=== PATIENT | female | born 1940 | race Caucasian/White ===

== ENCOUNTER 2017-03-06 14:51 | Inpatient (IN) | payer OTHER ==
[~2017-03-06] VITALS: Ht 149.9 cm; Wt 59.0 kg
[~2017-03-06 14:51] MED LIST: ALLOPURINOL100 M1 PO; BUFFERIN LOW DO81 MG PO; CATAPRES0.2 MG PO; CILOSTAZOL50 M1 PO; DOXYCYCLINE HY100 M4 PO; FISH OIL 1,0001 EAC1 PO; FISH OIL 1,0001 EACH PO; FISH OIL500 MG PO; FUROSEMIDE20 M1 PO; HYDRALAZINE HCL50 M1 PO; ISOSORBIDE MONO60 M1 PO; LIPITOR20 M2 PO; LOPERAMIDE2 M2 PO; LOSARTAN POTAS100 M1 PO; METOPROLOL SUCC25 M1 PO; METOPROLOL SUCC50 M2 PO; NORVASC 5MG TAB5 MG PO; OMEPRAZOLE40 M1 PO; ONDANSETRON ODT8 M1 PO; TRAMADOL HCL50 M1 PO; TYLENOL WITH C1 EACH PO; VITAMIN D32000 UNIT PO; VITAMIN D3400 UNI1 PO; ZOFRAN4 M2 PO
--- NOTE | 2017-03-06 14:57 | ED NECK/BACK PAIN COMPLAINT ---
History of Present Illness General Chief Complaint: Low Back Pain/Injury Stated Complaint: BIBA BACK PAIN Source: patient, old records, EMS Exam Limitations: no limitations Vital Signs & Intake/Output Vital Signs & Intake/Output Vital Signs Date Time Temp Pulse Resp B/P B/P Pulse O2 O2 Flow FiO2 Mean Ox Delivery Rate 03/07 1417 98.8 80 20 120/77 94 03/07 1147 97.9 62 20 170/58 97 Room Air Room Air 03/07 0918 97.7 61 18 138/68 03/07 0918 97.7 61 18 138/68 03/07 0918 97.7 61 18 138/68 03/07 0918 97.7 61 18 138/68 03/07 0918 97.7 61 18 138/68 03/07 0707 97.7 61 18 138/68 96 Room Air 03/06 2250 70 170/70 03/06 2249 80 170/70 03/06 2239 98.2 70 18 150/60 97 Room Air 03/06 2024 98.7 69 20 170/60 97 Room Air 03/06 1917 98.4 68 20 186/84 95 Room Air 03/06 1717 98.1 71 18 191/84 96 Room Air 03/06 1716 Room Air ED Intake and Output 03/07 0000 03/06 1200 Intake Total 420 Output Total Balance 420 Intake, IV 10 Intake, Oral 410 Number 1 Bowel Movements Patient 130 lb Weight Weight Reported by Patient Measurement Method Allergies Coded Allergies: Sulfa (Sulfonamide Antibiotics) (Severe, HIVES 12/27/15) Reconcile Medications Amlodipine Besylate (Norvasc) 10 MG TABLET 1 TAB PO DAILY htn (Reported) Aspirin (Children's Aspirin) 81 MG TAB.CHEW 1 TAB PO DAILY HEART (Reported) Atorvastatin Calcium (Lipitor) 20 MG TABLET 1 TAB PO AT BEDTIME HIGH CHOLESTROL (Reported) Cholecalciferol (Vitamin D3) (Vitamin D3) 2,000 UNIT CAPSULE 1 CAP PO BID SUPPLEMENT (Reported) Cilostazol 50 MG TAB 1 TAB PO BID CLOTTING (Reported) Clonidine (Catapres) 0.2 MG TABLET 1 TAB PO BID HEART (Reported) Hydralazine HCl 50 MG TABLET 1 TAB PO BID htn (Reported) Isosorbide Mononitrate (Imdur) [address] 1 TAB PO DAILY HEART (Reported) Metoprolol Succinate 50 MG TAB.ER.24H 1 TAB PO DAILY htn (Reported) Almond-3 Fatty Acids/Fish Oil (Fish Oil 1,000 MG Capsule) 340 MG-1,000 MG CAPSULE 2 CAP PO DAILY SUPPLEMENT (Reported) Omeprazole 40 MG CAPSULE. 1 CAP PO DAILY gerd Triage Note: PT MARIAM FROM HOME WITH CHRONIC BACK PAIN. STATES WHEN SHE IS NOT MOVING OR WALKING SHE HAS NO PAIN, BUT WHEN SHE IS MOVING IT IS 10/10 PAIN. DENIES ANY CP/SOB. STATES SHE HAS BEEN HAVING DIARRHEA RECENTLY AND RETAINING WATER WELL. Triage Nurses Notes Reviewed? yes Onset: Gradual Duration: week(s):, intermittent, waxing and waning Timing: recent history Quality/Severity: moderate Location: lumbar spine, paraspinous muscles Radiation: buttocks Method of Injury: unknown Loss of Consciousness: no loss of consciousness Modifying Factors: movement, rest Associated Symptoms: abdominal bloating HPI: 76 year old female with past medical history significant for CAD status post CABG (1999), PVD (status post angioplasty with stent placement), HTN,stage IV chronic kidney disease secondary to hypertensive nephrosclerosis HLD, lumbar disc surgery, uterine cancer, colon cancer, ? cva presents to the emergency room complaining of exacerbation of her chronic left lower back pain has been going on intermittently for the past few weeks however is now brought her to the point where she is unable to ambulate at home secondary to her back pain which intermittently radiates into her left thigh. She denies any recent trauma or fall. Patient is been taking tramadol without improvement. She is also complaining of a several year history of abdominal bloating and diarrhea for which she said her primary care physician wants to get a CAT scan however she is unable to [facility] to get there. She denies any nausea vomiting walk or bloody stools. No urinary urgency frequency dysuria. she denies any pain at this time (Jen JORDAN,Marcelo) Past History Travel History Traveled to [place] past 21 day No Medical History Any Pertinent Medical History? see below for history Neurological: CVA (? L CVA w/o residual) EENT: NONE Cardiovascular: CAD, hypertension, hyperlipidemia, PVD, CABG 1999/PAD with LE stent Respiratory: NONE Gastrointestinal: n & v x 1 month [employer] BR[employer] 11/27/1989: remote sigmoid resection for Lange B2 colon Ca, w/o adjuvant tx Hepatic: NONE Renal: chronic kidney disease (stage IV) Musculoskeletal: chronic back pain, degen joint disease, falls, gout Psychiatric: NONE Endocrine: thyroid disease Blood Disorders: anemia Cancer(s): basal cell carcinoma, colon/rectal cancer, endometrial cancer MILITARY PAY CLERK/Reproductive: NONE History of MRSA: No History of VRE: No History of CDIFF: No Surgical History Surgical History: hysterectomy (TAHBSO for uterine Ca, f/b RT ), PARTIAL COLECTOMY (SIGMOID) 11/1989 DUE TO CANCER OF COLON Psychosocial History Who do you live with Patient/Self Services at Home None What is your primary language Faroese Tobacco Use: Never used Family History Family History, If Any: MOTHER (Unknown - pt adolted). FATHER (unknown - pt adopted). Hx Contributory? No (Marcelo Mcmahon) Review of Systems Review of Systems Constitutional: Reports: see HPI. Comments Review of systems: See HPI, All other systems negative. Constitutional, no chills no fever, no malaise HEENT: no sore throat no congestion Cardiovascular: No chest pain Skin: no rashes, no change in skin Respiratory: No dyspnea no cough no sputum GI: No nausea no vomiting, CHRONIC diarrhea : No dysuria No hematuria, no frequency Muscle skeletal: back pain, no neck pain, Neurologic: , no headache Psych: No stress Heme/endocrine: No bruising Immunology: No lymphadenopathy (Marcelo Mcmahon) Physical Exam Physical Exam General Appearance: well developed/nourished, alert, awake Neck: supple Comments: Well-developed well-nourished person in no acute distress HEENT: Normal EENT exam; PERRL, EOMI, no nystagmus. HEAD is atraumatic. moist mucous membranes. Neck: Supple, normal range of motion without pain or tenderness Back: Nontender, midline well healed incision without overlying erythema induration or tenderness, no CVA tenderness. Full range of motion Cardiovascular: Regular rate and rhythms no murmurs rubs Respiratory: No respiratory distress. Patient speaking in full complete sentences. Breath sounds clear to auscultation bilaterally: NO W/R/R Abdomen: Soft, nontender distended, no appreciable organomegaly. Normal bowel sounds. No rebound/guarding, (+) ascites. Extremity: No edema, neg slr b/l, full range of motion of extremities, normal and equal pulses bilaterally, 5 out of 5 strength noted to bilateral upper and lower extremities Neuro: Alert oriented x3, motor sensory normal, There were no obvious focal neurologic abnormalities. Skin: No appreciable rash on exposed skin, skin is warm and dry. no jaundice Psych: Mood and affect is normal, memory and judgment is normal. Core Measures CVA/TIA Diagnosis: No (Jen JORDAN,Marcelo) Progress Differential Diagnosis: cauda equina syn, herniated disc, myofascial strain, pyelo/UTI, sciatica, spinal cord inj, T/L spine injury, ureterolithiasis, malignancy, ascites, sbp Plan of Care: Orders Procedure Date/time Status Heart Healthy Diet 03/07 B Active Change service to 03/07 1455 Active CULTURE,BODY FLUID 03/07 1000 Active CYTOLOGY SPECIMEN 03/07 1000 Active BODY FLUID TOTAL PROTEIN 03/07 1000 Complete BODY FLUID LDH 03/07 1000 Complete BODY FLUID CELL COUNT 03/07 1000 Complete BODY FLUID GLUCOSE 03/07 1000 Complete BODY FLUID AMYLASE 03/07 1000 Complete BODY FLUID ALBUMIN 03/07 1000 Complete TOTAL PROTEIN 03/07 0815 Complete LDH (LACT ACID DEHYDROGENASE) 03/07 0815 Complete ALBUMIN 03/07 0815 Complete CBC WITHOUT DIFFERENTIAL 03/07 0600 Complete BASIC ELECTROLYTES PLUS BUN&CR 03/07 0600 Complete PT EVAL LOW COMPLEX 20 MIN 03/07 UNK Complete Gait Training 03/07 UNK Complete Lab Add-on Test 03/07 UNK Active Vital Signs 03/06 2020 Active Teach/Educate 03/06 2019 Active Pain Treatment and Response 03/06 2019 Active Nutritional Intake, Monitor 03/06 2019 Active Isolation 03/06 2020 Active Intake & Output 03/06 2019 Active Patient Care Conference 03/06 2020 Active Activity/Ambulation 03/06 2020 Active PT Evaluate & Treat 03/06 180 Active Saline Lock 03/06 180 Active Pathway - chart 03/06 1807 Active House Staff 03/06 1807 Active Lab Add-on Test 03/06 1807 Active Code Status 03/06 1807 Active Patient Data 03/06 1728 Active Add-on Test (ER Only) 03/06 1708 Active ED Holding Orders 03/06 1706 Active Admit to inpatient 03/06 1706 Active Vital Signs 03/06 1706 Active Code Status 03/06 1706 Complete TROPONIN LEVEL 03/06 1540 Complete PARTIAL THROMBOPLASTIN TIME 03/06 1540 Complete PROTHROMBIN TIME 03/06 1540 Complete PHOSPHORUS 03/06 1540 Complete MAGNESIUM 03/06 1540 Complete GAMMA GLUTAMYL TRANSFERASE 03/06 1540 Complete Lab Add-on Test 03/06 UNK Active VTE Mechanical Prophylaxis 03/06 UNK Active Vital Signs 03/06 UNK Complete Precautions 03/06 UNK Active Nursing Misc 03/06 UNK Active Intake & Output 03/06 UNK Active MISSING MEDICATION FORM 03/06 UNK Active Current Medications Sig/Jose Start time Last Medication Dose Stop Time Status Admin Prednisone 10 MG DAILY 03/07 1523 AC Amlodipine Besylate 10 MG DAILY 03/07 1000 AC 03/07 (Norvasc) 0918 Isosorbide 60 MG DAILY 03/07 1000 AC 03/07 Mononitrate 0918 (Imdur) Metoprolol Succinate 50 MG DAILY 03/07 1000 AC 03/07 (Toprol Xl) 0918 Atorvastatin Calcium 20 MG AT BEDTIME 03/06 2200 AC 03/06 (Lipitor) 2250 Cilostazol 50 MG BID 03/06 2200 AC 03/07 (Pletal) 0300 Clonidine 0.2 MG BID 03/06 2200 AC 03/07 (Catapres) 0918 Hydralazine HCl 50 MG BID 03/06 2200 AC 03/07 (Apresoline) 0918 Melatonin 5 MG ONCE ONE 03/06 2045 CAN (Melatonin) 03/06 204 Acetaminophen 500 MG Q6P PRN 03/06 1815 AC (Tylenol) Lidocaine 1 PAT DAILY 03/06 1815 AC (Lidoderm) Hydrocodone Bitart/ 1 TAB Q8P PRN 03/06 1800 AC Acetaminophen (Vicodin) Oxycodone/ 1 TAB Q8P PRN 03/06 1800 AC Acetaminophen (Percocet) Laboratory Tests 03/07/17 1000: Fluid WBC 72 H, Fld Mesothelial Cells 63, Fld Total RBCs Counted 128 H 03/07/17 1000: Lymphocytes 14, % Normal PMNs 23, Fluid Glucose 102, Fluid Total Protein < 2.0, Fluid Albumin < 1.0, Fluid LDH 173, Fluid Amylase < 30 03/07/17 0815: Anion Gap 9, Estimated GFR 44 L, BUN/Creatinine Ratio 30.8 H, Lactate Dehydrogenase 509, Total Protein 4.5 L, Albumin 2.4 L, CBC w Diff NO MAN DIFF REQ, RBC 2.66 L, MCV 91.0, MCH 30.8, MCHC 33.8, RDW 14.9 H, MPV 7.8, Gran % 87.2 H, Lymphocytes % 7.4 L, Monocytes % 5.3, Eosinophils % 0.1, Basophils % 0 , Absolute Granulocytes 9.5 H, Absolute Lymphocytes 0.8 L, Absolute Monocytes 0.6, Absolute Eosinophils 0, Absolute Basophils 0 Microbiology 03/07 UNK BODY FLUID: Body Fluid Culture - RES 03/07 UNK BODY FLUID: Gram Stain - RES labs ordered, ct ordered-PT IS DECLINING ANYTHING FOR pain, case d/w dr mejía agrees with plan i d/w the pt all of her labs, pt is aware of her elevated kidney function,.l id/ w however her ct findings and need for workup. pt denies abd pain, fever, chills. case d/wdr bullock will admit Diagnostic Imaging: Viewed by Me: CT Scan. Discussed w/RAD: CT Scan. Radiology Impression: PATIENT: SWAPNIL LARIOS PRESENT AGE: 76 PATIENT ACCOUNT NO: [id number] : 40 LOCATION: [facility] ORDERING PHYSICIAN: Marcelo JORDAN SERVICE DATE: 03/06/17 EXAM TYPE: CAT - CT ABD & PELVIS W/O IV CONTRAS EXAMINATION: CT ABDOMEN AND PELVIS WITHOUT CONTRAST CLINICAL INFORMATION: Ascites. Lower back pain. Swelling. COMPARISON: Ultrasound abdomen 02/23/2017. CT abdomen and pelvis 11/04/2015. TECHNIQUE: Multidetector volumetric imaging was performed from the superior aspect of the liver through the pubic symphysis. Sagittal and coronal reformatted images were obtained on the technologist's workstation. DLP: 386.18 mGy-cm FINDINGS: LUNG BASES: Small volume left pleural effusion. Linear atelectasis at the left lung base. Status post median sternotomy. Vascular calcification of the coronary arteries and thoracic aorta. LIVER, GALLBLADDER, AND BILIARY TREE: Large area of low attenuation consistent with a hepatic mass involving much of the midline right liver. Mass extends from the javon hepatis to the dome measuring about 8.2 x 7.6 x 8 cm. This causes lobular bulging of the margin of the liver. On the CT scan of 11/04/2015, there was a hypodense lesion at the dome of the liver measuring 2.2 cm. There is no intrahepatic bile duct dilatation. The gallbladder is unremarkable with no evidence of radiopaque gallstones, gallbladder wall thickening, or obvious pericholecystic inflammatory changes. PANCREAS: Pancreas is atrophic. No pancreatic duct dilatation or mass. SPLEEN: Unremarkable. ADRENAL GLANDS: Unremarkable. KIDNEYS AND URETERS: Bilateral renal cysts. There is a hyperdense cyst in the cortex of the upper pole right kidney measuring 1.8 cm. Hyperdense cyst in the mid pole of the left kidney measuring 3.8 cm. BLADDER : Small collection of air in the bladder. No Lopez catheter seen. Correlate with history of bladder instrumentation. No bladder wall thickening. GASTROINTESTINAL TRACT: Surgical line of sutures at the proximal sigmoid colon from prior partial colectomy. No acute change of the bowel. No bowel obstruction. No bowel wall dilatation. There is a large collection of stool throughout the colon from cecum through pelvis. The appendix is not seen. MESENTERY: There is a large volume of abdominal ascites. Surgical clips in the mesentery adjacent to the descending colon left side of abdomen. ABDOMINAL WALL: There is a midline ventral hernia at the upper abdomen just below the diaphragm at the midline. The defect in the anterior abdominal wall measures 4.7 x 5.7 cm. There is a large pocket of abdominal ascites at this hernia site extending into the subcutaneous tissue. The herniated pocket measures 7.9 x 3.0 x 9.4 cm and bulges the anterior skin line at the upper anterior abdomen. There is generalized anasarca. LYMPH NODES: Normal. VASCULAR: Extensive atherosclerotic vascular wall calcifications throughout the abdomen and pelvis. No aneurysm of the aorta. PELVIC VISCERA: Uterus is absent. No adnexal abnormality. OSSEOUS STRUCTURES: Degenerative spondylosis of the spine with multilevel endplate spurring of the thoracic vertebrae. Degenerative spondylosis of the facet joints at the lower lumbar spine. Status post left-sided laminectomy L4 vertebra. Status post median sternotomy. No acute osseous abnormality. No focal bone lesion. IMPRESSION: 1. Large volume of abdominal ascites. Generalized anasarca. Small left pleural effusion. 2. Suspicious large lesion in the liver. This can be further characterized with dynamic MRI. 3. Degenerative changes of the spine. Status post left-sided laminectomy L4 vertebra. DICTATED BY: Stoney Valerio MD DATE/TIME DICTATED:03/06/171530 BEEF SPLITTER:EDILBERTO DATE/TIME TRANSCRIBED:1530 CONFIDENTIAL, DO NOT COPY WITHOUT APPROPRIATE AUTHORIZATION. < Electronically signed in Other Vendor System> SIGNED BY: Stoney Valerio MD [id number] Initial ED EKG: nsr at 70, nonspecific st seg changes, normal axis Prior EKG: unchanged (12/2015) (Marcelo Mcmahon) Departure Departure Time of Disposition: 1740 Disposition: STILL A PATIENT Condition: Stable Clinical Impression Primary Impression: Ascites Secondary Impressions: Gait instability, Intractable back pain, Liver lesion Referrals: Darvin NAGEL,Charly Thomson (PCP/Family) Departure Forms: Customer Survey General Discharge Information Admission Note Spoke With: Mack Bullock MD Documentation of Exam: Documentation of any treatments & extenuating circumstances including Concerns Regarding Discharge (functional status, medication knowledge or non-compliance, living conditions, etc.) that warrant an admission rather than observation: [ gi and oncology consult, iv pain control, trend labs, swapnil will require paracentesis, pt consult, case management consult as she is unable to care for self currently at home alone (Marcelo Mcmahon) PA/CLERK OF WORKS Co-Sign Statement Statement: ED Attending supervision documentation- [x] I saw and evaluated the patient. I have also reviewed all the pertinent lab results and diagnostic results. I agree with the findings and the plan of care as documented in the PA's/CLERK OF WORKS's documentation. [] I have reviewed the ED Record and agree with the PA's/CLERK OF WORKS's documentation. [] Additions or exceptions (if any) to the PAs/CLERK OF WORKS's note and plan are summarized below: [] (Larry Mejía DO
[2017-03-06 15:52] LABS: ABSOLUTE BASOPHIL COUNT 0 /CUMM (0.0-0.2); ABSOLUTE EOSINOPHIL COUNT 0 /CUMM (0.0-0.7); ABSOLUTE GRANULOCYTE CT 11.6 /CUMM (1.4-6.5); ABSOLUTE LYMPH COUNT 0.3 /CUMM (1.2-3.4); ABSOLUTE MONOCYTE COUNT 0.1 /CUMM (0.10-0.60); BASOPHIL % 0 % (0.0-2.0); EOSINOPHIL % 0.1 % (0-5); HEMATOCRIT 32.2 % (37-47); MEAN CORPUSCULAR HGB CONC 33.6 G/DL (33.0-37.0); MEAN CORPUSCULAR VOLUME 92.2 FL (81.0-99.0); MEAN PLATELET VOLUME 7.2 FL (7.4-10.4); PLATELET COUNT 309 /CUMM (130-400); RBC DISTRIBUTION WIDTH 14.9 % (11.5-14.5)
[2017-03-06 15:53] LABS: GRANULOCYTE % 96.7 % (42.2-75.2)
--- NOTE | 2017-03-06 16:14 | CT SCAN REPORT ---
EXAMINATION: CT ABDOMEN AND PELVIS WITHOUT CONTRAST CLINICAL INFORMATION: Ascites. Lower back pain. Swelling. COMPARISON: Ultrasound abdomen 02/23/2017. CT abdomen and pelvis 11/04/2015. TECHNIQUE: Multidetector volumetric imaging was performed from the superior aspect of the liver through the pubic symphysis. Sagittal and coronal reformatted images were obtained on the technologist's workstation. DLP: 386.18 mGy-cm FINDINGS: LUNG BASES: Small volume left pleural effusion. Linear atelectasis at the left lung base. Status post median sternotomy. Vascular calcification of the coronary arteries and thoracic aorta. LIVER, GALLBLADDER, AND BILIARY TREE: Large area of low attenuation consistent with a hepatic mass involving much of the midline right liver. Mass extends from the javon hepatis to the dome measuring about 8.2 x 7.6 x 8 cm. This causes lobular bulging of the margin of the liver. On the CT scan of 11/04/2015, there was a hypodense lesion at the dome of the liver measuring 2.2 cm. There is no intrahepatic bile duct dilatation. The gallbladder is unremarkable with no evidence of radiopaque gallstones, gallbladder wall thickening, or obvious pericholecystic inflammatory changes. PANCREAS: Pancreas is atrophic. No pancreatic duct dilatation or mass. SPLEEN: Unremarkable. ADRENAL GLANDS: Unremarkable. KIDNEYS AND URETERS: Bilateral renal cysts. There is a hyperdense cyst in the cortex of the upper pole right kidney measuring 1.8 cm. Hyperdense cyst in the mid pole of the left kidney measuring 3.8 cm. BLADDER: Small collection of air in the bladder. No Lopez catheter seen. Correlate with history of bladder instrumentation. No bladder wall thickening. GASTROINTESTINAL TRACT: Surgical line of sutures at the proximal sigmoid colon from prior partial colectomy. No acute change of the bowel. No bowel obstruction. No bowel wall dilatation. There is a large collection of stool throughout the colon from cecum through pelvis. The appendix is not seen. MESENTERY: There is a large volume of abdominal ascites. Surgical clips in the mesentery adjacent to the descending colon left side of abdomen. ABDOMINAL WALL: There is a midline ventral hernia at the upper abdomen just below the diaphragm at the midline. The defect in the anterior abdominal wall measures 4.7 x 5.7 cm. There is a large pocket of abdominal ascites at this hernia site extending into the subcutaneous tissue. The herniated pocket measures 7.9 x 3.0 x 9.4 cm and bulges the anterior skin line at the upper anterior abdomen. There is generalized anasarca. LYMPH NODES: Normal. VASCULAR: Extensive atherosclerotic vascular wall calcifications throughout the abdomen and pelvis. No aneurysm of the aorta. PELVIC VISCERA: Uterus is absent. No adnexal abnormality. OSSEOUS STRUCTURES: Degenerative spondylosis of the spine with multilevel endplate spurring of the thoracic vertebrae. Degenerative spondylosis of the facet joints at the lower lumbar spine. Status post left-sided laminectomy L4 vertebra. Status post median sternotomy. No acute osseous abnormality. No focal bone lesion. IMPRESSION: 1. Large volume of abdominal ascites. Generalized anasarca. Small left pleural effusion. 2. Suspicious large lesion in the liver. This can be further characterized with dynamic MRI. 3. Degenerative changes of the spine. Status post left-sided laminectomy L4 vertebra.
[2017-03-06 18:51] LABS: PT 10.1 SEC (9.4-12.5); PTT 29 SEC (25-37)
[2017-03-06] MEDS ORDERED: NORVASC10 M1 PO (19:19)
[2017-03-06] MEDS ORDERED: METOPROLOL SUCC50 M2 PO (19:20)
--- NOTE | 2017-03-06 19:20 | History & Physical ---
Edilma NAGEL,Lakisha 03/06/171918: General Information and HPI MD Statement: I have seen and personally examined SWAPNIL LARIOS and documented this H&P. The patient is a 76 year old F who presented with a patient stated chief complaint of [back pain, lower extremity weakness]. Source of Information: patient, old records History of Present Illness: 76-year-old female with past medical history of CAD status post CABG (1999), PVD (status post angioplasty with stent placement), HTN,stage IV chronic kidney disease secondary to hypertensive nephrosclerosis HLD, lumbar disc surgery, uterine cancer, colon cancer, ? cva admitted with chief complaint of back pain for 2 weeks which is associated with lower extremity weakness and frequent falls. She describes the pain as dull aching and radiating down her lower extremities especially on the left side. Of note the patient has history of back injury in due to falling down and she has history of lumbar laminectomy. She also reports history of diarrhea for 2 months of associated with fecal incontinence. Patient reports walking independently before the beginning of the pain, and she lives home alone and was able to perform HER activities of daily living on her own. Patient denies any back injury, numbness, tingling, fever, chills Nonsmoker, she quit smoking 40 years ago, denies alcohol or recreational drug use Allergies/Medications Allergies: Coded Allergies: Sulfa (Sulfonamide Antibiotics) (Severe, HIVES 12/27/15) Past History Travel History Traveled to [place] past 21 day No Medical History Neurological: CVA (? L CVA w/o residual) EENT: NONE Cardiovascular: CAD, hypertension, hyperlipidemia, PVD, CABG 1999/PAD with LE stent Respiratory: NONE Gastrointestinal: n & v x 1 month GAMING HOST 11/27/1989: remote sigmoid resection for Lange B2 colon Ca, w/o adjuvant tx Hepatic: NONE Renal: chronic kidney disease (stage IV) Musculoskeletal: chronic back pain, degen joint disease, falls, gout Psychiatric: NONE Endocrine: thyroid disease Blood Disorders: anemia Cancer(s): basal cell carcinoma, colon/rectal cancer, endometrial cancer BUSINESS INTELLIGENCE DIRECTOR/Reproductive: NONE History of MRSA: No History of VRE: No History of CDIFF: No Surgical History Surgical History: hysterectomy (TAHBSO for uterine Ca, f/b RT ), PARTIAL COLECTOMY (SIGMOID) 11/1989 DUE TO CANCER OF COLON Past Family/Social History Family History Relations & Conditions if any MOTHER (Unknown - pt adolted). FATHER (unknown - pt adopted). Psychosocial History Who Do You Live With? self Services at Home: None Primary Language: Uzbek Living Will? yes Power of Driver Helper/HCP? yes Name of POA/HCP: Nancie Luong- friend/POA Functional Ability ADLs Independent: dressing, eating, toileting, bathing. Ambulation: cane IADLs Independent: shopping, housework, finances, food prep, telephone, transportation , medication admin. Review of Systems Review of Systems Constitutional: Reports: malaise, weakness. Denies: chills, diaphoresis. Cardiovascular: Denies: no symptoms. Respiratory: Denies: no symptoms. GI: Reports: bloating, diarrhea. Genitourinary: Denies: no symptoms. Musculoskeletal: Reports: back pain, muscle pain. Skin: Denies: no symptoms. Neurological/Psychological: Denies: no symptoms. Hematologic/Endocrine: Denies: no symptoms. Exam & Diagnostic Data Last 24 Hrs of Vital Signs/I&O Vital Signs Date Time Temp Pulse Resp B/P B/P Pulse O2 O2 Flow FiO2 Mean Ox Delivery Rate 03/06 2023 98.7 69 20 170/60 97 Room Air 03/06 1916 98.4 68 20 186/84 95 Room Air 03/06 171 98.1 71 18 191/84 96 Room Air 03/06 1716 Room Air 03/06 1455 98.1 80 18 190/86 98 Room Air Physical Exam General Appearance Alert, Oriented X3, Cooperative, No Acute Distress HEENT Atraumatic, PERRLA, EOMI, Mucous Membr. moist/pink Neck Supple, No JVD Cardiovascular Normal S1, Normal S2, ejection systolic murmur on aortic area Lungs Clear to Auscultation Abdomen Normal Bowel Sounds, Soft, distended, nontender, liver is palpable, irregular and firm Neurological Normal Speech, strenghth is 3/5 in the LLE Extremities RLE 2 + pitting edema Vascular Normal Pulses Assessment/Plan Assessment: 76-year-old female with past medical history of CAD status post CABG (1999), PVD (status post angioplasty with stent placement), HTN,stage IV chronic kidney disease secondary to hypertensive nephrosclerosis HLD, lumbar disc surgery, uterine cancer, colon cancer, ? cva admitted with chief complaint of back pain for 2 weeks which is associated with lower extremity weakness and frequent falls. Vital signs on admission were insignificant except for blood pressure 190/86 Labs on admission: Significant for WBC 12, hemoglobin 10, creatinine 1.3, glucose 132, CT abdomen: Small left pleural effusion, large lesion in the liver, degeneration of the spine especially left-sided laminectomy L4 vertebra #Back pain: Most likely is due to degenerative joint disease versus metastasis, senses the patient has history of fecal incontinence and she has a history of colon cancer and uterine cancer however CT didn't show any signs of bone metastasis Pain management with when necessary Vicodin, Percocet, Tylenol PT evaluation Obtain neurosurgical evaluation #? RLE DVT: Right lower extremity is more swollen than the left, Follow up on Doppler ultrasound to rule out DVT #Ascitis/liver mass Most likely malignant ascites, liver mass was visualized in the previous CT, need to contact radiology for comparison of the size Ultrasound-guided paracentesis Follow-up on ascitic fluid tap pathology, glucose, LDH, pH Follow up on culture and sensitivity, Patient is likely will require MRI to identify the liver mass #Chronic medical conditions including hypertension,, CAD, hyperlipidemia Continue home meds Patient is full code DVT prophylaxis with subcutaneous heparin Heart healthy diet As Ranked By This Provider Problem List: 1. Intractable back pain 2. Liver lesion 3. Ascites Core Measures/Misc (10/23) Acute Coronary Syndrome ACS Diagnosis: No Congestive Heart Failure Congestive Heart Failure Diagnosis No Cerebrovascular Accident CVA/TIA Diagnosis: No VTE (View Protocol) VTE Risk Factors Age>40 No Mechanical VTE Prophylaxis d/t N/A MechProphylax Ordered No VTE Pharm Prophylaxis d/t NA PharmProphylax ordered Sepsis (View protocol) Sepsis Present: No ColtonSaJacoby 03/06/171946: General Information and HPI Allergies/Medications Home Med list Amlodipine Besylate (Norvasc) 10 MG TABLET 1 TAB PO DAILY htn (Reported) Aspirin (Children's Aspirin) 81 MG TAB.CHEW 1 TAB PO DAILY HEART (Reported) Atorvastatin Calcium (Lipitor) 20 MG TABLET 1 TAB PO AT BEDTIME HIGH CHOLESTROL (Reported) Cholecalciferol (Vitamin D3) (Vitamin D3) 2,000 UNIT CAPSULE 1 CAP PO BID SUPPLEMENT (Reported) Cilostazol 50 MG TAB 1 TAB PO BID CLOTTING (Reported) Clonidine (Catapres) 0.2 MG TABLET 1 TAB PO BID HEART (Reported) Hydralazine HCl 50 MG TABLET 1 TAB PO BID htn (Reported) Isosorbide Mononitrate (Imdur) [address] 1 TAB PO DAILY HEART (Reported) Metoprolol Succinate 50 MG TAB.ER.24H 1 TAB PO DAILY htn (Reported) Lisman-3 Fatty Acids/Fish Oil (Fish Oil 1,000 MG Capsule) 340 MG-1,000 MG CAPSULE 2 CAP PO DAILY SUPPLEMENT (Reported) Omeprazole 40 MG CAPSULE.DR 1 CAP PO DAILY gerd Resident Review Statement Resident Statement: examined this patient, discussed with dental internship, agreed with dental internship, discussed with family, reviewed EMR data (avail), discussed with nursing , discussed with case mgmt, reviewed images, amended to note Other Findings: This is 76-year-old female with medical history of CAD status post CABG (1999), PVD (status post angioplasty with stent placement), HTN, stage IV chronic kidney disease secondary to hypertensive nephrosclerosis, HLD, lumbar disc surgery, uterine cancer, colon cancer, CVA. Presented to the emergency department with a chief complain off back pain. She stated that the back pain started 2 weeks ago and it is associated with lower extremity weakness and frequent falls. She describes the pain as dull aching and radiating down her lower extremities especially on the left side. patient has history of back injury in due to falling down and she has history of lumbar laminectomy. the P.t stated that since last summer she started to noted her ABD size increased and that she wanted abdomen change. Also she report history of diarrhea for 2 months of associated with fecal incontinence before this back pain started. In the ED patient did not receive any medication. CT scan abdomen and pelvis without IV contrast reporting large. Abdominal situs with generalized anasarca and small left pleural effusion. Large lesion in the liver noted for. There is no signs of acute vertebral fracture. Problem list: -Lower back pain -Generalized weakness -Multiple fall no head injury -Large abdominal ascites/anasarca -Ventral hernia -Chronic kidney disease stage IV -Chronic anemia Plan: -Admit patient to general medicine floor -Vitals every shift, Fall precaution -Ultrasound-guided paracentesis in a.m. -Patient will need outpatient further assessment for possibility of underlying malignancy -General surgery consultation for further assessment of the large abdominal wall pocket of fluid and hernia. -If patient spike a fever we'll start the patient IV ceftriaxone as prophylaxis we'll hold off antibiotic for now. -Neurosurgery consultation and for further assessment -Pain medication -Physical therapy consultation in a.m. -Obtain right lower extremity ultrasound to rule out DVT -Check GGT to assess for elevated alkaline phosphatase -Heart healthy diet -DVT prophylaxis -Full code Mack Bullock MD 03/06/17 2242: Attending MD Review Statement Attending Statement Attending MD Statement: examined this patient, discuss w/resident/PA/DISH CARRIER, agreed w/resident/PA/DISH CARRIER, reviewed EMR data (avail), reviewed images, amended to note Attending Assessment/Plan: The patient is a 76 yo female with h/o CAD (S/P CABG), PVD (S/P Stent), HTN, CKD (IV) secondary to nephrosclerosis, HL, Uterine ca (treated with surgery 1979) and colon ca (also treated with surgical resection), chronic back pain (s/p laminectomy L4-5 in past) who presented in the ED with progressively increasing back pain (worse on left side) for 2 weeks. She has also noted increased abdominal girth since last summer and had seen her PCP (Dr. Boston). An US did show ascites and he had ordered a CT of the Abd/Pel, however the patient was unable to have it done due to back pain and difficultly ambulating. She was taking Tramadol at home w/o relief of pain. Denied any fevers, abdominal pain, cough, dyspnea, or other symptoms. Has had some LE weakness. She has had some falls in the past, however no specific injury triggering increased back pain. She had distant L4-5 lami (Dr. Mahan) in past and had done well with PT after her surgery. She describes several months of loose bowel movements/ diarrhea w/o blood or pain. Physical Exam: VS: T 98.1, P 80, R 18, BP 190/86, PO 98% RA HEENT: eyes- PERRLA, EOMI nayeli- moist mucosa w/o lesions Neck: supple, no adenopathy, thyromegaly, or bruits/JVD Chest: clear except sl decreased breath sounds at bases Cor: RRR nl S1, S2 w/+ 2/6 sys murm Abd: BS+, soft, distended with ascites/shifting fluid wave, non-tender, + irreg liver/enlarged Ext: RLE 2+ edema, non-tender/no cords, pulses 1+ Neuro: alert & oriented x 3, + diminished strength 3/5 LLE Labs/Tests- as above Impression/Plan: #Intractable Back Pain- patient with h/o some degree of chronic back pain and did have prior disk surgery in distant past (Dr. Mahan) with success after PT. Now with increased symptoms. CT showing neuroforaminal narrowing (no metastases or fractures) with spinal stenosis. Concern regarding some LLE weakness. Plan: Admit to medical floor. Analgesia with Dilaudid/oxycodone/Tylenol. PT consult. Neurosurgical consult. May need STR. #Abdominal Ascites/Liver Mass- prior CT of liver did show a small mass (?not worked up in past), now CT reports large mass. Radiology suggested dynamic contrast MRI, however patient is claustrophobic and the MRI scanner is down. Potential malignant ascites is of concern due to h/o ca in past (colon 1989). Does not appear to be SBP. The fact that dynamic MRI suggested may suggest radiology was considering hemangioma (?would not typically cause ascites). Plan: Diagnostic and therapeutic paracentesis tomorrow. Sent ascitic fluid for studies, including cytology. Patient would prefer open MRI as OP. Check albumin, etc. #RLE Swelling/Edema- ? Has been ongoing. Plan: Agree with Doppler evaluation for DVT. #HTN/CAD- normally on Amlodipine/Clonidine/Metoprolol/Isosorbide/Hydralazine. Plan: Continue usual meds and monitor BP. #HL- on Atorvastatin. Plan: Hold Atorvastatin at present with abnormal liver. #GERD- on Omeprazole. Plan: Continue Omeprazole. #CKD4- has been stable. Plan: Will follow. Avoid nephrotoxins.
--- NOTE | 2017-03-06 19:30 | Admission Certification ---
Admission Certification Certification Statement - As attending physician, I certify that at the time of - admission, based on clinical presentation, severity of - symptoms, need for further diagnostic testing and - therapeutic interventions, and risk of adverse outcomes - without in-hospital treatment, in my clinical assessment, - this patient requires an acute hospital stay for a minimum - of two nights or longer. I have also considered psychsocial - factors such as support system, advanced age, financial - issues, cognitive issues, and failed out-patient treatments, - past re-admission history, safety of patient, and lack of - compliance as applicable. Specific rationale supporting this admission is: Patient presents with severe back pain requiring IV meds, unable to ambulate, ascites ? malignancy. Needs diagnostic and therapeutic paracentesis, neurosurgical and PT consults.
--- NOTE | 2017-03-06 20:22 | ULTRASOUND REPORT ---
EXAMINATION: US TRIPLEX LOWER EXTREMITY, RIGHT CLINICAL INFORMATION: Right leg swelling and pain. COMPARISON: Prior bilateral venous examination November 2016 TECHNIQUE: Color-flow triplex imaging with spectral analysis and compression Doppler were performed on the lower extremity. FINDINGS: Respiratory variation, normal compression and augmented flow are noted throughout the lower extremity. The visualized common femoral vein, superficial femoral vein, profunda femoral vein, popliteal vein and midcalf peroneal and posterior tibial venous segments show no evidence of deep venous thrombosis. There is no Jenkins's cyst. IMPRESSION: Normal triplex scan without evidence of deep venous thrombosis involving the lower extremity.
[2017-03-06 20:24] VITALS: BP 170/60
[2017-03-06 22:39] VITALS: BP 150/60
[2017-03-07 07:07] VITALS: BP 138/68
[2017-03-07 10:23] LABS: ABSOLUTE BASOPHIL COUNT 0 /CUMM (0.0-0.2); ABSOLUTE EOSINOPHIL COUNT 0 /CUMM (0.0-0.7); ABSOLUTE GRANULOCYTE CT 9.5 /CUMM (1.4-6.5); ABSOLUTE LYMPH COUNT 0.8 /CUMM (1.2-3.4); ABSOLUTE MONOCYTE COUNT 0.6 /CUMM (0.10-0.60); BASOPHIL % 0 % (0.0-2.0); EOSINOPHIL % 0.1 % (0-5); MEAN CORPUSCULAR HGB 30.8 PG (27.0-31.0); MEAN CORPUSCULAR HGB CONC 33.8 G/DL (33.0-37.0); MEAN PLATELET VOLUME 7.8 FL (7.4-10.4); PLATELET COUNT 233 /CUMM (130-400); RBC DISTRIBUTION WIDTH 14.9 % (11.5-14.5); RED BLOOD CELL CT 2.66 /CUMM (4.20-5.40); WHITE BLOOD CELL COUNT 10.9 /CUMM (4.8-10.8)
--- NOTE | 2017-03-07 11:11 | PN- Housestaff ---
See Addendum Subjective Follow-up For: weakness back pain liver mass Subjective: nonradicular back pain 5/10 no abdominal pain, diarrhea, incontinence, dysuria, nausea or vomiting Review of Systems Constitutional: Reports: see HPI. Objective Last 24 Hrs of Vital Signs/I&O Vital Signs Date Time Temp Pulse Resp B/P B/P Pulse O2 O2 Flow FiO2 Mean Ox Delivery Rate 03/07 1417 98.8 80 20 120/77 94 03/07 1147 97.9 62 20 170/58 97 Room Air Room Air 03/07 0918 97.7 61 18 138/68 03/07 0918 97.7 61 18 138/68 03/07 0918 97.7 61 18 138/68 03/07 0918 97.7 61 18 138/68 03/07 0918 97.7 61 18 138/68 03/07 0707 97.7 61 18 138/68 96 Room Air 03/06 2250 70 170/70 03/06 2249 80 170/70 03/06 2239 98.2 70 18 150/60 97 Room Air 03/06 2024 98.7 69 20 170/60 97 Room Air 03/06 1917 98.4 68 20 186/84 95 Room Air 03/06 1717 98.1 71 18 191/84 96 Room Air 03/06 1716 Room Air Intake & Output 03/07 1600 03/07 0800 03/07 0000 Intake Total 680 110 420 Output Total 150 Balance 530 110 420 Intake, Blood 200 Product Intake, IV 10 10 Intake, Oral 480 100 410 Number 0 1 Bowel Movements Output, Urine 150 Patient 58.967 kg Weight Weight Reported by Patient Measurement Method Physical Exam General Appearance: Alert, Oriented X3, Cooperative, No Acute Distress Cardiovascular: Regular Rate, Normal S1, Normal S2, No Murmurs Lungs: Clear to Auscultation, Normal Air Movement Abdomen: Normal Bowel Sounds, Soft, firm hepatomegaly nontender with ascites Neurological: Strength at 5/5 X4 Ext (4/5 LLE), Cranial Nerves 3-12 NL Extremities: No Clubbing, No Cyanosis, 1+ RLE edema Current Medications: Current Medications Sig/Jose Start time Last Medication Dose Route Stop Time Status Admin Acetaminophen 500 MG Q6P PRN 03/06 1815 AC PO Albumin Human 50 GM ONCE ONE 03/07 1245 DC 03/07 IV 03/07 1246 1419 Amlodipine Besylate 10 MG DAILY 03/07 1000 AC 03/07 PO 0918 Atorvastatin Calcium 20 MG AT BEDTIME 03/06 2200 AC 03/06 PO 2250 Cilostazol 50 MG BID 03/06 2200 AC 03/07 PO 0300 Clonidine 0.2 MG BID 03/06 2200 AC 03/07 PO 0918 Heparin Sodium 5,000 UNIT Q8 03/06 2200 DC (Porcine) SC 03/07 0800 Hydralazine HCl 50 MG BID 03/06 220 AC 03/07 PO 0918 Hydrocodone Bitart/ 1 TAB Q8P PRN 03/06 1800 AC Acetaminophen PO Isosorbide 60 MG DAILY 03/07 1000 AC 03/07 Mononitrate PO 0918 Lidocaine 1 ML .STK-MED ONE 03/07 1138 DC ID 03/07 1139 Lidocaine 1 PAT DAILY 03/06 1815 AC EXT Melatonin 5 MG ONCE ONE 03/06 2045 CAN PO 03/06 2046 Metoprolol Succinate 50 MG DAILY 03/07 1000 AC 03/07 PO 0918 Oxycodone/ 1 TAB Q8P PRN 03/06 1800 AC Acetaminophen PO Prednisone 10 MG DAILY 03/07 1523 AC PO Tramadol HCl 50 MG ONCE ONE 03/06 2230 DC 03/06 PO 03/06 2231 2255 Last 24 Hrs of Lab/Jere Results Last 24 Hrs of Labs/Mics: Laboratory Tests 03/07/17 1000: Fluid WBC 72 H, Fld Mesothelial Cells 63, Fld Total RBCs Counted 128 H 03/07/17 1000: Lymphocytes 14, % Normal PMNs 23, Fluid Glucose 102, Fluid Total Protein < 2.0, Fluid Albumin < 1.0, Fluid LDH 173, Fluid Amylase < 30 03/07/17 0815: Anion Gap 9, Estimated GFR 44 L, BUN/Creatinine Ratio 30.8 H, Lactate Dehydrogenase 509, Total Protein 4.5 L, Albumin 2.4 L, CBC w Diff NO MAN DIFF REQ, RBC 2.66 L, MCV 91.0, MCH 30.8, MCHC 33.8, RDW 14.9 H, MPV 7.8, Gran % 87.2 H, Lymphocytes % 7.4 L, Monocytes % 5.3, Eosinophils % 0.1, Basophils % 0 , Absolute Granulocytes 9.5 H, Absolute Lymphocytes 0.8 L, Absolute Monocytes 0.6, Absolute Eosinophils 0, Absolute Basophils 0 Microbiology 03/07 UNK BODY FLUID: Body Fluid Culture - RES 03/07 UNK BODY FLUID: Gram Stain - RES Assessment/Plan Assessment: 76-year-old female with past medical history of CAD status post CABG (1999), PVD (status post angioplasty with stent placement), HTN,stage IV chronic kidney disease secondary to hypertensive nephrosclerosis HLD, lumbar disc surgery, uterine cancer, colon cancer, ? cva admitted with chief complaint of back pain for 2 weeks which is associated with lower extremity weakness and frequent falls. Chronic back pain: nonradicular, with new onset weakness, difficulty ambulating and falls Patient reports diarrhea with fecal incontinence but normal bladder control L4 laminectomy in past (Dr. Mahan) and PT. CT showing neuroforaminal narrowing (no metastases or fractures) with spinal stenosis. Continue analgesia with Dilaudid/oxycodone/Tylenol. Physical therapy consulted Neurosurgical consult for possible cord compression Patient refusing MRI evaluation STR. Ascites with liver mass: CT reports large mass. Patient refusing MRI at this time Potential malignant ascites is of concern History of colon cancer in past (resected 1989). Paracentesis today, check SAAG, SBP, culture, and cytology GI consultation RLE edema: Ultrasound Doppler negative for DVT. CAD/HTN: Continue betablocker,nitrates and antihypertensives HLD: Statin on hold Trend LFTs GERD: Continue omeprazole CKD stage IIIA: stable Avoid nephrotoxins Heart healthy diet DVT ppx-heparin 5000 units subcutaneous Q8H Full code Problem List: 1. Peripheral vascular occlusive disease 2. CAD (coronary artery disease) 3. Hypertension 4. Abdominal pain 5. History of colon cancer 6. History of uterine cancer 7. Falls frequently 8. Ascites 9. Liver lesion Pain Ratin Pain Location: lower back Pain Goal: Pain 4 or less Pain Plan: prn Tomorrow's Labs & Rationales: cbc, bep, lfts
[2017-03-07 11:20] LABS: HEMATOCRIT 24.2 % (37-47)
[2017-03-07 11:21] LABS: GRANULOCYTE % 87.2 % (42.2-75.2)
[2017-03-07 11:47] VITALS: BP 170/58
[2017-03-07 14:17] VITALS: BP 120/77
--- NOTE | 2017-03-07 15:44 | Cons- Gastroenterology ---
General Information and HPI Consulting Request Date of Consult: 03/07/17 Requested By: Mack Bullock MD Reason for Consult: 1. Ascites Source of Information: patient History of Present Illness: Patient is a 76 year old female with a PMH colon cancer s/p resectin in 1989 who presents with new onset ascites and an enlarging mass in the dome of the liver. She has a past medical history of CAD status post CABG (1999), PVD (status post angioplasty with stent placement), HTN,stage IV chronic kidney disease secondary to hypertensive nephrosclerosis HLD, lumbar disc surgery, and uterine cancer, ? cva admitted with chief complaint of back pain for 2 weeks which is associated with lower extremity weakness and frequent falls. She describes the pain as dull aching and radiating down her lower extremities especially on the left side. Of note the patient has history of back injury in due to falling down and she has history of lumbar laminectomy. nicholas Adorno also reports diarrhea for 2 months of associated with fecal incontinence. She has had no melena nor bright red blood per rectum. She denies nausea, vomiting or abdominal pain. She has had no fever or shaking chills. On admission she had a CT Scan the results of which are as follows: FINDINGS: LUNG BASES: Small volume left pleural effusion. Linear atelectasis at the left lung base. Status post median sternotomy. Vascular calcification of the coronary arteries and thoracic aorta. LIVER, GALLBLADDER, AND BILIARY TREE: Large area of low attenuation consistent with a hepatic mass involving much of the midline right liver. Mass extends from the javon hepatis to the dome measuring about 8.2 x 7.6 x 8 cm. This causes lobular bulging of the margin of the liver. On the CT scan of 11/04/2015, there was a hypodense lesion at the dome of the liver measuring 2.2 cm. There is no intrahepatic bile duct dilatation. The gallbladder is unremarkable with no evidence of radiopaque gallstones, gallbladder wall thickening, or obvious pericholecystic inflammatory changes. PANCREAS: Pancreas is atrophic. No pancreatic duct dilatation or mass. SPLEEN: Unremarkable. ADRENAL GLANDS: Unremarkable. KIDNEYS AND URETERS: Bilateral renal cysts. There is a hyperdense cyst in the cortex of the upper pole right kidney measuring 1.8 cm. Hyperdense cyst in the mid pole of the left kidney measuring 3.8 cm. BLADDER: Small collection of air in the bladder. No Lopez catheter seen. Correlate with history of bladder instrumentation. No bladder wall thickening. GASTROINTESTINAL TRACT: Surgical line of sutures at the proximal sigmoid colon from prior partial colectomy. No acute change of the bowel. No bowel obstruction. No bowel wall dilatation. There is a large collection of stool throughout the colon from cecum through pelvis. The appendix is not seen. MESENTERY: There is a large volume of abdominal ascites. Surgical clips in the mesentery adjacent to the descending colon left side of abdomen. ABDOMINAL WALL: There is a midline ventral hernia at the upper abdomen just below the diaphragm at the midline. The defect in the anterior abdominal wall measures 4.7 x 5.7 cm. There is a large pocket of abdominal ascites at this hernia site extending into the subcutaneous tissue. The herniated pocket measures 7.9 x 3.0 x 9.4 cm and bulges the anterior skin line at the upper anterior abdomen. There is generalized anasarca. LYMPH NODES: Normal. VASCULAR: Extensive atherosclerotic vascular wall calcifications throughout the abdomen and pelvis. No aneurysm of the aorta. PELVIC VISCERA: Uterus is absent. No adnexal abnormality. OSSEOUS STRUCTURES: Degenerative spondylosis of the spine with multilevel endplate spurring of the thoracic vertebrae. Degenerative spondylosis of the facet joints at the lower lumbar spine. Status post left-sided laminectomy L4 vertebra. Status post median sternotomy. No acute osseous abnormality. No focal bone lesion. IMPRESSION: 1. Large volume of abdominal ascites. Generalized anasarca. Small left pleural effusion. 2. Suspicious large lesion in the liver. This can be further characterized with dynamic MRI. 3. Degenerative changes of the spine. Status post left-sided laminectomy L4 vertebra. She underwent paracentesis and had a SAAG of 1.3 which is suggestive of portal hypertension. She had WBC of 72 which argues against SBP. Cytology is still pending. Ascitic protein was <2 and LDH was 173 both of which argue again malignancy and cardiac ascites. She also has chronic anemia which has been present for several years as well as chronic hypoalbuminemia with albumins in the 3.0 range. However, both her platelets and coags (PT/INR) have been normal. Allergies/Medications Allergies: Coded Allergies: Sulfa (Sulfonamide Antibiotics) (Severe, HIVES 12/27/15) Home Med List: Amlodipine Besylate (Norvasc) 10 MG TABLET 1 TAB PO DAILY htn (Reported) Aspirin (Children's Aspirin) 81 MG TAB.CHEW 1 TAB PO DAILY HEART (Reported) Atorvastatin Calcium (Lipitor) 20 MG TABLET 1 TAB PO AT BEDTIME HIGH CHOLESTROL (Reported) Cholecalciferol (Vitamin D3) (Vitamin D3) 2,000 UNIT CAPSULE 1 CAP PO BID SUPPLEMENT (Reported) Cilostazol 50 MG TAB 1 TAB PO BID CLOTTING (Reported) Clonidine (Catapres) 0.2 MG TABLET 1 TAB PO BID HEART (Reported) Hydralazine HCl 50 MG TABLET 1 TAB PO BID htn (Reported) Isosorbide Mononitrate (Imdur) [address] 1 TAB PO DAILY HEART (Reported) Metoprolol Succinate 50 MG TAB.ER.24H 1 TAB PO DAILY htn (Reported) Jenks-3 Fatty Acids/Fish Oil (Fish Oil 1,000 MG Capsule) 340 MG-1,000 MG CAPSULE 2 CAP PO DAILY SUPPLEMENT (Reported) Omeprazole 40 MG CAPSULE. 1 CAP PO DAILY gerd Current Medications: Current Medications Sig/Jose Start time Last Medication Dose Route Stop Time Status Admin Acetaminophen 500 MG Q6P PRN 03/06 1815 AC PO Albumin Human 50 GM ONCE ONE 03/07 1245 DC 03/07 IV 03/07 1246 1419 Amlodipine Besylate 10 MG DAILY 03/07 1000 AC 03/07 PO 0918 Atorvastatin Calcium 20 MG AT BEDTIME 03/06 2200 AC 03/06 PO 2250 Cilostazol 50 MG BID 03/06 2200 AC 03/07 PO 0300 Clonidine 0.2 MG BID 03/06 2200 AC 03/07 PO 0918 Heparin Sodium 5,000 UNIT Q8 03/06 2200 DC (Porcine) SC 03/07 0800 Hydralazine HCl 50 MG BID 03/06 2200 AC 03/07 PO 0918 Hydrocodone Bitart/ 1 TAB Q8P PRN 03/06 1800 AC Acetaminophen PO Isosorbide 60 MG DAILY 03/07 1000 AC 03/07 Mononitrate PO 0918 Lidocaine 1 ML .STK-MED ONE 03/07 1138 DC ID 03/07 1139 Lidocaine 1 PAT DAILY 03/06 1815 AC EXT Melatonin 5 MG ONCE ONE 03/06 2045 CAN PO 03/06 2046 Metoprolol Succinate 50 MG DAILY 03/07 1000 AC 03/07 PO 0918 Oxycodone/ 1 TAB Q8P PRN 03/06 1800 AC Acetaminophen PO Prednisone 10 MG DAILY 03/07 1523 UNVr PO Tramadol HCl 50 MG ONCE ONE 03/06 2230 DC 03/06 PO 03/06 2230 2255 Past History Travel History Traveled to [place] past 21 day No Medical History Blood Transfusion Hx: Yes Neurological: CVA (? 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 FATHER (unknown - pt adopted). Psychosocial History Who Do You Live With? self Services at Home: None Primary Language: Czech Smoking Status: Former Smoker Living Will? yes Power of Accordion Repairer/HCP? yes Name of POA/HCP: Nancie Luong- friend/POA Functional Ability ADLs Independent: dressing, eating, toileting, bathing. Ambulation: cane IADLs Independent: shopping, housework, finances, food prep, telephone, transportation , medication admin. Review of Systems Review of Systems Constitutional: Reports: malaise, weakness. EENTM: Denies: no symptoms. Cardiovascular: Denies: no symptoms. Respiratory: Denies: no symptoms. GI: Reports: see HPI, distention. Genitourinary: Denies: no symptoms. Musculoskeletal: Reports: see HPI, back pain. Skin: Denies: no symptoms. Neurological/Psychological: Denies: no symptoms. Hematologic/Endocrine: Denies: no symptoms. Immunologic/Allergic: Denies: no symptoms. Exam & Diagnostic Data Vital Signs and I&O Vital Signs Date Time Temp Pulse Resp B/P B/P Pulse O2 O2 Flow FiO2 Mean Ox Delivery Rate 03/07 1417 98.8 80 20 120/77 94 03/07 1147 97.9 62 20 170/58 97 Room Air Room Air 03/07 0918 97.7 61 18 138/68 03/07 0918 97.7 61 18 138/68 03/07 0918 97.7 61 18 138/68 03/07 0918 97.7 61 18 138/68 03/07 0918 97.7 61 18 138/68 03/07 0707 97.7 61 18 138/68 96 Room Air 03/06 2250 70 170/70 03/06 2249 80 170/70 03/06 2239 98.2 70 18 150/60 97 Room Air 03/06 2024 98.7 69 20 170/60 97 Room Air 03/06 1917 98.4 68 20 186/84 95 Room Air 03/06 1717 98.1 71 18 191/84 96 Room Air 03/06 1716 Room Air Intake & Output 03/07 1600 03/07 0400 03/06 1600 03/06 0400 03/05 1600 03/05 0400 Intake Total 790 420 Output Total 150 Balance 640 420 Intake, Blood 200 Product Intake, IV 10 10 Intake, Oral 580 410 Number 0 1 Bowel Movements Output, Urine 150 Patient 130 lb Weight Weight Reported by Patient Measurement Method Physical Exam General Appearance: alert, awake, mild distress Head: atraumatic, normal appearance Neck: supple, full range of motion Respiratory: normal breath sounds, lungs clear Cardiovascular: regular rate/rhythm, Normal S1 and S2 without rub, murmur or gallop Gastrointestinal: normal bowel sounds, soft, non-tender, no organomegaly Extremities: edema, 2+, RLE Neurologic/Psych: awake, alert, oriented x 3 Cranial Nerves: grossly intact Results Pertinent Lab Results: Laboratory Tests 03/07 03/07 03/07 UNK UNK 0815 Chemistry Sodium (137 - 145 mmol/L) 138 Potassium (3.5 - 5.1 mmol/L) 4.4 Chloride (98 - 107 mmol/L) 106 Carbon Dioxide (22 - 30 mmol/L) 23 Anion Gap (5 - 16) 9 BUN (7 - 17 mg/dL) 37 H Creatinine (0.5 - 1.0 mg/dL) 1.2 H Estimated GFR (>60 ml/min) 44 L BUN/Creatinine Ratio (7 - 25 %) 30.8 H Lactate Dehydrogenase (313 - 618 U/L) 509 Total Protein (6.3 - 8.2 g/dL) 4.5 L Albumin (3.5 - 5.0 g/dL) 2.4 L Hematology CBC w Diff NO MAN DIFF REQ WBC (4.8 - 10.8 /CUMM) 10.9 H RBC (4.20 - 5.40 /CUMM) 2.66 L Hgb (12.0 - 16.0 G/DL) 8.2 L Hct (37 - 47 %) 24.2 L MCV (81.0 - 99.0 FL) 91.0 MCH (27.0 - 31.0 PG) 30.8 MCHC (33.0 - 37.0 G/DL) 33.8 RDW (11.5 - 14.5 %) 14.9 H Plt Count (130 - 400 /CUMM) 233 MPV (7.4 - 10.4 FL) 7.8 Gran % (42.2 - 75.2 %) 87.2 H Lymphocytes % (20.5 - 51.1 %) 7.4 L Monocytes % (1.7 - 9.3 %) 5.3 Eosinophils % (0 - 5 %) 0.1 Basophils % (0.0 - 2.0 %) 0 Absolute Granulocytes (1.4 - 6.5 /CUMM) 9.5 H Absolute Lymphocytes (1.2 - 3.4 /CUMM) 0.8 L Lymphocytes (%) 14 Absolute Monocytes (0.10 - 0.60 /CUMM) 0.6 Absolute Eosinophils (0.0 - 0.7 /CUMM) 0 Absolute Basophils (0.0 - 0.2 /CUMM) 0 % Normal PMNs (%) 23 Other Body Source Fluid WBC (0 - 5 /CUMM) 72 H Fld Mesothelial Cells (%) 63 Fld Total RBCs Counted (0 /CUMM) 128 H Fluid Glucose (mg/dL) 102 Fluid Total Protein (g/dL) < 2.0 Fluid Albumin (g/dL) < 1.0 Fluid LDH (U/L) 173 Fluid Amylase (U/L) < 30 03/06 1540 Chemistry Sodium (137 - 145 mmol/L) 141 Potassium (3.5 - 5.1 mmol/L) 4.9 Chloride (98 - 107 mmol/L) 105 Carbon Dioxide (22 - 30 mmol/L) 23 Anion Gap (5 - 16) 13 BUN (7 - 17 mg/dL) 37 H Creatinine (0.5 - 1.0 mg/dL) 1.3 H Estimated GFR (>60 ml/min) 40 L BUN/Creatinine Ratio (7 - 25 %) 28.5 H Glucose (65 - 99 mg/dL) 132 H Calcium (8.4 - 10.2 mg/dL) 10.0 Phosphorus (2.5 - 4.5 mg/dL) 3.0 Magnesium (1.6 - 2.3 mg/dL) 1.9 Total Bilirubin (0.2 - 1.3 mg/dL) 0.6 GGT (12 - 43 U/L) 159 H AST (14 - 36 U/L) 25 ALT (9 - 52 U/L) 35 Alkaline Phosphatase (<127 U/L) 214 H Troponin I (< 0.11 ng/ml) 0.02 Total Protein (6.3 - 8.2 g/dL) 5.8 L Albumin (3.5 - 5.0 g/dL) 3.3 L Globulin (1.9 - 4.2 gm/dL) 2.5 Albumin/Globulin Ratio (1.1 - 2.2 %) 1.3 Coagulation PT (9.4 - 12.5 SEC) 10.1 INR (0.90 - 1.19) 0.96 APTT (25 - 37 SEC) 29 Hematology CBC w Diff NO MAN DIFF REQ WBC (4.8 - 10.8 /CUMM) 12.0 H RBC (4.20 - 5.40 /CUMM) 3.50 L Hgb (12.0 - 16.0 G/DL) 10.8 L Hct (37 - 47 %) 32.2 L MCV (81.0 - 99.0 FL) 92.2 MCH (27.0 - 31.0 PG) 31.0 MCHC (33.0 - 37.0 G/DL) 33.6 RDW (11.5 - 14.5 %) 14.9 H Plt Count (130 - 400 /CUMM) 309 MPV (7.4 - 10.4 FL) 7.2 L Gran % (42.2 - 75.2 %) 96.7 H Lymphocytes % (20.5 - 51.1 %) 2.3 L Monocytes % (1.7 - 9.3 %) 0.9 L Eosinophils % (0 - 5 %) 0.1 Basophils % (0.0 - 2.0 %) 0 Absolute Granulocytes (1.4 - 6.5 /CUMM) 11.6 H Absolute Lymphocytes (1.2 - 3.4 /CUMM) 0.3 L Absolute Monocytes (0.10 - 0.60 /CUMM) 0.1 Absolute Eosinophils (0.0 - 0.7 /CUMM) 0 Absolute Basophils (0.0 - 0.2 /CUMM) 0 Assessment/Plan Assessment/Recommendations: ASSESSMENT: 1. New onset ascites. Question etiology. SAG suggests portal hypertension. Given patient's history of coronary artery disease as well as peripheral vascular disease may have underlying metabolic syndrome and steatohepatitis/ cirrhosis related to NAFLD. Cannot rule out malignant ascites but this appears less likely given low protein and LDH will need to await cytology. 2. Lesion in right lobe of the liver question primary hepatocellular carcinoma versus metastatic disease given history of endometrial cancer as well as colon cancer. 3. Back pain 4. Chronic anemia of long duration 5. Chronic constipation. CT scan of the abdomen and pelvis shows large stool burden RECOMMENDATIONS: 1. Would check alpha-fetoprotein as well as CEA 2. Await cytology from ascites 3. Improve bowel habit would give MiraLAX on a twice a day basis 4. Would check iron studies, B12 and folate given anemia 6. Would obtain triple phase MRI as hepatocellular carcinoma has a particular bright appearance which washes out and which can be elicited with a with and without contrast study. 7. Would check AMA and ASMA as patient may have burned out autoimmune hepatitis Consult Acknowledgment - Thank you for your consult request.
--- NOTE | 2017-03-07 15:55 | ULTRASOUND REPORT ---
EXAMINATION: PARACENTESIS CLINICAL INFORMATION: Ascites COMPARISON: CT abdomen pelvis 03/06/2017 TECHNIQUE: Indirect ultrasound guidance using a 6 Liberian [id number] closed needle/catheter system FINDINGS: Informed consent was obtained from the patient prior to the procedure. During this process, the procedure alternatives were explained, along with the intended outcome and benefits. The risks of the procedure, as well as the risk of not doing the procedure, was discussed. The patient was given the opportunity to ask questions regarding the procedure and appeared competent to make medical decisions. A signed consent form which documents this discussion was placed in the medical record. Ultrasound evaluation of the abdomen for ascites was performed. Moderate amount of ascites is noted in the left lower quadrant. The site was marked. A timeout procedure was performed. The area was prepped and draped in usual sterile fashion. Using standard interventional and sterile techniques, lidocaine was used to anesthetize the region. A 6 Liberian Fkia-I-Whyqltgc closed needle/catheter system was introduced into the left lower quadrant using standard safety needle technique. Approximately 6.4 L of yellow fluid was removed into the Vacutainer bottles. The catheter was then removed. Good hemostasis was achieved. The patient demonstrated immediate symptomatic relief. The patient tolerated the procedure well. A sterile dressing was placed. The patient was discharged from the department in stable condition. COMPLICATIONS: None. IMPRESSION: Successful ultrasound-guided paracentesis yielding 6.4 L of fluid.
[2017-03-07 22:28] VITALS: BP 170/60
[2017-03-08 06:15] VITALS: BP 180/60
--- NOTE | 2017-03-08 07:10 | PN- Housestaff ---
Susie NAGEL,Manish 03/08/17 0710: Subjective Follow-up For: Weakness and chronic back pain with difficulty ambulating liver mass and ascites Subjective: patient had no complaints today no complaints of abdominal pain Review of Systems Constitutional: Reports: see HPI. Objective Last 24 Hrs of Vital Signs/I&O Vital Signs Date Time Temp Pulse Resp B/P B/P Pulse O2 O2 Flow FiO2 Mean Ox Delivery Rate 03/08 1422 97.2 90 19 140/68 94 03/08 1224 76 168/70 03/08 1128 Room Air Room Air 03/08 0858 68 180/60 03/08 0615 98.0 58 18 180/60 97 Room Air 03/08 0607 20 180/64 03/07 2228 99.1 74 20 170/60 95 03/07 2125 170/86 03/07 2125 170/86 Intake & Output 03/08 1600 03/08 0800 03/08 0000 Intake Total 560 360 Output Total 250 Balance 310 360 Intake, Oral 560 360 Output, Urine 250 Physical Exam General Appearance: Alert, Oriented X3, Cooperative, No Acute Distress Cardiovascular: Regular Rate, Normal S1, Normal S2, No Murmurs Lungs: Clear to Auscultation, Normal Air Movement Abdomen: Normal Bowel Sounds, Soft, No Tenderness, No Masses, +hepatomegaly Extremities: No Clubbing, No Cyanosis, Normal Pulses, trace RLE edema Current Medications: Current Medications Sig/Jose Start time Last Medication Dose Route Stop Time Status Admin Acetaminophen 650 MG .STK-MED ONE 03/07 2128 DC PO 03/07 213 Acetaminophen 500 MG Q6P PRN 03/06 1815 AC 03/07 PO 2129 Amlodipine Besylate 10 MG DAILY 03/07 1000 AC 03/08 PO 0607 Atorvastatin Calcium 20 MG AT BEDTIME 03/06 220 AC 03/07 PO 2126 Cilostazol 50 MG BID 03/06 2200 AC 03/08 PO 0859 Clonidine 0.2 MG BID 03/06 220 AC 03/08 PO 0858 Hydralazine HCl 50 MG TID 03/08 1000 AC 03/08 PO 0858 Hydralazine HCl 50 MG BID 03/06 220 DC 03/07 PO 2126 Hydrocodone Bitart/ 1 TAB Q8P PRN 03/06 1800 AC Acetaminophen PO Isosorbide 60 MG DAILY 03/07 1000 AC 03/08 Mononitrate PO 0858 Lidocaine 1 PAT DAILY 03/06 1815 AC EXT Metoprolol Succinate 50 MG DAILY 03/07 1000 AC 03/08 PO 0858 Oxycodone/ 1 TAB Q8P PRN 03/06 1800 AC Acetaminophen PO Polyethylene Glycol 17 GM BID 03/08 1000 AC 03/08 PO 0859 Prednisone 10 MG DAILY 03/07 1523 AC 03/08 PO 0859 Last 24 Hrs of Lab/Jere Results Last 24 Hrs of Labs/Mics: Laboratory Tests 03/08/17 0748: Anion Gap 9, Estimated GFR 40 L, BUN/Creatinine Ratio 27.7 H, Iron 26 L, TIBC 153 L, Ferritin 151.0, Total Bilirubin 0.7, Direct Bilirubin 0.3, AST 32, ALT 35, Alkaline Phosphatase 212 H, Total Protein 4.5 L, Albumin 2.6 L, Vitamin B12 796, Folate 4.2, CBC w Diff NO MAN DIFF REQ, RBC 2.86 L, MCV 92.0, MCH 30.6 , MCHC 33.3, RDW 15.0 H, MPV 8.1, Gran % 94.0 H, Lymphocytes % 4.4 L, Monocytes % 1.5 L, Eosinophils % 0, Basophils % 0.1, Absolute Granulocytes 11.5 H, Absolute Lymphocytes 0.5 L, Absolute Monocytes 0.2, Absolute Eosinophils 0, Absolute Basophils 0 Assessment/Plan Assessment: 76-year-old female with past medical history of CAD status post CABG (1999), PVD (status post angioplasty with stent placement), HTN,stage IV chronic kidney disease secondary to hypertensive nephrosclerosis HLD, lumbar disc surgery, uterine cancer, colon cancer was admitted acute on chronic back pain, associated with lower extremity weakness, gait instability, and frequent falls. The patient was found to have hepatomegaly and ascites on admission and underwent diagnostic and therapeutic paracentesis on this hospitalization. Acute on chronic back pain: nonradicular, with new weakness, difficulty ambulating and falls History of L4 laminectomy in past (Dr. Mahan) and PT. History of neuroforaminal narrowing with possible spinal stenosis. Continue analgesia with Dilaudid/oxycodone/Tylenol. Physical therapy consulted, patient will likely need STR placement. Patient refusing MRI evaluation Ascites with liver mass: CT reports large mass Patient refusing MRI at this time Potential malignant ascites is of concern History of colon cancer in past (resected 1989). Paracentesis today, high SAAG suggests portal hypertension, can not rule out malignant ascites GI consulted, appreciate recommendations Deferring work up to outpatient because patient refusing MRI because of claustrophobia and risk of gadolinium administration with renal insufficiency for recommended triple phase MRI RLE edema: Ultrasound Doppler negative for DVT. CAD/HTN: Continue betablocker, nitrates and antihypertensives Patient was hypertensive today, hydralazine frequency increased to TID HLD: Statin on hold Trend LFTs GERD: Continue omeprazole CKD stage IIIA: stable Avoid nephrotoxins Heart healthy diet DVT ppx-heparin 5000 units subcutaneous Q8H Full code Problem List: 1. Peripheral vascular occlusive disease 2. CAD (coronary artery disease) 3. Hypertension 4. History of uterine cancer 5. Unsteady gait 6. Ascites 7. Liver lesion 8. Intractable back pain Pain Ratin Pain Location: lumbar Pain Goal: Pain 4 or less Pain Plan: prn Tomorrow's Labs & Rationales: none Josephine Allen MD 03/08/17 1220: Attending MD Review Statement Attending Statement Attending MD Statement: examined this patient, discuss w/resident/PA/DULSER, agreed w/resident/PA/DULSER, reviewed EMR data (avail) Attending Assessment/Plan: Doing well today. Back pain is improved, no neurological deficit, still weak and unsteady. Paracentesis shows no signs of SBP, consistent with acute liver injury or cirrhosis. Cytology sent. Patient requires an MRI for workup of liver mass (cannot obtain triple-phase CT due to CKD), and this can be done as an outpatient. Can be discharged to [facility] if bed is available, with outpatient liver MRI and GI follow up.
[2017-03-08 09:05] LABS: ABSOLUTE BASOPHIL COUNT 0 /CUMM (0.0-0.2); ABSOLUTE EOSINOPHIL COUNT 0 /CUMM (0.0-0.7); ABSOLUTE GRANULOCYTE CT 11.5 /CUMM (1.4-6.5); ABSOLUTE LYMPH COUNT 0.5 /CUMM (1.2-3.4); ABSOLUTE MONOCYTE COUNT 0.2 /CUMM (0.10-0.60); BASOPHIL % 0.1 % (0.0-2.0); EOSINOPHIL % 0 % (0-5); HEMATOCRIT 26.3 % (37-47); MEAN CORPUSCULAR HGB 30.6 PG (27.0-31.0); MEAN CORPUSCULAR HGB CONC 33.3 G/DL (33.0-37.0); MEAN PLATELET VOLUME 8.1 FL (7.4-10.4); RED BLOOD CELL CT 2.86 /CUMM (4.20-5.40); WHITE BLOOD CELL COUNT 12.2 /CUMM (4.8-10.8)
--- NOTE | 2017-03-08 09:49 | PN- Gastroenterology ---
Assessment/Plan Assessment/Recommendations: ASSESSMENT: 1. New onset ascites. Await cytology. 2. Lesion in right lobe of the liver question primary hepatocellular carcinoma versus metastatic disease given history of endometrial cancer as well as colon cancer. 3. Back pain 4. Chronic anemia of long duration 5. Chronic constipation. CT scan of the abdomen and pelvis shows large stool burden RECOMMENDATIONS: 1. Would check alpha-fetoprotein as well as CEA 2. Await cytology from ascites 3. Improve bowel habit would give MiraLAX on a twice a day basis as CT abdomen showed increased stool burden 4. Would check iron studies, B12 and folate given anemia 6. Would obtain triple phase MRI as hepatocellular carcinoma has a particular bright appearance (i.e. hypervascular on the arterial phase of imaging) and display portal vein/delayed phase wash-out (or pseudocapsule enhancement). These findings can only be elicited with a with and without contrast study. Patient unable to tolerate closed MRI and awaiting study at open MRI. 7. Would check AMA and ASMA as patient may have burned out autoimmune hepatitis to account for portal hypertension. 8. GI will see again on Monday. Awaiting results of above studies. Subjective Subjective: Patient somewhat fatigued. No nausea, vomiting or abdominal pain. Unable to tolerate close MRI due to claustrophobia. No shortness of breath. Objective Vital Signs and I&Os Vital Signs Date Time Temp Pulse Resp B/P B/P Pulse O2 O2 Flow FiO2 Mean Ox Delivery Rate 03/08 0858 68 180/60 03/08 0615 98.0 58 18 180/60 97 Room Air 03/08 0607 20 180/64 03/07 2228 99.1 74 20 170/60 95 03/07 2126 170/86 03/07 2125 170/86 03/07 1417 98.8 80 20 120/77 94 03/07 1147 97.9 62 20 170/58 97 Room Air Room Air Intake & Output 03/08 1600 03/08 0400 03/07 1600 03/07 0400 03/06 1600 03/06 0400 Intake Total 360 790 420 Output Total 150 Balance 360 640 420 Intake, Blood 200 Product Intake, IV 10 10 Intake, Oral 360 580 410 Number 0 1 Bowel Movements Output, Urine 150 Patient 130 lb Weight Weight Reported by Patient Measurement Method Physical Exam General Appearance: alert, awake, comfortable Respiratory: lungs clear Cardiovascular: regular rate/rhythm, Normal S1 and S2, without rub, murmur or gallop Abdomen: soft, non-tender, no organomegaly Neurologic/Psychiatric: alert, oriented x 3, normal mood/affect Current Medications: Current Medications Sig/Jose Start time Last Medication Dose Route Stop Time Status Admin Acetaminophen 650 MG .STK-MED ONE 03/07 2128 DC PO 03/07 2130 Acetaminophen 500 MG Q6P PRN 03/06 1815 AC 03/07 PO 2129 Albumin Human 50 GM ONCE ONE 03/07 1245 DC 03/07 IV 03/07 1246 1419 Amlodipine Besylate 10 MG DAILY 03/07 1000 AC 03/08 PO 0607 Atorvastatin Calcium 20 MG AT BEDTIME 03/06 2200 AC 03/07 PO 2126 Cilostazol 50 MG BID 03/06 2200 AC 03/08 PO 0859 Clonidine 0.2 MG BID 03/06 2200 AC 03/08 PO 0858 Hydralazine HCl 50 MG TID 03/08 1000 AC 03/08 PO 0858 Hydralazine HCl 50 MG BID 03/06 2200 DC 03/07 PO 2126 Hydrocodone Bitart/ 1 TAB Q8P PRN 03/06 1800 AC Acetaminophen PO Isosorbide 60 MG DAILY 03/07 1000 AC 03/08 Mononitrate PO 0858 Lidocaine 1 ML .STK-MED ONE 03/07 1138 DC ID 03/07 1139 Lidocaine 1 PAT DAILY 03/06 1815 AC EXT Metoprolol Succinate 50 MG DAILY 03/07 1000 AC 03/08 PO 0858 Oxycodone/ 1 TAB Q8P PRN 03/06 1800 AC Acetaminophen PO Polyethylene Glycol 17 GM BID 03/08 1000 AC 03/08 PO 0859 Prednisone 10 MG DAILY 03/07 1523 AC 03/08 PO 0859 Results Pertinent Lab Results: Laboratory Tests 03/08 03/07 03/07 03/07 0748 UNK UNK 0815 Chemistry Sodium (137 - 145 mmol/L) 138 138 Potassium (3.5 - 5.1 mmol/L) 4.5 4.4 Chloride (98 - 107 mmol/L) 104 106 Carbon Dioxide (22 - 30 mmol/L) 25 23 Anion Gap (5 - 16) 9 9 BUN (7 - 17 mg/dL) 36 H 37 H Creatinine (0.5 - 1.0 mg/dL) 1.3 H 1.2 H Estimated GFR (>60 ml/min) 40 L 44 L BUN/Creatinine Ratio (7 - 25 %) 27.7 H 30.8 H Iron (37 - 170 ug/dL) 26 L TIBC (265 - 497 ug/dL) 153 L Ferritin (11.1 - 264 ng/mL) Pending Total Bilirubin (0.2 - 1.3 mg/dL) 0.7 Direct Bilirubin (< 0.4 mg/dL) 0.3 AST (14 - 36 U/L) 32 ALT (9 - 52 U/L) 35 Alkaline Phosphatase (<127 U/L) 212 H Lactate Dehydrogenase (313 - 618 U/L) 509 Total Protein (6.3 - 8.2 g/dL) 4.5 L 4.5 L Albumin (3.5 - 5.0 g/dL) 2.6 L 2.4 L Vitamin B12 (239 - 931 pg/mL) Pending Folate (2.76 - 20.0 ng/mL) Pending Hematology CBC w Diff Pending NO MAN DIFF REQ WBC (4.8 - 10.8 /CUMM) Pending 10.9 H RBC (4.20 - 5.40 /CUMM) Pending 2.66 L Hgb (12.0 - 16.0 G/DL) Pending 8.2 L Hct (37 - 47 %) Pending 24.2 L MCV (81.0 - 99.0 FL) Pending 91.0 MCH (27.0 - 31.0 PG) Pending 30.8 MCHC (33.0 - 37.0 G/DL) Pending 33.8 RDW (11.5 - 14.5 %) Pending 14.9 H Plt Count (130 - 400 /CUMM) Pending 233 MPV (7.4 - 10.4 FL) Pending 7.8 Gran % (42.2 - 75.2 %) Pending 87.2 H Lymphocytes % (20.5 - 51.1 %) Pending 7.4 L Monocytes % (1.7 - 9.3 %) Pending 5.3 Eosinophils % (0 - 5 %) Pending 0.1 Basophils % (0.0 - 2.0 %) Pending 0 Absolute Granulocytes (1.4 - 6.5 /CUMM) Pending 9.5 H Absolute Lymphocytes (1.2 - 3.4 /CUMM) Pending 0.8 L Lymphocytes (%) 14 Absolute Monocytes (0.10 - 0.60 /CUMM) Pending 0.6 Absolute Eosinophils (0.0 - 0.7 /CUMM) Pending 0 Absolute Basophils (0.0 - 0.2 /CUMM) Pending 0 % Normal PMNs (%) 23 Other Body Source Fluid WBC (0 - 5 /CUMM) 72 H Fld Mesothelial Cells (%) 63 Fld Total RBCs Counted (0 /CUMM) 128 H Fluid Glucose (mg/dL) 102 Fluid Total Protein (g/dL) < 2.0 Fluid Albumin (g/dL) < 1.0 Fluid LDH (U/L) 173 Fluid Amylase (U/L) < 30 03/06 03/06 1540 1506 Chemistry Sodium (137 - 145 mmol/L) 141 Potassium (3.5 - 5.1 mmol/L) 4.9 Chloride (98 - 107 mmol/L) 105 Carbon Dioxide (22 - 30 mmol/L) 23 Anion Gap (5 - 16) 13 BUN (7 - 17 mg/dL) 37 H Creatinine (0.5 - 1.0 mg/dL) 1.3 H Estimated GFR (>60 ml/min) 40 L BUN/Creatinine Ratio (7 - 25 %) 28.5 H Glucose (65 - 99 mg/dL) 132 H Calcium (8.4 - 10.2 mg/dL) 10.0 Phosphorus (2.5 - 4.5 mg/dL) 3.0 Magnesium (1.6 - 2.3 mg/dL) 1.9 Total Bilirubin (0.2 - 1.3 mg/dL) 0.6 GGT (12 - 43 U/L) 159 H AST (14 - 36 U/L) 25 ALT (9 - 52 U/L) 35 Alkaline Phosphatase (<127 U/L) 214 H Troponin I (< 0.11 ng/ml) 0.02 Total Protein (6.3 - 8.2 g/dL) 5.8 L Albumin (3.5 - 5.0 g/dL) 3.3 L Globulin (1.9 - 4.2 gm/dL) 2.5 Albumin/Globulin Ratio (1.1 - 2.2 %) 1.3 Coagulation PT (9.4 - 12.5 SEC) 10.1 INR (0.90 - 1.19) 0.96 APTT (25 - 37 SEC) 29 Hematology CBC w Diff NO MAN DIFF REQ WBC (4.8 - 10.8 /CUMM) 12.0 H RBC (4.20 - 5.40 /CUMM) 3.50 L Hgb (12.0 - 16.0 G/DL) 10.8 L Hct (37 - 47 %) 32.2 L MCV (81.0 - 99.0 FL) 92.2 MCH (27.0 - 31.0 PG) 31.0 MCHC (33.0 - 37.0 G/DL) 33.6 RDW (11.5 - 14.5 %) 14.9 H Plt Count (130 - 400 /CUMM) 309 MPV (7.4 - 10.4 FL) 7.2 L Gran % (42.2 - 75.2 %) 96.7 H Lymphocytes % (20.5 - 51.1 %) 2.3 L Monocytes % (1.7 - 9.3 %) 0.9 L Eosinophils % (0 - 5 %) 0.1 Basophils % (0.0 - 2.0 %) 0 Absolute Granulocytes (1.4 - 6.5 /CUMM) 11.6 H Absolute Lymphocytes (1.2 - 3.4 /CUMM) 0.3 L Absolute Monocytes (0.10 - 0.60 /CUMM) 0.1 Absolute Eosinophils (0.0 - 0.7 /CUMM) 0 Absolute Basophils (0.0 - 0.2 /CUMM) 0 Urines Urine Color Cancelled Urine Clarity Cancelled Urine pH Cancelled Ur Specific [place] Cancelled Urine Protein Cancelled Urine Ketones Cancelled Urine Nitrite Cancelled Urine Bilirubin Cancelled Urine Urobilinogen Cancelled Ur Leukocyte Esterase Cancelled Ur Microscopic Cancelled Urine Hemoglobin Cancelled Urine Glucose Cancelled
[2017-03-08 10:05] LABS: PLATELET COUNT 213 /CUMM (130-400)
[2017-03-08 12:24] VITALS: BP 168/70
[2017-03-08 14:22] VITALS: BP 140/68
[2017-03-08 23:30] VITALS: BP 130/60
[2017-03-09 06:48] VITALS: BP 170/64
--- NOTE | 2017-03-09 07:02 | PN- Housestaff ---
Susie NAGEL,Manish 03/09/17 0702: Subjective Follow-up For: Back pain and lower extremity weakness hepatomegaly and ascites Subjective: no complaints this morning back pain improved, ambulating with PT no abdominal pain, nausea, or vomiting Review of Systems Constitutional: Reports: see HPI. Objective Last 24 Hrs of Vital Signs/I&O Vital Signs Date Time Temp Pulse Resp B/P B/P Pulse O2 O2 Flow FiO2 Mean Ox Delivery Rate 03/09 0857 64 182/70 03/09 0800 Room Air 03/09 0648 98.7 66 18 170/64 97 Room Air 03/08 2330 98.3 80 18 130/60 97 Room Air 03/08 2045 70 140/70 03/08 2045 70 140/70 03/08 1639 70 132/80 Intake & Output 03/09 1600 03/09 0800 03/09 0000 Intake Total 480 210 350 Output Total 300 Balance 180 210 350 Intake, IV 10 Intake, Oral 480 200 350 Output, Urine 300 Physical Exam General Appearance: Alert, Oriented X3, Cooperative, No Acute Distress Cardiovascular: Regular Rate, Normal S1, Normal S2, No Murmurs Lungs: Clear to Auscultation, Normal Air Movement Abdomen: Normal Bowel Sounds, Soft, No Tenderness, distended +hepatomegaly, no tenderness on palpation Extremities: No Clubbing, No Cyanosis, No Edema, Normal Pulses Current Medications: Current Medications Sig/Jose Start time Last Medication Dose Route Stop Time Status Admin Acetaminophen 500 MG Q6P PRN 03/06 1815 AC 03/07 PO 2129 Amlodipine Besylate 10 MG DAILY 03/07 1000 AC 03/09 PO 0858 Atorvastatin Calcium 20 MG AT BEDTIME 03/06 2200 AC 03/08 PO 2045 Cilostazol 50 MG BID 03/06 2200 AC 03/09 PO 0858 Clonidine 0.2 MG BID 03/06 2200 AC 03/09 PO 0858 Hydralazine HCl 75 MG TID 03/09 1600 AC PO Hydralazine HCl 50 MG TID 03/08 1000 DC 03/09 PO 0857 Hydrocodone Bitart/ 1 TAB Q8P PRN 03/06 1800 AC Acetaminophen PO Isosorbide 60 MG DAILY 03/07 1000 AC 03/09 Mononitrate PO 0858 Lidocaine 1 PAT DAILY 03/06 1815 AC EXT Metoprolol Succinate 50 MG DAILY 03/07 1000 AC 03/09 PO 0858 Oxycodone/ 1 TAB Q8P PRN 03/06 1800 AC 03/09 Acetaminophen PO 0621 Polyethylene Glycol 17 GM BID 03/08 1000 AC 03/09 PO 0859 Prednisone 10 MG DAILY 03/07 1523 AC 03/09 PO 0858 Tramadol HCl 50 MG ONCE ONE 03/08 2300 DC 03/08 PO 03/08 2301 2258 Last 24 Hrs of Lab/Jere Results Last 24 Hrs of Labs/Mics: Laboratory Tests 03/09/17 0920: CBC w Diff NO MAN DIFF REQ, RBC 2.72 L, MCV 91.6, MCH 30.8, MCHC 33.7, RDW 14.6 H, MPV 8.1, Gran % 89.0 H, Lymphocytes % 6.0 L, Monocytes % 4.7, Eosinophils % 0.2, Basophils % 0.1, Absolute Granulocytes 12.1 H, Absolute Lymphocytes 0.8 L, Absolute Monocytes 0.6, Absolute Eosinophils 0, Absolute Basophils 0 03/09/17 0817: Anion Gap 11, Estimated GFR 40 L, BUN/Creatinine Ratio 37.7 H Assessment/Plan Assessment: 76-year-old female with past medical history of CAD status post CABG (1999), PVD (status post angioplasty with stent placement), HTN,stage IV chronic kidney disease secondary to hypertensive nephrosclerosis, HLD, lumbar disc surgery, uterine cancer, colon cancer was admitted acute on chronic back pain, associated with lower extremity weakness, gait instability, and frequent falls. The patient was found to have hepatomegaly and ascites on admission and underwent diagnostic and therapeutic paracentesis on this hospitalization. Acute on chronic back pain: nonradicular, with new weakness, difficulty ambulating and falls History of L4 laminectomy in past (Dr. Mahan) History of neuroforaminal narrowing with possible spinal stenosis. Continue analgesia with Dilaudid/oxycodone/Tylenol. Physical therapy consulted, patient will likely need STR placement. Ascites with liver mass: CT reports enlarging liver mass 8cm x 8cm x 8cm compared to 2.2cm in 2016 MRI abdomen to further evaluate liver mass tomorrow Potential malignant ascites is of concern History of colon cancer in past (resected 1989). Paracentesis today, high SAAG suggests portal hypertension, can not rule out malignant ascites GI consulted, appreciate recommendations Outpatient GI follow up for further testing RLE edema: Ultrasound Doppler negative for DVT. CAD/HTN: Continue betablocker, nitrates and antihypertensives Patient was hypertensive today, hydralazine dose and frequency increased Patient is not currently on an ACEi? HLD: Statin on hold Trend LFTs GERD: Continue omeprazole CKD stage IIIA: stable Avoid nephrotoxins Heart healthy diet DVT ppx-heparin 5000 units subcutaneous Q8H Full code Problem List: 1. Peripheral vascular occlusive disease 2. CAD (coronary artery disease) 3. Hypertension 4. Liver lesion 5. Ascites 6. Chronic renal insufficiency 7. Unsteady gait 8. Falls frequently 9. History of colon cancer 10. History of uterine cancer Pain Ratin Pain Location: n/a Pain Goal: Pain 4 or less Pain Plan: prn Tomorrow's Labs & Rationales: Josephine Hardwick MD 03/09/17 1333: Attending MD Review Statement Attending Statement Attending MD Statement: examined this patient, discuss w/resident/PA/POULTRY TRIMMER, agreed w/resident/PA/POULTRY TRIMMER, reviewed EMR data (avail) Attending Assessment/Plan: Doing well today. Back pain is improved, no neurological deficit, still weak and unsteady. Paracentesis shows no signs of SBP, consistent with acute liver injury or cirrhosis. Cytology sent. Patient requires an MRI for workup of liver mass (cannot obtain triple-phase CT due to CKD), and this can be done as an outpatient. [facility] be [facility] if bed [facility] available, with outpatient liver MRI and GI follow up.
[2017-03-09 10:55] LABS: ABSOLUTE BASOPHIL COUNT 0 /CUMM (0.0-0.2); ABSOLUTE EOSINOPHIL COUNT 0 /CUMM (0.0-0.7); ABSOLUTE GRANULOCYTE CT 12.1 /CUMM (1.4-6.5); ABSOLUTE LYMPH COUNT 0.8 /CUMM (1.2-3.4); ABSOLUTE MONOCYTE COUNT 0.6 /CUMM (0.10-0.60); BASOPHIL % 0.1 % (0.0-2.0); EOSINOPHIL % 0.2 % (0-5); HEMATOCRIT 24.9 % (37-47); MEAN CORPUSCULAR HGB 30.8 PG (27.0-31.0); MEAN CORPUSCULAR HGB CONC 33.7 G/DL (33.0-37.0); MEAN CORPUSCULAR VOLUME 91.6 FL (81.0-99.0); MEAN PLATELET VOLUME 8.1 FL (7.4-10.4); PLATELET COUNT 218 /CUMM (130-400); RBC DISTRIBUTION WIDTH 14.6 % (11.5-14.5); RED BLOOD CELL CT 2.72 /CUMM (4.20-5.40); WHITE BLOOD CELL COUNT 13.6 /CUMM (4.8-10.8)
[2017-03-09 15:18] VITALS: BP 110/65
[2017-03-09 23:00] VITALS: BP 186/68
[2017-03-10 06:00] VITALS: BP 120/68
--- NOTE | 2017-03-10 07:18 | PN- Housestaff ---
Susie NAGEL,Manish 03/10/1717: Subjective Follow-up For: back pain/lower extremity weakness liver mass/hepatomegaly/ascites Subjective: ambulated with PT yesterday, pending STR can't do stairs at home no abdominal pain, refused MRI for evaluation of liver mass this morning back pain is controlled, had one dose of tramadol overnight Review of Systems Constitutional: Reports: see HPI. Objective Last 24 Hrs of Vital Signs/I&O Vital Signs Date Time Temp Pulse Resp B/P B/P Pulse O2 O2 Flow FiO2 Mean Ox Delivery Rate 03/10 1333 170/67 03/10 1128 98.6 61 16 120/68 03/10 1127 98.6 61 16 120/68 03/10 0600 98.6 61 16 120/68 97 Room Air 03/09 2300 98.0 64 18 186/68 98 Room Air 03/09 2207 65 114/60 03/09 2202 64 186/68 03/09 2201 64 186/68 03/09 1518 97.6 60 18 110/65 98 Intake & Output 03/10 1600 03/10 0800 03/10 0000 Intake Total 400 500 Output Total 250 Balance 400 250 Intake, Oral 400 500 Output, Urine 250 Physical Exam General Appearance: Alert, Oriented X3, Cooperative, No Acute Distress Cardiovascular: Regular Rate, Normal S1, Normal S2, No Murmurs Lungs: bibasilar crackles Abdomen: Normal Bowel Sounds, Soft, distended but soft, nontender, hepatomegaly Neurological: Strength at 5/5 X4 Ext Extremities: No Clubbing, No Cyanosis, Normal Pulses, RLE 1+ edema, -dvt Current Medications: Current Medications Sig/Jose Start time Last Medication Dose Route Stop Time Status Admin Acetaminophen 500 MG Q6P PRN 03/06 1815 AC 03/07 PO 9 Amlodipine Besylate 10 MG DAILY 03/07 1000 AC 03/10 PO 1128 Atorvastatin Calcium 20 MG AT BEDTIME 03/06 2199 AC 03/09 PO 2202 Cilostazol 50 MG BID 03/06 2199 AC 03/10 PO 1133 Clonidine 0.2 MG BID 03/06 2199 AC 03/10 PO 1127 Hydralazine HCl 75 MG TID 03/09 1600 AC 03/10 PO 1333 Hydrocodone Bitart/ 1 TAB Q8P PRN 03/06 1800 AC Acetaminophen PO Isosorbide 60 MG DAILY 03/07 1000 AC 03/10 Mononitrate PO 1127 Lidocaine 1 PAT DAILY 03/06 1815 AC 03/10 EXT 1126 Lorazepam 2 MG ONE PRN 03/10 0730 DC IV 03/10 1200 Metoprolol Succinate 50 MG DAILY 03/07 1000 AC 03/10 PO 1127 Oxycodone/ 1 TAB Q8P PRN 03/06 1800 AC 03/09 Acetaminophen PO 0621 Polyethylene Glycol 17 GM BID 03/08 1000 AC 03/10 PO 1126 Prednisone 10 MG DAILY 03/07 1523 AC 03/10 PO 1127 Tramadol HCl 50 MG ONCE ONE 03/09 2199 DC 03/09 PO 03/09 Assessment/Plan Assessment: 76-year-old female with past medical history of CAD status post CABG (1999), PVD (status post angioplasty with stent placement), HTN,stage IV chronic kidney disease secondary to hypertensive nephrosclerosis, HLD, lumbar disc surgery, uterine cancer, colon cancer was admitted acute on chronic back pain, associated with lower extremity weakness, gait instability, and frequent falls. The patient was found to have hepatomegaly and ascites on admission and underwent diagnostic and therapeutic paracentesis on this hospitalization. Acute on chronic back pain: nonradicular, with new weakness, difficulty ambulating and falls History of L4 laminectomy in past (Dr. Mahan) History of neuroforaminal narrowing with possible spinal stenosis. Continue analgesia with Dilaudid/oxycodone/Tylenol. Physical therapy consulted, patient will likely need STR placement. Ascites with liver mass: CT reports enlarging liver mass 8cm x 8cm x 8cm compared to 2.2cm in 2016 MRI abdomen to further evaluate liver mass tomorrow Likely malignancy, patient refused MRI today History of colon cancer in past (resected 1989). High SAAG suggests portal hypertension, can not rule out malignant ascites Follow up cytology and alpha fetoprotein GI consulted, appreciate recommendations Outpatient GI follow up for further testing CAD/HTN: Continue betablocker, nitrates and antihypertensives Patient was hypertensive today, hydralazine dose and frequency increased Patient is not currently on an ACEi? HLD: Statin on hold Trend LFTs GERD: Continue omeprazole CKD stage IIIA: stable Avoid nephrotoxins Heart healthy diet DVT ppx-heparin 5000 units subcutaneous Q8H Full code Problem List: 1. CAD (coronary artery disease) 2. Peripheral vascular occlusive disease 3. Ascites 4. Liver lesion 5. Unsteady gait Pain Ratin Pain Location: lumbar Pain Goal: Pain 4 or less Pain Plan: prn Tomorrow's Labs & Rationales: afp Alejandro NAGELJosephine 03/10/17 1242: Attending MD Review Statement Attending Statement Attending MD Statement: examined this patient, discuss w/resident/PA/CHEMICAL WEIGHER, agreed w/resident/PA/CHEMICAL WEIGHER, reviewed EMR data (avail) Attending Assessment/Plan: 76F PMH CAD status post CABG (1999), PVD (status post angioplasty with stent placement), HTN,stage IV chronic kidney disease secondary to hypertensive nephrosclerosis, HLD, lumbar disc surgery, uterine cancer, colon cancer admitted with acute onset of lower back pain with lower extremity weakness, as her legs just gave out. Happens to patient about once a year, improved during admission with physical therapy and pain control. Was found incidentally to have ascites now s/p paracentesis removing 6L, with ascitic fluid showing no evidence of SBP and consistent with cirrhosis/hepatitis. CT of the abdomen shows large mass and requires MRI, but patient is claustrophobic and will have outpatient open MRI. Doing well today. Awaiting insurance authorization for STR placement. BP improved after increasing Hydralazine dose yesterday. 1. Ascites, very likely to be malignant given hepatic mass and history of multiple malignancies 2. Acute on chronic lower back pain 3. Bilateral lower extremity weakness Plan - Stable for discharge to STR - Continue home medications - Increase Hydralazine to 75mg TID on discharge - Continue home Prednisone - Outpatient GI follow up and open MRI liver
--- NOTE | 2017-03-10 07:38 | Discharge Summary ---
Visit Information Visit Dates Admission Date: 03/06/17 Discharge Date: 03/10/16 Hospital Course Course Attending Physician: Josephine Allen MD Primary Care Physician: Charly Boston MD Hospital Course: 76-year-old female who presented to the ED with a chief complaint of 2 weeks of progressive back pain associated with lower extremity weakness, gait instability and frequent falls. She also reported increased abdominal girth. PMH: of CAD s/p CABG (1999), PVD s/p angioplasty with stent placement, HTN, stage IV CKD secondary to hypertensive nephrosclerosis, HLD, lumbar disc surgery , uterine cancer, colon cancer. Issues that was addressed during this admission: #Acute on chronic back pain: The patient has history of L4 laminectomy in past (Dr. Mahan), History of neuroforaminal narrowing with possible spinal stenosis, and she reported recent fall. CT showed: Degenerative spondylosis of the facet joints at the lower lumbar spine, without acute osseous abnormality. No focal bone lesion. She was treated with pain medication as needed. Physical therapy recommended STR placement. #Ascites with liver mass(high suspicious of liver cancer) CT reports enlarging liver mass 8cm x 8cm x 8cm compared to 2.2cm in 2016. Ascites is SAAG was >1.1 and suggestive of portal hypertension however malignancy cannot be ruled out. GI consult recommended triphasic MRI to further address the liver mass. The patient refused MRI because she is claustrophobic. Given that the patient has a history of cancer in the past we will instruct her to do the MRI as an outpatient (open MRI) and follow the GI and primary care doctor as soon as possible postdischarge. The patient alpha-fetoprotein was found to be negative. CEA, antimitochondrial antibody, and anti-smooth muscle antibody are all pending #Chronic stable conditions includes CAD/HTN/HLD/GERD/CKD For this we continued her home dose of beta shaka, nitrates, antihypertensives and omeprazole. #For DVT prophylaxis we give heparin 5000 units subcutaneous was given at all time Allergies: Coded Allergies: Sulfa (Sulfonamide Antibiotics) (Severe, HIVES 12/27/15) Pertinent Lab Results: SERVICE DATE: 03/06/[id number]-ROQM TYPE: CAT - CT ABD & PELVIS W/O IV CONTRAS EXAMINATION: CT ABDOMEN AND PELVIS WITHOUT CONTRAST CLINICAL INFORMATION: Ascites. Lower back pain. Swelling. COMPARISON: Ultrasound abdomen 02/23/2017. CT abdomen and pelvis 11/04/2015. TECHNIQUE: Multidetector volumetric imaging was performed from the superior aspect of the liver through the pubic symphysis. Sagittal and coronal reformatted images were obtained on the technologist's workstation. DLP: 386.18 mGy-cm FINDINGS: LUNG BASES: Small volume left pleural effusion. Linear atelectasis at the left lung base. Status post median sternotomy. Vascular calcification of the coronary arteries and thoracic aorta. LIVER, GALLBLADDER, AND BILIARY TREE: Large area of low attenuation consistent with a hepatic mass involving much of the midline right liver. Mass extends from the javon hepatis to the dome measuring about 8.2 x 7.6 x 8 cm. This causes lobular bulging of the margin of the liver. On the CT scan of 11/04/2015, there was a hypodense lesion at the dome of the liver measuring 2.2 cm. There is no intrahepatic bile duct dilatation. The gallbladder is unremarkable with no evidence of radiopaque gallstones, gallbladder wall thickening, or obvious pericholecystic inflammatory changes. PANCREAS: Pancreas is atrophic. No pancreatic duct dilatation or mass. SPLEEN: Unremarkable. ADRENAL GLANDS: Unremarkable. KIDNEYS AND URETERS: Bilateral renal cysts. There is a hyperdense cyst in the cortex of the upper pole right kidney measuring 1.8 cm. Hyperdense cyst in the mid pole of the left kidney measuring 3.8 cm. BLADDER: Small collection of air in the bladder. No Lopez catheter seen. Correlate with history of bladder instrumentation. No bladder wall thickening. GASTROINTESTINAL TRACT: Surgical line of sutures at the proximal sigmoid colon from prior partial colectomy. No acute change of the bowel. No bowel obstruction. No bowel wall dilatation. There is a large collection of stool throughout the colon from cecum through pelvis. The appendix is not seen. MESENTERY: There is a large volume of abdominal ascites. Surgical clips in the mesentery adjacent to the descending colon left side of abdomen. ABDOMINAL WALL: There is a midline ventral hernia at the upper abdomen just below the diaphragm at the midline. The defect in the anterior abdominal wall measures 4.7 x 5.7 cm. There is a large pocket of abdominal ascites at this hernia site extending into the subcutaneous tissue. The herniated pocket measures 7.9 x 3.0 x 9.4 cm and bulges the anterior skin line at the upper anterior abdomen. There is generalized anasarca. LYMPH NODES: Normal. VASCULAR: Extensive atherosclerotic vascular wall calcifications throughout the abdomen and pelvis. No aneurysm of the aorta. PELVIC VISCERA: Uterus is absent. No adnexal abnormality. OSSEOUS STRUCTURES: Degenerative spondylosis of the spine with multilevel endplate spurring of the thoracic vertebrae. Degenerative spondylosis of the facet joints at the lower lumbar spine. Status post left-sided laminectomy L4 vertebra. Status post median sternotomy. No acute osseous abnormality. No focal bone lesion. IMPRESSION: 1. Large volume of abdominal ascites. Generalized anasarca. Small left pleural effusion. 2. Suspicious large lesion in the liver. This can be further characterized with dynamic MRI. 3. Degenerative changes of the spine. Status post left-sided laminectomy L4 vertebra. Disposition Summary Disposition Principal Diagnosis: Abdominal Ascites with liver mass thats highly suspicious for malignancy. Additional Diagnosis: Spinal stenosis Discharge Disposition: SNF Discharge Instructions General Discharge Information Code Status: Full Code Patient's Diet: Heart healthy diet Patient's Activity: As tolerated Follow-Up Instructions/Appts: -The patient will need to follow with her primary care doctor within 1 week. -The patient has a mass in the liver that is suspicious for cancer, she will be instructed to remove and follow with GI as stated in the discharge instructions. This will need to be done as soon as possible postdischarge. Medications at Discharge Discharge Medications: Continue taking these medications: Cilostazol (Cilostazol) 50 MG TAB 1 Tablet ORAL TWICE DAILY Qty = 60 Comments: TAKE 1 TABLET BY MOUTH TWICE A DAY START TONIGHT 08/20/13 Clonidine (Catapres) 0.2 MG TABLET 1 Tablet ORAL TWICE DAILY Atorvastatin Calcium (Lipitor) 20 MG TABLET 1 Tablet ORAL AT BEDTIME Comments: LAST GIVEN 08/19/13 START TOMORROW 08/20/13 Isosorbide Mononitrate (Imdur) [address] Tablet ORAL DAILY Comments: LAST GIVEN 08/20/13 START TOMORROW 08/21/13 Aspirin (Children's Aspirin) 81 MG TAB.CHEW 1 Tablet ORAL DAILY Comments: START TOMORROW 08/21/13 Cholecalciferol (Vitamin D3) (Vitamin D3) 2,000 UNIT CAPSULE 1 Capsule ORAL TWICE DAILY Comments: PER PT Omeprazole (Omeprazole) 40 MG CAPSULE.DR 1 Capsule ORAL DAILY Qty = 30 Carrier-3 Fatty Acids/Fish Oil (Fish Oil 1,000 MG Capsule) 340 MG-1,000 MG CAPSULE 2 Capsule ORAL DAILY Amlodipine Besylate (Norvasc) 10 MG TABLET 1 Tablet ORAL DAILY Days = 30 Metoprolol Succinate (Metoprolol Succinate) 50 MG TAB.ER.24H 1 Tablet ORAL DAILY Days = 30 Prednisone (Prednisone) 5 MG TABLET 1.5 Tablet ORAL DAILY Qty = 45 Start taking the following new medications: Polyethylene Glycol 3350 (Miralax) 17 GRAM/DOSE POWDER 17 Gram ORAL TWICE DAILY Qty = 30 No Refills The following medications have been changed: Old: Hydralazine HCl (Hydralazine HCl) 50 MG TABLET 1 Tablet ORAL TWICE DAILY Days = 30 New: Hydralazine HCl (Hydralazine HCl) 50 MG TABLET 1.5 Tablet ORAL THREE TIMES DAILY Qty = 90 Copies To: Helene NAGEL,Juanito Mcwilliams; Darvin NAGEL,Charly Thomson
--- NOTE | 2017-03-10 08:20 | Patient Discharge Instructions ---
Discharge Instructions General Discharge Information You were seen/treated for: hepatomegaly/ascites/liver mass back pain Special Instructions: Please follow up with GI, Dr. Coleman to evaluate your liver. Please follow-up with your PCP within one week of discharge to check creatinine and potassium numbers Acute Coronary Syndrome Inclusion Criteria At DC or during hospital stay patient has or had the following: ACS DIAGNOSIS No Discharge Core Measures Meds if any: Prescribed or Continued at Discharge Meds if any: NOT Prescribed or Continued at Discharge Congestive Heart Failure Inclusion Criteria At DC or during hospital stay patient has or had the following: CHF DIAGNOSIS No Discharge Core Measures Meds if any: Prescribed or Continued at Discharge Meds if any: NOT Prescribed or Continued at Discharge Cerebrovascular accident Inclusion Criteria At DC or during hospital stay patient has or had the following: CVA/TIA Diagnosis No Discharge Core Measures Meds if any: Prescribed or Continued at Discharge Meds if any: NOT Prescribed or Continued at Discharge Venous thromboembolism Inclusion Criteria VTE Diagnosis No VTE Type NONE VTE Confirmed by (Test) NONE Discharge Core Measures - Per Current guidelines, there needs to be overlap - treatment for the first 5 days of Warfarin therapy. - If discharged on Warfarin prior to 5 days of - overlap therapy, the patient will need to be - assessed for post discharge needs including - *Post discharge parental anticoagulation - *Warfarin and/or parental anticoagulation education - *Follow up date to check INR post discharge At least 5 days overlap therapy as Inpatient No Meds if any: Prescribed or Continued at Discharge Note: Overlap Therapy is Warfarin and Anticoagulant Meds if any: NOT Prescribed or Continued at Discharge
[2017-03-10] MEDS ORDERED: HYDRALAZINE HCL50 M1 PO (10:11)
[2017-03-10] MEDS ORDERED: MIRALAX119 GM PO (10:11)
[2017-03-10] MEDS ORDERED: PREDNISONE5 M1 PO (10:13)
[2017-03-10 15:00] VITALS: BP 110/62
--- NOTE | 2017-03-10 15:27 | PN- Gastroenterology ---
Assessment/Plan Assessment/Recommendations: ASSESSMENT: 1. New onset ascites. Await cytology. 2. Lesion in right lobe of the liver question primary hepatocellular carcinoma versus metastatic disease given history of endometrial cancer as well as colon cancer. 3. Back pain 4. Chronic anemia of long duration 5. Chronic constipation. CT scan of the abdomen and pelvis shows large stool burden RECOMMENDATIONS: 1. Would check alpha-fetoprotein as well as CEA 2. Would obtain triple phase MRI as hepatocellular carcinoma has a particular bright appearance (i.e. hypervascular on the arterial phase of imaging) and display portal vein/delayed phase wash-out (or pseudocapsule enhancement). These findings can only be elicited with a with and without contrast study. Patient unable to tolerate closed MRI and awaiting study at open MRI. 3. Would check AMA and ASMA as patient may have burned out autoimmune hepatitis to account for portal hypertension. 4. Patient to be discharge. Make sure that patient has follow up appointment with me in the office. 5. GI will sign off for now. Please do not hesitate to contact us as needed. Subjective Subjective: Patient comfortable. No GI complaints. Unable to get open MRI as in-patient. AFP added to labs today. Objective Vital Signs and I&Os Vital Signs Date Time Temp Pulse Resp B/P B/P Pulse O2 O2 Flow FiO2 Mean Ox Delivery Rate 03/10 1500 98.2 55 20 110/62 96 03/10 1333 170/67 03/10 1128 98.6 61 16 120/68 / 1127 98.6 61 16 120/68 03/10 0600 98.6 61 16 120/68 97 Room Air 03/09 2300 98.0 64 18 186/68 98 Room Air 03/09 2207 65 114/60 03/09 2202 64 186/68 03/09 2201 64 186/68 Intake & Output 03/10 1600 03/10 0400 03/09 1600 03/09 0400 03/08 1600 03/08 0400 Intake Total 640 500 690 350 560 360 Output Total 250 300 250 Balance 640 250 390 350 310 360 Intake, IV 10 Intake, Oral 640 500 680 350 560 360 Output, Urine 250 300 250 Physical Exam General Appearance: alert, awake Respiratory: no respiratory distress, lungs clear Cardiovascular: regular rate/rhythm, Normal S1 and S2 without Rub, Murmur or Gallop Abdomen: normal bowel sounds, soft, non-tender Neurologic/Psychiatric: awake, alert, oriented x 3 Skin: normal color, warm/dry Current Medications: Current Medications Sig/Jose Start time Last Medication Dose Route Stop Time Status Admin Acetaminophen 500 MG Q6P PRN 03/06 1815 AC 03/07 PO 2129 Amlodipine Besylate 10 MG DAILY 03/07 1000 AC 03/10 PO 1128 Atorvastatin Calcium 20 MG AT BEDTIME 03/06 2200 AC 03/09 PO 2202 Cilostazol 50 MG BID 03/06 2200 AC 03/10 PO 1133 Clonidine 0.2 MG BID 03/06 2200 AC 03/10 PO 1127 Hydralazine HCl 75 MG TID 03/09 1600 AC 03/10 PO 1333 Hydrocodone Bitart/ 1 TAB Q8P PRN 03/06 1800 AC Acetaminophen PO Isosorbide 60 MG DAILY 03/07 1000 AC 03/10 Mononitrate PO 1127 Lidocaine 1 PAT DAILY 03/06 1815 AC 03/10 EXT 1126 Lorazepam 2 MG ONE PRN 03/10 0730 DC IV 03/10 1200 Metoprolol Succinate 50 MG DAILY 03/07 1000 AC 03/10 PO 1127 Oxycodone/ 1 TAB Q8P PRN 03/06 1800 AC 03/09 Acetaminophen PO 0621 Polyethylene Glycol 17 GM BID 03/08 1000 AC 03/10 PO 1126 Prednisone 10 MG DAILY 03/07 1523 AC 03/10 PO 1127 Tramadol HCl 50 MG ONCE ONE 03/09 2199 DC 03/09 PO 03/09 Results Pertinent Lab Results: Laboratory Tests 03/09 03/09 03/09 0920 0817 0600 Chemistry Sodium (137 - 145 mmol/L) 137 Potassium (3.5 - 5.1 mmol/L) 4.4 Chloride (98 - 107 mmol/L) 104 Carbon Dioxide (22 - 30 mmol/L) 22 Anion Gap (5 - 16) 11 BUN (7 - 17 mg/dL) 49 H Creatinine (0.5 - 1.0 mg/dL) 1.3 H Estimated GFR (>60 ml/min) 40 L BUN/Creatinine Ratio (7 - 25 %) 37.7 H Alpha Fetoprotein Cancelled Hematology CBC w Diff NO MAN DIFF REQ WBC (4.8 - 10.8 /CUMM) 13.6 H RBC (4.20 - 5.40 /CUMM) 2.72 L Hgb (12.0 - 16.0 G/DL) 8.4 L Hct (37 - 47 %) 24.9 L MCV (81.0 - 99.0 FL) 91.6 MCH (27.0 - 31.0 PG) 30.8 MCHC (33.0 - 37.0 G/DL) 33.7 RDW (11.5 - 14.5 %) 14.6 H Plt Count (130 - 400 /CUMM) 218 MPV (7.4 - 10.4 FL) 8.1 Gran % (42.2 - 75.2 %) 89.0 H Lymphocytes % (20.5 - 51.1 %) 6.0 L Monocytes % (1.7 - 9.3 %) 4.7 Eosinophils % (0 - 5 %) 0.2 Basophils % (0.0 - 2.0 %) 0.1 Absolute Granulocytes (1.4 - 6.5 /CUMM) 12.1 H Absolute Lymphocytes (1.2 - 3.4 /CUMM) 0.8 L Absolute Monocytes (0.10 - 0.60 /CUMM) 0.6 Absolute Eosinophils (0.0 - 0.7 /CUMM) 0 Absolute Basophils (0.0 - 0.2 /CUMM) 0 03/08 03/08 0748 0600 Chemistry Sodium (137 - 145 mmol/L) 138 Potassium (3.5 - 5.1 mmol/L) 4.5 Chloride (98 - 107 mmol/L) 104 Carbon Dioxide (22 - 30 mmol/L) 25 Anion Gap (5 - 16) 9 BUN (7 - 17 mg/dL) 36 H Creatinine (0.5 - 1.0 mg/dL) 1.3 H Estimated GFR (>60 ml/min) 40 L BUN/Creatinine Ratio (7 - 25 %) 27.7 H Iron (37 - 170 ug/dL) 26 L TIBC (265 - 497 ug/dL) 153 L Ferritin (11.1 - 264 ng/mL) 151.0 Total Bilirubin (0.2 - 1.3 mg/dL) 0.7 Direct Bilirubin (< 0.4 mg/dL) 0.3 AST (14 - 36 U/L) 32 ALT (9 - 52 U/L) 35 Alkaline Phosphatase (<127 U/L) 212 H Total Protein (6.3 - 8.2 g/dL) 4.5 L Albumin (3.5 - 5.0 g/dL) 2.6 L Alpha Fetoprotein Pending Vitamin B12 (239 - 931 pg/mL) 796 Folate (2.76 - 20.0 ng/mL) 4.2 Hematology CBC w Diff NO MAN DIFF REQ WBC (4.8 - 10.8 /CUMM) 12.2 H RBC (4.20 - 5.40 /CUMM) 2.86 L Hgb (12.0 - 16.0 G/DL) 8.8 L Hct (37 - 47 %) 26.3 L MCV (81.0 - 99.0 FL) 92.0 MCH (27.0 - 31.0 PG) 30.6 MCHC (33.0 - 37.0 G/DL) 33.3 RDW (11.5 - 14.5 %) 15.0 H Plt Count (130 - 400 /CUMM) 213 MPV (7.4 - 10.4 FL) 8.1 Gran % (42.2 - 75.2 %) 94.0 H Lymphocytes % (20.5 - 51.1 %) 4.4 L Monocytes % (1.7 - 9.3 %) 1.5 L Eosinophils % (0 - 5 %) 0 Basophils % (0.0 - 2.0 %) 0.1 Absolute Granulocytes (1.4 - 6.5 /CUMM) 11.5 H Absolute Lymphocytes (1.2 - 3.4 /CUMM) 0.5 L Absolute Monocytes (0.10 - 0.60 /CUMM) 0.2 Absolute Eosinophils (0.0 - 0.7 /CUMM) 0 Absolute Basophils (0.0 - 0.2 /CUMM) 0
[2017-03-10 21:57] VITALS: BP 180/60
[2017-03-11 07:42] VITALS: BP 160/60
--- NOTE | 2017-03-11 08:59 | PN- Housestaff ---
Susie NAGEL,Manish 03/11/17 0859: Subjective Follow-up For: back pain/weakness hepatomegaly, liver mass, ascites Subjective: no complaints this morning, no abdominal pain, patient wants to go to [facility], refused MRI as an inpatient Review of Systems Constitutional: Reports: see HPI. Objective Last 24 Hrs of Vital Signs/I&O Vital Signs Date Time Temp Pulse Resp B/P B/P Pulse O2 O2 Flow FiO2 Mean Ox Delivery Rate 03/11 0742 98.2 63 20 160/60 96 Room Air 03/11 0000 97 Room Air 03/10 2157 98.3 72 20 180/60 97 03/10 2117 64 175/68 03/10 211 64 175/68 03/10 1500 98.2 55 20 110/62 96 03/10 1333 170/67 03/10 1128 98.6 61 16 120/68 03/10 1127 98.6 61 16 120/68 Intake & Output 03/11 1600 03/11 0800 03/11 0000 Intake Total 0 500 Output Total Balance 0 500 Intake, IV 0 Intake, Oral 0 500 Number 0 Bowel Movements Patient 58.967 kg Weight Physical Exam General Appearance: Alert, Oriented X3, Cooperative, No Acute Distress Cardiovascular: Regular Rate, Normal S1, Normal S2, No Murmurs Lungs: Clear to Auscultation, Normal Air Movement Abdomen: Normal Bowel Sounds, Soft, distended but soft, firm hepatomegaly, no tenderness on palpation Extremities: No Clubbing, No Cyanosis, minimal RLE edema Current Medications: Current Medications Sig/Jose Start time Last Medication Dose Route Stop Time Status Admin Acetaminophen 500 MG Q6P PRN 03/06 1814 AC 03/07 PO 2128 Amlodipine Besylate 10 MG DAILY 03/07 1000 AC 03/10 PO 112 Atorvastatin Calcium 20 MG AT BEDTIME 03/06 2199 AC 03/10 PO 2116 Cilostazol 50 MG BID 03/06 2199 AC 03/10 PO 2117 Clonidine 0.2 MG BID 03/06 2199 AC 03/10 PO 2116 Hydralazine HCl 75 MG TID 03/09 1600 AC 03/10 PO 211 Hydrocodone Bitart/ 1 TAB Q8P PRN 03/06 1800 AC Acetaminophen PO Isosorbide 60 MG DAILY 03/07 1000 AC 03/10 Mononitrate PO 112 Lidocaine 1 PAT DAILY 03/06 1814 AC 03/10 EXT 1126 Metoprolol Succinate 50 MG DAILY 03/07 1000 AC 03/10 PO 1127 Oxycodone/ 1 TAB Q8P PRN 03/06 1800 AC 03/09 Acetaminophen PO 0621 Polyethylene Glycol 17 GM BID 03/08 1000 AC 03/10 PO 2117 Prednisone 10 MG DAILY 03/07 1523 AC 03/10 PO 1127 Tramadol HCl 50 MG ONE TIME ONE 03/10 2114 DC 03/10 PO 03/103 Assessment/Plan Assessment: 76-year-old female with past medical history of CAD status post CABG (1999), PVD (status post angioplasty with stent placement), HTN,stage IV chronic kidney disease secondary to hypertensive nephrosclerosis, HLD, lumbar disc surgery, uterine cancer, colon cancer was admitted acute on chronic back pain, associated with lower extremity weakness, gait instability, and frequent falls. The patient was found to have hepatomegaly and ascites on admission and underwent diagnostic and therapeutic paracentesis on this hospitalization. Acute on chronic back pain: nonradicular, with new weakness, difficulty ambulating and falls History of L4 laminectomy in past (Dr. Mahan) History of neuroforaminal narrowing with possible spinal stenosis. Continue analgesia with Dilaudid/oxycodone/Tylenol. Physical therapy consulted, patient will likely need STR placement. Has stairs at home that she doesn't have the strength to climb Ascites with liver mass: CT reports enlarging liver mass 8cm x 8cm x 8cm compared to 2.2cm in 2016 MRI abdomen to further evaluate liver mass tomorrow Likely malignancy, patient refused MRI today History of colon cancer in past (resected 1989). High SAAG suggests portal hypertension, can not rule out malignant ascites Follow up cytology and alpha fetoprotein GI consulted, appreciate recommendations Outpatient GI follow up for further testing CAD/HTN: Continue betablocker, nitrates, hydralazine, and clonidine HLD: Statin on hold Trend LFTs GERD: Continue omeprazole CKD stage IIIA: stable Avoid nephrotoxins Heart healthy diet DVT ppx-heparin 5000 units subcutaneous Q8H Full code Problem List: 1. CAD (coronary artery disease) 2. Hypertension 3. History of colon cancer 4. History of uterine cancer 5. Chronic anemia 6. Chronic renal insufficiency 7. Unsteady gait 8. Liver lesion 9. Ascites Pain Ratin Pain Location: n/a Pain Goal: Pain 4 or less Pain Plan: prn Tomorrow's Labs & Rationales: cbc Stephanie NAGEL,B 03/11/17 1156: Objective Last 24 Hrs of Vital Signs/I&O Vital Signs Date Time Temp Pulse Resp B/P B/P Pulse O2 O2 Flow FiO2 Mean Ox Delivery Rate 03/11 1038 98.2 63 20 160/60 03/11 1038 98.2 63 20 160/60 03/11 1038 98.2 63 20 160/60 03/11 1038 63 20 160/60 / 0742 98.2 63 20 160/60 96 Room Air 03/11 0000 97 Room Air 03/10 2157 98.3 72 20 180/60 97 03/10 211 64 175/68 03/10 211 64 175/68 03/10 1500 98.2 55 20 110/62 96 03/10 1333 170/67 Intake & Output 03/11 1600 03/11 0800 03/11 0000 Intake Total 0 500 Output Total Balance 0 500 Intake, IV 0 Intake, Oral 0 500 Number 0 Bowel Movements Patient 130 lb Weight Attending MD Review Statement Attending Statement Attending MD Statement: examined this patient, discuss w/resident/PA/[employer]OR, agreed w/resident/PA/[employer]ENCE E[employer]OR, discussed with nursing, discussed with case mgmt Attending Assessment/Plan: 76 y/o F presented with acute back pain and was found to have ascites s/p para, neg for SBP. Ct scan was s/f for large hepatic mass. Hepatic mass with the concern of malignancy, pt refusing MRI in house as she is claustrophobic- plan is for MRI and GI follow up as outpt for further management generalized weakness: Insurance refused STR. pt is very weak and at risk of fall at home. Discussed with CM and as per CM [facility] services mentioned that they are familiar with pt and are not comfortable providing services given her risk of falls. Will follow PT and CM in regards to dispo planning. Mild leukocytosis: unclear etiology at this point. will rpt CBC. no signs of acute infection. Hypertension: overnight BP was not very well controlled. will monitor today and persistently elevated will adjust her BP meds. w/resident/PA/SNOW FENCE E[employer]OR, discussed with nursing, discussed with case mgmt Attending Assessment/Plan: 76 y/o F presented with acute back pain and was found to have ascites s/p para, neg for SBP. Ct scan was s/f for large hepatic mass. Hepatic mass - plan is for MRI and GI follow up as outpt for further management generalized weakness: Insurance refused STR. pt is very weak and at risk of fall at home. Discussed with CM and as per CM [facility] services mentioned that they are familiar with pt and are not comfortable providing services given her risk of falls. Will follow PT and CM in regards to dispo planning. Mild leukocytosis: unclear etiology at this point. will rpt CBC. no signs of acute infection. Hypertension: overnight BP was not very well controlled. will monitor today and persistently elevated will adjust her BP meds.
[2017-03-11 10:53] LABS: ABSOLUTE BASOPHIL COUNT 0 /CUMM (0.0-0.2); ABSOLUTE EOSINOPHIL COUNT 0 /CUMM (0.0-0.7); ABSOLUTE GRANULOCYTE CT 9.9 /CUMM (1.4-6.5); ABSOLUTE LYMPH COUNT 0.6 /CUMM (1.2-3.4); ABSOLUTE MONOCYTE COUNT 0.6 /CUMM (0.10-0.60); EOSINOPHIL % 0.2 % (0-5); GRANULOCYTE % 88.6 % (42.2-75.2); MEAN CORPUSCULAR HGB CONC 33.5 G/DL (33.0-37.0); MEAN PLATELET VOLUME 7.7 FL (7.4-10.4); PLATELET COUNT 229 /CUMM (130-400); RBC DISTRIBUTION WIDTH 14.9 % (11.5-14.5); WHITE BLOOD CELL COUNT 11.2 /CUMM (4.8-10.8)
[2017-03-11 11:39] LABS: BASOPHIL % 0 % (0.0-2.0); HEMATOCRIT 24.7 % (37-47); MEAN CORPUSCULAR HGB 30.6 PG (27.0-31.0); MEAN CORPUSCULAR VOLUME 91.3 FL (81.0-99.0)
[2017-03-11 14:24] VITALS: BP 115/60
[2017-03-11 22:45] VITALS: BP 148/60
[2017-03-12 07:06] VITALS: BP 138/64
[2017-03-12 09:54] LABS: ABSOLUTE BASOPHIL COUNT 0 /CUMM (0.0-0.2); ABSOLUTE EOSINOPHIL COUNT 0 /CUMM (0.0-0.7); ABSOLUTE GRANULOCYTE CT 9.3 /CUMM (1.4-6.5); ABSOLUTE LYMPH COUNT 0.7 /CUMM (1.2-3.4); ABSOLUTE MONOCYTE COUNT 0.7 /CUMM (0.10-0.60); BASOPHIL % 0 % (0.0-2.0); EOSINOPHIL % 0.3 % (0-5); GRANULOCYTE % 87.3 % (42.2-75.2); HEMATOCRIT 21.2 % (37-47); MEAN CORPUSCULAR HGB 30.9 PG (27.0-31.0); MEAN CORPUSCULAR HGB CONC 33.5 G/DL (33.0-37.0); MEAN CORPUSCULAR VOLUME 92.3 FL (81.0-99.0); MEAN PLATELET VOLUME 7.7 FL (7.4-10.4); PLATELET COUNT 209 /CUMM (130-400); RBC DISTRIBUTION WIDTH 15.2 % (11.5-14.5); WHITE BLOOD CELL COUNT 10.6 /CUMM (4.8-10.8)
--- NOTE | 2017-03-12 10:53 | PN- Housestaff ---
Christofer Kirby 03/12/17 1052: Subjective Follow-up For: back pain/weakness hepatomegaly, liver mass, ascites Subjective: no complaints this morning, no abdominal pain, patient wants to go to [facility], refused MRI as an inpatient Review of Systems Constitutional: Reports: no symptoms. Objective Last 24 Hrs of Vital Signs/I&O Vital Signs Date Time Temp Pulse Resp B/P B/P Pulse O2 O2 Flow FiO2 Mean Ox Delivery Rate 03/12 0830 98.7 60 18 180/63 03/12 0829 98.7 60 18 138/64 03/12 0825 98.7 60 18 138/64 03/12 0706 98.7 60 18 138/64 97 Room Air 03/12 0000 97 Room Air 03/11 2245 98.1 65 18 148/60 97 Room Air 03/11 205 65 148/60 03/11 2054 65 148/60 03/11 1638 62 115/60 03/11 1600 Room Air 03/11 1424 98.6 62 18 115/60 96 Room Air Intake & Output 03/12 1600 03/12 0800 03/12 0000 Intake Total 0 150 Output Total Balance 0 150 Intake, IV 0 10 Intake, Oral 0 140 Number 1 Bowel Movements Physical Exam General Appearance: Alert, Oriented X3, Cooperative, No Acute Distress Cardiovascular: Regular Rate, Normal S1, Normal S2, No Murmurs Lungs: Clear to Auscultation, Normal Air Movement Abdomen: Normal Bowel Sounds, Soft, distended but soft, firm hepatomegaly, no tenderness on palpation Extremities: No Clubbing, No Cyanosis, minimal RLE edema Physical Exam General Appearance: Alert Assessment/Plan Assessment: 76-year-old female with past medical history of CAD status post CABG (1999), PVD (status post angioplasty with stent placement), HTN,stage IV chronic kidney disease secondary to hypertensive nephrosclerosis, HLD, lumbar disc surgery, uterine cancer, colon cancer was admitted acute on chronic back pain, associated with lower extremity weakness, gait instability, and frequent falls. The patient was found to have hepatomegaly and ascites on admission and underwent diagnostic and therapeutic paracentesis on this hospitalization. Acute on chronic back pain: nonradicular, with new weakness, difficulty ambulating and falls History of L4 laminectomy in past (Dr. Mahan) History of neuroforaminal narrowing with possible spinal stenosis. Continue analgesia with Dilaudid/oxycodone/Tylenol. Discussed with CM and as per CM [facility] services mentioned that they are familiar with pt and are not comfortable providing services given her risk of falls. Will follow PT and CM in regards to dispo planning. Ascites with liver mass: CT reports enlarging liver mass 8cm x 8cm x 8cm compared to 2.2cm in 2016 MRI abdomen to further evaluate liver mass tomorrow Likely malignancy, patient refused MRI today History of colon cancer in past (resected 1989). High SAAG suggests portal hypertension, can not rule out malignant ascites Follow up cytology and alpha fetoprotein GI consulted, appreciate recommendations Outpatient GI follow up for further testing CAD/HTN: Continue betablocker, nitrates, hydralazine, and clonidine HLD: Statin on hold Trend LFTs GERD: Continue omeprazole CKD stage IIIA: stable Avoid nephrotoxins Heart healthy diet DVT ppx-heparin 5000 units subcutaneous Q8H Full code Problem List: 1. Liver lesion 2. Ascites 3. Intractable back pain Pain Ratin Pain Location: low back Pain Goal: Pain 4 or less Pain Plan: as per paion plan Tomorrow's Labs & Rationales: none Stephanie NAGEL,B 03/12/17 1219: Attending MD Review Statement Attending Statement Attending MD Statement: examined this patient, discuss w/resident/PA/TREE KILLER, agreed w/resident/PA/TREE KILLER, discussed with nursing, discussed with case mgmt Attending Assessment/Plan: 76 y/o F presented with acute back pain and was found to have ascites s/p para, neg for SBP. Ct scan was s/f for large hepatic mass. Hepatic mass with the concern of malignancy, pt refusing MRI in house as she is claustrophobic- plan is for MRI and GI follow up as outpt for further management Drop in H.H: no active source of bleeding. check FOBT. rpt H.h, type and screen. Consult GI if positive H.H. generalized weakness: Insurance refused STR. pt is very weak and at risk of fall at home. Discussed with CM and as per CM [facility] services mentioned that they are familiar with pt and are not comfortable providing services given her risk of falls. Will follow PT and CM in regards to dispo planning.
[2017-03-12 14:30] VITALS: BP 118/68
[2017-03-12 15:00] VITALS: BP 180/60
[2017-03-12 22:32] VITALS: BP 150/68
[2017-03-12 23:03] LABS: ABSOLUTE BASOPHIL COUNT 0 /CUMM (0.0-0.2); ABSOLUTE EOSINOPHIL COUNT 0 /CUMM (0.0-0.7); ABSOLUTE GRANULOCYTE CT 10.5 /CUMM (1.4-6.5); ABSOLUTE LYMPH COUNT 0.6 /CUMM (1.2-3.4); ABSOLUTE MONOCYTE COUNT 0.4 /CUMM (0.10-0.60); BASOPHIL % 0 % (0.0-2.0); EOSINOPHIL % 0 % (0-5); HEMATOCRIT 21.9 % (37-47); MEAN CORPUSCULAR HGB 30.7 PG (27.0-31.0); MEAN CORPUSCULAR HGB CONC 33.7 G/DL (33.0-37.0); MEAN PLATELET VOLUME 7.5 FL (7.4-10.4); PLATELET COUNT 216 /CUMM (130-400); RBC DISTRIBUTION WIDTH 15.1 % (11.5-14.5); RED BLOOD CELL CT 2.41 /CUMM (4.20-5.40); WHITE BLOOD CELL COUNT 11.4 /CUMM (4.8-10.8)
[2017-03-12 23:06] LABS: GRANULOCYTE % 91.6 % (42.2-75.2)
[2017-03-13 07:11] VITALS: BP 154/74
--- NOTE | 2017-03-13 07:58 | PN- Housestaff ---
Abdifatah James 03/13/17 0758: Subjective Follow-up For: back pain/weakness hepatomegaly, liver mass, ascites Subjective: Patient reports her R breast looks and feels different than her L breast. No acute events overnight Review of Systems Constitutional: Reports: see HPI. Objective Last 24 Hrs of Vital Signs/I&O Vital Signs Date Time Temp Pulse Resp B/P B/P Pulse O2 O2 Flow FiO2 Mean Ox Delivery Rate 03/13 0711 98.5 55 20 154/74 96 Room Air 03/12 2232 98.8 66 20 150/68 95 Room Air / 1613 97.7 52 20 180/60 03/12 1500 180/60 03/12 1430 97.7 52 20 118/68 96 Intake & Output 03/13 1600 03/13 0800 03/13 0000 Intake Total 250 260 Output Total Balance 250 260 Intake, IV 10 20 Intake, Oral 240 240 Number 1 Bowel Movements Physical Exam General Appearance: Alert, Oriented X3, Cooperative Skin: Multiple surgical scars Cardiovascular: Regular Rate, Normal S1, Normal S2 Lungs: Clear to Auscultation, Normal Air Movement Abdomen: Anterior thoracic wall hernia, Positive fluid wave Extremities: No Edema, thin Breasts: Fluid filled L breast Other Physical Findings: L side back appear to be 3rd spacing with fluid subcutaneously Current Medications: Current Medications Sig/Jose Start time Last Medication Dose Route Stop Time Status Admin Acetaminophen 500 MG Q6P PRN 03/06 1815 AC 03/07 PO 2129 Amlodipine Besylate 10 MG DAILY 03/07 1000 AC 03/12 PO 0829 Atorvastatin Calcium 20 MG AT BEDTIME 03/060 AC 03/12 PO 214 Bisacodyl 5 MG ONE ONE 03/12 1815 DC PO 03/12 1816 Cilostazol 50 MG BID 03/06 2200 AC 03/12 PO 2143 Clonidine 0.2 MG BID 03/06 2200 AC 03/12 PO 2142 Hydralazine HCl 75 MG TID 03/09 1600 AC 03/12 PO 2142 Hydrocodone Bitart/ 1 TAB Q8P PRN 03/06 1800 AC Acetaminophen PO Isosorbide 60 MG DAILY 03/07 1000 AC 03/12 Mononitrate PO 0829 Lidocaine 1 PAT DAILY 03/06 1815 AC 03/12 EXT 0824 Metoprolol Succinate 50 MG DAILY 03/07 1000 AC 03/12 PO 0825 Oxycodone/ 1 TAB Q8P PRN 03/06 1800 AC 03/09 Acetaminophen PO 0621 Polyethylene Glycol 17 GM BID 03/08 1000 AC 03/12 PO 0831 Prednisone 10 MG DAILY 03/07 1523 AC 03/12 PO 0825 Tramadol HCl 50 MG ONE TIME ONE 03/12 2199 DC 03/12 PO 03/12 2200 2216 Last 24 Hrs of Lab/Jere Results Last 24 Hrs of Labs/Mics: Laboratory Tests 03/12/172249: CBC w Diff NO MAN DIFF REQ, RBC 2.41 L, MCV 91.0, MCH 30.7, MCHC 33.7, RDW 15.1 H, MPV 7.5, Gran % 91.6 H, Lymphocytes % 4.8 L, Monocytes % 3.6, Eosinophils % 0, Basophils % 0, Absolute Granulocytes 10.5 H, Absolute Lymphocytes 0.6 L, Absolute Monocytes 0.4, Absolute Eosinophils 0, Absolute Basophils 0 03/12/17 09: Anion Gap 11, Estimated GFR 31 L, BUN/Creatinine Ratio 38.8 H, CBC w Diff NO MAN DIFF REQ, RBC 2.30 L, MCV 92.3, MCH 30.9, MCHC 33.5, RDW 15.2 H, MPV 7.7, Gran % 87.3 H, Lymphocytes % 6.2 L, Monocytes % 6.2, Eosinophils % 0.3, Basophils % 0, Absolute Granulocytes 9.3 H, Absolute Lymphocytes 0.7 L, Absolute Monocytes 0.7 H, Absolute Eosinophils 0, Absolute Basophils 0 Assessment/Plan Assessment: 76-year-old female with past medical history of CAD status post CABG (1999), PVD (status post angioplasty with stent placement), HTN,stage IV chronic kidney disease secondary to hypertensive nephrosclerosis, HLD, lumbar disc surgery, uterine cancer, colon cancer was admitted acute on chronic back pain, associated with lower extremity weakness, gait instability, and frequent falls. The patient was found to have hepatomegaly and ascites on admission and underwent diagnostic and therapeutic paracentesis on this hospitalization. Acute on chronic back pain: nonradicular, with new weakness, difficulty ambulating and falls History of L4 laminectomy in past (Dr. Mahan) History of neuroforaminal narrowing with possible spinal stenosis. Continue analgesia with Dilaudid/oxycodone/Tylenol. Discussed with CM and as per CM [facility] services mentioned that they are familiar with pt and are not comfortable providing services given her risk of falls. Will follow PT and CM in regards to dispo planning. Ascites with liver mass: CT reports enlarging liver mass 8cm x 8cm x 8cm compared to 2.2cm in 2016 Likely malignancy, patient refused MRI History of colon cancer in past (resected 1989). High SAAG suggests portal hypertension, can not rule out malignant ascites Follow up cytology and alpha fetoprotein GI consulted, appreciate recommendations Outpatient GI follow up for further testing CAD/HTN: Continue betablocker, nitrates, hydralazine, and clonidine HLD: Statin on hold Trend LFTs GERD: Continue omeprazole CKD stage IIIA: stable Avoid nephrotoxins Heart healthy diet DVT ppx-heparin 5000 units subcutaneous Q8H Full code Problem List: 1. Intractable back pain Pain Ratin Pain Location: Back Pain Goal: Remain pain free Pain Plan: Hyrdocodone, Oxycodone Tomorrow's Labs & Rationales: CBC for hgb Josephine Allen MD 03/13/17 1323: Attending MD Review Statement Attending Statement Attending MD Statement: examined this patient, discuss w/resident/PA/HUNTER, agreed w/resident/PA/HUNTER, reviewed EMR data (avail) Attending Assessment/Plan: 76F PMH CAD status post CABG (1999), PVD (status post angioplasty with stent placement), HTN,stage IV chronic kidney disease secondary to hypertensive nephrosclerosis, HLD, lumbar disc surgery, uterine cancer, colon cancer admitted with acute onset of lower back pain with lower extremity weakness, as her legs just gave out. Happens to patient about once a year, improved during admission with physical therapy and pain control. Was found incidentally to have ascites now s/p paracentesis removing 6L, with ascitic fluid showing no evidence of SBP and consistent with cirrhosis/hepatitis. CT of the abdomen shows large mass and requires MRI, but patient is claustrophobic and will have outpatient open MRI. Doing well today. Reports worsening swelling of her left side and left breast without pain or erythema, non-tender on exam, consistent with dependent edema as she lays and sleeps on that side. Unable to transfer or climb stairs in her current condition. 1. Ascites, very likely to be malignant given hepatic mass and history of multiple malignancies 2. Acute on chronic lower back pain 3. Bilateral lower extremity weakness Plan - Continue on general mediicne - Continue home medications - Follow GI recommendations - Continue home Prednisone - Monitor edema - Continue to work with PT as patient is deteriorating - Would benefit from short term rehab
[2017-03-13 15:09] VITALS: BP 140/60
[2017-03-13 17:17] LABS: ABSOLUTE BASOPHIL COUNT 0 /CUMM (0.0-0.2); ABSOLUTE EOSINOPHIL COUNT 0 /CUMM (0.0-0.7); ABSOLUTE GRANULOCYTE CT 12.2 /CUMM (1.4-6.5); ABSOLUTE LYMPH COUNT 0.3 /CUMM (1.2-3.4); ABSOLUTE MONOCYTE COUNT 0.3 /CUMM (0.10-0.60); BASOPHIL % 0.1 % (0.0-2.0); EOSINOPHIL % 0.1 % (0-5); HEMATOCRIT 23.9 % (37-47); MEAN CORPUSCULAR HGB 30.9 PG (27.0-31.0); MEAN CORPUSCULAR HGB CONC 33.7 G/DL (33.0-37.0); MEAN CORPUSCULAR VOLUME 91.7 FL (81.0-99.0); MEAN PLATELET VOLUME 7.7 FL (7.4-10.4); PLATELET COUNT 252 /CUMM (130-400); RBC DISTRIBUTION WIDTH 15.2 % (11.5-14.5); RED BLOOD CELL CT 2.61 /CUMM (4.20-5.40); WHITE BLOOD CELL COUNT 12.9 /CUMM (4.8-10.8)
[2017-03-13 17:18] LABS: GRANULOCYTE % 94.7 % (42.2-75.2)
[2017-03-13 22:29] VITALS: BP 178/60
[2017-03-14 06:09] VITALS: BP 160/60
--- NOTE | 2017-03-14 08:26 | PN- Housestaff ---
See Addendum Subjective Follow-up For: Chronic back pain Subjective: Pt seen and examined, currently resting comfortably, offers no complains. states ioana back pain is better than baseline. Review of Systems Constitutional: Reports: see HPI. Objective Last 24 Hrs of Vital Signs/I&O Vital Signs Date Time Temp Pulse Resp B/P B/P Pulse O2 O2 Flow FiO2 Mean Ox Delivery Rate 03/14 0745 98.2 62 20 160/60 03/14 0844 98.2 62 20 160/60 / 0609 98.2 62 20 160/60 96 Room Air 03/14 0000 97 Room Air 03/13 2229 98.1 80 20 178/60 97 Room Air 03/13 2050 80 178/60 03/13 2049 80 178/60 03/13 1550 66 150/58 03/13 1509 98.1 62 16 140/60 98 Intake & Output 03/14 1600 03/14 0800 03/14 0000 Intake Total 0 800 Output Total Balance 0 800 Intake, IV 0 Intake, Oral 0 800 Number 0 Bowel Movements Physical Exam General Appearance: Alert, Oriented X3, Cooperative, No Acute Distress Cardiovascular: Normal S1, Normal S2 Lungs: Clear to Auscultation Abdomen: Normal Bowel Sounds, distended Neurological: Normal Speech Current Medications: Current Medications Sig/Jose Start time Last Medication Dose Route Stop Time Status Admin Acetaminophen 500 MG Q6P PRN 03/06 1815 AC 03/07 PO 2129 Amlodipine Besylate 10 MG DAILY 03/07 1000 AC 03/14 PO 0845 Atorvastatin Calcium 20 MG AT BEDTIME 03/06 2199 AC 03/13 PO 2049 Bisacodyl 10 MG ONCE ONE 03/13 1200 DC MN 03/13 1201 Cilostazol 50 MG BID 03/06 2200 AC 03/14 PO 0847 Clonidine 0.2 MG BID 03/06 220 AC 03/14 PO 0846 Hydralazine HCl 75 MG TID 03/09 1600 AC 03/14 PO 0846 Hydrocodone Bitart/ 1 TAB Q8P PRN 03/06 1800 DC Acetaminophen PO Isosorbide 60 MG DAILY 03/07 1000 AC 03/14 Mononitrate PO 0846 Lidocaine 1 PAT DAILY 03/06 1815 AC 03/14 EXT 0847 Metoprolol Succinate 50 MG DAILY 03/07 1000 AC 03/14 PO 0844 Oxycodone/ 1 TAB Q8P PRN 03/06 1800 DC 03/09 Acetaminophen PO 0621 Polyethylene Glycol 17 GM BID 03/08 1000 AC 03/14 PO 0846 Prednisone 10 MG DAILY 03/07 1523 AC 03/14 PO 0844 Tramadol HCl 50 MG ONE TIME ONE 03/13 2100 DC 03/13 PO 03/13 2101 2154 Last 24 Hrs of Lab/Jere Results Last 24 Hrs of Labs/Mics: Laboratory Tests 03/13/17 1457: Anion Gap 12, Estimated GFR 29 L, BUN/Creatinine Ratio 38.8 H, CBC w Diff NO MAN DIFF REQ, RBC 2.61 L, MCV 91.7, MCH 30.9, MCHC 33.7, RDW 15.2 H, MPV 7.7, Gran % 94.7 H, Lymphocytes % 2.5 L, Monocytes % 2.6, Eosinophils % 0.1, Basophils % 0.1, Absolute Granulocytes 12.2 H, Absolute Lymphocytes 0.3 L, Absolute Monocytes 0.3, Absolute Eosinophils 0, Absolute Basophils 0 Assessment/Plan Assessment: 76-year-old female with past medical history of CAD status post CABG (1999), PVD (status post angioplasty with stent placement), HTN,stage IV chronic kidney disease secondary to hypertensive nephrosclerosis, HLD, lumbar disc surgery, uterine cancer, colon cancer was admitted acute on chronic back pain, associated with lower extremity weakness, gait instability, and frequent falls. The patient was found to have hepatomegaly and ascites on admission and underwent diagnostic and therapeutic paracentesis on this hospitalization. #Acute on chronic back pain: nonradicular, with new weakness, difficulty ambulating and falls History of L4 laminectomy in past (Dr. Mahan) History of neuroforaminal narrowing with possible spinal stenosis. Continue analgesia with Dilaudid/oxycodone/Tylenol. Awaiting STR, CM on case #Ascites with liver mass: CT reports enlarging liver mass 8cm x 8cm x 8cm compared to 2.2cm in 2016 Patient refusing MRI History of colon cancer in past (resected 1989). High SAAG suggests portal hypertension, can not rule out malignant ascites Cytology showed rare atypical cells of undetermined significance, mesothelial cells histocytes, lymphocytes, neutrophils and RBCs. features of malignancy not identified Alpha fetoprotein,CEA, AMA, ASMA pending GI consulted, appreciate recommendations Outpatient GI follow up #Stage 4 CKD secondary to hypertensive nephrosclerosis Creatinine 1.7 potassium 5.4 Continue to monitor BEP Avoid nephrotoxins Outpatient follow-up with PCP for BEP monitoring CAD/HTN: Continue betablocker, nitrates, hydralazine, and clonidine HLD:Statin on hold,Trend LFTs GERD: Continue omeprazole CKD stage IIIA: stable Heart healthy diet DVT ppx-heparin 5000 units subcutaneous Q8H Full code Problem List: 1. Liver lesion 2. Ascites Pain Ratin Pain Location: BACK Pain Goal: Pain 4 or less Pain Plan: PRN Tomorrow's Labs & Rationales: ORDERED
[2017-03-14 13:57] VITALS: BP 100/60
[2017-03-14 22:08] VITALS: BP 148/62
[2017-03-15 07:46] VITALS: BP 154/68
--- NOTE | 2017-03-15 09:14 | PN- Housestaff ---
Susie NAGEL,Manish 03/15/17 0914: Subjective Follow-up For: liver mass/cirrhosis Subjective: no new complaints Review of Systems Constitutional: Reports: see HPI. Objective Last 24 Hrs of Vital Signs/I&O Vital Signs Date Time Temp Pulse Resp B/P B/P Pulse O2 O2 Flow FiO2 Mean Ox Delivery Rate 03/15 1600 72 140/70 03/15 1445 170/70 03/15 1438 98.7 98 20 96 03/15 1023 60 190/70 03/15 0926 Room Air Room Air 03/15 0746 98.1 74 20 154/68 96 Room Air 03/14 2208 98.8 63 20 148/62 97 03/14 2148 98.5 63 100/60 Intake & Output 03/15 1600 03/15 0800 03/15 0000 Intake Total 480 200 200 Output Total Balance 480 200 200 Intake, Oral 480 200 200 Physical Exam General Appearance: Alert, Oriented X3, Cooperative, No Acute Distress Cardiovascular: Regular Rate, Normal S1, Normal S2, No Murmurs Lungs: diminished bibasilar Abdomen: Normal Bowel Sounds, Soft, No Tenderness, hepatomegaly Extremities: No Clubbing, No Edema, Normal Pulses Current Medications: Current Medications Sig/Jose Start time Last Medication Dose Route Stop Time Status Admin Acetaminophen 500 MG Q6P PRN 03/06 181 AC 03/07 PO 2129 Amlodipine Besylate 10 MG DAILY 03/07 1000 AC 03/15 PO 1024 Atorvastatin Calcium 20 MG AT BEDTIME 03/06 2199 AC 03/14 PO 2147 Cilostazol 50 MG BID 03/06 220 AC 03/15 PO 1024 Clonidine 0.2 MG BID 03/06 220 AC 03/15 PO 1024 Hydralazine HCl 75 MG TID 03/09 1600 AC 03/15 PO 1600 Isosorbide 60 MG DAILY 03/07 1000 AC 03/15 Mononitrate PO 1023 Lidocaine 1 PAT DAILY 03/06 181 AC 03/14 EXT 0847 Metoprolol Succinate 50 MG DAILY 03/07 1000 AC 03/15 PO 1024 Polyethylene Glycol 17 GM BID 03/08 1000 AC 03/15 PO 1024 Prednisone 10 MG DAILY 03/07 1523 AC 03/15 PO 1024 Tramadol HCl 50 MG AT BEDTIME 03/15 2199 AC 03/15 PO 2015 Tramadol HCl 50 MG ONE TIME ONE 03/14 2330 DC 03/14 PO 03/14 2331 2337 Last 24 Hrs of Lab/Jere Results Last 24 Hrs of Labs/Mics: Laboratory Tests 03/15/17 1545: Anion Gap 6, Estimated GFR 29 L, BUN/Creatinine Ratio 41.2 H, CBC w Diff NO MAN DIFF REQ, RBC 2.45 L, MCV 91.9, MCH 30.6, MCHC 33.3, RDW 15.5 H, MPV 7.8, Gran % 93.5 H, Lymphocytes % 3.2 L, Monocytes % 3.1, Eosinophils % 0.2, Basophils % 0, Absolute Granulocytes 11.1 H, Absolute Lymphocytes 0.4 L, Absolute Monocytes 0.4, Absolute Eosinophils 0, Absolute Basophils 0 Assessment/Plan Assessment: 76-year-old female with past medical history of CAD status post CABG (1999), PVD (status post angioplasty with stent placement), HTN,stage IV chronic kidney disease secondary to hypertensive nephrosclerosis, HLD, lumbar disc surgery, uterine cancer, colon cancer was admitted acute on chronic back pain, associated with lower extremity weakness, gait instability, and frequent falls. The patient was found to have hepatomegaly and ascites on admission and underwent diagnostic and therapeutic paracentesis on this hospitalization. #Acute on chronic back pain: nonradicular, with new weakness, difficulty ambulating and falls History of L4 laminectomy in past (Dr. Mahan) History of neuroforaminal narrowing with possible spinal stenosis. Continue analgesia with Dilaudid/oxycodone/Tylenol. Awaiting STR, CM on case #Ascites with liver mass: CT reports enlarging liver mass 8cm x 8cm x 8cm compared to 2.2cm in 2016 Patient refusing MRI History of colon cancer in past (resected 1989). High SAAG suggests portal hypertension, can not rule out malignant ascites Cytology showed rare atypical cells of undetermined significance, mesothelial cells histocytes, lymphocytes, neutrophils and RBCs. features of malignancy not identified Alpha fetoprotein,CEA, AMA, ASMA pending GI consulted, appreciate recommendations Outpatient GI follow up #Stage 4 CKD secondary to hypertensive nephrosclerosis Creatinine 1.7 potassium 5.4 Continue to monitor BEP Avoid nephrotoxins Outpatient follow-up with PCP for BEP monitoring CAD/HTN: Continue betablocker, nitrates, hydralazine, and clonidine HLD:Statin on hold,Trend LFTs GERD: Continue omeprazole CKD stage IIIA: stable Heart healthy diet DVT ppx-heparin 5000 units subcutaneous Q8H Full code Problem List: 1. History of colon cancer 2. Anemia 3. Acute on chronic renal failure 4. Unsteady gait 5. Ascites 6. Liver lesion Pain Ratin Pain Location: back Pain Goal: Pain 4 or less Pain Plan: prn Tomorrow's Labs & Rationales: cbc, bep Josephine Allen MD 03/15/17 1343: Attending MD Review Statement Attending Statement Attending MD Statement: examined this patient, discuss w/resident/PA/SUPERVIS[employer] COVERING [employer] LINING, agreed w/resident/PA/SUPERVIS[employer] COVERING [employer] LINING, reviewed EMR data (avail) Attending Assessment/Plan: 76F PMH CAD status post CABG (1999), PVD (status post angioplasty with stent placement), HTN,stage IV chronic kidney disease secondary to hypertensive nephrosclerosis, HLD, lumbar disc surgery, uterine cancer, colon cancer admitted with acute onset of lower back pain with lower extremity weakness, as her legs just gave out. Happens to patient about once a year, improved during admission with physical therapy and pain control. Was found incidentally to have ascites now s/p paracentesis removing 6L, with ascitic fluid showing no evidence of SBP and consistent with cirrhosis/hepatitis. CT of the abdomen shows large mass and requires MRI, but patient is claustrophobic and will have outpatient open MRI. Doing well today. Reports worsening swelling of her left side and left breast without pain or erythema, non-tender on exam, consistent with dependent edema as she lays and sleeps on that side. Unable to transfer or climb stairs in her current condition. 1. Ascites, very likely to be malignant given hepatic mass and history of multiple malignancies 2. Acute on chronic lower back pain 3. Bilateral lower extremity weakness Plan - Continue on general mediicne - Continue home medications - Follow GI recommendations - Continue home Prednisone - Monitor edema - Continue to work with PT as patient is deteriorating - Would benefit from short term rehab
--- NOTE | 2017-03-15 11:14 | PN- Gastroenterology ---
Assessment/Plan Assessment/Recommendations: ASSESSMENT: 1. New onset ascites. Await cytology. 2. Lesion in right lobe of the liver unlikely primary hepatocellular carcinoma given AFP of 1. Must consider metastatic disease given history of endometrial cancer as well as colon cancer. Patient not interested in repeat colonoscopy. Can be done as outpatient. 3. Back pain 4. Chronic anemia of long duration 5. Chronic constipation. CT scan of the abdomen and pelvis shows large stool burden, now on BID Miralax. RECOMMENDATIONS: 1. Await results CEA 2. Patient unable to tolerate closed MRI and awaiting study at open MRI. 3. Would check AMA and ASMA as patient may have burned out autoimmune hepatitis to account for portal hypertension. 4. Patient to be discharged to rehab facility and will have open MRI as an outpatient from rehab. Make sure that patient has follow up appointment with me in the office. Patient has voiced understanding that she will follow up with me. 5. GI will sign off for now. Please do not hesitate to contact us as needed. Subjective Subjective: Patient OOB to chair. Concerned about the fact that she is unable to get OOB on her own. Reports she has not had a colonoscopy for many years. Is unclear about the facts of her prior colon cancer. No nausea, vomiting or abdominal pain. Objective Vital Signs and I&Os Vital Signs Date Time Temp Pulse Resp B/P B/P Pulse O2 O2 Flow FiO2 Mean Ox Delivery Rate 03/15 1023 60 190/70 03/15 0926 Room Air Room Air 03/15 0746 98.1 74 20 154/68 96 Room Air 03/14 2208 98.8 63 20 148/62 97 / 2148 98.5 63 100/60 03/14 1357 98.5 63 20 100/60 96 Intake & Output 03/15 1600 03/15 0400 03/14 1600 03/14 0400 03/13 1600 03/13 0400 Intake Total 200 200 340 800 490 260 Output Total 1 Balance 200 200 340 800 489 260 Intake, IV 0 10 20 Intake, Oral 200 200 340 800 480 240 Number 0 2 1 Bowel Movements Output, Stool 1 Physical Exam General Appearance: alert, awake, comfortable Respiratory: normal breath sounds, lungs clear Cardiovascular: regular rate/rhythm Abdomen: normal bowel sounds, non-tender, no organomegaly Neurologic/Psychiatric: oriented x 3, normal mood/affect Skin: normal color, warm/dry Current Medications: Current Medications Sig/Jose Start time Last Medication Dose Route Stop Time Status Admin Acetaminophen 500 MG Q6P PRN 03/06 1815 AC 03/07 PO 2129 Amlodipine Besylate 10 MG DAILY 03/07 1000 AC 03/15 PO 1024 Atorvastatin Calcium 20 MG AT BEDTIME 03/06 2199 AC 03/14 PO 2147 Cilostazol 50 MG BID 03/06 220 AC 03/15 PO 1024 Clonidine 0.2 MG BID 03/06 220 AC 03/15 PO 1024 Hydralazine HCl 75 MG TID 03/09 1600 AC 03/15 PO 1023 Isosorbide 60 MG DAILY 03/07 1000 AC 03/15 Mononitrate PO 1023 Lidocaine 1 PAT DAILY 03/06 181 AC 03/14 EXT 0847 Metoprolol Succinate 50 MG DAILY 03/07 1000 AC 03/15 PO 1024 Patient Medication 1 ED ONE ONE 03/14 1245 DC 03/15 Teaching ED 03/14 1246 0702 Polyethylene Glycol 17 GM BID 03/08 1000 AC 03/15 PO 1024 Prednisone 10 MG DAILY 03/07 1523 AC 03/15 PO 1024 Tramadol HCl 50 MG ONE TIME ONE 03/14 2330 DC 03/14 PO 03/14 2331 2337 Results Pertinent Lab Results: Laboratory Tests 03/13 03/13 1457 0600 Chemistry Sodium (137 - 145 mmol/L) 135 L Potassium (3.5 - 5.1 mmol/L) 5.4 H Chloride (98 - 107 mmol/L) 100 Carbon Dioxide (22 - 30 mmol/L) 23 Anion Gap (5 - 16) 12 BUN (7 - 17 mg/dL) 66 H Creatinine (0.5 - 1.0 mg/dL) 1.7 H Estimated GFR (>60 ml/min) 29 L BUN/Creatinine Ratio (7 - 25 %) 38.8 H Carcinoembryonic Ag Pending Hematology CBC w Diff NO MAN DIFF REQ WBC (4.8 - 10.8 /CUMM) 12.9 H RBC (4.20 - 5.40 /CUMM) 2.61 L Hgb (12.0 - 16.0 G/DL) 8.1 L Hct (37 - 47 %) 23.9 L MCV (81.0 - 99.0 FL) 91.7 MCH (27.0 - 31.0 PG) 30.9 MCHC (33.0 - 37.0 G/DL) 33.7 RDW (11.5 - 14.5 %) 15.2 H Plt Count (130 - 400 /CUMM) 252 MPV (7.4 - 10.4 FL) 7.7 Gran % (42.2 - 75.2 %) 94.7 H Lymphocytes % (20.5 - 51.1 %) 2.5 L Monocytes % (1.7 - 9.3 %) 2.6 Eosinophils % (0 - 5 %) 0.1 Basophils % (0.0 - 2.0 %) 0.1 Absolute Granulocytes (1.4 - 6.5 /CUMM) 12.2 H Absolute Lymphocytes (1.2 - 3.4 /CUMM) 0.3 L Absolute Monocytes (0.10 - 0.60 /CUMM) 0.3 Absolute Eosinophils (0.0 - 0.7 /CUMM) 0 Absolute Basophils (0.0 - 0.2 /CUMM) 0 Immunology Anti-Mitochondrial Ab Pending Anti-Smooth Muscle Ab Pending 03/12 2249 Hematology CBC w Diff NO MAN DIFF REQ WBC (4.8 - 10.8 /CUMM) 11.4 H RBC (4.20 - 5.40 /CUMM) 2.41 L Hgb (12.0 - 16.0 G/DL) 7.4 *L Hct (37 - 47 %) 21.9 L MCV (81.0 - 99.0 FL) 91.0 MCH (27.0 - 31.0 PG) 30.7 MCHC (33.0 - 37.0 G/DL) 33.7 RDW (11.5 - 14.5 %) 15.1 H Plt Count (130 - 400 /CUMM) 216 MPV (7.4 - 10.4 FL) 7.5 Gran % (42.2 - 75.2 %) 91.6 H Lymphocytes % (20.5 - 51.1 %) 4.8 L Monocytes % (1.7 - 9.3 %) 3.6 Eosinophils % (0 - 5 %) 0 Basophils % (0.0 - 2.0 %) 0 Absolute Granulocytes (1.4 - 6.5 /CUMM) 10.5 H Absolute Lymphocytes (1.2 - 3.4 /CUMM) 0.6 L Absolute Monocytes (0.10 - 0.60 /CUMM) 0.4 Absolute Eosinophils (0.0 - 0.7 /CUMM) 0 Absolute Basophils (0.0 - 0.2 /CUMM) 0
[2017-03-15 14:45] VITALS: BP 170/70
[2017-03-15 16:48] LABS: ABSOLUTE BASOPHIL COUNT 0 /CUMM (0.0-0.2); ABSOLUTE EOSINOPHIL COUNT 0 /CUMM (0.0-0.7); ABSOLUTE GRANULOCYTE CT 11.1 /CUMM (1.4-6.5); ABSOLUTE LYMPH COUNT 0.4 /CUMM (1.2-3.4); ABSOLUTE MONOCYTE COUNT 0.4 /CUMM (0.10-0.60); BASOPHIL % 0 % (0.0-2.0); EOSINOPHIL % 0.2 % (0-5); HEMATOCRIT 22.5 % (37-47); MEAN CORPUSCULAR HGB 30.6 PG (27.0-31.0); MEAN CORPUSCULAR HGB CONC 33.3 G/DL (33.0-37.0); MEAN CORPUSCULAR VOLUME 91.9 FL (81.0-99.0); MEAN PLATELET VOLUME 7.8 FL (7.4-10.4); PLATELET COUNT 245 /CUMM (130-400); RBC DISTRIBUTION WIDTH 15.5 % (11.5-14.5); RED BLOOD CELL CT 2.45 /CUMM (4.20-5.40); WHITE BLOOD CELL COUNT 11.8 /CUMM (4.8-10.8)
[2017-03-15 16:51] LABS: GRANULOCYTE % 93.5 % (42.2-75.2)
[2017-03-15 20:33] VITALS: BP 128/60
[2017-03-15 22:32] VITALS: BP 128/60
--- NOTE | 2017-03-16 06:49 | PN- Housestaff ---
Susie NAGEL,Manish 03/16/17 0648: Subjective Follow-up For: liver mass/ascites lower extremity weakness and back pain Subjective: no new complaints Review of Systems Constitutional: Reports: see HPI. Objective Last 24 Hrs of Vital Signs/I&O Vital Signs Date Time Temp Pulse Resp B/P B/P Pulse O2 O2 Flow FiO2 Mean Ox Delivery Rate 03/16 1339 97.9 94 20 140/90 93 Room Air / 0955 98.5 67 20 160/72 /08 0955 98.5 67 20 160/72 /08 0955 98.5 67 20 160/72 /08 0955 98.5 67 20 160/72 02/08 0955 98.5 67 20 160/72 /08 0734 98.5 67 20 160/72 97 Room Air 03/15 2232 98.2 66 18 128/60 95 Room Air /07 2122 66 128/60 07 2033 98.2 66 18 128/60 95 Room Air 07 1600 Room Air 03/15 1600 72 140/70 Intake & Output 03/16 1600 03/16 0800 03/16 0000 Intake Total 130 250 Output Total Balance 130 250 Intake, IV 10 10 Intake, Oral 120 240 Physical Exam General Appearance: Alert, Oriented X3, Cooperative, No Acute Distress Cardiovascular: Regular Rate, Normal S1, Normal S2, No Murmurs, sternotomy scar Lungs: Clear to Auscultation, Normal Air Movement Abdomen: Normal Bowel Sounds, Soft, distended, nontender, hepatomegaly, epigastric hernia Extremities: No Clubbing, No Cyanosis, No Edema, Normal Pulses Current Medications: Current Medications Sig/Jose Start time Last Medication Dose Route Stop Time Status Admin Acetaminophen 500 MG Q6P PRN 03/06 1814 AC 03/07 PO 2128 Amlodipine Besylate 10 MG DAILY 03/07 1000 AC 03/16 PO 0955 Atorvastatin Calcium 20 MG AT BEDTIME 03/06 2199 AC 03/15 PO 212 Calcium Gluconate 1 GM ONCE ONE 03/16 914 CAN Sodium Chloride 100 ML IV 03/16 1014 Cilostazol 50 MG BID 03/06 2199 AC 03/16 PO 0956 Clonidine 0.2 MG BID 03/06 2199 AC 03/16 PO 0955 Hydralazine HCl 75 MG TID 03/09 1600 AC 03/16 PO 0955 Isosorbide 60 MG DAILY 03/07 1000 AC 03/16 Mononitrate PO 0955 Lidocaine 1 PAT DAILY 03/06 1815 AC 03/14 EXT 0847 Metoprolol Succinate 50 MG DAILY 03/07 1000 AC 03/16 PO 0955 Oxycodone HCl 5 MG ONE ONE 03/16 1115 DC 03/16 PO 03/16 1116 1125 Polyethylene Glycol 17 GM BID 03/08 1000 AC 03/16 PO 0956 Prednisone 10 MG DAILY 03/07 1523 AC 03/16 PO 1008 Sodium Polystyrene 60 ML ONCE ONE 03/16 914 DC 03/16 Sulfonate PO 03/16 915 0954 Tramadol HCl 50 MG AT BEDTIME 03/15 2199 AC 03/15 PO 2014 Last 24 Hrs of Lab/Jere Results Last 24 Hrs of Labs/Mics: Laboratory Tests 03/16/17 1341: Anion Gap 10, Estimated GFR 34 L, BUN/Creatinine Ratio 49.3 H, CBC w Diff NO MAN DIFF REQ, RBC 2.96 L, MCV 93.8, MCH 30.6, MCHC 32.6 L, RDW 15.9 H, MPV 7.9, Gran % 92.3 H, Lymphocytes % 2.9 L, Monocytes % 4.6, Eosinophils % 0.2, Basophils % 0, Absolute Granulocytes 12.0 H, Absolute Lymphocytes 0.4 L, Absolute Monocytes 0.6, Absolute Eosinophils 0, Absolute Basophils 0 03/15/17 1545: Anion Gap 6, Estimated GFR 29 L, BUN/Creatinine Ratio 41.2 H, CBC w Diff NO MAN DIFF REQ, RBC 2.45 L, MCV 91.9, MCH 30.6, MCHC 33.3, RDW 15.5 H, MPV 7.8, Gran % 93.5 H, Lymphocytes % 3.2 L, Monocytes % 3.1, Eosinophils % 0.2, Basophils % 0, Absolute Granulocytes 11.1 H, Absolute Lymphocytes 0.4 L, Absolute Monocytes 0.4, Absolute Eosinophils 0, Absolute Basophils 0 Assessment/Plan Assessment: 76-year-old female with past medical history of CAD status post CABG (1999), PVD (status post angioplasty with stent placement), HTN,stage IV chronic kidney disease secondary to hypertensive nephrosclerosis, HLD, lumbar disc surgery, uterine cancer, colon cancer was admitted acute on chronic back pain, associated with lower extremity weakness, gait instability, and frequent falls. The patient was found to have hepatomegaly and ascites on admission and underwent diagnostic and therapeutic paracentesis on this hospitalization. #Acute on chronic back pain: nonradicular, with new weakness, difficulty ambulating and falls History of L4 laminectomy in past (Dr. Mahan) History of neuroforaminal narrowing with possible spinal stenosis. Continue analgesia with Dilaudid/oxycodone/Tylenol. Awaiting STR, CM on case #Ascites with liver mass: CT reports enlarging liver mass 8cm x 8cm x 8cm compared to 2.2cm in 2016 Patient refusing MRI History of colon cancer in past (resected 1989). High SAAG suggests portal hypertension, can not rule out malignant ascites Cytology showed rare atypical cells of undetermined significance, mesothelial cells histocytes, lymphocytes, neutrophils and RBCs. features of malignancy not identified Alpha fetoprotein,CEA, AMA, ASMA pending GI consulted, appreciate recommendations Outpatient GI follow up #Stage 4 CKD secondary to hypertensive nephrosclerosis Creatinine 1.7 potassium 5.8 this morning Lactulose admininstered Avoid nephrotoxins CAD/HTN: Continue betablocker, nitrates, hydralazine, and clonidine HLD: Statin on hold,Trend LFTs GERD: Continue omeprazole CKD stage IIIA: stable Heart healthy diet DVT ppx-heparin 5000 units subcutaneous Q8H Full code Problem List: 1. CAD (coronary artery disease) 2. History of colon cancer 3. History of uterine cancer 4. Chronic renal insufficiency 5. Ascites 6. Liver lesion 7. Intractable back pain Pain Ratin Pain Location: lumbar back Pain Goal: Pain 4 or less Pain Plan: prn Tomorrow's Labs & Rationales: Josephine Hardwick MD 03/16/17 1326: Attending MD Review Statement Attending Statement Attending MD Statement: examined this patient, discuss w/resident/PA/PHOTOENGRAVER, agreed w/resident/PA/PHOTOENGRAVER, reviewed EMR data (avail) Attending Assessment/Plan: 76F PMH CAD status post CABG (1999), PVD (status post angioplasty with stent placement), HTN,stage IV chronic kidney disease secondary to hypertensive nephrosclerosis, HLD, lumbar disc surgery, uterine cancer, colon cancer admitted with acute onset of lower back pain with lower extremity weakness, as her legs just gave out. Happens to patient about once a year, improved during admission with physical therapy and pain control. Was found incidentally to have ascites now s/p paracentesis removing 6L, with ascitic fluid showing no evidence of SBP and consistent with cirrhosis/hepatitis. CT of the abdomen shows large mass and requires MRI, but patient is claustrophobic and will have outpatient open MRI. Doing well today. Left side and breast swelling is unchanged, no pain or discomfort. Unable to transfer or climb stairs in her current condition. 1. Ascites, very likely to be malignant given hepatic mass and history of multiple malignancies 2. Acute on chronic lower back pain 3. Bilateral lower extremity weakness Plan - Continue on general mediicne - Continue home medications - Follow GI recommendations - Continue home Prednisone - Monitor edema - Continue to work with PT as patient is deteriorating - Would benefit from short term rehab
[2017-03-16 07:34] VITALS: BP 160/72
[2017-03-16 13:39] VITALS: BP 140/90
[2017-03-16 14:34] LABS: ABSOLUTE BASOPHIL COUNT 0 /CUMM (0.0-0.2); ABSOLUTE EOSINOPHIL COUNT 0 /CUMM (0.0-0.7); ABSOLUTE LYMPH COUNT 0.4 /CUMM (1.2-3.4); ABSOLUTE MONOCYTE COUNT 0.6 /CUMM (0.10-0.60); BASOPHIL % 0 % (0.0-2.0); EOSINOPHIL % 0.2 % (0-5); GRANULOCYTE % 92.3 % (42.2-75.2); MEAN CORPUSCULAR HGB 30.6 PG (27.0-31.0); MEAN CORPUSCULAR HGB CONC 32.6 G/DL (33.0-37.0); MEAN CORPUSCULAR VOLUME 93.8 FL (81.0-99.0); MEAN PLATELET VOLUME 7.9 FL (7.4-10.4); PLATELET COUNT 297 /CUMM (130-400); RBC DISTRIBUTION WIDTH 15.9 % (11.5-14.5); RED BLOOD CELL CT 2.96 /CUMM (4.20-5.40)
[2017-03-16 14:47] LABS: HEMATOCRIT 27.7 % (37-47)
[2017-03-16 22:30] VITALS: BP 156/88
[2017-03-17 06:51] VITALS: BP 142/80
--- NOTE | 2017-03-17 06:51 | PN- Housestaff ---
Subjective Follow-up For: liver mass, ascites chronic back pain, lower extremity weakness Subjective: patient has had frequent loose BMs overnight from being administered kayexalate for hyperkalemia didnt sleep well overnight and reports not being in a good mood, tired and just wants to sleep back pain is well controlled today Review of Systems Constitutional: Reports: see HPI. Objective Last 24 Hrs of Vital Signs/I&O Vital Signs Date Time Temp Pulse Resp B/P B/P Pulse O2 O2 Flow FiO2 Mean Ox Delivery Rate 03/17 1102 Room Air Room Air 03/17 0849 98.6 70 16 21080 03/17 0847 98.6 70 16 21003/1743 98.6 70 16 21003/1742 98.6 70 16 21003/1740 98.6 70 16 21003/17 0651 98.2 68 20 142/80 96 Room Air 03/16 2230 98.6 67 20 156/88 97 Room Air 03/16 2125 88 160/90 03/16 2124 88 160/90 03/16 1658 80 134/80 Intake & Output 03/17 1600 03/17 0800 03/17 0000 Intake Total 130 400 Output Total Balance 130 400 Intake, IV 10 Intake, Oral 120 400 Number 2 1 Bowel Movements Physical Exam General Appearance: Alert, Oriented X3, Cooperative, No Acute Distress Cardiovascular: Regular Rate, Normal S1, Normal S2, No Murmurs, thoracotomy scar Lungs: diminished bibasilar Abdomen: Normal Bowel Sounds, Soft, distended, hepatomegaly, non tender Extremities: No Clubbing, No Cyanosis, R>L le edema Current Medications: Current Medications Sig/Jose Start time Last Medication Dose Route Stop Time Status Admin Acetaminophen 500 MG Q6P PRN 03/06 181 AC 03/07 PO 2128 Amlodipine Besylate 10 MG DAILY 03/07 1000 AC 03/17 PO 0947 Atorvastatin Calcium 20 MG AT BEDTIME 03/06 2199 AC 03/16 PO 2124 Cilostazol 50 MG BID 03/06 2199 AC 03/17 PO 0948 Clonidine 0.2 MG BID 03/06 2199 AC 03/17 PO 0943 Hydralazine HCl 75 MG TID 03/09 1600 AC 03/17 PO 0940 Isosorbide 60 MG DAILY 03/07 1000 AC 03/17 Mononitrate PO 0942 Lidocaine 1 PAT DAILY 03/06 1815 AC 03/14 EXT 0847 Metoprolol Succinate 50 MG DAILY 03/07 1000 AC 03/17 PO 0949 Polyethylene Glycol 17 GM BID 03/08 1000 AC 03/17 PO 0946 Prednisone 10 MG DAILY 03/07 1523 AC 03/17 PO 0949 Tramadol HCl 50 MG AT BEDTIME 03/15 2200 AC 03/16 PO 2227 Assessment/Plan Assessment: 76-year-old female with past medical history of CAD status post CABG (1999), PVD (status post angioplasty with stent placement), HTN,stage IV chronic kidney disease secondary to hypertensive nephrosclerosis, HLD, lumbar disc surgery, uterine cancer, colon cancer was admitted acute on chronic back pain, associated with lower extremity weakness, gait instability, and frequent falls. The patient was found to have hepatomegaly and ascites on admission and underwent diagnostic and therapeutic paracentesis on this hospitalization. Acute on chronic back pain: nonradicular, with new weakness, difficulty ambulating and falls History of L4 laminectomy in past (Dr. Mahan) History of neuroforaminal narrowing with possible spinal stenosis. Continue analgesia with Dilaudid/oxycodone/Tylenol. Awaiting STR, denied by insurance, peer to peer Ascites with liver mass: CT reports enlarging liver mass 8cm x 8cm x 8cm compared to 2.2cm in 2016 Patient refusing MRI History of colon cancer in past (resected 1989). High SAAG suggests portal hypertension, can not rule out malignant ascites Cytology showed rare atypical cells of undetermined significance, mesothelial cells histocytes, lymphocytes, neutrophils and RBCs. features of malignancy not identified Alpha fetoprotein negative, CEA, AMA, ASMA pending GI consulted, appreciate recommendations Outpatient GI follow up Stage 4 CKD secondary to hypertensive nephrosclerosis Creatinine improve, hyperkalemia improved with kayexalate Lactulose admininstered Avoid nephrotoxins CAD/HTN: Continue betablocker, nitrates, hydralazine, and clonidine HLD: Statin on hold,Trend LFTs GERD: Continue omeprazole CKD stage IIIA: stable Heart healthy diet DVT ppx-heparin 5000 units subcutaneous Q8H Full code Problem List: 1. CAD (coronary artery disease) 2. Liver lesion 3. Ascites 4. Chronic renal insufficiency 5. History of colon cancer 6. History of uterine cancer 7. Anemia 8. Hypertension 9. Unsteady gait Pain Ratin Pain Location: lumbar back Pain Goal: Pain 4 or less Pain Plan: prn Tomorrow's Labs & Rationales: bep
--- NOTE | 2017-03-17 14:15 | PN- Att Addend ---
Attending Addendum Attending Brief Note 76F H CAD status post CABG (1999), PVD (status post angioplasty with stent placement), HTN,stage IV chronic kidney disease secondary to hypertensive nephrosclerosis, HLD, lumbar disc surgery, uterine cancer, colon cancer admitted with acute onset of lower back pain with lower extremity weakness, as her legs just gave out. Happens to patient about once a year, improved during admission with physical therapy and pain control. Was found incidentally to have ascites now s/p paracentesis removing 6L, with ascitic fluid showing no evidence of SBP and consistent with cirrhosis/hepatitis. CT of the abdomen shows large mass and requires MRI, but patient is claustrophobic and will have outpatient open MRI. Doing well today. Left side and breast swelling is unchanged, no pain or discomfort. Unable to transfer or climb stairs in her current condition. 1. Ascites, very likely to be malignant given hepatic mass and history of multiple malignancies 2. Acute on chronic lower back pain 3. Bilateral lower extremity weakness Plan - Continue on general mediicne - Continue home medications - Follow GI recommendations - Continue home Prednisone - Monitor edema - Continue to work with PT as patient is deteriorating - Would benefit from short term rehab
[2017-03-17 14:33] VITALS: BP 130/80
[2017-03-17] MEDS ORDERED: OXYCODONE HCL5 M1 PO (16:17)
[2017-03-17] MEDS ORDERED: TRAMADOL HCL50 M1 PO (16:17)
[2017-03-17 16:58] VITALS: BP 130/80
== END 2017-03-17 17:43 | DRG 436 ==
LOC: ERH 14:51 → 2NA 17:06 → ERHI 17:06 → ENRESERV 17:57 → 2NA 19:32
PROVIDERS: Internal Medicine; Internal Medicine Hematology & Oncology; Physician Assistant Medical; Student in an Organized Health Care Education/Training Program
PROC: 0W9G3ZZ Drainage of Peritoneal Cavity, Percutaneous Approach (ICD-10-PCS; principal; 2017-03-07)
DX: C78.7 Secondary malignant neoplasm of liver and intrahepatic bile duct (principal); R18.0 Malignant ascites; N18.4 Chronic kidney disease, stage 4 (severe); K76.6 Portal hypertension; E78.5 Hyperlipidemia, unspecified; G89.29 Other chronic pain; K21.9 Gastro-esophageal reflux disease without esophagitis; I25.10 Atherosclerotic heart disease of native coronary artery without angina pectoris; Z85.038 Personal history of other malignant neoplasm of large intestine; Z85.42 Personal history of malignant neoplasm of other parts of uterus; I73.9 Peripheral vascular disease, unspecified; K43.9 Ventral hernia without obstruction or gangrene; I12.9 Hypertensive chronic kidney disease with stage 1 through stage 4 chronic kidney disease, or unspecified chronic kidney disease; K59.09 Other constipation; M47.896 Other spondylosis, lumbar region; M48.061 Spinal stenosis, lumbar region without neurogenic claudication; R26.89 Other abnormalities of gait and mobility; Z95.1 Presence of aortocoronary bypass graft; Z87.891 Personal history of nicotine dependence
CPT/HCPCS: 04007; 2NASP; 83516; 83520; 87075; 36415; 74176; 82436; 88305; 93005; 93010; 97110-GO; 97116-GO; 97161-GP; 97530-GO; J1644; J3490; J7512; P9047

== ENCOUNTER 2017-04-11 18:26 | Inpatient (IN) | payer OTHER ==
[~2017-04-11] VITALS: Ht 149.9 cm; Wt 48.1 kg
[~2017-04-11 18:26] MED LIST changes: +MIRALAX119 GM PO; +NORVASC10 M1 PO; +OXYCODONE HCL5 M1 PO; +PREDNISONE5 M1 PO
--- NOTE | 2017-04-11 18:55 | ED GI/GU/ABDOMINAL COMPLAINT ---
History of Present Illness General Chief Complaint: General Adult Stated Complaint: INCREASED ASCITES Source: patient, old records Exam Limitations: no limitations Vital Signs & Intake/Output Vital Signs & Intake/Output Vital Signs Date Time Temp Pulse Resp B/P B/P Pulse O2 O2 Flow FiO2 Mean Ox Delivery Rate 04/12 1435 97.9 65 18 127/68 97 Room Air / 0745 98.1 65 20 126/60 96 Room Air / 0222 98.1 64 20 121/63 96 Room Air / 0137 97.4 66 18 142/68 95 Room Air 03/ 2342 97.6 67 18 146/67 95 Room Air / 2129 97.9 62 18 132/63 96 Room Air 04/11 1851 Room Air / 1829 97.1 64 18 142/64 95 Room Air Allergies Coded Allergies: Sulfa (Sulfonamide Antibiotics) (Severe, HIVES 12/27/15) Reconcile Medications Albuterol Sulfate 0.63 MG/3 ML VIAL.NEB 1 Vial INH/SHEILA 4 TIMES/DAY PRN COPD ( Reported) Amlodipine Besylate 10 MG TABLET 1 TAB PO DAILY HTN (Reported) Aspirin (Aspirin*) 81 MG TAB.CHEW 1 TAB PO DAILY HEART HEALTH (Reported) Cholecalciferol (Vitamin D3) (Vitamin D3) 2,000 UNIT CAPSULE 1 CAP PO BID SUPPLEMENT (Reported) Clonidine HCl 0.3 MG TABLET 1 TAB PO Q12 HTN (Reported) Guaifenesin/Dextromethorphan (Robitussin Cough-Chest Dm Liq) 100 MG-5 MG/5 ML LIQUID 10 ML PO Q4 PRN COUGH (Reported) Hydralazine HCl 25 MG TABLET 3 TAB PO TID HTN (Reported) Isosorbide Mononitrate (Isosorbide Mononitrate ER) 60 MG TAB.ER.24H 1 TAB PO DAILY HTN (Reported) HOLD FOR SBP<100MMGH Metoprolol Tartrate (Lopressor) 50 MG TABLET 1 TAB PO DAILY HTN (Reported) [place]-3 Fatty Acids/Fish Oil (Fish Oil 1,000 MG Capsule) 340 MG-1,000 MG CAPSULE 2 CAP PO DAILY SUPPLEMENT (Reported) Omeprazole 40 MG CAPSULE.DR 1 CAP PO DAILY ACID REFLUX (Reported) Ondansetron HCl (Zofran) 4 MG TABLET 1 TAB PO TID NAUSEA (Reported) Oxycodone HCl 5 MG TABLET 1 TAB PO Q8P PAIN MODERATE (Reported) Oxycodone HCl 5 MG TABLET 1 TAB PO TIDPRN PRN BACK PAIN Polyethylene Glycol 3350 (Miralax) 17 GRAM/DOSE POWDER 17 GM PO BID GI Prednisone 5 MG TABLET 1.5 TAB PO DAILY ARTHRITIS (Reported) Tramadol HCl 50 MG TABLET 1 TAB PO DAILY PAIN (Reported) Tramadol HCl 50 MG TABLET 1 TAB PO DAILY PRN BACK PAIN Triage Note: [facility] BIBA FROM [facility] WITH C/O POOR PO INTAKE, GENERAL MALAISE AND INCREASED ASCITES 2/2 LIVER FAILURE. PT ARRIVES A&O, VSS. DOES C/O SOME NAUSEA Triage Nurses Notes Reviewed? yes ? n Is pt currently ? No Onset: Gradual Duration: day(s): Timing: recent history Quality/Severity: moderate Location: generalized abdomen HPI: 76yo female with hx of HTN, CKD stage 4, CAD s/p CABG, colon CA sent in from [facility] for worsening ascites, decreased oral intake, and possible hepatic malignancy. For the past 3 days patient has had decreased oral intake. Patient had an MRI performed last week which showed signs of large volume ascites and possible hepatic carcinoma. Patient is currently under GI workup. Patient had paracentesis performed 03/07/17 with IR and 6.4L were drained from her abdomen. Patient states that shortly after this drainage the fluid returned. Patient reports chronic loose stools. Patient currently denies abdominal pain, chest pain, dyspnea, cough, urinary symptoms, constipation, fevers, chills. (Shirlene JORDAN,Blessing Arias) Past History Medical History Any Pertinent Medical History? see below for history Neurological: CVA (? 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 FATHER (unknown - pt adopted). Hx Contributory? No (Blessing Elizalde) Review of Systems Review of Systems Constitutional: Reports: no symptoms. EENTM: Reports: no symptoms. Respiratory: Reports: no symptoms. Cardiovascular: Reports: no symptoms. GI: Reports: see HPI. Genitourinary: Reports: no symptoms. Musculoskeletal: Reports: no symptoms. Skin: Reports: no symptoms. Neurological/Psychological: Reports: no symptoms. Hematologic/Endocrine: Reports: no symptoms. Immunologic/Allergic: Reports: no symptoms. All Other Systems: Reviewed and Negative (Blessing Elizalde) Physical Exam Physical Exam General Appearance: well developed/nourished, no apparent distress, alert, awake Head: atraumatic, normal appearance Eyes: Bilateral: normal appearance. Ears, Nose, Throat, Mouth: hearing grossly normal Neck: normal inspection, supple, full range of motion Respiratory: no respiratory distress, diminished breath sounds right posterior lung [place] Cardiovascular: regular rate/rhythm Peripheral Pulses: 2+ radial (R), 2+ radial (L) Gastrointestinal: normal bowel sounds, moderate ascites Back: normal inspection, normal range of motion Extremities: normal range of motion Neurologic/Psych: awake, alert, oriented x 3 Skin: intact, jaundice Core Measures ACS in differential dx? No Sepsis Present: No Sepsis Focused Exam Completed? No (Blessing Elizalde) Progress Differential Diagnosis: bowel obstruction, hepatitis, acute on chronic kidney disease, ascites, pleural effusion, PNA Plan of Care: Orders Procedure Date/time Status Heart Healthy Diet 04/12 B Active CULTURE,URINE 04/12 1625 Active CULTURE,BODY FLUID 04/12 1158 Active CYTOLOGY SPECIMEN 04/12 1158 Active BODY FLUID TOTAL PROTEIN 04/12 1158 Complete BODY FLUID LDH 04/12 1158 Complete BODY FLUID CELL COUNT 04/12 1158 Complete BODY FLUID GLUCOSE 04/12 1158 Complete BODY FLUID AMYLASE 04/12 1158 Complete BODY FLUID ALBUMIN 04/12 1158 Complete PROTHROMBIN TIME 04/12 0832 Active Change service to 04/12 0807 Active TROPONIN LEVEL 04/12 0745 Complete URINALYSIS 04/12 0721 Complete HEPATIC FUNCTION PANEL 04/12 06 Complete CBC WITHOUT DIFFERENTIAL 04/12 06 Complete BASIC ELECTROLYTES PLUS BUN&CR 04/12 06 Complete Turn and Reposition 04/12 0244 Active Skin Integrity Protocol 04/12 0244 Active Skin/Pressure Ulcer Assess (Sk 04/12 0244 Active URINE LYTES, SPOT 04/12 0214 Complete Weight 04/12 0145 Active Vital Signs 04/12 0145 Active Teach/Educate 04/12 0145 Active Pain Treatment and Response 04/12 0145 Active Nutritional Intake, Monitor 04/12 0145 Active Isolation 04/12 0145 Active Intake & Output 04/12 0145 Active Patient Care Conference 04/12 0145 Active Activity/Ambulation 04/12 0145 Active Intake & Output 04/12 0134 Active Nursing Misc 04/12 UNK Active EKG 04/12 UNK Active PHYSICIAN CONSULT 04/12 UNK Active NUTRITIONAL CONSULT 04/12 UNK Active Pathway - chart 04/11 2357 Active Saline Lock 04/11 2356 Active Pathway - chart 04/11 2356 Active House Staff 04/11 2356 Active Patient Data 04/11 2342 Active ED Holding Orders 04/11 2317 Active Admit to inpatient 04/11 2317 Active Vital Signs 04/11 2317 Active Code Status 04/11 2317 Active TROPONIN LEVEL 04/11 2229 Complete EKG 04/11 2229 Active TROPONIN LEVEL 04/11 1855 Complete COMPREHENSIVE METABOLIC PANEL 04/11 1855 Complete CBC WITHOUT DIFFERENTIAL 04/11 1855 Complete EKG 04/11 1855 Active VTE Mechanical Prophylaxis 04/11 UNK Active Hemoccult 04/11 UNK Active Current Medications Sig/Jose Start time Last Medication Dose Stop Time Status Admin Potassium Chloride 20 MEQ 04/12 1345 CAN (KCl 20MEQ in D5W 1/ 2NS 1000ML) Albumin Human 12.5 GM TID 04/12 1000 AC 04/12 (Plasbumin) 1539 Amlodipine Besylate 10 MG DAILY 04/12 1000 AC 04/12 (Norvasc) 1535 Cholecalciferol 1,000 IU BID 04/12 1000 AC (Vitamin D) Clonidine 0.3 MG Q12 04/12 1000 AC (Catapres) Hydralazine HCl 75 MG TID 04/12 1000 AC (Apresoline) Isosorbide 60 MG DAILY 04/12 1000 AC 04/12 Mononitrate 1532 (Imdur) Metoprolol Tartrate 50 MG DAILY 04/12 1000 AC 04/12 (Lopressor) 1532 Polyethylene Glycol 17 GM BID 04/12 1000 AC (Miralax) Tramadol HCl 50 MG DAILY 04/12 1000 AC (Ultram) Omeprazole 40 MG DAILY AC 04/12 0700 AC 04/12 (Prilosec) 0502 Albuterol Sulfate 3 ML Q4H PRN 04/12 020 AC (Proventil) Guaifenesin 10 ML Q6P PRN 04/12 0200 AC (Robitussin) Ondansetron HCl 4 MG TID PRN 04/12 0200 AC 04/12 (Zofran) 0249 Oxycodone HCl 5 MG Q8P PRN 04/12 020 AC 04/12 (Roxicodone) 0238 Cyclosporine 125 MG BID 04/11 2330 CAN (Neoral 100MG Cap) 04/11 2359 Laboratory Tests 04/12/17 1312: Fluid WBC 67 H, Fld Mesothelial Cells 57, Fld Total RBCs Counted 100 H 04/12/17 1312: Lymphocytes 12, % Normal PMNs 31, Fluid Glucose 68, Fluid Total Protein < 2.0, Fluid Albumin < 1.0, Fluid LDH 211, Fluid Amylase < 30 04/12/17 1100: Urine Color DELMY, Urine Clarity HAZY H, Urine pH 6.0, Ur Specific [place] 1.015, Urine Protein 30 H, Urine Ketones NEG, Urine Nitrite POS H, Urine Bilirubin NEG, Urine Urobilinogen 0.2, Ur Leukocyte Esterase MOD H, Ur Microscopic SEDIMENT EXAMINED, Urine WBC 25-50 H, Ur Epithelial Cells FEW, Urine Bacteria MANY H, Urine Hemoglobin NEG, Urine Glucose NEG 04/12/17 1100: Ur Random Creatinine 75.3, Ur Random Sodium 25 L, Ur Random Potassium 19.0, Fraction Sodium Excret 0.6 04/12/17 0745: Anion Gap 12, Estimated GFR 21 L, BUN/Creatinine Ratio 27.8 H, Total Bilirubin 0.4, Direct Bilirubin 0.4, AST 19, ALT 17, Alkaline Phosphatase 192 H, Troponin I < 0.01, Total Protein 4.4 L, Albumin 2.2 L, CBC w Diff NO MAN DIFF REQ, RBC 2.72 L, MCV 89.3, MCH 30.1, MCHC 33.7, RDW 14.6 H, MPV 7.0 L, Gran % 85.7 H, Lymphocytes % 6.8 L, Monocytes % 7.3, Eosinophils % 0.1, Basophils % 0.1, Absolute Granulocytes 7.6 H, Absolute Lymphocytes 0.6 L, Absolute Monocytes 0.6, Absolute Eosinophils 0, Absolute Basophils 0 04/12/17 0709: Troponin I Cancelled 04/12/17 0215: Troponin I Cancelled 04/11/17 2240: Troponin I 0.01 04/11/17 1915: Anion Gap 11, Estimated GFR 22 L, BUN/Creatinine Ratio 30.0 H, Glucose 76, Calcium 9.3, Total Bilirubin 0.6, AST 24, ALT 27, Alkaline Phosphatase 230 H, Troponin I 0.02, Total Protein 5.0 L, Albumin 2.4 L, Globulin 2.6, Albumin/ Globulin Ratio 0.9 L, CBC w Diff NO MAN DIFF REQ, RBC 3.40 L, MCV 90.4, MCH 30.1, MCHC 33.3, RDW 14.7 H, MPV 6.9 L, Gran % 88.6 H, Lymphocytes % 6.7 L, Monocytes % 4.7, Eosinophils % 0, Basophils % 0, Absolute Granulocytes 7.7 H, Absolute Lymphocytes 0.6 L, Absolute Monocytes 0.4, Absolute Eosinophils 0, Absolute Basophils 0 Microbiology 04/12 1625 URINE ROUT: Urine Culture - ORD 04/12 1312 BODY FLUID: Body Fluid Culture - RECD 04/12 1312 BODY FLUID: Gram Stain - RECD Previous MRI and old records reviewed. Creatinin increasing from 1.5 to 2.[address] Spoke with [address] Thompson regarding this patient - decreasing renal function in cirrhotic patient, failure to thrive with decrease PO intake. Will likely require multiple nights stay given hepatorenal failure. Donna reports large paracentesis is contraindicated, Diagnostic tap only, if necessary. Patient requires further cancer evaluation given MRI findings, CEA elevated. Dr. Mejía present to see and evaluate patient. Discussed this patient with hospitalist, Dr. Hernandez, regarding her general medicine admission. Diagnostic Imaging: Viewed by Me: Radiology Read. Discussed w/RAD: Radiology Read. CXR Impression: PATIENT: SWAPNIL LARIOS PRESENT AGE: 76 PATIENT ACCOUNT NO: [id number] : 40 LOCATION: [facility] ORDERING PHYSICIAN: Blessing JORDAN SERVICE DATE: 04/11/17 EXAM TYPE: RAD - XRY- PORTABLE CHEST XRAY EXAMINATION: XR PORTABLE CHEST CLINICAL INFORMATION: Diminished breath sounds COMPARISON: 12/23/2015 TECHNIQUE: Portable frontal view of the chest was obtained. FINDINGS: Slight apical lordotic positioning of the patient. Lungs are well expanded and without interstitial edema, focal consolidation or pleural effusion. Cardiac silhouette is normal in size. Surgical changes from remote coronary artery bypass grafting with intact sternotomy wires in place. No acute osseous findings. Chronic osteoarthritis of glenohumeral joints. IMPRESSION: Surgical changes from prior CABG. No acute cardiopulmonary findings compared 12/23/2015. DICTATED BY: Luis Miguel Smith MD DATE/TIME DICTATED:04/11/172037 POCKET STITCHER:EDILBERTO DATE/TIME TRANSCRIBED:04/11/172037 CONFIDENTIAL, DO NOT COPY WITHOUT APPROPRIATE AUTHORIZATION. <Electronically signed in Other Vendor System> SIGNED BY: Luis Miguel Smith MD 04/11/172046 Initial ED EKG: sinus rhythm @64bpm, nonspecific T wave changes through out Prior EKG: changed (03/16/17) (Shirlene JORDAN,Blessing Arias) Departure Departure Disposition: STILL A PATIENT Condition: Stable Clinical Impression Primary Impression: Hepatorenal failure Secondary Impressions: Acute on chronic kidney failure, Ascites, Decreased appetite Referrals: Charly Boston MD (PCP/Family) Departure Forms: Customer Survey General Discharge Information Admission Note Spoke With: Ayanna Carroll MD Documentation of Exam: Documentation of any treatments & extenuating circumstances including Concerns Regarding Discharge (functional status, medication knowledge or non-compliance, living conditions, etc.) that warrant an admission rather than observation: [ hepatorenal failure with acute on chronic kidney failure in setting of cirrhosis , likely liver malignancy, requiring possible diagnostic paracentesis, possible IR consult, GI consult, Nephrology consult, repeat labs, premature discharge would be medically unsafe.] (Shirlene JORDAN,Blessing Arias) Departure Comments 04/11/17 10:47 PM 76-year-old female with a history of end-stage liver disease. Presents with increasing site ascites and decreased appetite. On physical exam she does have ascites but no distention. No difficulty breathing, chest x-ray is unremarkable. Will repeat second set of enzymes for EKG changes and obtain ultrasound to assess degree of ascites she has no abdominal tenderness. PA/COMBINATION BUILDING INSPECTOR Co-Sign Statement Statement: ED Attending supervision documentation- [X] I saw and evaluated the patient. I have also reviewed all the pertinent lab results and diagnostic results. I agree with the findings and the plan of care as documented in the PA's/COMBINATION BUILDING INSPECTOR's documentation. Patient with no fever, and abdominal pain, no respirtatory distress on my exam. [] I have reviewed the ED Record and agree with the PA's/COMBINATION BUILDING INSPECTOR's documentation. [] Additions or exceptions (if any) to the PAs/COMBINATION BUILDING INSPECTOR's note and plan are summarized below: [] (Larry Mejía DO
[2017-04-11 19:27] LABS: ABSOLUTE BASOPHIL COUNT 0 /CUMM (0.0-0.2); ABSOLUTE EOSINOPHIL COUNT 0 /CUMM (0.0-0.7); ABSOLUTE GRANULOCYTE CT 7.7 /CUMM (1.4-6.5); ABSOLUTE LYMPH COUNT 0.6 /CUMM (1.2-3.4); ABSOLUTE MONOCYTE COUNT 0.4 /CUMM (0.10-0.60); BASOPHIL % 0 % (0.0-2.0); EOSINOPHIL % 0 % (0-5); HEMATOCRIT 30.7 % (37-47); MEAN CORPUSCULAR HGB 30.1 PG (27.0-31.0); MEAN CORPUSCULAR HGB CONC 33.3 G/DL (33.0-37.0); MEAN CORPUSCULAR VOLUME 90.4 FL (81.0-99.0); MEAN PLATELET VOLUME 6.9 FL (7.4-10.4); PLATELET COUNT 312 /CUMM (130-400); RBC DISTRIBUTION WIDTH 14.7 % (11.5-14.5); WHITE BLOOD CELL COUNT 8.7 /CUMM (4.8-10.8)
[2017-04-11 19:52] LABS: GRANULOCYTE % 88.6 % (42.2-75.2)
--- NOTE | 2017-04-11 20:47 | RADIOLOGY REPORT ---
EXAMINATION: XR PORTABLE CHEST CLINICAL INFORMATION: Diminished breath sounds COMPARISON: 12/23/2015 TECHNIQUE: Portable frontal view of the chest was obtained. FINDINGS: Slight apical lordotic positioning of the patient. Lungs are well expanded and without interstitial edema, focal consolidation or pleural effusion. Cardiac silhouette is normal in size. Surgical changes from remote coronary artery bypass grafting with intact sternotomy wires in place. No acute osseous findings. Chronic osteoarthritis of glenohumeral joints. IMPRESSION: Surgical changes from prior CABG. No acute cardiopulmonary findings compared 12/23/2015.
--- NOTE | 2017-04-11 23:47 | History & Physical ---
Janell Teixeira MD 04/11/17 5116: General Information and HPI MD Statement: I have seen and personally examined SWAPNIL LARIOS and documented this H&P. The patient is a 76 year old F who presented with a patient stated chief complaint of increased ascites and decreased oral intake in the setting of recently found hepatic masses suspicious of hepatocellular carcinoma. Source of Information: patient, old records, W10 Exam Limitations: no limitations History of Present Illness: Patient is a 76 her old female with a past medical history significant for hypertension, hyperlipidemia, chronic kidney disease stage IV, CAD status post triple vessel CABG over 10 years ago, previous sigmoid colon cancer resected, PVD with carotid endarterectomy over 10 years ago and most recent angiography done in 2013, chronic back pain, that is brought in by ambulance from her F [facility] for concerns of increased ascites, decreased renal function, and decreased appetite in the setting of recent liver masses found on MRI. Patient was recently admitted to [facility] at the beginning of March for back pain, lower extremity weakness, gait instability, and increased abdominal girth. CT scan showed enlarging liver mass compared to CT from 2016. Alpha-fetoprotein was found to be negative. Antimitochondrial and anti-smooth muscle antibodies were also found to be negative. However, CEA was found to be positive. As patient is claustrophobic MRI was deferred until she could do open MRI outpatient. Results from open MRI showed multiple hepatic lesions which demonstrated heterogeneous enhancement, increased in number since CT from 2016, multiple renal cysts. The patient apparently saw Dr. Johnson recently who told her of the results but offered no plan. However the nurse from [facility] stated that it was Dr. Johnson who wanted the patient sent here today for management of her suspected hepatocellular carcinoma, growing ascites, and failure to thrive. The patient also admits to recent malaise, and states that was nauseous and did vomit on the way to the hospital today but attributes it to carsickness. She also endorses decreased appetite but states that it is because she does not like the food at [facility]. The patient has had recent diarrhea but knows nothing of the color/if blood is present etc. The patient admits to recent weight loss of about 15 pounds. The patient denies any nausea, vomiting now, recent abdominal pain, diaphoresis, night sweats, chest pain, headaches, shortness of breath, dizziness, recent loss of consciousness, swelling of the feet. The patient states that before her hospitalization here a month ago, she was walking unassisted. Now she barely ever gets out of bed. She has been [facility] since her discharge. The patient denies ever having an issue with alcohol. She denies any drug use. She states that she has never had a blood transfusion before 2014, no hepatitis, no extensive use of Tylenol. The patient has chronic back pain and a history of laminectomy in the past. She notes chronic discomfort and as per her nurse at [facility] does receive oxycodone 5 mg about 3 times a week for pain. The patient's PCP is Dr. Boston Allergies/Medications Allergies: Coded Allergies: Sulfa (Sulfonamide Antibiotics) (Severe, HIVES 12/27/15) Compliance With Home Meds: GOOD Past History Travel History Traveled to [facility] past 21 day No Medical History Neurological: CVA (? 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, w/o adjuvant tx Hepatic: NONE Renal: chronic kidney disease (stage IV) Musculoskeletal: chronic back pain, degen joint disease, falls, gout Psychiatric: NONE Endocrine: thyroid disease Blood Disorders: anemia Cancer(s): basal cell carcinoma, colon/rectal cancer, endometrial cancer MATLAB DEVELOPER/Reproductive: NONE History of MRSA: No History of VRE: No History of CDIFF: No Surgical History Surgical History: hysterectomy (TAHBSO for uterine Ca, f/b RT ), PARTIAL COLECTOMY (SIGMOID) 11/1989 DUE TO CANCER OF COLON Past Family/Social History Family History Relations & Conditions if any MOTHER (Unknown - pt adolted). FATHER (unknown - pt adopted). Psychosocial History Who Do You Live With? self Services at Home: None Primary Language: Bengali ETOH Use: denies use Living Will? yes Power of [employer] [employer] [place] Specials/HCP? yes Name of POA/HCP: Nancie Luong- friend/POA Functional Ability ADLs Independent: dressing, eating, toileting, bathing. Ambulation: cane IADLs Independent: shopping, housework, finances, food prep, telephone, transportation , medication admin. Review of Systems Review of Systems Constitutional: Reports: see HPI, malaise, weakness, unexplained weight loss. EENTM: Reports: no symptoms. Cardiovascular: Reports: no symptoms. Respiratory: Reports: no symptoms. GI: Reports: diarrhea, distention, vomiting. Genitourinary: Reports: no symptoms. Musculoskeletal: Reports: back pain. Skin: Reports: no symptoms. Neurological/Psychological: Reports: no symptoms. Hematologic/Endocrine: Reports: no symptoms. Immunologic/Allergic: Reports: no symptoms, see HPI, splenectomy, HIV/AIDS, lymphadenopathy, other. All Other Systems: Reviewed and Negative Exam & Diagnostic Data Last 24 Hrs of Vital Signs/I&O Vital Signs Date Time Temp Pulse Resp B/P B/P Pulse O2 O2 Flow FiO2 Mean Ox Delivery Rate 04/12 0222 98.1 64 20 121/63 96 Room Air 04/12 0137 97.4 66 18 142/68 95 Room Air 04/11 2342 97.6 67 18 146/67 95 Room Air 04/11 2129 97.9 62 18 132/63 96 Room Air 04/11 1851 Room Air 04/11 1829 97.1 64 18 142/64 95 Room Air Intake & Output 04/12 0800 / 0000 04/11 1600 Intake Total 50 Output Total Balance 50 Intake, Oral 50 Patient 118 lb Weight Weight Bed scale Measurement Method Physical Exam General Appearance Alert, Oriented X3, Cooperative, No Acute Distress Skin No Rashes, No Significant Lesion, stage I buttock ulcers, bandaged, bilateral Skin Temp/Moisture Exam: Warm/Dry Sepsis Skin Exam (color): Normal for Ethnicity HEENT Atraumatic, EOMI, Mucous Membr. moist/pink, pinpoint pupils mildly reactive Neck Supple, No JVD Cardiovascular Regular Rate, Normal S1, Normal S2, systolic murmur at LLSB 3/6 Lungs Clear to Auscultation, Normal Air Movement Abdomen Normal Bowel Sounds, Soft, No Tenderness, distended with fluid shift Neurological Normal Speech Extremities No Clubbing, No Cyanosis, Normal Pulses, No Tenderness/Swelling (2+ nonpitting edema bilaterall) Vascular Normal Pulses, Pulses Symmetrical Sepsis Peripheral Pulse Location: Radial Sepsis Peripheral Pulse Exam: Normal Sepsis Cap Refill Exam: <2 Sec Last 24 Hrs of Labs/Jere: Laboratory Tests 04/11/17 2240: Troponin I 0.01 04/11/17 1915: Anion Gap 11, Estimated GFR 22 L, BUN/Creatinine Ratio 30.0 H, Glucose 76, Calcium 9.3, Total Bilirubin 0.6, AST 24, ALT 27, Alkaline Phosphatase 230 H, Troponin I 0.02, Total Protein 5.0 L, Albumin 2.4 L, Globulin 2.6, Albumin/ Globulin Ratio 0.9 L, CBC w Diff NO MAN DIFF REQ, RBC 3.40 L, MCV 90.4, MCH 30.1, MCHC 33.3, RDW 14.7 H, MPV 6.9 L, Gran % 88.6 H, Lymphocytes % 6.7 L, Monocytes % 4.7, Eosinophils % 0, Basophils % 0, Absolute Granulocytes 7.7 H, Absolute Lymphocytes 0.6 L, Absolute Monocytes 0.4, Absolute Eosinophils 0, Absolute Basophils 0 Assessment/Plan Assessment: Patient is a 76 her old female with a past medical history significant for hypertension, hyperlipidemia, chronic kidney disease stage IV, CAD status post triple vessel CABG over 10 years ago, previous sigmoid colon cancer resected, PVD with carotid endarterectomy over 10 years ago and most recent angiography done in 2013, chronic back pain, that is brought in by ambulance from her ECF [facility] for concerns of increased ascites, decreased renal function, and decreased appetite in the setting of recent liver masses found on MRI with a positive CEA. The patient follows with Dr. Johnson who, as per call placed to [facility], is the one who sent her in for management of her increased ascites, decreased renal function, and recent MRI findings. Patient was last seen here in early March when suspicion for malignancy began and had diagnostic and therapeutic tap done with no infection seen on ascites fluid culture. In the ED, patient was found to have stable vitals. EKG showed a rate of 64 with inferolateral T-wave changes compared to her EKG from last time. WBC count was found to be 8.7, hemoglobin 10.2, sodium 132, BUN 66, creatinine 2.2 up from her baseline of about 1.3, alkaline phosphatase 230, normal liver function test, negative troponins, albumin 2.4, protein 5. Chest x-ray showed no acute cardiopulmonary findings. As patient's with chronic kidney disease and SBP have increased risk of hepatorenal syndrome, our most important step is to rule out infection of her ascitic fluid and if it is there, treat her. We discussed doing diagnostic tap tonight but patient stated she wanted to defer till tomorrow when "hopefully Dr. Cameron can do it". ER staff have spoken with Dr. Johnson who is aware. Patient is most likely experiencing type II hepatorenal syndrome which is slower in onset and progression and with a lower rise in creatinine (less than 2.5). Urine sodium is usually less than 10 in this type of hepatorenal syndrome. In any case, patient's prognosis is gram with survival less than 6 months unless patient did receive a liver transplant. Plan Ascites in the setting of HCC suspicion and CKD, most likely hepatorenal syndrome. -INR (needed to determine Maddrey's/MELD score) -Formal consult with Dr. Johnson for tomorrow -Plan for diagnostic paracentesis with IR tomorrow as patient stated she wanted Dr. Cameron to perform the tap. -Albumin 12.5 g 3 times a day IV -Zofran for nausea 4 mg 3 times a day -Follow up hepatic function panel and albumin and morning labs -Nephrology consult -Follow up urine random creatinine, sodium, potassium and FeNa EKG changes: No symptoms suggestive of ACS. Vitals stable. Troponin negative. -Repeat troponin and EKG in the morning Bedsores -Consider wound care consultation. Sores are NOT open and stage I. Chronic medical problems -Tramadol 50 mg and oxycodone 5 mg 3 times a day when necessary daily for back pain -Lopressor 50 mg, clonidine 0.3 mg twice a day, Norvasc 10 mg daily, and hydralazine 75 mg 3 times a day for hypertension -PPI for gastritis Heart healthy diet DVT prophylaxis with Alps and subcutaneous heparin AFTER paracentesis Full code As Ranked By This Provider Problem List: 1. Decreased appetite 2. Acute on chronic kidney failure 3. Hepatorenal failure 4. Intractable back pain 5. Liver lesion 6. Ascites Core Measures/Misc (10/23) Acute Coronary Syndrome ACS Diagnosis: No Congestive Heart Failure Congestive Heart Failure Diagnosis No Cerebrovascular Accident CVA/TIA Diagnosis: No VTE (View Protocol) VTE Risk Factors Acute Medical Illness No Mechanical VTE Prophylaxis d/t N/A MechProphylax Ordered No VTE Pharm Prophylaxis d/t Surgical Contraindication Sepsis (View protocol) Sepsis Present: No Albalwai,Afaf 04/11/17 9216: General Information and HPI Allergies/Medications Home Med list Albuterol Sulfate 0.63 MG/3 ML VIAL.NEB 1 Vial INH/SHEILA 4 TIMES/DAY PRN COPD ( Reported) Amlodipine Besylate 10 MG TABLET 1 TAB PO DAILY HTN (Reported) Aspirin (Aspirin*) 81 MG TAB.CHEW 1 TAB PO DAILY HEART HEALTH (Reported) Cholecalciferol (Vitamin D3) (Vitamin D3) 2,000 UNIT CAPSULE 1 CAP PO BID SUPPLEMENT (Reported) Clonidine HCl 0.3 MG TABLET 1 TAB PO Q12 HTN (Reported) Guaifenesin/Dextromethorphan (Robitussin Cough-Chest Dm Liq) 100 MG-5 MG/5 ML LIQUID 10 ML PO Q4 PRN COUGH (Reported) Hydralazine HCl 25 MG TABLET 3 TAB PO TID HTN (Reported) Isosorbide Mononitrate (Isosorbide Mononitrate ER) 60 MG TAB.ER.24H 1 TAB PO DAILY HTN (Reported) HOLD FOR SBP<100MMGH Metoprolol Tartrate (Lopressor) 50 MG TABLET 1 TAB PO DAILY HTN (Reported) Floweree-3 Fatty Acids/Fish Oil (Fish Oil 1,000 MG Capsule) 340 MG-1,000 MG CAPSULE 2 CAP PO DAILY SUPPLEMENT (Reported) Omeprazole 40 MG CAPSULE.DR 1 CAP PO DAILY ACID REFLUX (Reported) Ondansetron HCl (Zofran) 4 MG TABLET 1 TAB PO TID NAUSEA (Reported) Oxycodone HCl 5 MG TABLET 1 TAB PO Q8P PAIN MODERATE (Reported) Oxycodone HCl 5 MG TABLET 1 TAB PO TIDPRN PRN BACK PAIN Polyethylene Glycol 3350 (Miralax) 17 GRAM/DOSE POWDER 17 GM PO BID GI Prednisone 5 MG TABLET 1.5 TAB PO DAILY ARTHRITIS (Reported) Tramadol HCl 50 MG TABLET 1 TAB PO DAILY PAIN (Reported) Tramadol HCl 50 MG TABLET 1 TAB PO DAILY PRN BACK PAIN Resident Review Statement Resident Statement: examined this patient, discussed with operations intern, agreed with operations intern, discussed with family, discussed with nursing, reviewed images Other Findings: Mrs. Coleman is a 76 yo lady with PMHx. of of CAD s/p CABG (1999), PVD s/p angioplasty with stent placement, HTN, stage IV CKD secondary to hypertensive nephrosclerosis, HLD, lumbar disc surgery, uterine cancer, colon cancer s/p resection back in 90"s. Presented to ED from [facility] with a concern of increased ascites, decrease oral intake and a suspicion of hepatocellular carcinoma on a recent MRI. She was recently dc [facility] after been treated for generalized weakness and ALVIN and found to have a liver mass with a large ascites , she was dc with a recommendation to f/u with anopen MRI given that she is clustrophobic and refused closed MRI. MRI was done which showed multiple heterogenous opacity highly suggestive for HHC, and increase ascites, she was seen at her GI physician office who discussed the result of MRI with the patient. Now she came back for a concern of decreased oral intake, increased abdominal distention, and MRI finding. Patient denies any abdominal pain when we asked her, no shortness of breath. Her lab is pertinent for BUN of 66, creatinine 2.2, alk phosphatase 230. Will admit the patient to general medicine floor, we discussed with her the need for diagnostic paracentesis but patient refused to do it overnight she wanted to be done in the morning. We'll start albumin 25% 12.5 mg 3 times a day. Will send urine lites, will repeat EKG and troponin as her hCG at the emergency department shows T-wave inversion in the inferior leads and flattening on the lateral lead. GI consult with Dr. Johnson., nephrology consult with will start DVT prophylaxis with after paracentesis: SC heparin at a.m. she is a full code Glen NAGEL, [facility] 04/12/17 0449: Attending MD Review Statement Attending Statement Attending MD Statement: examined this patient, discuss w/resident/PA/HEAD CHOPPER, agreed w/resident/PA/HEAD CHOPPER, reviewed images, amended to note Attending Assessment/Plan: 76 yo F with h/o PVD s/p angioplasty with stent, HTN, CAD s/p CABG, CKD stage 4, uterine and colon cancer, was recently admitted to [facility] (Feb 2017) for evaluation of new onset ascites ?malignant with new hepatic masses concerning for primary HCC vs metastases. She was discharged to [facility] (mar 17) with eventual plan for outpatient MRI and GI follow up. MRI (Apr 05) shows multiple hepatic lesions concerning for HCC, large volume ascites, multiple renal cysts and small lobulated cystic lesion in mid pancreatic body. Patient states she followed up with Dr. Coleman and was told that the cancer is fatal. She does not recollect being told of any management options. Patient comes in today for poor PO intake and an episode of nausea/ vomiting. Patient states that she does not like the food that is provided at the facility, and hence she does not eat. She thinks she has lost weight, reports current weight at 113 pounds. She also reports intermittent diarrhea though not on a daily basis. She has noticed her abdomen to be more distended but denies abdominal pain or fever/ chills. She also does not work with PT due to her lower extremity weakness, mostly bedbound. Vitals stable. Cachectic lady in no distress, Abdomen distended with fluid thrill, nontender, LE 1+ edema. Back: chronic buttock wounds. Labs: no leukocytosis, Na 132, bicarb 19, BUN 66, creat 2.2 (baseline 1.2 1.5) , trop neg. CXR: no acute findings. EKG: SR with T-wave inversions in inferior leads that resolved on repeat EKG. Echo (2016): EF 60-65%, stage 1 diastolic dysfunction. Assessment and plan: 1. Poor PO intake, failure to thrive 2. ALVIN on CKD stage 4 ?dehydration, poor PO intake 3. Ascites, hepatic mass concerning for HCC vs metastases (previous uterine and colon cancer), CEA elevated, AFP 1 may not be HCC. 4. Rule out hepatorenal syndrome 5. Assess for SBP, no large volume paracentesis at this point 6. History of CAD and PVD 7. Chronic low back pain - Admit to general medicine - Nutritional consult, encourage PO intake - Check urine lytes to assess sodium excretion and urinalysis to asses proteinuria - IV albumin now and then TID, would avoid isotonic fluids - ?addition of Terlipressin if this is truly HRS - Trend renal functions - GI consult and nephro consult in AM - Diagnostic paracentesis to rule out SBP as it can trigger HRS - Patient refused paracentesis overnight, please consult IR in AM - Repeat EKG and troponin in AM - Goals of care discussion - Wound care decubitus ulcers - Resume home meds avoid NSAIDs or nephrotoxic meds. DVT ppx Hep SC. Full code.
[2017-04-12] MEDS ORDERED: ZOFRAN4 M2 PO (01:38)
[2017-04-12] MEDS ORDERED: ALBUTEROL0.63 MG/1 INH/SOL (01:40)
[2017-04-12] MEDS ORDERED: ROBITUSSIN COU237 M1 PO (01:40)
[2017-04-12] MEDS ORDERED: AMLODIPINE BESY10 M1 PO (01:41)
[2017-04-12] MEDS ORDERED: CLONIDINE HCL0.3 M1 PO (01:41)
[2017-04-12] MEDS ORDERED: ISOSORBIDE MONO60 M1 PO (01:43)
[2017-04-12] MEDS ORDERED: VITAMIN D-32000 UNI1 PO (01:44)
[2017-04-12] MEDS ORDERED: LOPRESSOR50 M1 PO (01:45)
[2017-04-12] MEDS ORDERED: OMEPRAZOLE40 M1 PO (01:45)
[2017-04-12] MEDS ORDERED: HYDRALAZINE HCL25 M1 PO (01:46)
[2017-04-12] MEDS ORDERED: ASPIRIN81 M4 PO (01:46)
[2017-04-12] MEDS ORDERED: OXYCODONE HCL5 M1 PO (01:47)
[2017-04-12] MEDS ORDERED: TRAMADOL HCL50 M1 PO (01:47)
[2017-04-12 02:22] VITALS: BP 121/63
--- NOTE | 2017-04-12 04:33 | Admission Certification ---
Admission Certification Certification Statement - As attending physician, I certify that at the time of - admission, based on clinical presentation, severity of - symptoms, need for further diagnostic testing and - therapeutic interventions, and risk of adverse outcomes - without in-hospital treatment, in my clinical assessment, - this patient requires an acute hospital stay for a minimum - of two nights or longer. I have also considered psychsocial - factors such as support system, advanced age, financial - issues, cognitive issues, and failed out-patient treatments, - past re-admission history, safety of patient, and lack of - compliance as applicable. Specific rationale supporting this admission is: ALVIN on CKD, liver mass concerning for HCC, ascites, needs admission for GI and nephro consult, rule out hepatorenal syndrome.
--- NOTE | 2017-04-12 06:55 | PN- Housestaff ---
Ruben NAGEL,Ramon 04/12/17 0654: Subjective Follow-up For: ALVIN on stage IV CKD Worsening Ascites in the setting of suspected HCC Protein calorie malnutrition chronic sacral pressure ulcers Subjective: Patient was seen and examined at bedside. She had no acute events overnight. She currently is complaining of nausea but has not had any episodes of vomiting since being brought up to the floor. She is alos complaining of bilateral hip pain. She has no other complaints and denies any abdominal pain, shortness of breath, chest pain, fever, chills. Review of Systems Constitutional: Denies: chills, fever. Cardiovascular: Denies: chest pain, palpitations, syncope. Respiratory: Denies: cough, short of breath. Gastrointestinal: Reports: bloating, nausea. Denies: abdominal pain, bloody stool, vomiting. Genitourinary: Reports: no symptoms. Musculoskeletal: Reports: no symptoms. Objective Last 24 Hrs of Vital Signs/I&O Vital Signs Date Time Temp Pulse Resp B/P B/P Pulse O2 O2 Flow FiO2 Mean Ox Delivery Rate 04/12 0222 98.1 64 20 121/63 96 Room Air 04/12 0137 97.4 66 18 142/68 95 Room Air 03/ 2342 97.6 67 18 146/67 95 Room Air / 2129 97.9 62 18 132/63 96 Room Air / 1851 Room Air / 1829 97.1 64 18 142/64 95 Room Air Intake & Output 04/12 0800 04/12 0000 04/11 1600 Intake Total 530 Output Total Balance 530 Intake, IV 120 Intake, Oral 410 Patient 118 lb Weight Weight Bed scale Measurement Method Physical Exam General Appearance: Alert, Oriented X3, Cooperative, Mild Distress (secondary to nausea), chachectic Skin: sacral pressure ulcer Skin Temp/Moisture Exam: Warm/Dry Cardiovascular: Regular Rate, Normal S1, Normal S2, systolic murmur Lungs: Clear to Auscultation, Normal Air Movement Abdomen: No Tenderness, distended, + fluid thrill Neurological: Normal Speech, Normal Tone, Sensation Intact Extremities: 1 + pitting edema of distal BLE Current Medications: Current Medications Sig/Jose Start time Last Medication Dose Route Stop Time Status Admin Albumin Human 12.5 GM TID 04/12 1000 AC IV Albumin Human 12.5 GM ONCE ONE 04/12 0445 DC 04/12 IV 04/12 0446 0502 Albuterol Sulfate 3 ML Q4H PRN 04/12 0200 AC INH Amlodipine Besylate 10 MG DAILY 04/12 1000 AC PO Cholecalciferol 1,000 IU BID 04/12 1000 AC PO Clonidine 0.3 MG Q12 04/12 1000 AC PO Cyclosporine 125 MG BID 04/11 2330 CAN PO 04/11 2359 Guaifenesin 10 ML Q6P PRN 04/12 0200 AC PO Hydralazine HCl 75 MG TID 04/12 1000 AC PO Isosorbide 60 MG DAILY 04/12 1000 AC Mononitrate PO Metoprolol Tartrate 50 MG DAILY 04/12 1000 AC PO Omeprazole 40 MG DAILY AC 04/12 0700 AC 04/12 PO 0502 Ondansetron HCl 4 MG TID PRN 04/12 0200 AC 04/12 PO 0249 Oxycodone HCl 5 MG Q8P PRN 04/12 0200 AC 04/12 PO 0238 Polyethylene Glycol 17 GM BID 04/12 1000 AC PO Tramadol HCl 50 MG DAILY 04/12 1000 AC PO Last 24 Hrs of Lab/Jere Results Last 24 Hrs of Labs/Mics: Laboratory Tests 04/12/17 0215: Troponin I Cancelled 04/11/17 2240: Troponin I 0.01 04/11/17 1915: Anion Gap 11, Estimated GFR 22 L, BUN/Creatinine Ratio 30.0 H, Glucose 76, Calcium 9.3, Total Bilirubin 0.6, AST 24, ALT 27, Alkaline Phosphatase 230 H, Troponin I 0.02, Total Protein 5.0 L, Albumin 2.4 L, Globulin 2.6, Albumin/ Globulin Ratio 0.9 L, CBC w Diff NO MAN DIFF REQ, RBC 3.40 L, MCV 90.4, MCH 30.1, MCHC 33.3, RDW 14.7 H, MPV 6.9 L, Gran % 88.6 H, Lymphocytes % 6.7 L, Monocytes % 4.7, Eosinophils % 0, Basophils % 0, Absolute Granulocytes 7.7 H, Absolute Lymphocytes 0.6 L, Absolute Monocytes 0.4, Absolute Eosinophils 0, Absolute Basophils 0 Assessment/Plan Assessment: Patient is a 76-year-old female with a PMH significant for CKD stage IV, CAD status post CABG, PVD status post angioplasty with stent, HTN, uterine and colon cancer, liver lesions either primary or metastatic cancer, who presented to [facility] from rehabilitation due to worsening poor by mouth intake, nausea and vomiting, worsening ascites and worsening renal function. #ALVIN on CKD Substantially red represent prerenal azotemia or possibly hepatorenal syndrome. -Continue IV albumin infusions, will consider switching to lactated Ringer's tomorrow -Continue to monitor BEP -Urine culture sent given UA indicative of UTI, however patient is asymptomatic and afebrile without a white count -Follow-up postvoid bladder scan #Worsening ascites Patient has been following with Dr. Coleman for hepatic masses, metastatic or primary lesions. She has elevated CEA but no definitive diagnosis has been made. She is currently asymptomatic with no abdominal pain, no shortness of breath. Patient went for diagnostic paracentesis to rule out SBP. Therapeutic paracentesis was not pursued due to risk of worsening renal dysfunction and because the patient is currently asymptomatic. -Acetic fluid consistent with exudate -Follow-up ascitic fluid cultures -Continue albumin infusions -We'll follow up with IR in AM about possible liver nodule biopsy #chronic pressure ulcer Wound care consult was placed. Recommendations appreciated -Treat with DuoDERM and offloading #Protein calorie malnutrition Additional consult was placed. -Will follow up recommendations, for now patient is on sodium restricted diet Diet: Heart healthy DVT prophylaxis:SC heparin, ALPS Code status: full code Problem List: 1. Acute on chronic kidney failure 2. Liver lesion 3. Ascites Pain Ratin Pain Location: none Pain Goal: Remain pain free Pain Plan: pain pathway Tomorrow's Labs & Rationales: cbc, bep Mack Bullock MD 04/12/17 1716: Attending MD Review Statement Attending Statement Attending MD Statement: examined this patient, discuss w/resident/PA/COMMUNITY SERVICE MANAGER, agreed w/resident/PA/COMMUNITY SERVICE MANAGER, reviewed EMR data (avail), discussed with case mgmt, amended to note Attending Assessment/Plan: The patient was seen and discussed with house staff. GI suggested diagnostic paracentesis done under US. Await results. The patient appeared comfortable at the time of my exam and denied abdominal pain. Nephrology input appreciated- IV Albumin being given.
--- NOTE | 2017-04-12 07:17 | Cons- Gastroenterology ---
General Information and HPI Consulting Request Date of Consult: 04/12/17 Requested By: Glen NAGEL,Ayanna Reason for Consult: Ascites, liver masses on MRI. Source of Information: patient, old records Exam Limitations: poor historian History of Present Illness: Ms. Adorno is a 76 year old female with multiple medical problems including uterine and colon ca s/p resection, CKD, chronic back pain, PVD, HTN and hyperlipidemia who was recently discharged from to rehab for back pain, lower extremity weakness, gait instability, and increased abdominal girth who was sent back in to last night for worsening ascites, renal failure, nausea and vomiting. On her last admission she had a ct scan which showed a liver mass and this was followed with an MRI as an outpatient which confirmed the findings. She has continued to have increased abdominal girth and she is fatigued, but she is without any abdominal pain and the increasing ascites is not leading to any significant respiratory distress. She has had a poor appetite and some nausea and she had one episode of bilious vomiting on the ambulance ride over here that hasn't persisted. Last night in the ER she was hemodynamically stable and afebrile. She had ascites on PE and she was noted to have some renal insufficiency from when she was last here. She was admittted and started on IV albumin and a diagnostic tap was deferred as she requested it be done by IR. There were no actue events overnight. Allergies/Medications Allergies: Coded Allergies: Sulfa (Sulfonamide Antibiotics) (Severe, HIVES 12/27/15) Home Med List: Albuterol Sulfate 0.63 MG/3 ML VIAL.NEB 1 Vial INH/SHEILA 4 TIMES/DAY PRN COPD ( Reported) Amlodipine Besylate 10 MG TABLET 1 TAB PO DAILY HTN (Reported) Aspirin (Aspirin*) 81 MG TAB.CHEW 1 TAB PO DAILY HEART HEALTH (Reported) Cholecalciferol (Vitamin D3) (Vitamin D3) 2,000 UNIT CAPSULE 1 CAP PO BID SUPPLEMENT (Reported) Clonidine HCl 0.3 MG TABLET 1 TAB PO Q12 HTN (Reported) Guaifenesin/Dextromethorphan (Robitussin Cough-Chest Dm Liq) 100 MG-5 MG/5 ML LIQUID 10 ML PO Q4 PRN COUGH (Reported) Hydralazine HCl 25 MG TABLET 3 TAB PO TID HTN (Reported) Isosorbide Mononitrate (Isosorbide Mononitrate ER) 60 MG TAB.ER.24H 1 TAB PO DAILY HTN (Reported) HOLD FOR SBP<100MMGH Metoprolol Tartrate (Lopressor) 50 MG TABLET 1 TAB PO DAILY HTN (Reported) [place]-3 Fatty Acids/Fish Oil (Fish Oil 1,000 MG Capsule) 340 MG-1,000 MG CAPSULE 2 CAP PO DAILY SUPPLEMENT (Reported) Omeprazole 40 MG CAPSULE.DR 1 CAP PO DAILY ACID REFLUX (Reported) Ondansetron HCl (Zofran) 4 MG TABLET 1 TAB PO TID NAUSEA (Reported) Oxycodone HCl 5 MG TABLET 1 TAB PO Q8P PAIN MODERATE (Reported) Polyethylene Glycol 3350 (Miralax) 17 GRAM/DOSE POWDER 17 GM PO BID GI Tramadol HCl 50 MG TABLET 1 TAB PO DAILY PAIN (Reported) Current Medications: Current Medications Sig/Jose Start time Last Medication Dose Route Stop Time Status Admin Albumin Human 12.5 GM TID 04/12 1000 AC IV Albumin Human 12.5 GM ONCE ONE 04/12 0445 DC 04/12 IV 04/12 0446 0502 Albuterol Sulfate 3 ML Q4H PRN 04/12 0200 AC INH Amlodipine Besylate 10 MG DAILY 04/12 1000 AC PO Cholecalciferol 1,000 IU BID 04/12 1000 AC PO Clonidine 0.3 MG Q12 04/12 1000 AC PO Cyclosporine 125 MG BID 04/11 2330 CAN PO 04/11 2359 Guaifenesin 10 ML Q6P PRN 04/12 0200 AC PO Hydralazine HCl 75 MG TID 04/12 1000 AC PO Isosorbide 60 MG DAILY 04/12 1000 AC Mononitrate PO Metoprolol Tartrate 50 MG DAILY 04/12 1000 AC PO Omeprazole 40 MG DAILY AC 04/12 0700 AC 04/12 PO 0502 Ondansetron HCl 4 MG TID PRN 04/12 0200 AC 04/12 PO 0249 Oxycodone HCl 5 MG Q8P PRN 04/12 0200 AC 04/12 PO 0238 Polyethylene Glycol 17 GM BID 04/12 1000 AC PO Tramadol HCl 50 MG DAILY 04/12 1000 AC PO Past History Travel History Traveled to [place] past 21 day No Medical History Blood Transfusion Hx: Yes Neurological: CVA (? 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 FATHER (unknown - pt adopted). Psychosocial History Where Do You Live? Extended Care Facility Who Do You Live With? self Services at Home: None Primary Language: Pakistani Smoking Status: Former Smoker ETOH Use: denies use Living Will? yes Power of [place] Miner/HCP? yes Name of POA/HCP: Nancie Luong- friend/POA Functional Ability ADLs Independent: dressing, eating, toileting, bathing. Ambulation: cane IADLs Independent: shopping, housework, finances, food prep, telephone, transportation , medication admin. Exam & Diagnostic Data Vital Signs and I&O Vital Signs Date Time Temp Pulse Resp B/P B/P Pulse O2 O2 Flow FiO2 Mean Ox Delivery Rate 04/12 0222 98.1 64 20 121/63 96 Room Air / 0137 97.4 66 18 142/68 95 Room Air / 2342 97.6 67 18 146/67 95 Room Air / 2129 97.9 62 18 132/63 96 Room Air / 1851 Room Air / 1829 97.1 64 18 142/64 95 Room Air Intake & Output 04/12 1600 04/12 0400 04/11 1600 04/11 0400 / 1600 / 0400 Intake Total 480 50 Output Total Balance 480 50 Intake, IV 120 Intake, Oral 360 50 Patient 118 lb 118 lb Weight Weight Bed scale Bed scale Measurement Method Physical Exam General Appearance: no apparent distress, comfortable, cachetic Head: atraumatic, normal appearance Eyes: Bilateral: normal appearance. Ears, Nose, Throat: normal pharynx, normal ENT inspection Neck: normal inspection, supple Respiratory: quiet respiration, decreased breath sounds Cardiovascular: regular rate/rhythm Gastrointestinal: normal bowel sounds, soft, non-tender, distention Rectal: deferred Back: normal inspection Extremities: pedal edema Neurologic/Psych: no motor/sensory deficits, awake, alert, oriented x 3 Skin: intact, normal color, warm/dry Results Pertinent Lab Results: Laboratory Tests 04/12 04/11 04/11 0215 2240 1915 Chemistry Sodium (137 - 145 mmol/L) 132 L Potassium (3.5 - 5.1 mmol/L) 4.4 Chloride (98 - 107 mmol/L) 101 Carbon Dioxide (22 - 30 mmol/L) 19 L Anion Gap (5 - 16) 11 BUN (7 - 17 mg/dL) 66 H Creatinine (0.5 - 1.0 mg/dL) 2.2 H Estimated GFR (>60 ml/min) 22 L BUN/Creatinine Ratio (7 - 25 %) 30.0 H Glucose (65 - 99 mg/dL) 76 Calcium (8.4 - 10.2 mg/dL) 9.3 Total Bilirubin (0.2 - 1.3 mg/dL) 0.6 AST (14 - 36 U/L) 24 ALT (9 - 52 U/L) 27 Alkaline Phosphatase (<127 U/L) 230 H Troponin I (< 0.11 ng/ml) Cancelled 0.01 0.02 Total Protein (6.3 - 8.2 g/dL) 5.0 L Albumin (3.5 - 5.0 g/dL) 2.4 L Globulin (1.9 - 4.2 gm/dL) 2.6 Albumin/Globulin Ratio (1.1 - 2.2 %) 0.9 L Hematology CBC w Diff NO MAN DIFF REQ WBC (4.8 - 10.8 /CUMM) 8.7 RBC (4.20 - 5.40 /CUMM) 3.40 L Hgb (12.0 - 16.0 G/DL) 10.2 L Hct (37 - 47 %) 30.7 L MCV (81.0 - 99.0 FL) 90.4 MCH (27.0 - 31.0 PG) 30.1 MCHC (33.0 - 37.0 G/DL) 33.3 RDW (11.5 - 14.5 %) 14.7 H Plt Count (130 - 400 /CUMM) 312 MPV (7.4 - 10.4 FL) 6.9 L Gran % (42.2 - 75.2 %) 88.6 H Lymphocytes % (20.5 - 51.1 %) 6.7 L Monocytes % (1.7 - 9.3 %) 4.7 Eosinophils % (0 - 5 %) 0 Basophils % (0.0 - 2.0 %) 0 Absolute Granulocytes (1.4 - 6.5 /CUMM) 7.7 H Absolute Lymphocytes (1.2 - 3.4 /CUMM) 0.6 L Absolute Monocytes (0.10 - 0.60 /CUMM) 0.4 Absolute Eosinophils (0.0 - 0.7 /CUMM) 0 Absolute Basophils (0.0 - 0.2 /CUMM) 0 03/13/17 CEA-11.7 Imaging/Other Studies: SERVICE DATE: 04/04/173812 EXAM TYPE: MRI - MRI-ABD W/O-W DANIELA EXAMINATION: MR ABDOMEN WITHOUT AND WITH CONTRAST CLINICAL INFORMATION: Liver mass COMPARISON: CT abdomen and pelvis dated 03/06/2017 and 11/04/2015, and CT chest dated 12/23/2015 TECHNIQUE: MRI of the abdomen before and after the IV administration of 5 mL of Gadavist was obtained using routine sequences. FINDINGS: VISUALIZED CHEST: Trace bilateral pleural effusions. LIVER, GALLBLADDER, AND BILIARY TREE: There are multiple lesions demonstrated within the liver, predominantly in the anterior aspect of the right hepatic lobe. The dominant mass measures 7.2 x 6.3 x 6.6 cm (AP by TRV by CC). Additional separate small lesions are present. These lesions demonstrate mild T2 signal hyperintensity, arterial phase peripheral enhancement and become ill-defined and heterogeneous on delayed sequences. There is layering T1 hyperintense signal in the gallbladder which may represent sludge. Gallbladder wall is not significantly thickened. There is no biliary ductal dilation. PANCREAS: There is some parenchymal atrophy. Small lobulated cystic lesion noted at the inferior aspect of the mid pancreatic body. This is otherwise not well visualized. SPLEEN: Normal size. No focal lesion. ADRENAL GLANDS: Normal; no mass. KIDNEYS AND URETERS: Both kidneys are mildly lobulated with suggestion of cortical thinning. Multiple bilateral renal cysts are noted. Additional T1 hyperintense, T2 hypointense cyst in the upper pole of the right kidney likely represents a hemorrhagic cyst. There is no hydronephrosis. GASTROINTESTINAL TRACT: Unremarkable as visualized. ABDOMINAL WALL: There is a subxiphoid ventral hernia which contains a moderate amount of ascitic fluid. LYMPHOVASCULAR STRUCTURES: No abdominal aortic aneurysm. Severe aortic atherosclerosis better seen on recent CT. The IVC is patent. FREE FLUID: A large volume of ascites is present. OSSEOUS STRUCTURES: No acute or suspicious osseous abnormality is seen. IMPRESSION: Multiple hepatic lesions are seen which demonstrate heterogeneous enhancement. Given interval enlargement and increased number of lesions since CT dating back to 11/04/2015, findings are most concerning for hepatocellular carcinoma. Metastatic disease is in the differential. Large volume ascites. Fluid extends into a subxiphoid ventral hernia. Multiple renal cysts. Possible hemorrhagic cyst in the upper pole of the right kidney. Small lobulated cystic lesion noted at the inferior aspect of the mid pancreatic body. Please note that the current study is not optimized for characterization of pancreatic lesions. Possible gallbladder sludge. Assessment/Plan Assessment/Recommendations: Assessment: Ms. Adorno is a 76 year old female with multiple medical problems who is currently in rehab who was sent back into for worsening ascites and renal insufficiency. She is currently comfortable and the ascites is not leading to any respiratory distress so while she may benefit from a large volume paracentesis would recommend holding off on that for now until SBP has been ruled out. Her renal insufficiency is likely secondary to prerenal azotemia, but it is still possible she could be developing hepatorenal syndrome. Her recent MRI is concerning for an underlying malignancy which would most likely be metastatic rather than a primary liver tumor, but that is still possible. Her CEA is elevated and she does have a history of colon cancer which may now be metastatic. At some point it may be reasonable to repeat her colonoscopy to make a diagnosis, however considering the liver lesions on MRI would recommend biopsying one of those lesions first as this would be less invasive and I'm not certain she will tolerate a bowel prep too well. Recommendations: 1. Perform a diagnostic paracentesis to rule out SBP. 2. Continue IV albumin 25 g every 8 hours for the next 24-48 hours. 3. Maintain her on a low-sodium diet. 4. Check spot urine lites. 5. Follow renal function and electrolytes. 6. Contact IR for potentially biopsying one of her liver lesions. I will continue to follow this patient and make further condition clinical course and results of repeat blood work. Consult Acknowledgment - Thank you for your consult request.
[2017-04-12 07:45] VITALS: BP 126/60
[2017-04-12 08:40] LABS: ABSOLUTE BASOPHIL COUNT 0 /CUMM (0.0-0.2); ABSOLUTE EOSINOPHIL COUNT 0 /CUMM (0.0-0.7); ABSOLUTE GRANULOCYTE CT 7.6 /CUMM (1.4-6.5); ABSOLUTE LYMPH COUNT 0.6 /CUMM (1.2-3.4); ABSOLUTE MONOCYTE COUNT 0.6 /CUMM (0.10-0.60); BASOPHIL % 0.1 % (0.0-2.0); EOSINOPHIL % 0.1 % (0-5); MEAN CORPUSCULAR HGB 30.1 PG (27.0-31.0); MEAN CORPUSCULAR HGB CONC 33.7 G/DL (33.0-37.0); MEAN CORPUSCULAR VOLUME 89.3 FL (81.0-99.0); RBC DISTRIBUTION WIDTH 14.6 % (11.5-14.5); WHITE BLOOD CELL COUNT 8.9 /CUMM (4.8-10.8)
[2017-04-12 10:10] LABS: GRANULOCYTE % 85.7 % (42.2-75.2); HEMATOCRIT 24.3 % (37-47); PLATELET COUNT 259 /CUMM (130-400); RED BLOOD CELL CT 2.72 /CUMM (4.20-5.40)
--- NOTE | 2017-04-12 14:11 | Cons- Wound Care ---
General Information and HPI Consulting Request Date of Consult: 04/12/17 Requested By: Josephine Allen MD Reason for Consult: Sacral ulcer present on admission History of Present Illness: Patient is a 76-year-old with history of colon cancer cervical cancer enlarging liver mass admitted with acute kidney injury and concern for hepatorenal syndrome. She is found to have a small sacral decubitus ulcer present on admission. Allergies/Medications Allergies: Coded Allergies: Sulfa (Sulfonamide Antibiotics) (Severe, HIVES 12/27/15) Home Med List: Albuterol Sulfate 0.63 MG/3 ML VIAL.NEB 1 Vial INH/SHEILA 4 TIMES/DAY PRN COPD ( Reported) Amlodipine Besylate 10 MG TABLET 1 TAB PO DAILY HTN (Reported) Aspirin (Aspirin*) 81 MG TAB.CHEW 1 TAB PO DAILY HEART HEALTH (Reported) Cholecalciferol (Vitamin D3) (Vitamin D3) 2,000 UNIT CAPSULE 1 CAP PO BID SUPPLEMENT (Reported) Clonidine HCl 0.3 MG TABLET 1 TAB PO Q12 HTN (Reported) Guaifenesin/Dextromethorphan (Robitussin Cough-Chest Dm Liq) 100 MG-5 MG/5 ML LIQUID 10 ML PO Q4 PRN COUGH (Reported) Hydralazine HCl 25 MG TABLET 3 TAB PO TID HTN (Reported) Isosorbide Mononitrate (Isosorbide Mononitrate ER) 60 MG TAB.ER.24H 1 TAB PO DAILY HTN (Reported) HOLD FOR SBP<100MMGH Metoprolol Tartrate (Lopressor) 50 MG TABLET 1 TAB PO DAILY HTN (Reported) [place]-3 Fatty Acids/Fish Oil (Fish Oil 1,000 MG Capsule) 340 MG-1,000 MG CAPSULE 2 CAP PO DAILY SUPPLEMENT (Reported) Omeprazole 40 MG CAPSULE.DR 1 CAP PO DAILY ACID REFLUX (Reported) Ondansetron HCl (Zofran) 4 MG TABLET 1 TAB PO TID NAUSEA (Reported) Oxycodone HCl 5 MG TABLET 1 TAB PO Q8P PAIN MODERATE (Reported) Oxycodone HCl 5 MG TABLET 1 TAB PO TIDPRN PRN BACK PAIN Polyethylene Glycol 3350 (Miralax) 17 GRAM/DOSE POWDER 17 GM PO BID GI Prednisone 5 MG TABLET 1.5 TAB PO DAILY ARTHRITIS (Reported) Tramadol HCl 50 MG TABLET 1 TAB PO DAILY PAIN (Reported) Tramadol HCl 50 MG TABLET 1 TAB PO DAILY PRN BACK PAIN Review of Systems Review of Systems: Noncontributory Past History Travel History Traveled to [place] past 21 day No Medical History Blood Transfusion Hx: Yes Neurological: CVA (? 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 FATHER (unknown - pt adopted). Psychosocial History Where Do You Live? Extended Care Facility Who Do You Live With? self Services at Home: None Primary Language: Sami Smoking Status: Former Smoker ETOH Use: denies use Living Will? yes Power of Dynamite Shooter/HCP? yes Name of POA/HCP: Nancie Luong- friend/POA Functional Ability ADLs Independent: dressing, eating, toileting, bathing. Ambulation: cane IADLs Independent: shopping, housework, finances, food prep, telephone, transportation , medication admin. Exam & Diagnostic Data Vital Signs and I&O Vital Signs Result Date Time Pulse Ox 96 04/12 0645 B/P 126/60 04/12 0645 O2 Delivery Room Air 04/12 744 Temp 98.1 04/12 744 Pulse 65 04/12 0645 Resp 20 04/12 0645 Exam of her coccyx shows there to be a 0.5 x 0.5 cm unstageable pressure ulcer with 100% yellow fill there is no undermining sinus tracking or exposed bone. There is no periwound erythema Assessment/Plan Impression/Plan: 76-year-old with acute kidney injury in the setting of probable metastatic colon cancer versus primary hepatocellular carcinoma was found to have a small unstageable pressure ulcer of her sacrum present on admission. She complained of bilateral hip pain but there are no open ulcers present over her greater trochanters. Recommend offloading and a DuoDERM can be placed over the sacral ulcer. Patient should be frequently repositioned to avoid ulceration of her greater trochanters given her marked muscle wasting Consult Acknowledgment - Thank you for your consult request.
[2017-04-12 14:35] VITALS: BP 127/68
--- NOTE | 2017-04-12 15:58 | Cons- Nephrology ---
General Information and HPI Consulting Request Date of Consult: 04/12/17 Requested By: Josephine Allen MD Reason for Consult: ALVIN Source of Information: patient, old records Exam Limitations: no limitations History of Present Illness: The patient is a 76-year-old woman with a past medical history most significant for stage III chronic kidney disease with baseline creatinine approximately 1.3- 1.5, recently diagnosed liver mass and elevated CEA level and history of colon cancer status post resection as well as a history of endometrial cancer, hypertension, peripheral vascular disease who presents with her significant appetite and labs. The patient was admitted to [facility] back in March when she was found to have an enlarging liver mass for which the workup is still ongoing. She was ultimately discharged to an extended care facility. She tells me that the food is terrible and she has been unable to really eat anything. She has also had some nausea, vomiting, and diarrhea. She has been trying to drink fluid. No fevers or chills or abdominal pain. Overall she feels swollen. Should note that the patient says she had a recent LVP where she had 6.5L of ascitic fluid removed but cannot recall where/when. On Presentation, blood pressure 142/64afebrile. Labs notable for serum creatinine 2.2, sodium 132, bicarbonate 19, T bili 0.4, normal AST/ALT, negative troponin, albumin 2.2, UA with 30md/dl protein/positive nitrite with 25-50 WBC's - no UCx. FENa 0.6%. She has been started on IV albumin. She just underwent an LVP (not sure how much fluid removed). SCr on repeat 2.3. Still feels dry. Should note no NSAID's. No urinary difficulties. Allergies/Medications Allergies: Coded Allergies: Sulfa (Sulfonamide Antibiotics) (Severe, HIVES 12/27/15) Home Med List: Albuterol Sulfate 0.63 MG/3 ML VIAL.NEB 1 Vial INH/SHEILA 4 TIMES/DAY PRN COPD ( Reported) Amlodipine Besylate 10 MG TABLET 1 TAB PO DAILY HTN (Reported) Aspirin (Aspirin*) 81 MG TAB.CHEW 1 TAB PO DAILY HEART HEALTH (Reported) Cholecalciferol (Vitamin D3) (Vitamin D3) 2,000 UNIT CAPSULE 1 CAP PO BID SUPPLEMENT (Reported) Clonidine HCl 0.3 MG TABLET 1 TAB PO Q12 HTN (Reported) Guaifenesin/Dextromethorphan (Robitussin Cough-Chest Dm Liq) 100 MG-5 MG/5 ML LIQUID 10 ML PO Q4 PRN COUGH (Reported) Hydralazine HCl 25 MG TABLET 3 TAB PO TID HTN (Reported) Isosorbide Mononitrate (Isosorbide Mononitrate ER) 60 MG TAB.ER.24H 1 TAB PO DAILY HTN (Reported) HOLD FOR SBP<100MMGH Metoprolol Tartrate (Lopressor) 50 MG TABLET 1 TAB PO DAILY HTN (Reported) Forest-3 Fatty Acids/Fish Oil (Fish Oil 1,000 MG Capsule) 340 MG-1,000 MG CAPSULE 2 CAP PO DAILY SUPPLEMENT (Reported) Omeprazole 40 MG CAPSULE.DR 1 CAP PO DAILY ACID REFLUX (Reported) Ondansetron HCl (Zofran) 4 MG TABLET 1 TAB PO TID NAUSEA (Reported) Oxycodone HCl 5 MG TABLET 1 TAB PO Q8P PAIN MODERATE (Reported) Oxycodone HCl 5 MG TABLET 1 TAB PO TIDPRN PRN BACK PAIN Polyethylene Glycol 3350 (Miralax) 17 GRAM/DOSE POWDER 17 GM PO BID GI Prednisone 5 MG TABLET 1.5 TAB PO DAILY ARTHRITIS (Reported) Tramadol HCl 50 MG TABLET 1 TAB PO DAILY PAIN (Reported) Tramadol HCl 50 MG TABLET 1 TAB PO DAILY PRN BACK PAIN Current Medications: Current Medications Sig/Jose Start time Last Medication Dose Route Stop Time Status Admin Albumin Human 12.5 GM TID 04/12 1000 AC 04/12 IV 1539 Albumin Human 12.5 GM ONCE ONE 04/12 0445 DC 04/12 IV 04/12 0446 0502 Albuterol Sulfate 3 ML Q4H PRN 04/12 0200 AC INH Amlodipine Besylate 10 MG DAILY 04/12 1000 AC 04/12 PO 1535 Cholecalciferol 1,000 IU BID 04/12 1000 AC PO Clonidine 0.3 MG Q12 04/12 1000 AC PO Cyclosporine 125 MG BID 04/11 2330 CAN PO 04/11 2359 Guaifenesin 10 ML Q6P PRN 04/12 0200 AC PO Hydralazine HCl 75 MG TID 04/12 1000 AC PO Isosorbide 60 MG DAILY 04/12 1000 AC 04/12 Mononitrate PO 1532 Lidocaine 1 ML .STK-MED ONE 04/12 1300 DC ID 04/12 1301 Metoprolol Tartrate 50 MG DAILY 04/12 1000 AC 04/12 PO 1532 Omeprazole 40 MG DAILY AC 04/12 0700 AC 04/12 PO 0502 Ondansetron HCl 0 .STK-MED ONE 04/12 1257 DC .ROUTE Ondansetron HCl 4 MG TID PRN 04/12 0200 AC 04/12 PO 0249 Oxycodone HCl 5 MG Q8P PRN 04/12 0200 AC 04/12 PO 0238 Polyethylene Glycol 17 GM BID 04/12 1000 AC PO Potassium Chloride 20 MEQ 04/12 1345 CAN IV Tramadol HCl 50 MG DAILY 04/12 1000 AC PO Review of Systems Review of Systems: Complete 14 point ROS neg except as per HPI Past History Travel History Traveled to [place] past 21 day No Medical History Blood Transfusion Hx: Yes Neurological: CVA (? 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 FATHER (unknown - pt adopted). Psychosocial History Where Do You Live? Extended Care Facility Who Do You Live With? self Services at Home: None Primary Language: [place] Smoking Status: Former Smoker ETOH Use: denies use Living Will? yes Power of Supply Chain Project Manager/HCP? yes Name of POA/HCP: Nancie Luong- friend/POA Functional Ability ADLs Independent: dressing, eating, toileting, bathing. Ambulation: cane IADLs Independent: shopping, housework, finances, food prep, telephone, transportation , medication admin. Exam & Diagnostic Data Vital Signs and I&O Vital Signs Date Time Temp Pulse Resp B/P B/P Pulse O2 O2 Flow FiO2 Mean Ox Delivery Rate 04/12 1435 97.9 65 18 127/68 97 Room Air 04/12 0745 98.1 65 20 126/60 96 Room Air 04/12 0222 98.1 64 20 121/63 96 Room Air 04/12 0137 97.4 66 18 142/68 95 Room Air 04/11 2342 97.6 67 18 146/67 95 Room Air 04/11 2129 97.9 62 18 132/63 96 Room Air 04/11 1851 Room Air 04/11 1829 97.1 64 18 142/64 95 Room Air Intake & Output 04/12 1600 04/12 0400 04/11 1600 04/11 0400 04/10 1600 04/10 0400 Intake Total 720 50 Output Total 100 Balance 620 50 Intake, IV 120 Intake, Oral 600 50 Output, Urine 100 Patient 119 lb 118 lb Weight Weight Bed scale Bed scale Measurement Method Physical Exam: Gen - OK appearing Head - NCAT Eyes - anicteric sclera, EOMI Neck - supple, no LAD CV - RRR, no m/r/g Chest - clear anteriorly, no w/r/r Abd - soft, NTND Upper ext - warm, no edema Lower ext - warm, trace edema Skin - no rash or jaundice Neuro - AOX3, grossly nonfocal Results Pertinent Lab Results: Laboratory Tests 04/12 04/12 04/12 04/12 1312 1312 1100 1100 Other Body Source Fluid WBC Pending Fld Total RBCs Counted Pending Fluid Glucose (mg/dL) 68 Fluid Total Protein (g/dL) < 2.0 Fluid Albumin (g/dL) < 1.0 Fluid LDH (U/L) 211 Fluid Amylase (U/L) < 30 Urines Urine Color (YEL,AMB,STR) DELMY Urine Clarity (CLEAR) HAZY H Urine pH (5.0 - 8.0) 6.0 Ur Specific [place] (1.001 - 1.035) 1.015 Urine Protein (NEG,<30 MG/DL) 30 H Urine Ketones (NEG) NEG Urine Nitrite (NEG) POS H Urine Bilirubin (NEG) NEG Urine Urobilinogen (0.1 - 1.0 EU/dl) 0.2 Ur Leukocyte Esterase (NEG) MOD H Ur Microscopic SEDIMENT EXAMINED Urine WBC (0 - 2 /HPF) 25-50 H Ur Epithelial Cells (NONE,FEW) FEW Urine Bacteria (NEG/NONE) MANY H Urine Hemoglobin (NEG) NEG Ur Random Creatinine (mg/dL) 75.3 Ur Random Sodium (30 - 90 mmol/L) 25 L Ur Random Potassium (mmol/L) 19.0 Fraction Sodium Excret (<1% %) 0.6 Urine Glucose (N MG/DL) NEG 04/12 04/12 04/12 0745 0707 0215 Chemistry Sodium (137 - 145 mmol/L) 133 L Potassium (3.5 - 5.1 mmol/L) 3.9 Chloride (98 - 107 mmol/L) 104 Carbon Dioxide (22 - 30 mmol/L) 17 L Anion Gap (5 - 16) 12 BUN (7 - 17 mg/dL) 64 H Creatinine (0.5 - 1.0 mg/dL) 2.3 H Estimated GFR (>60 ml/min) 21 L BUN/Creatinine Ratio (7 - 25 %) 27.8 H Total Bilirubin (0.2 - 1.3 mg/dL) 0.4 Direct Bilirubin (< 0.4 mg/dL) 0.4 AST (14 - 36 U/L) 19 ALT (9 - 52 U/L) 17 Alkaline Phosphatase (<127 U/L) 192 H Troponin I (< 0.11 ng/ml) < 0.01 Cancelled Cancelled Total Protein (6.3 - 8.2 g/dL) 4.4 L Albumin (3.5 - 5.0 g/dL) 2.2 L Hematology CBC w Diff NO MAN DIFF REQ WBC (4.8 - 10.8 /CUMM) 8.9 RBC (4.20 - 5.40 /CUMM) 2.72 L Hgb (12.0 - 16.0 G/DL) 8.2 L Hct (37 - 47 %) 24.3 L MCV (81.0 - 99.0 FL) 89.3 MCH (27.0 - 31.0 PG) 30.1 MCHC (33.0 - 37.0 G/DL) 33.7 RDW (11.5 - 14.5 %) 14.6 H Plt Count (130 - 400 /CUMM) 259 MPV (7.4 - 10.4 FL) 7.0 L Gran % (42.2 - 75.2 %) 85.7 H Lymphocytes % (20.5 - 51.1 %) 6.8 L Monocytes % (1.7 - 9.3 %) 7.3 Eosinophils % (0 - 5 %) 0.1 Basophils % (0.0 - 2.0 %) 0.1 Absolute Granulocytes (1.4 - 6.5 /CUMM) 7.6 H Absolute Lymphocytes (1.2 - 3.4 /CUMM) 0.6 L Absolute Monocytes (0.10 - 0.60 /CUMM) 0.6 Absolute Eosinophils (0.0 - 0.7 /CUMM) 0 Absolute Basophils (0.0 - 0.2 /CUMM) 0 04/11 04/11 2240 1915 Chemistry Sodium (137 - 145 mmol/L) 132 L Potassium (3.5 - 5.1 mmol/L) 4.4 Chloride (98 - 107 mmol/L) 101 Carbon Dioxide (22 - 30 mmol/L) 19 L Anion Gap (5 - 16) 11 BUN (7 - 17 mg/dL) 66 H Creatinine (0.5 - 1.0 mg/dL) 2.2 H Estimated GFR (>60 ml/min) 22 L BUN/Creatinine Ratio (7 - 25 %) 30.0 H Glucose (65 - 99 mg/dL) 76 Calcium (8.4 - 10.2 mg/dL) 9.3 Total Bilirubin (0.2 - 1.3 mg/dL) 0.6 AST (14 - 36 U/L) 24 ALT (9 - 52 U/L) 27 Alkaline Phosphatase (<127 U/L) 230 H Troponin I (< 0.11 ng/ml) 0.01 0.02 Total Protein (6.3 - 8.2 g/dL) 5.0 L Albumin (3.5 - 5.0 g/dL) 2.4 L Globulin (1.9 - 4.2 gm/dL) 2.6 Albumin/Globulin Ratio (1.1 - 2.2 %) 0.9 L Hematology CBC w Diff NO MAN DIFF REQ WBC (4.8 - 10.8 /CUMM) 8.7 RBC (4.20 - 5.40 /CUMM) 3.40 L Hgb (12.0 - 16.0 G/DL) 10.2 L Hct (37 - 47 %) 30.7 L MCV (81.0 - 99.0 FL) 90.4 MCH (27.0 - 31.0 PG) 30.1 MCHC (33.0 - 37.0 G/DL) 33.3 RDW (11.5 - 14.5 %) 14.7 H Plt Count (130 - 400 /CUMM) 312 MPV (7.4 - 10.4 FL) 6.9 L Gran % (42.2 - 75.2 %) 88.6 H Lymphocytes % (20.5 - 51.1 %) 6.7 L Monocytes % (1.7 - 9.3 %) 4.7 Eosinophils % (0 - 5 %) 0 Basophils % (0.0 - 2.0 %) 0 Absolute Granulocytes (1.4 - 6.5 /CUMM) 7.7 H Absolute Lymphocytes (1.2 - 3.4 /CUMM) 0.6 L Absolute Monocytes (0.10 - 0.60 /CUMM) 0.4 Absolute Eosinophils (0.0 - 0.7 /CUMM) 0 Absolute Basophils (0.0 - 0.2 /CUMM) 0 Imaging/Other Studies: EXAM TYPE: RAD - XRY-PORTABLE CHEST XRAY EXAMINATION: XR PORTABLE CHEST CLINICAL INFORMATION: Diminished breath sounds COMPARISON: 12/23/2015 TECHNIQUE: Portable frontal view of the chest was obtained. FINDINGS: Slight apical lordotic positioning of the patient. Lungs are well expanded and without interstitial edema, focal consolidation or pleural effusion. Cardiac silhouette is normal in size. Surgical changes from remote coronary artery bypass grafting with intact sternotomy wires in place. No acute osseous findings. Chronic osteoarthritis of glenohumeral joints. IMPRESSION: Surgical changes from prior CABG. No acute cardiopulmonary findings compared 12/23/2015. EXAM TYPE: MRI - MRI-ABD W/O-W DANIELA EXAMINATION: MR ABDOMEN WITHOUT AND WITH CONTRAST CLINICAL INFORMATION: Liver mass COMPARISON: CT abdomen and pelvis dated 03/06/2017 and 11/04/2015, and CT chest dated 12/23/2015 TECHNIQUE: MRI of the abdomen before and after the IV administration of 5 mL of Gadavist was obtained using routine sequences. FINDINGS: VISUALIZED CHEST: Trace bilateral pleural effusions. LIVER, GALLBLADDER, AND BILIARY TREE: There are multiple lesions demonstrated within the liver, predominantly in the anterior aspect of the right hepatic lobe. The dominant mass measures 7.2 x 6.3 x 6.6 cm (AP by TRV by CC). Additional separate small lesions are present. These lesions demonstrate mild T2 signal hyperintensity, arterial phase peripheral enhancement and become ill-defined and heterogeneous on delayed sequences. There is layering T1 hyperintense signal in the gallbladder which may represent sludge. Gallbladder wall is not significantly thickened. There is no biliary ductal dilation. PANCREAS: There is some parenchymal atrophy. Small lobulated cystic lesion noted at the inferior aspect of the mid pancreatic body. This is otherwise not well visualized. SPLEEN: Normal size. No focal lesion. ADRENAL GLANDS: Normal; no mass. KIDNEYS AND URETERS: Both kidneys are mildly lobulated with suggestion of cortical thinning. Multiple bilateral renal cysts are noted. Additional T1 hyperintense, T2 hypointense cyst in the upper pole of the right kidney likely represents a hemorrhagic cyst. There is no hydronephrosis. GASTROINTESTINAL TRACT: Unremarkable as visualized. ABDOMINAL WALL: There is a subxiphoid ventral hernia which contains a moderate amount of ascitic fluid. LYMPHOVASCULAR STRUCTURES: No abdominal aortic aneurysm. Severe aortic atherosclerosis better seen on recent CT. The IVC is patent. FREE FLUID: A large volume of ascites is present. OSSEOUS STRUCTURES: No acute or suspicious osseous abnormality is seen. IMPRESSION: Multiple hepatic lesions are seen which demonstrate heterogeneous enhancement. Given interval enlargement and increased number of lesions since CT dating back to 11/04/2015, findings are most concerning for hepatocellular carcinoma. Metastatic disease is in the differential. Large volume ascites. Fluid extends into a subxiphoid ventral hernia. Multiple renal cysts. Possible hemorrhagic cyst in the upper pole of the right kidney. Small lobulated cystic lesion noted at the inferior aspect of the mid pancreatic body. Please note that the current study is not optimized for characterization of pancreatic lesions. Possible gallbladder sludge. Assessment/Plan Assessment/Recommendations Assessment: CKD - Stage III CKD with minimal proteinuria thought to be 2/2 hypertensive nephrosclerosis. Her SCr had been better recently than in the past likely reflective of decreased body mass. ALVIN - Appears to be 2/2 pre-renal azotemia. Has been started on 25% albumin given her liver disease. I agree that this is likely pre-renal azotemia - she has minimal edema - I think that switching to some crystalloids would not be unreasonable (will favor LR). By history, if her BP did drop during recent 6.5L LVP, that could have led to some ischemic ATN. UA c/w UTI although not febrile nor does she have an elevated WBC to invoke ATN from sepsis - pending ascitic fluid analysis to evaluate for SBP. Abd not tense enough to suggest abd compartment syndrome. Suspicion for urinary obstruction low given recent imaging without hydronephrosis. With normal blood pressure, detectable urine sodium, and normal Bili - doubt HRS. Liver mass with ascites - SAAG c/w portal hypertension. Diagnosis not yet complete. GI following. Recommendations: -OK to cont 25% IV albumin but can also switch to LR at 100cc/hr -f/u WBC/gram stain from ascitic fluid -Bladder scan to check for PVR -UCx -Diagnostic evaluation of liver masses as per GI -Uprot, UCr Please call [phone] with ?'s
--- NOTE | 2017-04-12 16:57 | ULTRASOUND REPORT ---
EXAMINATION: PARACENTESIS CLINICAL INFORMATION: 76-year-old female with decompensated liver failure. Concern for SBP COMPARISON: MRI abdomen 04/04/2017 TECHNIQUE: Indirect ultrasound guidance using a 20-gauge spinal needle FINDINGS: Informed consent was obtained from the patient prior to the procedure. During this process, the procedure alternatives were explained, along with the intended outcome and benefits. The risks of the procedure, as well as the risk of not doing the procedure, was discussed. The patient was given the opportunity to ask questions regarding the procedure and appeared competent to make medical decisions. A signed consent form which documents this discussion was placed in the medical record. Ultrasound evaluation of the abdomen for ascites was performed. Moderate amount of ascites is noted in the right lower quadrant. The site was marked. A timeout procedure was performed. The area was prepped and draped in usual sterile fashion. Using standard interventional and sterile techniques, lidocaine was used to anesthetize the region. A 20-gauge spinal needle was advanced approximately 3 cm. The inner portion of the needle was removed and approximately 60 mL's of fluid was aspirated. The fluid was thin and light yellow in color. Per the request of the ordering team, only a diagnostic paracentesis was performed today. The needle was removed. Pressure was held and hemostasis was achieved. Dermabond was placed at the needle site. The patient was discharged from the department in stable condition. COMPLICATIONS: None. IMPRESSION: Successful ultrasound-guided diagnostic paracentesis.
[2017-04-12 22:09] VITALS: BP 157/75
[2017-04-13 06:45] VITALS: BP 120/60
--- NOTE | 2017-04-13 07:23 | PN- Housestaff ---
Rbuen NAGEL,Ramon 04/13/17 0723: Subjective Follow-up For: Liver lesions, suspected malignancy ALVIN, likely secondary to prerenal azotemia Subjective: Patient seen and examined at bedside. She was resting comfortably. She continues to complain of nausea and pain of her sacral wound. She rates the pain at a 5/10. She has no other complaints and denies any shortness of breath, chest pain, vomiting, fever, chills. Review of Systems Constitutional: Denies: chills, fever. Cardiovascular: Denies: chest pain, palpitations. Respiratory: Denies: cough, short of breath. Gastrointestinal: Reports: bowel incontinence (chronic), nausea. Denies: vomiting. Genitourinary: Reports: no symptoms. Musculoskeletal: Reports: see HPI. Objective Last 24 Hrs of Vital Signs/I&O Vital Signs Date Time Temp Pulse Resp B/P B/P Pulse O2 O2 Flow FiO2 Mean Ox Delivery Rate 04/13 0645 98.9 67 20 120/60 91 Room Air 04/12 2209 98.1 62 18 157/75 97 Room Air 04/12 2156 62 157/75 04/12 2156 62 157/75 04/12 1435 97.9 65 18 127/68 97 Room Air 04/12 0745 98.1 65 20 126/60 96 Room Air Intake & Output 04/13 0800 04/13 0000 04/12 1600 Intake Total 360 350 240 Output Total 100 Balance 360 350 140 Intake, IV 110 Intake, Oral 360 240 240 Output, Urine 100 Patient 118 lb Weight Weight Bed scale Measurement Method Physical Exam General Appearance: Alert, Oriented X3, Cooperative, No Acute Distress Skin Temp/Moisture Exam: Warm/Dry Sepsis Skin Exam (color): Jaundiced Cardiovascular: Regular Rate, Normal S1, Normal S2, systolic murmur Lungs: Clear to Auscultation, Normal Air Movement Abdomen: distended with +fluid bruit, no TTP Neurological: Normal Speech Extremities: 1+ pitting edema of the distal LEs bilaterally Current Medications: Current Medications Sig/Jose Start time Last Medication Dose Route Stop Time Status Admin Albumin Human 12.5 GM TID 04/12 1000 AC 04/12 IV 2153 Albuterol Sulfate 3 ML Q4H PRN 04/12 0200 AC INH Amlodipine Besylate 10 MG DAILY 04/12 1000 AC 04/12 PO 1535 Cholecalciferol 1,000 IU BID 04/12 1000 AC 04/12 PO 2156 Clonidine 0.3 MG Q12 04/12 1000 AC 04/12 PO 2156 Guaifenesin 10 ML Q6P PRN 04/12 0200 AC PO Heparin Sodium 5,000 UNIT Q8 04/12 2200 AC 04/12 (Porcine) SC 2156 Hydralazine HCl 75 MG TID 04/12 1000 AC 04/12 PO 2156 Isosorbide 60 MG DAILY 04/12 1000 AC 04/12 Mononitrate PO 1532 Lidocaine 1 ML .STK-MED ONE 04/12 1300 DC ID 04/12 1301 Metoprolol Tartrate 50 MG DAILY 04/12 1000 AC 04/12 PO 1532 Omeprazole 40 MG DAILY AC 04/12 0700 AC 04/13 PO 0558 Ondansetron HCl 0 .STK-MED ONE 04/12 1257 DC .ROUTE Ondansetron HCl 4 MG TID PRN 04/12 0200 AC 04/12 PO 0249 Oxycodone HCl 5 MG Q8P PRN 04/12 0200 AC 04/13 PO 0124 Polyethylene Glycol 17 GM BID 04/12 1000 AC 04/12 PO 2155 Potassium Chloride 20 MEQ 04/12 1345 CAN IV Tramadol HCl 50 MG DAILY 04/12 1000 AC PO Last 24 Hrs of Lab/Jere Results Last 24 Hrs of Labs/Mics: Laboratory Tests 04/12/171958: PT Cancelled, INR Cancelled 04/12/17 1312: Fluid WBC 67 H, Fld Mesothelial Cells 57, Fld Total RBCs Counted 100 H 04/12/17 1312: Lymphocytes 12, % Normal PMNs 31, Fluid Glucose 68, Fluid Total Protein < 2.0, Fluid Albumin < 1.0, Fluid LDH 211, Fluid Amylase < 30 04/12/17 1100: Urine Color DELMY, Urine Clarity HAZY H, Urine pH 6.0, Ur Specific [place] 1.015, Urine Protein 30 H, Urine Ketones NEG, Urine Nitrite POS H, Urine Bilirubin NEG, Urine Urobilinogen 0.2, Ur Leukocyte Esterase MOD H, Ur Microscopic SEDIMENT EXAMINED, Urine WBC 25-50 H, Ur Epithelial Cells FEW, Urine Bacteria MANY H, Urine Hemoglobin NEG, Urine Glucose NEG 04/12/17 1100: Ur Random Creatinine 75.3, Ur Random Sodium 25 L, Ur Random Potassium 19.0, Fraction Sodium Excret 0.6 04/12/17 0745: Anion Gap 12, Estimated GFR 21 L, BUN/Creatinine Ratio 27.8 H, Total Bilirubin 0.4, Direct Bilirubin 0.4, AST 19, ALT 17, Alkaline Phosphatase 192 H, Troponin I < 0.01, Total Protein 4.4 L, Albumin 2.2 L, CBC w Diff NO MAN DIFF REQ, RBC 2.72 L, MCV 89.3, MCH 30.1, MCHC 33.7, RDW 14.6 H, MPV 7.0 L, Gran % 85.7 H, Lymphocytes % 6.8 L, Monocytes % 7.3, Eosinophils % 0.1, Basophils % 0.1, Absolute Granulocytes 7.6 H, Absolute Lymphocytes 0.6 L, Absolute Monocytes 0.6, Absolute Eosinophils 0, Absolute Basophils 0 Microbiology 04/12 1625 URINE ROUT: Urine Culture - COLB 04/12 131 BODY FLUID: Body Fluid Culture - RECD 04/12 1312 BODY FLUID: Gram Stain - RECD Assessment/Plan Assessment: Patient is a 76-year-old female with a PMH significant for CKD stage IV, CAD status post CABG, PVD status post angioplasty with stent, HTN, uterine and colon cancer, liver lesions either primary or metastatic cancer, who presented to [facility] from rehabilitation due to worsening poor by mouth intake, nausea and vomiting, worsening ascites and worsening renal function. #ALVIN on CKD Likely prerenal azotemia -Continue IV albumin infusions -Continue to monitor BEP -follow-up urine culture -Follow-up postvoid bladder scan, patient has been incontinent so this may be difficult #Worsening ascites Patient has been following with Dr. Coleman for hepatic masses, metastatic or primary lesions. She has elevated CEA but no definitive diagnosis has been made. She is currently asymptomatic with no abdominal pain, no shortness of breath. Patient went for diagnostic paracentesis to rule out SBP. -Acetic fluid consistent with transudate -Follow-up ascitic fluid cultures -Continue albumin infusions, increased to 25 g 3 times a day -Patient to go for IR liver mass biopsy and therapeutic paracentesis tomorrow in the morning #chronic pressure ulcer Wound care consult was placed. Recommendations appreciated -Treat with DuoDERM and offloading #Protein calorie malnutrition Nutrition consult was placed. -Will follow up nutrition recommendations, for now patient is on sodium restricted diet Diet: Heart healthy DVT prophylaxis:SC heparin, ALPS Code status: full code Problem List: 1. Acute on chronic kidney failure 2. Mass of multiple sites of liver Pain Ratin Pain Location: sacral wound Pain Goal: Pain 4 or less Pain Plan: pain pathway Tomorrow's Labs & Rationales: cbc, bep Josephine Allen MD 04/13/17 1353: Attending MD Review Statement Attending Statement Attending MD Statement: examined this patient, discuss w/resident/PA/CONSUMER RELATIONS COMPLAINT CLERK, agreed w/resident/PA/CONSUMER RELATIONS COMPLAINT CLERK, reviewed EMR data (avail) Attending Assessment/Plan: Nausea and vomiting have improved. Will continue with albumin, NPO after midnight for liver biopsy tomorrow and paracentesis, continue current management , DVT PPx. PT eval for anticipated discharge over the weekend back to facility.
[2017-04-13 09:08] LABS: ABSOLUTE BASOPHIL COUNT 0 /CUMM (0.0-0.2); ABSOLUTE EOSINOPHIL COUNT 0 /CUMM (0.0-0.7); ABSOLUTE GRANULOCYTE CT 7.8 /CUMM (1.4-6.5); ABSOLUTE LYMPH COUNT 0.6 /CUMM (1.2-3.4); ABSOLUTE MONOCYTE COUNT 0.5 /CUMM (0.10-0.60); BASOPHIL % 0.2 % (0.0-2.0); EOSINOPHIL % 0 % (0-5); GRANULOCYTE % 87.1 % (42.2-75.2); HEMATOCRIT 24.1 % (37-47); MEAN CORPUSCULAR HGB 30.1 PG (27.0-31.0); MEAN CORPUSCULAR HGB CONC 33.6 G/DL (33.0-37.0); MEAN CORPUSCULAR VOLUME 89.5 FL (81.0-99.0); MEAN PLATELET VOLUME 6.9 FL (7.4-10.4); PLATELET COUNT 228 /CUMM (130-400); RBC DISTRIBUTION WIDTH 14.4 % (11.5-14.5); RED BLOOD CELL CT 2.69 /CUMM (4.20-5.40); WHITE BLOOD CELL COUNT 8.9 /CUMM (4.8-10.8)
--- NOTE | 2017-04-13 12:25 | PN- Nephrology ---
Assessment/Plan Nephrology Assessment: CKD - Stage III CKD with minimal proteinuria thought to be 2/2 hypertensive nephrosclerosis. Her SCr had been better recently than in the past likely reflective of decreased body mass. ALVIN - Appears to be 2/2 pre-renal azotemia perhaps with some superimposed ischemic ATN from volume depletion. Has been started on 25% albumin given her liver disease with stabilization of her renal function (would be reasonable to switch to crystalloid). Liver mass with ascites - SAAG c/w portal hypertension. Diagnosis not yet complete pending biopsy. GI following. Suggestion: -OK to switch to LR at 100cc/hr -Bladder scan to check for PVR -f/u UCx -Diagnostic evaluation of liver masses as per GI -Uprot, UCr Please call [phone] with ?'s Subjective Subjective: Diagnostic paracentesis yesterday - 60cc - 67 WBC - SAAG suggestive of portal HTN SCr 2.2 Has continued on TID IV albumin No specific compalints Objective Vital Signs and I&Os Vital Signs Date Time Temp Pulse Resp B/P B/P Pulse O2 O2 Flow FiO2 Mean Ox Delivery Rate / 0921 98.9 67 20 120/60 /08 0920 98.9 67 20 120/60 /08 0919 98.9 67 20 120/60 /08 0919 98.9 67 20 120/60 03/08 0919 98.9 67 20 120/60 03/08 0645 98.9 67 20 120/60 91 Room Air 03/07 2209 98.1 62 18 157/75 97 Room Air / 2156 62 157/75 03/07 2156 62 157/75 03/07 1435 97.9 65 18 127/68 97 Room Air Intake & Output / 1600 /08 0400 /07 1600 /07 0400 03/06 1600 / 0400 Intake Total 360 350 720 50 Output Total 100 Balance 360 350 620 50 Intake, IV 110 120 Intake, Oral 360 240 600 50 Output, Urine 100 Patient 118 lb 119 lb 118 lb Weight Weight Bed scale Bed scale Bed scale Measurement Method Physical Exam: Gen - Ok appearing HEENT - supple CV - RRR, no m/r/g Chest - clear, no w/r/r Abd - soft, NTND Ext - trace edema in feet/ankles Neuro - AOX3, grossly nonfocal Current Medications: Current Medications Sig/Jose Start time Last Medication Dose Route Stop Time Status Admin Albumin Human 12.5 GM TID 04/12 1000 AC 04/13 IV 0919 Albuterol Sulfate 3 ML Q4H PRN 04/12 0200 AC INH Amlodipine Besylate 10 MG DAILY 04/12 1000 AC 04/13 PO 0919 Cholecalciferol 1,000 IU BID 04/12 1000 AC 04/13 PO 0919 Clonidine 0.3 MG Q12 04/12 1000 AC 04/12 PO 2156 Guaifenesin 10 ML Q6P PRN 04/12 0200 AC PO Heparin Sodium 5,000 UNIT Q8 04/12 2200 AC 04/12 (Porcine) SC 2156 Hydralazine HCl 75 MG TID 04/12 1000 AC 04/12 PO 2156 Isosorbide 60 MG DAILY 04/12 1000 AC 04/13 Mononitrate PO 0919 Lidocaine 1 ML .STK-MED ONE 04/12 1300 DC ID 04/12 1301 Metoprolol Tartrate 50 MG DAILY 04/12 1000 AC 04/13 PO 0919 Omeprazole 40 MG DAILY AC 04/12 0700 AC 04/13 PO 0558 Ondansetron HCl 0 .STK-MED ONE 04/12 1257 DC .ROUTE Ondansetron HCl 4 MG TID PRN 04/12 0200 AC 04/12 PO 0249 Oxycodone HCl 5 MG Q8P PRN 04/12 0200 AC 04/13 PO 0124 Polyethylene Glycol 17 GM BID 04/12 1000 AC 04/12 PO 2155 Potassium Chloride 20 MEQ 04/12 1345 CAN IV Tramadol HCl 50 MG DAILY 04/12 1000 AC 04/13 PO 0918 Results Pertinent Lab Results: Laboratory Tests 04/13 04/12 04/12 0810 1959 1312 Chemistry Sodium (137 - 145 mmol/L) 136 L Potassium (3.5 - 5.1 mmol/L) 4.0 Chloride (98 - 107 mmol/L) 104 Carbon Dioxide (22 - 30 mmol/L) 20 L Anion Gap (5 - 16) 12 BUN (7 - 17 mg/dL) 61 H Creatinine (0.5 - 1.0 mg/dL) 2.2 H Estimated GFR (>60 ml/min) 22 L BUN/Creatinine Ratio (7 - 25 %) 27.7 H Coagulation PT (9.4 - 12.5 SEC) 13.0 H Cancelled INR (0.90 - 1.19) 1.19 Cancelled Hematology CBC w Diff MAN DIFF ORDERED WBC (4.8 - 10.8 /CUMM) 8.9 RBC (4.20 - 5.40 /CUMM) 2.69 L Hgb (12.0 - 16.0 G/DL) 8.1 L Hct (37 - 47 %) 24.1 L MCV (81.0 - 99.0 FL) 89.5 MCH (27.0 - 31.0 PG) 30.1 MCHC (33.0 - 37.0 G/DL) 33.6 RDW (11.5 - 14.5 %) 14.4 Plt Count (130 - 400 /CUMM) 228 MPV (7.4 - 10.4 FL) 6.9 L Gran % (42.2 - 75.2 %) 87.1 H Lymphocytes % (20.5 - 51.1 %) 6.7 L Monocytes % (1.7 - 9.3 %) 6.0 Eosinophils % (0 - 5 %) 0 Basophils % (0.0 - 2.0 %) 0.2 Absolute Granulocytes (1.4 - 6.5 /CUMM) 7.8 H Absolute Lymphocytes (1.2 - 3.4 /CUMM) 0.6 L Absolute Monocytes (0.10 - 0.60 /CUMM) 0.5 Absolute Eosinophils (0.0 - 0.7 /CUMM) 0 Absolute Basophils (0.0 - 0.2 /CUMM) 0 Poikilocytosis 2+ Anisocytosis 2+ Ovalocytes 2+ Ruby Cells 2+ Other Body Source Fluid WBC (0 - 5 /CUMM) 67 H Fld Mesothelial Cells (%) 57 Fld Total RBCs Counted (0 /CUMM) 100 H 03/07 03/ 03/07 1312 1100 1100 Hematology Lymphocytes (%) 12 % Normal PMNs (%) 31 Other Body Source Fluid Glucose (mg/dL) 68 Fluid Total Protein (g/dL) < 2.0 Fluid Albumin (g/dL) < 1.0 Fluid LDH (U/L) 211 Fluid Amylase (U/L) < 30 Urines Urine Color (YEL,AMB,STR) DELMY Urine Clarity (CLEAR) HAZY H Urine pH (5.0 - 8.0) 6.0 Ur Specific [place] (1.001 - 1.035) 1.015 Urine Protein (NEG,<30 MG/DL) 30 H Urine Ketones (NEG) NEG Urine Nitrite (NEG) POS H Urine Bilirubin (NEG) NEG Urine Urobilinogen (0.1 - 1.0 EU/dl) 0.2 Ur Leukocyte Esterase (NEG) MOD H Ur Microscopic SEDIMENT EXAMINED Urine WBC (0 - 2 /HPF) 25-50 H Ur Epithelial Cells (NONE,FEW) FEW Urine Bacteria (NEG/NONE) MANY H Urine Hemoglobin (NEG) NEG Ur Random Creatinine (mg/dL) 75.3 Ur Random Sodium (30 - 90 mmol/L) 25 L Ur Random Potassium (mmol/L) 19.0 Fraction Sodium Excret (<1% %) 0.6 Urine Glucose (N MG/DL) NEG 04/12 04/12 04/12 0745 0709 0215 Chemistry Sodium (137 - 145 mmol/L) 133 L Potassium (3.5 - 5.1 mmol/L) 3.9 Chloride (98 - 107 mmol/L) 104 Carbon Dioxide (22 - 30 mmol/L) 17 L Anion Gap (5 - 16) 12 BUN (7 - 17 mg/dL) 64 H Creatinine (0.5 - 1.0 mg/dL) 2.3 H Estimated GFR (>60 ml/min) 21 L BUN/Creatinine Ratio (7 - 25 %) 27.8 H Total Bilirubin (0.2 - 1.3 mg/dL) 0.4 Direct Bilirubin (< 0.4 mg/dL) 0.4 AST (14 - 36 U/L) 19 ALT (9 - 52 U/L) 17 Alkaline Phosphatase (<127 U/L) 192 H Troponin I (< 0.11 ng/ml) < 0.01 Cancelled Cancelled Total Protein (6.3 - 8.2 g/dL) 4.4 L Albumin (3.5 - 5.0 g/dL) 2.2 L Hematology CBC w Diff NO MAN DIFF REQ WBC (4.8 - 10.8 /CUMM) 8.9 RBC (4.20 - 5.40 /CUMM) 2.72 L Hgb (12.0 - 16.0 G/DL) 8.2 L Hct (37 - 47 %) 24.3 L MCV (81.0 - 99.0 FL) 89.3 MCH (27.0 - 31.0 PG) 30.1 MCHC (33.0 - 37.0 G/DL) 33.7 RDW (11.5 - 14.5 %) 14.6 H Plt Count (130 - 400 /CUMM) 259 MPV (7.4 - 10.4 FL) 7.0 L Gran % (42.2 - 75.2 %) 85.7 H Lymphocytes % (20.5 - 51.1 %) 6.8 L Monocytes % (1.7 - 9.3 %) 7.3 Eosinophils % (0 - 5 %) 0.1 Basophils % (0.0 - 2.0 %) 0.1 Absolute Granulocytes (1.4 - 6.5 /CUMM) 7.6 H Absolute Lymphocytes (1.2 - 3.4 /CUMM) 0.6 L Absolute Monocytes (0.10 - 0.60 /CUMM) 0.6 Absolute Eosinophils (0.0 - 0.7 /CUMM) 0 Absolute Basophils (0.0 - 0.2 /CUMM) 0 / 03/ 2240 1915 Chemistry Sodium (137 - 145 mmol/L) 132 L Potassium (3.5 - 5.1 mmol/L) 4.4 Chloride (98 - 107 mmol/L) 101 Carbon Dioxide (22 - 30 mmol/L) 19 L Anion Gap (5 - 16) 11 BUN (7 - 17 mg/dL) 66 H Creatinine (0.5 - 1.0 mg/dL) 2.2 H Estimated GFR (>60 ml/min) 22 L BUN/Creatinine Ratio (7 - 25 %) 30.0 H Glucose (65 - 99 mg/dL) 76 Calcium (8.4 - 10.2 mg/dL) 9.3 Total Bilirubin (0.2 - 1.3 mg/dL) 0.6 AST (14 - 36 U/L) 24 ALT (9 - 52 U/L) 27 Alkaline Phosphatase (<127 U/L) 230 H Troponin I (< 0.11 ng/ml) 0.01 0.02 Total Protein (6.3 - 8.2 g/dL) 5.0 L Albumin (3.5 - 5.0 g/dL) 2.4 L Globulin (1.9 - 4.2 gm/dL) 2.6 Albumin/Globulin Ratio (1.1 - 2.2 %) 0.9 L Hematology CBC w Diff NO MAN DIFF REQ WBC (4.8 - 10.8 /CUMM) 8.7 RBC (4.20 - 5.40 /CUMM) 3.40 L Hgb (12.0 - 16.0 G/DL) 10.2 L Hct (37 - 47 %) 30.7 L MCV (81.0 - 99.0 FL) 90.4 MCH (27.0 - 31.0 PG) 30.1 MCHC (33.0 - 37.0 G/DL) 33.3 RDW (11.5 - 14.5 %) 14.7 H Plt Count (130 - 400 /CUMM) 312 MPV (7.4 - 10.4 FL) 6.9 L Gran % (42.2 - 75.2 %) 88.6 H Lymphocytes % (20.5 - 51.1 %) 6.7 L Monocytes % (1.7 - 9.3 %) 4.7 Eosinophils % (0 - 5 %) 0 Basophils % (0.0 - 2.0 %) 0 Absolute Granulocytes (1.4 - 6.5 /CUMM) 7.7 H Absolute Lymphocytes (1.2 - 3.4 /CUMM) 0.6 L Absolute Monocytes (0.10 - 0.60 /CUMM) 0.4 Absolute Eosinophils (0.0 - 0.7 /CUMM) 0 Absolute Basophils (0.0 - 0.2 /CUMM) 0 Imaging/Other Studies: EXAM TYPE: RAD - XRY-PORTABLE CHEST XRAY EXAMINATION: XR PORTABLE CHEST CLINICAL INFORMATION: Diminished breath sounds COMPARISON: 12/23/2015 TECHNIQUE: Portable frontal view of the chest was obtained. FINDINGS: Slight apical lordotic positioning of the patient. Lungs are well expanded and without interstitial edema, focal consolidation or pleural effusion. Cardiac silhouette is normal in size. Surgical changes from remote coronary artery bypass grafting with intact sternotomy wires in place. No acute osseous findings. Chronic osteoarthritis of glenohumeral joints. IMPRESSION: Surgical changes from prior CABG. No acute cardiopulmonary findings compared 12/23/2015.
--- NOTE | 2017-04-13 14:28 | PN- Gastroenterology ---
Assessment/Plan GI Assessment/Recommendations: Assessment: Ms. Adorno is a 76 year old female admitted with worsening ascites and renal failure and liver lesions on ct scan suggestive of metastatic disease. She underwent a diagnostic paracentesis yesterday which was negative for sbp by cell count and her SAAG was greater then 1.1 indicating the ascitic fluid is from portal hypertension and not necessarily from a malignancy. Her kidney function has remained unchanged in spite of albumin. She has been scheduled for a liver biopsy and large volume paracentesis for tomorrow. Recommendations: 1. Continue albumin and considering the lack of improvement would increase to 25 gm tid 2. Follow daily renal function and lytes. 3. Agree with plan for liver biopsy and large volume paracentesis for tomorrow. I will continue to follow this patient and make further recommendations based on her clinical course and the results of the liver biopsy and paracentesis. Subjective Subjective: pt s/p diagnostic paracentesis yesterday. no other complaints today and no significant nausea, vomiting or abdominal pain. Objective Vital Signs and I&Os Vital Signs Date Time Temp Pulse Resp B/P B/P Pulse O2 O2 Flow FiO2 Mean Ox Delivery Rate 04/13 0821 98.9 67 20 120/60 / 0920 98.9 67 20 120/60 / 0919 98.9 67 20 120/60 / 0919 98.9 67 20 120/60 / 0919 98.9 67 20 120/60 /08 0645 98.9 67 20 120/60 91 Room Air 04/12 2209 98.1 62 18 157/75 97 Room Air 04/12 2156 62 157/75 04/12 2156 62 157/75 / 1435 97.9 65 18 127/68 97 Room Air Intake & Output 04/13 1600 04/13 0400 04/12 1600 04/12 0400 04/11 1600 04/11 0400 Intake Total 360 350 720 50 Output Total 100 Balance 360 350 620 50 Intake, IV 110 120 Intake, Oral 360 240 600 50 Output, Urine 100 Patient 118 lb 119 lb 118 lb Weight Weight Bed scale Bed scale Bed scale Measurement Method Physical Exam General Appearance: no apparent distress, comfortable, lethargic Head: atraumatic Ears, Nose, Throat: normal pharynx Neck: supple Respiratory: decreased breath sounds Cardiovascular: regular rate/rhythm Abdomen: normal bowel sounds, soft, distention Skin: intact, normal color Current Medications: Current Medications Sig/Jose Start time Last Medication Dose Route Stop Time Status Admin Albumin Human 12.5 GM TID 04/12 1000 DC 04/13 IV 0919 Albuterol Sulfate 3 ML Q4H PRN 04/12 0200 AC INH Amlodipine Besylate 10 MG DAILY 04/12 1000 AC 04/13 PO 0919 Cholecalciferol 1,000 IU BID 04/12 1000 AC 04/13 PO 0919 Clonidine 0.3 MG Q12 04/12 1000 AC 04/12 PO 2156 Guaifenesin 10 ML Q6P PRN 04/12 0200 AC PO Heparin Sodium 5,000 UNIT Q8 04/12 2200 AC 04/12 (Porcine) SC 2156 Hydralazine HCl 75 MG TID 04/12 1000 AC 04/12 PO 2156 Isosorbide 60 MG DAILY 04/12 1000 AC 04/13 Mononitrate PO 0919 Lactated Ringer's 1,000 ML Q10H 04/13 1415 UNVr IV Metoprolol Tartrate 50 MG DAILY 04/12 1000 AC 04/13 PO 0919 Omeprazole 40 MG DAILY AC 04/12 0700 AC 04/13 PO 0558 Ondansetron HCl 4 MG TID PRN 04/12 0200 AC 04/12 PO 0249 Oxycodone HCl 5 MG Q8P PRN 04/12 0200 AC 04/13 PO 1231 Polyethylene Glycol 17 GM BID 04/12 1000 AC 04/12 PO 2155 Tramadol HCl 50 MG DAILY 04/12 1000 AC 04/13 PO 0918 Results Pertinent Lab Results: Laboratory Tests 04/13 04/12 04/12 0810 1959 1312 Chemistry Sodium (137 - 145 mmol/L) 136 L Potassium (3.5 - 5.1 mmol/L) 4.0 Chloride (98 - 107 mmol/L) 104 Carbon Dioxide (22 - 30 mmol/L) 20 L Anion Gap (5 - 16) 12 BUN (7 - 17 mg/dL) 61 H Creatinine (0.5 - 1.0 mg/dL) 2.2 H Estimated GFR (>60 ml/min) 22 L BUN/Creatinine Ratio (7 - 25 %) 27.7 H Coagulation PT (9.4 - 12.5 SEC) 13.0 H Cancelled INR (0.90 - 1.19) 1.19 Cancelled Hematology CBC w Diff MAN DIFF ORDERED WBC (4.8 - 10.8 /CUMM) 8.9 RBC (4.20 - 5.40 /CUMM) 2.69 L Hgb (12.0 - 16.0 G/DL) 8.1 L Hct (37 - 47 %) 24.1 L MCV (81.0 - 99.0 FL) 89.5 MCH (27.0 - 31.0 PG) 30.1 MCHC (33.0 - 37.0 G/DL) 33.6 RDW (11.5 - 14.5 %) 14.4 Plt Count (130 - 400 /CUMM) 228 MPV (7.4 - 10.4 FL) 6.9 L Gran % (42.2 - 75.2 %) 87.1 H Lymphocytes % (20.5 - 51.1 %) 6.7 L Monocytes % (1.7 - 9.3 %) 6.0 Eosinophils % (0 - 5 %) 0 Basophils % (0.0 - 2.0 %) 0.2 Absolute Granulocytes (1.4 - 6.5 /CUMM) 7.8 H Absolute Lymphocytes (1.2 - 3.4 /CUMM) 0.6 L Absolute Monocytes (0.10 - 0.60 /CUMM) 0.5 Absolute Eosinophils (0.0 - 0.7 /CUMM) 0 Absolute Basophils (0.0 - 0.2 /CUMM) 0 Poikilocytosis 2+ Anisocytosis 2+ Ovalocytes 2+ Ruby Cells 2+ Other Body Source Fluid WBC (0 - 5 /CUMM) 67 H Fld Mesothelial Cells (%) 57 Fld Total RBCs Counted (0 /CUMM) 100 H 03/07 03/ 1312 1100 1100 Hematology Lymphocytes (%) 12 % Normal PMNs (%) 31 Other Body Source Fluid Glucose (mg/dL) 68 Fluid Total Protein (g/dL) < 2.0 Fluid Albumin (g/dL) < 1.0 Fluid LDH (U/L) 211 Fluid Amylase (U/L) < 30 Urines Urine Color (YEL,AMB,STR) DELMY Urine Clarity (CLEAR) HAZY H Urine pH (5.0 - 8.0) 6.0 Ur Specific [place] (1.001 - 1.035) 1.015 Urine Protein (NEG,<30 MG/DL) 30 H Urine Ketones (NEG) NEG Urine Nitrite (NEG) POS H Urine Bilirubin (NEG) NEG Urine Urobilinogen (0.1 - 1.0 EU/dl) 0.2 Ur Leukocyte Esterase (NEG) MOD H Ur Microscopic SEDIMENT EXAMINED Urine WBC (0 - 2 /HPF) 25-50 H Ur Epithelial Cells (NONE,FEW) FEW Urine Bacteria (NEG/NONE) MANY H Urine Hemoglobin (NEG) NEG Ur Random Creatinine (mg/dL) 75.3 Ur Random Sodium (30 - 90 mmol/L) 25 L Ur Random Potassium (mmol/L) 19.0 Fraction Sodium Excret (<1% %) 0.6 Urine Glucose (N MG/DL) NEG 04/12 04/12 04/12 0745 0709 0215 Chemistry Sodium (137 - 145 mmol/L) 133 L Potassium (3.5 - 5.1 mmol/L) 3.9 Chloride (98 - 107 mmol/L) 104 Carbon Dioxide (22 - 30 mmol/L) 17 L Anion Gap (5 - 16) 12 BUN (7 - 17 mg/dL) 64 H Creatinine (0.5 - 1.0 mg/dL) 2.3 H Estimated GFR (>60 ml/min) 21 L BUN/Creatinine Ratio (7 - 25 %) 27.8 H Total Bilirubin (0.2 - 1.3 mg/dL) 0.4 Direct Bilirubin (< 0.4 mg/dL) 0.4 AST (14 - 36 U/L) 19 ALT (9 - 52 U/L) 17 Alkaline Phosphatase (<127 U/L) 192 H Troponin I (< 0.11 ng/ml) < 0.01 Cancelled Cancelled Total Protein (6.3 - 8.2 g/dL) 4.4 L Albumin (3.5 - 5.0 g/dL) 2.2 L Hematology CBC w Diff NO MAN DIFF REQ WBC (4.8 - 10.8 /CUMM) 8.9 RBC (4.20 - 5.40 /CUMM) 2.72 L Hgb (12.0 - 16.0 G/DL) 8.2 L Hct (37 - 47 %) 24.3 L MCV (81.0 - 99.0 FL) 89.3 MCH (27.0 - 31.0 PG) 30.1 MCHC (33.0 - 37.0 G/DL) 33.7 RDW (11.5 - 14.5 %) 14.6 H Plt Count (130 - 400 /CUMM) 259 MPV (7.4 - 10.4 FL) 7.0 L Gran % (42.2 - 75.2 %) 85.7 H Lymphocytes % (20.5 - 51.1 %) 6.8 L Monocytes % (1.7 - 9.3 %) 7.3 Eosinophils % (0 - 5 %) 0.1 Basophils % (0.0 - 2.0 %) 0.1 Absolute Granulocytes (1.4 - 6.5 /CUMM) 7.6 H Absolute Lymphocytes (1.2 - 3.4 /CUMM) 0.6 L Absolute Monocytes (0.10 - 0.60 /CUMM) 0.6 Absolute Eosinophils (0.0 - 0.7 /CUMM) 0 Absolute Basophils (0.0 - 0.2 /CUMM) 0 04/11 04/11 2240 1915 Chemistry Sodium (137 - 145 mmol/L) 132 L Potassium (3.5 - 5.1 mmol/L) 4.4 Chloride (98 - 107 mmol/L) 101 Carbon Dioxide (22 - 30 mmol/L) 19 L Anion Gap (5 - 16) 11 BUN (7 - 17 mg/dL) 66 H Creatinine (0.5 - 1.0 mg/dL) 2.2 H Estimated GFR (>60 ml/min) 22 L BUN/Creatinine Ratio (7 - 25 %) 30.0 H Glucose (65 - 99 mg/dL) 76 Calcium (8.4 - 10.2 mg/dL) 9.3 Total Bilirubin (0.2 - 1.3 mg/dL) 0.6 AST (14 - 36 U/L) 24 ALT (9 - 52 U/L) 27 Alkaline Phosphatase (<127 U/L) 230 H Troponin I (< 0.11 ng/ml) 0.01 0.02 Total Protein (6.3 - 8.2 g/dL) 5.0 L Albumin (3.5 - 5.0 g/dL) 2.4 L Globulin (1.9 - 4.2 gm/dL) 2.6 Albumin/Globulin Ratio (1.1 - 2.2 %) 0.9 L Hematology CBC w Diff NO MAN DIFF REQ WBC (4.8 - 10.8 /CUMM) 8.7 RBC (4.20 - 5.40 /CUMM) 3.40 L Hgb (12.0 - 16.0 G/DL) 10.2 L Hct (37 - 47 %) 30.7 L MCV (81.0 - 99.0 FL) 90.4 MCH (27.0 - 31.0 PG) 30.1 MCHC (33.0 - 37.0 G/DL) 33.3 RDW (11.5 - 14.5 %) 14.7 H Plt Count (130 - 400 /CUMM) 312 MPV (7.4 - 10.4 FL) 6.9 L Gran % (42.2 - 75.2 %) 88.6 H Lymphocytes % (20.5 - 51.1 %) 6.7 L Monocytes % (1.7 - 9.3 %) 4.7 Eosinophils % (0 - 5 %) 0 Basophils % (0.0 - 2.0 %) 0 Absolute Granulocytes (1.4 - 6.5 /CUMM) 7.7 H Absolute Lymphocytes (1.2 - 3.4 /CUMM) 0.6 L Absolute Monocytes (0.10 - 0.60 /CUMM) 0.4 Absolute Eosinophils (0.0 - 0.7 /CUMM) 0 Absolute Basophils (0.0 - 0.2 /CUMM) 0
[2017-04-13 14:52] VITALS: BP 139/68
[2017-04-13 21:34] VITALS: BP 127/64
[2017-04-14 06:51] VITALS: BP 134/62
--- NOTE | 2017-04-14 06:58 | PN- Housestaff ---
Ruben NAGEL,Ramon 04/14/17 0658: Subjective Follow-up For: ALVIN on CKD Ascites Subjective: The patient was seen and examined at bedside. She was in mild distress secondary to nausea. She had no acute events overnight. She reports improvement of the pain in her sacral ulcer. She has no other complaints. She denies any abdominal pain, vomiting, fever, chills. Review of Systems Constitutional: Denies: chills, fever. EENTM: Reports: no symptoms. Cardiovascular: Reports: no symptoms. Respiratory: Reports: no symptoms. Gastrointestinal: Reports: bowel incontinence (chronic), nausea. Denies: changes in stool, vomiting. Genitourinary: Reports: no symptoms. Musculoskeletal: Reports: no symptoms. Objective Last 24 Hrs of Vital Signs/I&O Vital Signs Date Time Temp Pulse Resp B/P B/P Pulse O2 O2 Flow FiO2 Mean Ox Delivery Rate 04/14 650 98.8 80 20 134/62 92 Room Air 04/13 2133 97.6 75 18 127/64 92 04/13 2057 63 127/64 04/13 2053 63 127/64 04/13 1807 63 138/58 04/13 1452 98.1 63 20 139/68 95 /08 0921 98.9 67 20 120/60 /08 0920 98.9 67 20 120/60 /08 0919 98.9 67 20 120/60 /08 0919 98.9 67 20 120/60 /08 0919 98.9 67 20 120/60 Intake & Output 04/14 0800 / 0000 04/13 1600 Intake Total 100 240 Output Total Balance 100 240 Intake, IV 100 Intake, Oral 240 Number 1 Bowel Movements Patient 119 lb 111 lb Weight Physical Exam General Appearance: Alert, Oriented X3, Cooperative, No Acute Distress, cachectic Skin Temp/Moisture Exam: Warm/Dry Cardiovascular: Regular Rate, Normal S1, Normal S2 Lungs: diminished breath sounds Abdomen: No Tenderness, distended, + fluid thrill Neurological: Normal Speech, Normal Tone, Sensation Intact Extremities: 1+ pitting edema Current Medications: Current Medications Sig/Jose Start time Last Medication Dose Route Stop Time Status Admin Albumin Human 25 GM TID 04/13 2199 AC 04/13 IV 2049 Albumin Human 12.5 GM TID 04/12 1000 DC 04/13 IV 918 Albuterol Sulfate 3 ML Q4H PRN 04/12 0200 AC INH Amlodipine Besylate 10 MG DAILY 04/12 1000 AC 04/13 PO 0919 Cholecalciferol 1,000 IU BID 04/12 1000 AC 04/13 PO 0919 Clonidine 0.3 MG Q12 04/12 1000 AC 04/12 PO 2156 Guaifenesin 10 ML Q6P PRN 04/12 0200 AC PO Heparin Sodium 5,000 UNIT Q8 04/12 2200 AC 04/12 (Porcine) SC 2156 Hydralazine HCl 75 MG TID 04/12 1000 AC 04/13 PO 1807 Isosorbide 60 MG DAILY 04/12 1000 AC 04/13 Mononitrate PO 0919 Lactated Ringer's 1,000 ML Q10H 04/13 1415 DC IV Metoprolol Tartrate 50 MG DAILY 04/12 1000 AC 04/13 PO 0919 Omeprazole 40 MG DAILY AC 04/12 0700 AC 04/13 PO 0558 Ondansetron HCl 4 MG ONE ONE 04/14 0515 DC 04/14 IV 04/14 0516 0503 Ondansetron HCl 0 .STK-MED ONE 04/14 0500 DC .ROUTE 04/14 0501 Ondansetron HCl 4 MG TID PRN 04/12 0200 AC 04/12 PO 0249 Oxycodone HCl 5 MG Q8P PRN 04/12 0200 AC 04/14 PO 0005 Polyethylene Glycol 17 GM BID 04/12 1000 AC 04/12 PO 2155 Tramadol HCl 50 MG DAILY 04/12 1000 AC 04/13 PO 0918 Last 24 Hrs of Lab/Jere Results Last 24 Hrs of Labs/Mics: Laboratory Tests 04/13/17 0810: Anion Gap 12, Estimated GFR 22 L, BUN/Creatinine Ratio 27.7 H, PT 13.0 H, INR 1.19, CBC w Diff MAN DIFF ORDERED, RBC 2.69 L, MCV 89.5, MCH 30.1, MCHC 33.6, RDW 14.4, MPV 6.9 L, Gran % 87.1 H, Lymphocytes % 6.7 L, Monocytes % 6.0, Eosinophils % 0, Basophils % 0.2, Absolute Granulocytes 7.8 H, Absolute Lymphocytes 0.6 L, Absolute Monocytes 0.5, Absolute Eosinophils 0, Absolute Basophils 0, Poikilocytosis 2+, Anisocytosis 2+, Ovalocytes 2+, [place] Cells 2+ Assessment/Plan Assessment: Patient is a 76-year-old female with a PMH significant for CKD stage IV, CAD status post CABG, PVD status post angioplasty with stent, HTN, uterine and colon cancer, liver lesions either primary or metastatic cancer, who presented to [facility] from rehabilitation due to worsening poor by mouth intake, nausea and vomiting, worsening ascites and worsening renal function. #ALVIN on CKD Likely prerenal azotemia, ALVIN is improving -Continue IV albumin infusions -Continue to monitor BEP -follow-up urine culture -Follow-up postvoid bladder scan, patient has been incontinent so this may be difficult #Worsening ascites Patient has been following with Dr. Coleman for hepatic masses, metastatic or primary lesions. She has elevated CEA but no definitive diagnosis has been made. Plan for paracentesis and liver biopsy has been delayed due to patient taking aspirin the night before admission. -Ascitic fluid consistent with transudate -Follow-up ascitic fluid cultures, currently no growth -Continue albumin infusions, increased to 25 g 3 times a day -Patient to go for IR liver mass biopsy and therapeutic paracentesis monday morning - need nephrology recommendations about the risk of a paracentesis worsening her renal function given this ALVIN is likely prerenal azotemia #UTI Urine culture growing for gram-negative rods, patient also complaining of urinary frequency, and persistent nausea -Start IV ceftriaxone 1 g daily #chronic pressure ulcer Wound care consult was placed. Recommendations appreciated -Treat with DuoDERM and offloading #Protein calorie malnutrition Nutrition consult was placed. -Will follow up nutrition recommendations, for now patient is on sodium restricted diet Diet: Heart healthy DVT prophylaxis:SC heparin, ALPS Code status: full code Problem List: 1. Mass of multiple sites of liver 2. Acute on chronic kidney failure Pain Ratin Pain Location: none Pain Goal: Remain pain free Pain Plan: pain pathway Tomorrow's Labs & Rationales: cbc, bep, lfts Josephine Allen MD 04/14/17 1209: Attending MD Review Statement Attending Statement Attending Statement: examined this patient, discuss w/resident/PA/TAILINGS MAN, agreed w/resident/PA/TAILINGS MAN, reviewed EMR data (avail) Attending Assessment/Plan: 76F PMH PVD s/p angioplasty with stent, HTN, CAD s/p CABG, CKD stage 4, uterine and colon cancer admitted with intractable nausea and vomiting secondary to acute gastroenteritis leading to pre-renal azotemia/ALVIN, with recently found multiple liver masses suspicious for metastases. Patient is still nauseous today though she is able to tolerate small amounts of food. Per IR, she cannot undergo liver biopsy today and she took an aspirin 3 days ago. Renal function is improving, hyponatremia resolved, mildly hypokalemic today. 1. Pre-renal azotemia/ALVIN secondary to dehydration 2. Acute gastroenteritis 3. Liver metastases 4. Hypokalemia 5. Hyponatremia (resolved) 6. CKD stage 4 secondary to hypertensive nephrosclerosis Plan - Continue on general medicine - Continue IV hydration - Phenergen PRN for nausea - Monitor renal function - Follow GI and nephrology recommendations - Will go for large volume paracentesis and liver biopsy on Monday - Continue Albumin - Will try to consolidate her pills, as they make her nauseous. Can change Clonidine to 0.2mg tab, 1.5 tablets instead of 3 tablets of 0.1mg. Can do the same with Hydralazine. - DVT PPx
[2017-04-14 09:07] LABS: ABSOLUTE BASOPHIL COUNT 0 /CUMM (0.0-0.2); ABSOLUTE EOSINOPHIL COUNT 0 /CUMM (0.0-0.7); ABSOLUTE GRANULOCYTE CT 9.7 /CUMM (1.4-6.5); ABSOLUTE LYMPH COUNT 0.8 /CUMM (1.2-3.4); ABSOLUTE MONOCYTE COUNT 0.6 /CUMM (0.10-0.60); BASOPHIL % 0 % (0.0-2.0); EOSINOPHIL % 0.1 % (0-5); HEMATOCRIT 25.6 % (37-47); MEAN CORPUSCULAR HGB 29.7 PG (27.0-31.0); MEAN CORPUSCULAR VOLUME 89.9 FL (81.0-99.0); MEAN PLATELET VOLUME 7.1 FL (7.4-10.4); PLATELET COUNT 212 /CUMM (130-400); RBC DISTRIBUTION WIDTH 15.1 % (11.5-14.5); RED BLOOD CELL CT 2.85 /CUMM (4.20-5.40); WHITE BLOOD CELL COUNT 11.1 /CUMM (4.8-10.8)
[2017-04-14 11:08] LABS: GRANULOCYTE % 87.8 % (42.2-75.2)
--- NOTE | 2017-04-14 12:56 | PN- Nephrology ---
Assessment/Plan Nephrology Assessment: CKD - Stage III CKD with minimal proteinuria thought to be 2/2 hypertensive nephrosclerosis. Her SCr had been better recently than in the past likely reflective of decreased body mass. ALVIN - Appears to be 2/2 pre-renal azotemia perhaps with some superimposed ischemic ATN from volume depletion. Improved - would cont IVF until taking in good PO. Liver mass with ascites - SAAG c/w portal hypertension. Diagnosis not yet complete pending biopsy. GI following. Suggestion: -Cont LR until taking in PO - may be able to decrease the rate -f/u UCx -Diagnostic evaluation of liver masses as per GI -Bladder scan can be done even if incontinent - just confirm no large resdiual -OK to do LVP if needed on Monday - would supplement with IV albumin at that time Will see PRN Please call [phone] with ?'s Subjective Subjective: SCr 1.5 On IVF - says eating more Tired Awaiting biopsy Gram stain neg from diagnostic para Incontinent - unable to get good PVR UCx pending Objective Vital Signs and I&Os Vital Signs Date Time Temp Pulse Resp B/P B/P Pulse O2 O2 Flow FiO2 Mean Ox Delivery Rate 04/14 1053 98.8 80 20 134/62 04/14 0651 98.8 80 20 134/62 92 Room Air 04/13 2133 97.6 75 18 127/64 92 04/13 2057 63 127/64 04/13 2053 63 127/64 04/13 1807 63 138/58 /08 1452 98.1 63 20 139/68 95 Intake & Output 04/14 1600 04/14 0400 04/13 1600 04/13 0400 04/12 1600 04/12 0400 Intake Total 100 600 350 720 50 Output Total 100 Balance 100 600 350 620 50 Intake, IV 100 110 120 Intake, Oral 600 240 600 50 Number 1 Bowel Movements Output, Urine 100 Patient 119 lb 111 lb 119 lb 118 lb Weight Weight Bed scale Bed scale Bed scale Measurement Method Physical Exam: Gen - Ok appearing HEENT - supple CV - RRR, no m/r/g Chest - clear, no w/r/r Abd - soft, NTND Ext - no significant edema Neuro - AOX3, grossly nonfocal Current Medications: Current Medications Sig/Jose Start time Last Medication Dose Route Stop Time Status Admin Albumin Human 25 GM TID 04/13 2199 AC 04/14 IV 1055 Albumin Human 12.5 GM TID 04/12 1000 DC 04/13 IV 0919 Albuterol Sulfate 3 ML Q4H PRN 04/12 0200 AC INH Amlodipine Besylate 10 MG DAILY 04/12 1000 AC 04/14 PO 1053 Cholecalciferol 1,000 IU BID 04/12 1000 AC 04/14 PO 1053 Clonidine 0.3 MG Q12 04/12 1000 AC 04/12 PO 2156 Guaifenesin 10 ML Q6P PRN 04/12 0200 AC PO Heparin Sodium 5,000 UNIT Q8 04/12 2200 AC 04/12 (Porcine) SC 2156 Hydralazine HCl 75 MG TID 04/12 1000 AC 04/13 PO 1807 Isosorbide 60 MG DAILY 04/12 1000 AC 04/13 Mononitrate PO 0919 Lactated Ringer's 1,000 ML Q10H 04/13 1415 DC IV Metoprolol Tartrate 50 MG DAILY 04/12 1000 AC 04/14 PO 1053 Omeprazole 40 MG DAILY AC 04/12 0700 AC 04/13 PO 0558 Ondansetron HCl 4 MG ONE ONE 04/14 0515 DC 04/14 IV 04/14 0516 0503 Ondansetron HCl 0 .STK-MED ONE 04/14 0500 DC .ROUTE 04/14 0501 Ondansetron HCl 4 MG TID PRN 04/12 0200 DC 04/12 PO 0249 Oxycodone HCl 5 MG Q8P PRN 04/12 0200 AC 04/14 PO 0005 Polyethylene Glycol 17 GM BID 04/12 1000 AC 04/14 PO 1053 Potassium Chloride 40 MEQ Q2H 04/14 1000 DC 04/14 PO 04/14 1201 1227 Promethazine HCl 25 MG Q4P PRN 04/14 0800 AC IV 04/21 0759 Sodium Chloride 1,000 ML Q6H 04/14 0930 AC IV Tramadol HCl 50 MG DAILY 04/12 1000 AC 04/14 PO 1100 Trimethobenzamide HCl 200 MG 4 TIMES/DAY 04/14 0755 DC IM Results Pertinent Lab Results: Laboratory Tests 04/14 04/13 0745 0810 Chemistry Sodium (137 - 145 mmol/L) 138 136 L Potassium (3.5 - 5.1 mmol/L) 3.2 L 4.0 Chloride (98 - 107 mmol/L) 110 H 104 Carbon Dioxide (22 - 30 mmol/L) 19 L 20 L Anion Gap (5 - 16) 9 12 BUN (7 - 17 mg/dL) 51 H 61 H Creatinine (0.5 - 1.0 mg/dL) 1.5 H 2.2 H Estimated GFR (>60 ml/min) 34 L 22 L BUN/Creatinine Ratio (7 - 25 %) 34.0 H 27.7 H Total Bilirubin (0.2 - 1.3 mg/dL) 0.5 Direct Bilirubin (< 0.4 mg/dL) 0.4 AST (14 - 36 U/L) 14 ALT (9 - 52 U/L) 20 Alkaline Phosphatase (<127 U/L) 180 H Total Protein (6.3 - 8.2 g/dL) 4.1 L Albumin (3.5 - 5.0 g/dL) 2.1 L Coagulation PT (9.4 - 12.5 SEC) 13.0 H INR (0.90 - 1.19) 1.19 Hematology CBC w Diff NO MAN DIFF REQ MAN DIFF ORDERED WBC (4.8 - 10.8 /CUMM) 11.1 H 8.9 RBC (4.20 - 5.40 /CUMM) 2.85 L 2.69 L Hgb (12.0 - 16.0 G/DL) 8.5 L 8.1 L Hct (37 - 47 %) 25.6 L 24.1 L MCV (81.0 - 99.0 FL) 89.9 89.5 MCH (27.0 - 31.0 PG) 29.7 30.1 MCHC (33.0 - 37.0 G/DL) 33.0 33.6 RDW (11.5 - 14.5 %) 15.1 H 14.4 Plt Count (130 - 400 /CUMM) 212 228 MPV (7.4 - 10.4 FL) 7.1 L 6.9 L Gran % (42.2 - 75.2 %) 87.8 H 87.1 H Lymphocytes % (20.5 - 51.1 %) 6.9 L 6.7 L Monocytes % (1.7 - 9.3 %) 5.2 6.0 Eosinophils % (0 - 5 %) 0.1 0 Basophils % (0.0 - 2.0 %) 0 0.2 Absolute Granulocytes (1.4 - 6.5 /CUMM) 9.7 H 7.8 H Absolute Lymphocytes (1.2 - 3.4 /CUMM) 0.8 L 0.6 L Absolute Monocytes (0.10 - 0.60 /CUMM) 0.6 0.5 Absolute Eosinophils (0.0 - 0.7 /CUMM) 0 0 Absolute Basophils (0.0 - 0.2 /CUMM) 0 0 Poikilocytosis 2+ Anisocytosis 2+ Ovalocytes 2+ [place] Cells 2+ 04/12 1312 1312 Coagulation PT Cancelled INR Cancelled Hematology Lymphocytes (%) 12 % Normal PMNs (%) 31 Other Body Source Fluid WBC (0 - 5 /CUMM) 67 H Fld Mesothelial Cells (%) 57 Fld Total RBCs Counted (0 /CUMM) 100 H Fluid Glucose (mg/dL) 68 Fluid Total Protein (g/dL) < 2.0 Fluid Albumin (g/dL) < 1.0 Fluid LDH (U/L) 211 Fluid Amylase (U/L) < 30 04/12 04/12 1100 1100 Urines Urine Color (YEL,AMB,STR) DELMY Urine Clarity (CLEAR) HAZY H Urine pH (5.0 - 8.0) 6.0 Ur Specific [place] (1.001 - 1.035) 1.015 Urine Protein (NEG,<30 MG/DL) 30 H Urine Ketones (NEG) NEG Urine Nitrite (NEG) POS H Urine Bilirubin (NEG) NEG Urine Urobilinogen (0.1 - 1.0 EU/dl) 0.2 Ur Leukocyte Esterase (NEG) MOD H Ur Microscopic SEDIMENT EXAMINED Urine WBC (0 - 2 /HPF) 25-50 H Ur Epithelial Cells (NONE,FEW) FEW Urine Bacteria (NEG/NONE) MANY H Urine Hemoglobin (NEG) NEG Ur Random Creatinine (mg/dL) 75.3 Ur Random Sodium (30 - 90 mmol/L) 25 L Ur Random Potassium (mmol/L) 19.0 Fraction Sodium Excret (<1% %) 0.6 Urine Glucose (N MG/DL) NEG 04/12 04/12 04/12 0745 0709 0215 Chemistry Sodium (137 - 145 mmol/L) 133 L Potassium (3.5 - 5.1 mmol/L) 3.9 Chloride (98 - 107 mmol/L) 104 Carbon Dioxide (22 - 30 mmol/L) 17 L Anion Gap (5 - 16) 12 BUN (7 - 17 mg/dL) 64 H Creatinine (0.5 - 1.0 mg/dL) 2.3 H Estimated GFR (>60 ml/min) 21 L BUN/Creatinine Ratio (7 - 25 %) 27.8 H Total Bilirubin (0.2 - 1.3 mg/dL) 0.4 Direct Bilirubin (< 0.4 mg/dL) 0.4 AST (14 - 36 U/L) 19 ALT (9 - 52 U/L) 17 Alkaline Phosphatase (<127 U/L) 192 H Troponin I (< 0.11 ng/ml) < 0.01 Cancelled Cancelled Total Protein (6.3 - 8.2 g/dL) 4.4 L Albumin (3.5 - 5.0 g/dL) 2.2 L Hematology CBC w Diff NO MAN DIFF REQ WBC (4.8 - 10.8 /CUMM) 8.9 RBC (4.20 - 5.40 /CUMM) 2.72 L Hgb (12.0 - 16.0 G/DL) 8.2 L Hct (37 - 47 %) 24.3 L MCV (81.0 - 99.0 FL) 89.3 MCH (27.0 - 31.0 PG) 30.1 MCHC (33.0 - 37.0 G/DL) 33.7 RDW (11.5 - 14.5 %) 14.6 H Plt Count (130 - 400 /CUMM) 259 MPV (7.4 - 10.4 FL) 7.0 L Gran % (42.2 - 75.2 %) 85.7 H Lymphocytes % (20.5 - 51.1 %) 6.8 L Monocytes % (1.7 - 9.3 %) 7.3 Eosinophils % (0 - 5 %) 0.1 Basophils % (0.0 - 2.0 %) 0.1 Absolute Granulocytes (1.4 - 6.5 /CUMM) 7.6 H Absolute Lymphocytes (1.2 - 3.4 /CUMM) 0.6 L Absolute Monocytes (0.10 - 0.60 /CUMM) 0.6 Absolute Eosinophils (0.0 - 0.7 /CUMM) 0 Absolute Basophils (0.0 - 0.2 /CUMM) 0 04/11 04/11 2240 1915 Chemistry Sodium (137 - 145 mmol/L) 132 L Potassium (3.5 - 5.1 mmol/L) 4.4 Chloride (98 - 107 mmol/L) 101 Carbon Dioxide (22 - 30 mmol/L) 19 L Anion Gap (5 - 16) 11 BUN (7 - 17 mg/dL) 66 H Creatinine (0.5 - 1.0 mg/dL) 2.2 H Estimated GFR (>60 ml/min) 22 L BUN/Creatinine Ratio (7 - 25 %) 30.0 H Glucose (65 - 99 mg/dL) 76 Calcium (8.4 - 10.2 mg/dL) 9.3 Total Bilirubin (0.2 - 1.3 mg/dL) 0.6 AST (14 - 36 U/L) 24 ALT (9 - 52 U/L) 27 Alkaline Phosphatase (<127 U/L) 230 H Troponin I (< 0.11 ng/ml) 0.01 0.02 Total Protein (6.3 - 8.2 g/dL) 5.0 L Albumin (3.5 - 5.0 g/dL) 2.4 L Globulin (1.9 - 4.2 gm/dL) 2.6 Albumin/Globulin Ratio (1.1 - 2.2 %) 0.9 L Hematology CBC w Diff NO MAN DIFF REQ WBC (4.8 - 10.8 /CUMM) 8.7 RBC (4.20 - 5.40 /CUMM) 3.40 L Hgb (12.0 - 16.0 G/DL) 10.2 L Hct (37 - 47 %) 30.7 L MCV (81.0 - 99.0 FL) 90.4 MCH (27.0 - 31.0 PG) 30.1 MCHC (33.0 - 37.0 G/DL) 33.3 RDW (11.5 - 14.5 %) 14.7 H Plt Count (130 - 400 /CUMM) 312 MPV (7.4 - 10.4 FL) 6.9 L Gran % (42.2 - 75.2 %) 88.6 H Lymphocytes % (20.5 - 51.1 %) 6.7 L Monocytes % (1.7 - 9.3 %) 4.7 Eosinophils % (0 - 5 %) 0 Basophils % (0.0 - 2.0 %) 0 Absolute Granulocytes (1.4 - 6.5 /CUMM) 7.7 H Absolute Lymphocytes (1.2 - 3.4 /CUMM) 0.6 L Absolute Monocytes (0.10 - 0.60 /CUMM) 0.4 Absolute Eosinophils (0.0 - 0.7 /CUMM) 0 Absolute Basophils (0.0 - 0.2 /CUMM) 0
[2017-04-14 15:35] VITALS: BP 120/70
[2017-04-14 22:35] VITALS: BP 169/78
[2017-04-15 06:20] VITALS: BP 150/78
--- NOTE | 2017-04-15 08:08 | PN- Housestaff ---
Ruben NAGEL,Ramon 04/15/17 0807: Subjective Follow-up For: ALVIN on CKD Ascites, with liver masses suspected HCC or liver mets Subjective: Patient was seen and examined at bedside. She is sleeping comfortably. She has continued to have nausea and pain in her sacral pressure ulcer. She reports swelling of her right hand. She has no other new complaints and denies any vomiting, chest pain, shortness of breath, fever, chills. Review of Systems Constitutional: Denies: chills, fever. EENTM: Reports: no symptoms. Cardiovascular: Reports: no symptoms. Respiratory: Reports: no symptoms. Gastrointestinal: Reports: nausea. Denies: vomiting. Genitourinary: Reports: no symptoms. Musculoskeletal: Reports: see HPI. Objective Last 24 Hrs of Vital Signs/I&O Vital Signs Date Time Temp Pulse Resp B/P B/P Pulse O2 O2 Flow FiO2 Mean Ox Delivery Rate 04/16 619 98.6 75 16 150/78 92 Room Air 04/14 2235 98.3 73 20 169/78 94 Room Air 04/14 2206 169/78 04/14 1535 98.7 77 18 120/70 91 04/14 1053 98.8 80 20 134/62 Intake & Output 04/15 1600 04/15 0800 04/15 0000 Intake Total 1300 300 Output Total Balance 1300 300 Intake, IV 1200 200 Intake, Oral 100 100 Number 1 Bowel Movements Patient 120 lb Weight Weight Bed scale Measurement Method Physical Exam General Appearance: Alert, Oriented X3, Cooperative, Mild Distress Skin: unstable ulcer on the sacrum, currently dressed in duoderm Skin Temp/Moisture Exam: Warm/Dry Cardiovascular: Regular Rate, Normal S1, Normal S2, systolic murmur Lungs: Clear to Auscultation, Normal Air Movement Abdomen: No Tenderness, distended, + fluid thrill Neurological: Normal Speech, Sensation Intact Extremities: depended pitting edema of the R hand, 1 + pitting edema of the BLEs Current Medications: Current Medications Sig/Jose Start time Last Medication Dose Route Stop Time Status Admin Albumin Human 25 GM TID 04/13 2199 AC 04/14 IV 2206 Albuterol Sulfate 3 ML Q4H PRN 04/12 0200 AC INH Amlodipine Besylate 10 MG DAILY 04/12 1000 AC 04/14 PO 1053 Ceftriaxone Sodium 1,000 MG Q24H 03/09 1600 AC 04/14 IV 1642 Cholecalciferol 1,000 IU BID 04/12 1000 AC 04/14 PO 1053 Clonidine 0.3 MG Q12 04/12 1000 AC 04/14 PO 2207 Guaifenesin 10 ML Q6P PRN 04/12 0200 AC PO Heparin Sodium 5,000 UNIT Q8 04/12 2200 AC 04/12 (Porcine) SC 2156 Hydralazine HCl 100 MG BID 04/14 2200 AC 04/14 PO 2206 Hydralazine HCl 75 MG TID 04/12 1000 DC 04/13 PO 1807 Isosorbide 60 MG DAILY 04/12 1000 AC 04/13 Mononitrate PO 0919 Metoprolol Tartrate 50 MG DAILY 04/12 1000 AC 04/14 PO 1053 Omeprazole 40 MG DAILY AC 04/12 0700 AC 04/13 PO 0558 Oxycodone HCl 5 MG Q8P PRN 04/12 0200 AC 04/14 PO 0005 Polyethylene Glycol 17 GM BID 04/12 1000 AC 04/14 PO 1053 Potassium Chloride 40 MEQ Q2H 04/14 1000 DC 04/14 PO 04/14 1201 1227 Promethazine HCl 25 MG Q4P PRN 04/14 0800 AC IV 04/21 0759 Sodium Chloride 1,000 ML Q6H 04/14 0930 AC 04/15 IV 0521 Tramadol HCl 50 MG DAILY 04/12 1000 AC 04/14 PO 1100 Last 24 Hrs of Lab/Jere Results Last 24 Hrs of Labs/Mics: Laboratory Tests 04/15/17 0720: Sodium Pending, Potassium Pending, Chloride Pending, Carbon Dioxide Pending, Anion Gap Pending, BUN Pending, Creatinine Pending, BUN/Creatinine Ratio Pending , CBC w Diff Pending, WBC Pending, RBC Pending, Hgb Pending, Hct Pending, MCV Pending, MCH Pending, MCHC Pending, RDW Pending, Plt Count Pending, MPV Pending Assessment/Plan Assessment: Patient is a 76-year-old female with a PMH significant for CKD stage IV, CAD status post CABG, PVD status post angioplasty with stent, HTN, uterine and colon cancer, liver lesions either primary or metastatic cancer, who presented to [facility] from rehabilitation due to worsening poor by mouth intake, nausea and vomiting, worsening ascites and worsening renal function. #ALVIN resolved Likely prerenal azotemia, ALVIN has resolved - decreased IV fluid rate given signs of volume overload including new onset R hand dependent edema -Continue IV albumin infusions -Continue to monitor BEP - post void bladder scan read 39 ml #anemia H/H has been trending down -continue to monitor and transfuse as necessary #UTI Urine culture positive for Klebsiella pneumonia -Started on IV ceftriaxone yesterday, will continue #Worsening ascites Patient has been following with Dr. Coleman for hepatic masses, metastatic or primary lesions. She has elevated CEA but no definitive diagnosis has been made. Plan for paracentesis and liver biopsy has been delayed due to patient taking aspirin the night before admission. -Ascitic fluid consistent with transudate -Follow-up ascitic fluid cultures, currently no growth -Continue albumin infusions, increased to 25 g 3 times a day -Patient to go for IR liver mass biopsy and therapeutic paracentesis monday morning - need nephrology recommendations about the risk of a paracentesis worsening her renal function given this ALVIN is likely prerenal azotemia #chronic pressure ulcer Wound care consult was placed. Recommendations appreciated -Treat with DuoDERM and offloading #Protein calorie malnutrition Nutrition consult was placed. -Will follow up nutrition recommendations, for now patient is on sodium restricted diet Diet: Heart healthy DVT prophylaxis:SC heparin, ALPS Code status: full code Problem List: 1. Mass of multiple sites of liver 2. Pressure ulcer 3. Acute gastroenteritis 4. UTI (urinary tract infection) 5. Anemia Pain Ratin Pain Location: none Pain Goal: Remain pain free Pain Plan: pain pathway Tomorrow's Labs & Rationales: cbc, bep, LFTs Josephine Allen MD 04/15/17 1437: Attending MD Review Statement Attending Statement Attending MD Statement: examined this patient, discuss w/resident/PA/HAND STITCHER, agreed w/resident/PA/HAND STITCHER, reviewed EMR data (avail) Attending Assessment/Plan: 76F PMH PVD s/p angioplasty with stent, HTN, CAD s/p CABG, CKD stage 4, uterine and colon cancer admitted with intractable nausea and vomiting secondary to acute gastroenteritis leading to pre-renal azotemia/ALVIN, with recently found multiple liver masses suspicious for metastases. Patient is still nauseous today though she is able to tolerate small amounts of food. Renal function is improving, hyponatremia resolved, mildly hypokalemic today. 1. Pre-renal azotemia/ALVIN secondary to dehydration 2. Acute gastroenteritis 3. Liver metastases 4. Hypokalemia 5. Hyponatremia (resolved) 6. CKD stage 4 secondary to hypertensive nephrosclerosis Plan - Continue on general medicine - Continue IV hydration - Phenergen PRN for nausea - Monitor renal function - Follow GI and nephrology recommendations - Will go for large volume paracentesis and liver biopsy on Monday - Continue Albumin
[2017-04-15 08:46] LABS: ABSOLUTE BASOPHIL COUNT 0 /CUMM (0.0-0.2); ABSOLUTE EOSINOPHIL COUNT 0 /CUMM (0.0-0.7); ABSOLUTE GRANULOCYTE CT 9.4 /CUMM (1.4-6.5); ABSOLUTE LYMPH COUNT 0.6 /CUMM (1.2-3.4); ABSOLUTE MONOCYTE COUNT 0.4 /CUMM (0.10-0.60); BASOPHIL % 0.1 % (0.0-2.0); EOSINOPHIL % 0 % (0-5); GRANULOCYTE % 90.2 % (42.2-75.2); HEMATOCRIT 23.3 % (37-47); MEAN CORPUSCULAR HGB 29.8 PG (27.0-31.0); MEAN CORPUSCULAR HGB CONC 33.1 G/DL (33.0-37.0); MEAN CORPUSCULAR VOLUME 89.9 FL (81.0-99.0); MEAN PLATELET VOLUME 7.2 FL (7.4-10.4); PLATELET COUNT 155 /CUMM (130-400); RBC DISTRIBUTION WIDTH 14.8 % (11.5-14.5); RED BLOOD CELL CT 2.59 /CUMM (4.20-5.40); WHITE BLOOD CELL COUNT 10.4 /CUMM (4.8-10.8)
[2017-04-15 15:06] VITALS: BP 148/68
[2017-04-15 22:16] VITALS: BP 164/64
[2017-04-16 06:20] VITALS: BP 156/63
--- NOTE | 2017-04-16 09:08 | PN- Housestaff ---
Ruben NAGEL,Ramon 04/16/17 0908: Subjective Follow-up For: ALVIN on CKD Ascites, with liver masses suspected HCC or liver mets anemia Subjective: Patient was seen and examined at bedside. She is slightly lethargic today. She has continued to have nausea and pain in her sacral pressure ulcer. She she continues to have swelling of the right hand and IV was switched to the left today. She has no other new complaints and denies any vomiting, chest pain, shortness of breath, fever, chills. Review of Systems Constitutional: Reports: no symptoms. EENTM: Reports: no symptoms. Cardiovascular: Reports: no symptoms. Respiratory: Reports: no symptoms. Gastrointestinal: Reports: distention, nausea. Denies: melena, vomiting. Genitourinary: Reports: no symptoms. Musculoskeletal: Reports: no symptoms. Objective Last 24 Hrs of Vital Signs/I&O Vital Signs Date Time Temp Pulse Resp B/P B/P Pulse O2 O2 Flow FiO2 Mean Ox Delivery Rate 04/16 0620 98.4 78 18 156/63 92 Room Air 04/16 0000 96 Nasal 1.5L Cannula 04/15 2216 98.9 78 20 164/64 96 Nasal 1.5L Cannula 04/15 2144 78 164/64 04/15 2127 Nasal 1.5L Cannula 04/15 1506 98.4 71 18 148/68 94 Room Air Intake & Output 04/16 1600 04/16 0800 04/16 0000 Intake Total 940 1040 Output Total Balance 940 1040 Intake, IV 700 800 Intake, Oral 240 240 Patient 119 lb Weight Weight Bed scale Measurement Method Physical Exam General Appearance: Oriented X3, Cooperative, No Acute Distress, lethargic Skin Temp/Moisture Exam: Warm/Dry Cardiovascular: Regular Rate, Normal S1, Normal S2 Lungs: diminshed breath sounds Abdomen: distended with + fluid thrill Extremities: R hand swelling with no erythema or warmth, LE 1+ pitting edema Current Medications: Current Medications Sig/Jose Start time Last Medication Dose Route Stop Time Status Admin Albumin Human 25 GM TID 04/13 220 AC 04/15 IV 2146 Albuterol Sulfate 3 ML Q4P PRN 04/15 2145 AC INH Albuterol Sulfate 3 ML Q4H PRN 04/12 0200 AC INH Amlodipine Besylate 10 MG DAILY 04/12 1000 AC 03/10 PO 1041 Ceftriaxone Sodium 1,000 MG Q24H 04/14 1600 AC 04/15 IV 1615 Cholecalciferol 1,000 IU BID 04/12 1000 AC 04/15 PO 2144 Clonidine 0.3 MG Q12 04/12 1000 AC 04/15 PO 2144 Guaifenesin 10 ML Q6P PRN 04/12 0200 AC PO Heparin Sodium 5,000 UNIT Q8 04/12 2200 AC 04/12 (Porcine) SC 2156 Hydralazine HCl 100 MG BID 04/14 2200 AC 04/15 PO 2144 Isosorbide 60 MG DAILY 04/12 1000 AC 04/15 Mononitrate PO 1041 Metoprolol Tartrate 50 MG DAILY 04/12 1000 AC 04/15 PO 1041 Omeprazole 40 MG DAILY AC 04/12 0700 AC 04/13 PO 0558 Ondansetron HCl 4 MG Q6P PRN 04/15 1045 AC 04/15 IV 1600 Oxycodone HCl 5 MG Q8P PRN 04/12 0200 AC 04/16 PO 0116 Polyethylene Glycol 17 GM BID 04/12 1000 AC 04/14 PO 1053 Promethazine HCl 25 MG Q4P PRN 04/14 0800 DC IV 04/21 0759 Sodium Chloride 1,000 ML Q10H 04/15 1045 AC 04/15 IV 2111 Sodium Chloride 1,000 ML Q6H 04/14 0930 DC 04/15 IV 0521 Tramadol HCl 50 MG DAILY 04/12 1000 AC 04/14 PO 1100 Last 24 Hrs of Lab/Jere Results Last 24 Hrs of Labs/Mics: Laboratory Tests 04/16/17 1110: Anion Gap 13, Estimated GFR 40 L, BUN/Creatinine Ratio 33.8 H, PT 13.8 H, INR 1.26 H, CBC w Diff MAN DIFF ORDERED, RBC 2.30 L, MCV 88.8, MCH 30.0, MCHC 33.8 , RDW 14.6 H, MPV 7.3 L, Gran % 87.6 H, Lymphocytes % 7.5 L, Monocytes % 4.8 , Eosinophils % 0, Basophils % 0.1, Absolute Granulocytes 7.8 H, Absolute Lymphocytes 0.7 L, Absolute Monocytes 0.4, Absolute Eosinophils 0, Absolute Basophils 0, Platelet Estimate VERIFIED BY SMEAR, Polychromasia 1+, Poikilocytosis 1+, Anisocytosis 1+, Ovalocytes 1+, [place] Cells 1+, Schistocytes Assessment/Plan Assessment: Patient is a 76-year-old female with a PMH significant for CKD stage IV, CAD status post CABG, PVD status post angioplasty with stent, HTN, uterine and colon cancer, liver lesions either primary or metastatic cancer, who presented to [facility] from rehabilitation due to worsening poor by mouth intake, nausea and vomiting, worsening ascites and worsening renal function. #ALVIN resolved Likely prerenal azotemia, ALVIN has resolved, creatinine is back to baseline - decreased IV fluid rate given signs of volume overload including new onset R hand dependent edema -Continue IV albumin infusions -Continue to monitor BEP - post void bladder scan read 39 ml #anemia H/H has been trending down -Patient to receive one he PRBCs transfusion today #UTI Urine culture positive for Klebsiella pneumonia -Continue IV ceftriaxone #Worsening ascites Patient has been following with Dr. Coleman for hepatic masses, metastatic or primary lesions. She has elevated CEA but no definitive diagnosis has been made. Plan for paracentesis and liver biopsy has been delayed due to patient taking aspirin the night before admission. -Ascitic fluid consistent with transudate -Follow-up ascitic fluid cultures, currently no growth -Continue albumin infusions, increased to 25 g 3 times a day -Patient to go for IR liver mass biopsy and therapeutic paracentesis tomorrow morning -Will give supplemental albumin with the tap #chronic pressure ulcer Wound care consult was placed. Recommendations appreciated -Treat with DuoDERM and offloading #Protein calorie malnutrition Nutrition consult was placed. -Will follow up nutrition recommendations, for now patient is on sodium restricted diet Diet: Heart healthy DVT prophylaxis:SC heparin, ALPS Code status: full code Problem List: 1. UTI (urinary tract infection) 2. Pressure ulcer 3. Mass of multiple sites of liver 4. Chronic anemia Pain Ratin Pain Location: none Pain Goal: Remain pain free Pain Plan: pain pathway Tomorrow's Labs & Rationales: cbc, bep Josephine Allen MD 04/16/17 1323: Attending MD Review Statement Attending Statement Attending MD Statement: examined this patient, discuss w/resident/PA/DAILY SALES AUDIT CLERK, agreed w/resident/PA/DAILY SALES AUDIT CLERK, reviewed EMR data (avail) Attending Assessment/Plan: 76F PMH PVD s/p angioplasty with stent, HTN, CAD s/p CABG, CKD stage 4, uterine and colon cancer admitted with intractable nausea and vomiting secondary to acute gastroenteritis leading to pre-renal azotemia/ALVIN, with recently found multiple liver masses suspicious for metastases. Patient is still nauseous today though she is able to tolerate small amounts of food. Renal function is improving, hyponatremia resolved, mildly hypokalemic today. 1. Pre-renal azotemia/ALVIN secondary to dehydration 2. Acute gastroenteritis 3. Liver metastases 4. Hypokalemia 5. Hyponatremia (resolved) 6. CKD stage 4 secondary to hypertensive nephrosclerosis Plan - Continue on general medicine - NPO after midnight for biopsy - Continue IV hydration - Phenergen PRN for nausea - Monitor renal function - Follow GI and nephrology recommendations - Will go for large volume paracentesis and liver biopsy on Monday - Continue Albumin
[2017-04-16 13:04] LABS: ABSOLUTE BASOPHIL COUNT 0 /CUMM (0.0-0.2); ABSOLUTE EOSINOPHIL COUNT 0 /CUMM (0.0-0.7); ABSOLUTE GRANULOCYTE CT 7.8 /CUMM (1.4-6.5); ABSOLUTE LYMPH COUNT 0.7 /CUMM (1.2-3.4); ABSOLUTE MONOCYTE COUNT 0.4 /CUMM (0.10-0.60); BASOPHIL % 0.1 % (0.0-2.0); EOSINOPHIL % 0 % (0-5); GRANULOCYTE % 87.6 % (42.2-75.2); HEMATOCRIT 20.4 % (37-47); MEAN CORPUSCULAR HGB CONC 33.8 G/DL (33.0-37.0); MEAN CORPUSCULAR VOLUME 88.8 FL (81.0-99.0); MEAN PLATELET VOLUME 7.3 FL (7.4-10.4); PLATELET COUNT 136 /CUMM (130-400); RBC DISTRIBUTION WIDTH 14.6 % (11.5-14.5); WHITE BLOOD CELL COUNT 8.9 /CUMM (4.8-10.8)
[2017-04-16 13:14] LABS: PT 13.8 SEC (9.4-12.5)
[2017-04-16 14:39] VITALS: BP 142/60
[2017-04-16 22:29] VITALS: BP 180/70
[2017-04-17 06:20] VITALS: BP 136/68
--- NOTE | 2017-04-17 07:22 | PN- Housestaff ---
Ruben NAGEL,Ramon 04/17/17 0722: Subjective Follow-up For: ALVIN on CKD Ascites, with liver masses suspected HCC or liver mets anemia Subjective: Patient was seen and examined at bedside. She was sleeping comfortably. She received 1 unit PRBCs yesterday and tolerated this well. Her nausea has improved. She is continuing to complain of pain on her coccyx from her chronic pressure ulcer and generalized malaise. She has had a poor appetite. She has no other new complaints. She had an episode of hypoxia yesterday and was started on 1.5 L O2 NC. She denies SOB currently. Review of Systems Constitutional: Reports: malaise. Cardiovascular: Denies: chest pain, orthopena. Respiratory: Reports: short of breath. Denies: cough. Gastrointestinal: Denies: abdominal pain, nausea, vomiting. Genitourinary: Reports: no symptoms. Musculoskeletal: Reports: no symptoms. Objective Last 24 Hrs of Vital Signs/I&O Vital Signs Date Time Temp Pulse Resp B/P B/P Pulse O2 O2 Flow FiO2 Mean Ox Delivery Rate 04/17 0620 98.1 73 18 136/68 94 Room Air 04/17 0000 92 Nasal 1.5L Cannula 04/16 2229 98.3 77 18 180/70 92 Room Air 04/16 2130 77 193/73 04/165 93 Nasal 1.5L Cannula 04/16 1439 98.0 62 18 142/60 98 04/16 1043 89 Room Air 04/16 0800 Nasal 2.0L Cannula Intake & Output 04/17 0800 04/17 0000 04/16 1600 Intake Total 950 Output Total Balance 950 Intake, IV 700 Intake, Oral 250 Patient 120 lb Weight Weight Bed scale Measurement Method Physical Exam General Appearance: Alert, Oriented X3, Cooperative, Mild Distress Skin Temp/Moisture Exam: Warm/Dry Cardiovascular: Regular Rate, Normal S1, Normal S2, systolic murmur Lungs: diminished breath sounds at the lung bases Abdomen: distended, + fluid thrill Neurological: Normal Speech, Normal Tone, Sensation Intact Extremities: R hand edema improving, 1 + pitting edema of the distal LEs Current Medications: Current Medications Sig/Jose Start time Last Medication Dose Route Stop Time Status Admin Albumin Human 25 GM TID 04/13 2199 AC 04/16 IV 214 Albuterol Sulfate 3 ML Q4P PRN 03/10 2145 AC INH Albuterol Sulfate 3 ML Q4H PRN 04/12 0200 AC INH Amlodipine Besylate 10 MG DAILY 04/12 1000 AC 04/16 PO 1133 Ceftriaxone Sodium 1,000 MG Q24H 04/14 1600 AC 04/16 IV 1558 Cholecalciferol 1,000 IU BID 04/12 1000 AC 04/16 PO 2130 Clonidine 0.3 MG Q12 04/12 1000 AC 04/16 PO 2130 Dextrose/Sodium 1,000 ML Q13H 04/16 1030 AC 04/17 Chloride IV 0458 Glycerin 2 SPRAY Q2P PRN 04/16 1915 AC 04/17 PO 0457 Guaifenesin 10 ML Q6P PRN 04/12 0200 AC PO Heparin Sodium 5,000 UNIT Q8 04/12 2200 AC 04/12 (Porcine) SC 2156 Hydralazine HCl 100 MG BID 04/14 2200 AC 04/16 PO 2130 Isosorbide 60 MG DAILY 04/12 1000 AC 04/16 Mononitrate PO 1133 Metoprolol Tartrate 50 MG DAILY 04/12 1000 AC 04/16 PO 1133 Omeprazole 40 MG DAILY AC 04/12 0700 AC 04/13 PO 0558 Ondansetron HCl 4 MG Q6P PRN 04/15 1045 AC 04/15 IV 1600 Oxycodone HCl 5 MG Q8P PRN 04/12 0200 AC 04/17 PO 0030 Polyethylene Glycol 17 GM BID 04/12 1000 AC 04/14 PO 1053 Sodium Chloride 1,000 ML Q10H 04/15 1045 DC 04/15 IV 2111 Tramadol HCl 50 MG DAILY 04/12 1000 AC 04/14 PO 1100 Last 24 Hrs of Lab/Jere Results Last 24 Hrs of Labs/Mics: Laboratory Tests 04/16/17 1110: Anion Gap 13, Estimated GFR 40 L, BUN/Creatinine Ratio 33.8 H, PT 13.8 H, INR 1.26 H, CBC w Diff MAN DIFF ORDERED, RBC 2.30 L, MCV 88.8, MCH 30.0, MCHC 33.8 , RDW 14.6 H, MPV 7.3 L, Gran % 87.6 H, Lymphocytes % 7.5 L, Monocytes % 4.8 , Eosinophils % 0, Basophils % 0.1, Absolute Granulocytes 7.8 H, Absolute Lymphocytes 0.7 L, Absolute Monocytes 0.4, Absolute Eosinophils 0, Absolute Basophils 0, Platelet Estimate VERIFIED BY SMEAR, Polychromasia 1+, Poikilocytosis 1+, Anisocytosis 1+, Ovalocytes 1+, [place] Cells 1+, Schistocytes Assessment/Plan Assessment: Patient is a 76-year-old female with a PMH significant for CKD stage IV, CAD status post CABG, PVD status post angioplasty with stent, HTN, uterine and colon cancer, liver lesions either primary or metastatic cancer, who presented to [facility] from rehabilitation due to worsening poor by mouth intake, nausea and vomiting, worsening ascites and worsening renal function. #ALVIN resolved Likely prerenal azotemia, ALVIN has resolved, creatinine is back to baseline - decreased IV fluid rate given signs of volume overload including new onset R hand dependent edema -Continue IV albumin infusions -Continue to monitor BEP - post void bladder scan read 39 ml #anemia H/H has been trending down -Patient tolerated RBC transfusion yesterday. We'll continue to trend H/H -Follow-up stool guaiac #UTI Urine culture positive for Klebsiella pneumonia -Continue IV ceftriaxone, day 4 #Worsening ascites Patient has been following with Dr. Coleman for hepatic masses, metastatic or primary lesions. She has elevated CEA but no definitive diagnosis has been made. Plan for paracentesis and liver biopsy has been delayed due to patient taking aspirin the night before admission. -Follow-up ascitic fluid cultures, currently no growth -Continue albumin infusions, 25 g 3 times a day -patient to go for therapeutic paracentesis with liver mass biopsy today -Will give supplemental albumin with the tap -Follow-up results of biopsy #chronic pressure ulcer Wound care consult was placed. Recommendations appreciated -Treat with DuoDERM and offloading #Protein calorie malnutrition Nutrition consult was placed. -Will follow up nutrition recommendations, for now patient is on sodium restricted diet Diet: NPO pending IR procedure DVT prophylaxis:SC heparin, ALPS Code status: full code Problem List: 1. UTI (urinary tract infection) 2. Acute gastroenteritis 3. Pressure ulcer 4. Mass of multiple sites of liver Pain Ratin Pain Location: sacrum Pain Goal: Pain 4 or less Pain Plan: pain pathway Tomorrow's Labs & Rationales: cbc, bep Josephine Allen MD 04/17/17 1428: Attending MD Review Statement Attending Statement Attending MD Statement: examined this patient, discuss w/resident/PA/CURVE CLEANER, agreed w/resident/PA/CURVE CLEANER, reviewed EMR data (avail) Attending Assessment/Plan: 76F PMH PVD s/p angioplasty with stent, HTN, CAD s/p CABG, CKD stage 4, uterine and colon cancer admitted with intractable nausea and vomiting secondary to acute gastroenteritis leading to pre-renal azotemia/ALVIN, with recently found multiple liver masses suspicious for metastases. Patient is still nauseous today though she is able to tolerate small amounts of food. Renal function is improving, hyponatremia resolved, mildly hypokalemic today. 1. Pre-renal azotemia/ALVIN secondary to dehydration 2. Acute gastroenteritis 3. Liver metastases 4. Hypokalemia 5. Hyponatremia (resolved) 6. CKD stage 4 secondary to hypertensive nephrosclerosis Plan - Continue on general medicine - Psychiatry consult for depression - Continue IV hydration - Phenergen PRN for nausea - Monitor renal function - Follow GI and nephrology recommendations - Will go for large volume paracentesis and liver biopsy today - Continue Albumin
[2017-04-17 11:06] LABS: ABSOLUTE BASOPHIL COUNT 0 /CUMM (0.0-0.2); ABSOLUTE EOSINOPHIL COUNT 0 /CUMM (0.0-0.7); ABSOLUTE LYMPH COUNT 0.6 /CUMM (1.2-3.4); ABSOLUTE MONOCYTE COUNT 0.6 /CUMM (0.10-0.60); EOSINOPHIL % 0.1 % (0-5); RBC DISTRIBUTION WIDTH 14.6 % (11.5-14.5)
[2017-04-17 11:20] LABS: BASOPHIL % 0.3 % (0.0-2.0); GRANULOCYTE % 89.4 % (42.2-75.2); MEAN CORPUSCULAR HGB 29.9 PG (27.0-31.0); MEAN CORPUSCULAR HGB CONC 33.4 G/DL (33.0-37.0); MEAN CORPUSCULAR VOLUME 89.4 FL (81.0-99.0); MEAN PLATELET VOLUME 7.5 FL (7.4-10.4); PLATELET COUNT 136 /CUMM (130-400); WHITE BLOOD CELL COUNT 12.3 /CUMM (4.8-10.8)
[2017-04-17 11:26] LABS: HEMATOCRIT 31.8 % (37-47); RED BLOOD CELL CT 3.56 /CUMM (4.20-5.40)
[2017-04-17 11:28] LABS: PT 12.9 SEC (9.4-12.5)
--- NOTE | 2017-04-17 14:11 | ULTRASOUND REPORT ---
CLINICAL HISTORY: This patient is a 76 years old Female with ascites found on physical exam, who is referred to Interventional Radiology for ultrasound-guided paracentesis. PROCEDURE: Ultrasound-guided paracentesis. PHYSICIANS: Dr. Olya Vargas (attending). MEDICATIONS: 10 mL of 1% lidocaine SQ. COMPLICATIONS: None ESTIMATED BLOOD LOSS: <5 mL SPECIMENS: None IMPLANT: None. SITE MARKING: As part of the preprocedure verification policy, a site marking procedure was initiated. Due to the nature the procedure, the insertion site could not be predetermined thus invoking the policy of exemption to site laterality and marking. Insertion site marking was performed in the procedure room in conjunction with imaging confirmation. PROCEDURE NOTE: Informed consent was obtained from the patient prior to the procedure. During this process, the procedure and potential alternatives were explained along with the intended outcome and benefits. The risks of the procedure, including the possibility of an unsuccessful procedure, as well as the risk of not doing the procedure, were discussed. The patient was given the opportunity to ask questions regarding the procedure and appeared competent to make decisions. A signed consent form documenting this discussion was placed in the medical record. A time-out procedure was performed. Appropriate preprocedure medical history and imaging studies were reviewed. The patient was brought to the ultrasound room and placed in the supine position. A time-out procedure was performed. Ultrasound images of the abdomen were obtained to localize a large collection of ascites. Images were permanently saved to the record. An area of the left lower quadrant was prepped and draped in the standard sterile fashion. All elements of maximal sterile barrier technique followed including use of cap, mask, sterile gown, sterile gloves, a sterile full body drape and hand hygiene. Also followed skin preparation with 2% chlorhexidine for cutaneous antisepsis, and sterile ultrasound preparation with sterile gel and probe cover when applicable. 10 mL of 1% lidocaine was used to obtain local anesthesia of the skin and deeper tissues. A standard small-bore needle was introduced to sample fluid and demonstrated a safe access route. There was no evidence of traversing adjacent organs or vascular structures. A 6-Fr [id number] closed needle/catheter system was utilized for access. 8100 mL of clear straw-colored fluid was aspirated before drainage ceased. The catheter was removed and sterile dressing applied. The patient tolerated the procedure well without evidence of complications. FINDINGS: Large simple abdominal ascites as detailed above. IMPRESSION: Successful ultrasound-guided therapeutic paracentesis. PLAN: The patient was stable after the procedure. The patient will be transferred to the floor.
--- NOTE | 2017-04-17 17:41 | ULTRASOUND REPORT ---
CLINICAL HISTORY: This patient is a 76 years old female with liver masses who presents to Interventional Radiology for targeted ultrasound-guided percutaneous liver biopsy. PROCEDURE: 1. Limited sonographic evaluation of the liver. 2. Ultrasound-guided targeted needle biopsy of the liver lesion. PHYSICIANS: Dr. Olya Vargas (attending). MONITORING: The procedure was performed with conscious sedation and analgesia under my direct supervision. Continuous blood pressure, pulse oximetry as well as heartrate monitoring was performed by an independent registered nurse. Physician intraservice sedation time was 20 minutes. MEDICATIONS: 1. Versed 0.5 mg and fentanyl 50 mcg IV were administered. 2. Lidocaine 1%, 5 mL, SQ. COMPLICATIONS: None ESTIMATED BLOOD LOSS: <50 mL SPECIMENS: 2 separate 20-gauge core specimens of the left hepatic lobe mass IMPLANT: None SITE MARKING: As part of the preprocedure verification policy, a site marking procedure was initiated. Due to the nature the procedure, the insertion site could not be predetermined thus invoking the policy of exemption to site laterality and marking. Insertion site marking was performed in the procedure room in conjunction with imaging confirmation. PROCEDURE NOTE: Informed consent was obtained from the patient prior to the procedure. During this process, the procedure and potential alternatives were explained along with the intended outcome and benefits. The risks of the procedure, including the possibility of an unsuccessful procedure, as well as the risk of not doing the procedure, were discussed. The patient was given the opportunity to ask questions regarding the procedure and appeared competent to make decisions. A signed consent form documenting this discussion was placed in the medical record. A time-out procedure was performed. The patient was placed supine on the US table. The right upper abdomen was prepped and draped in the usual sterile fashion. All elements of maximal sterile barrier technique followed including use of cap, mask, sterile gown, sterile gloves, a sterile full body drape and hand hygiene. Also followed skin preparation with 2% chlorhexidine for cutaneous antisepsis, and sterile ultrasound preparation with sterile gel and probe cover when applicable. 5 mL of 1% lidocaine was used to obtain local anesthesia of the skin and deeper tissues. Focal ultrasound of the right liver was performed to access for an approach. Local anesthetic with lidocaine was administered under ultrasound guidance. Under ultrasound guidance, the 19 gauge double-wall needle from the Achieve biopsy set was advanced into the lesion within the left liver. The 20 gauge core biopsy needle from the biopsy set was advanced through the double-wall needle. A total of 2 core biopsy samples were obtained. Under ultrasound guidance, the needle track was closed with Gelfoam while the needle was removed. Manual pressure was applied to the track until hemostasis was achieved. Postprocedure ultrasound did not demonstrate the presence of subcapsular hematoma. The patient tolerated the procedure well. FINDINGS: 1. Successful core needle biopsy of the left-sided liver lesion. 2. No hepatic hematoma or subcapsular hematoma after removal of the biopsy needle. IMPRESSION: Successful core needle biopsy of the left liver lesion. PLAN: 1. The patient was stable after the procedure and was transferred to the interventional recovery area for observation. The patient will be transferred to the floor. 2. Patient will be instructed to lay on the site of biopsy for 1 hour to minimize risk of subcapsular hematoma. 3. Core biopsy samples will be sent to pathology.
[2017-04-17 18:00] VITALS: BP 128/70
--- NOTE | 2017-04-17 21:59 | PN- Gastroenterology ---
Assessment/Plan GI Assessment/Recommendations: 76 year old female admitted with worsening ascites and renal failure and liver lesions on ct scan suggestive of metastatic disease. She underwent a diagnostic paracentesis on April 13 which was negative for sbp by cell count and her SAAG was greater then 1.1 indicating the ascitic fluid is from portal hypertension and not necessarily from a malignancy; cytology was negative. Her kidney function has improved with albumin infusions. Her hematocrit suraj more than expected to transfusion 1 unit of packed red blood cells. She is being treated for UTI. Recommendations: * Stop albumin * Follow daily renal function and electrolytes. * Await results of liver biopsy * Change diet to 2 g sodium * Follow-up CBC * Bowel regimen Subjective Subjective: Tolerated large volume paracentesis (9 L) and liver biopsy today. Complains of burning pain at location of pads on coccyx and hips. Poor appetite, mild nausea , no abdominal pain. Objective Vital Signs and I&Os Vital Signs Date Time Temp Pulse Resp B/P B/P Pulse O2 O2 Flow FiO2 Mean Ox Delivery Rate 04/17 1800 98.4 76 18 128/70 95 Nasal 2.0L Cannula 04/17 1730 76 128/70 04/17 1730 76 128/70 04/17 1730 76 128/70 04/17 1730 76 128/70 04/17 1706 97 Nasal 2.0L Cannula 04/17 1700 76 128/70 04/17 0620 98.1 73 18 136/68 94 Room Air 04/17 0000 92 Nasal 1.5L Cannula 04/16 2229 98.3 77 18 180/70 92 Room Air Intake & Output 04/17 1600 04/17 0400 04/16 1600 04/16 0400 04/15 1600 04/15 0400 Intake Total 1890 1040 2350 300 Output Total Balance 1890 1040 2350 300 Intake, IV 1064 381 1585 200 Intake, Oral 490 240 350 100 Number 1 Bowel Movements Patient 120 lb 119 lb 120 lb Weight Weight Bed scale Bed scale Bed scale Measurement Method Physical Exam: Alert and oriented. Thin/cachectic. Sclera anicteric. No adenopathy. No peripheral edema. Abdomen markedly less distended, nontender, soft. Current Medications: Current Medications Sig/Jose Start time Last Medication Dose Route Stop Time Status Admin Albumin Human 62.5 GM ONCE ONE 04/17 1700 DC 04/17 IV 04/17 170 1911 Albumin Human 64 GM ONCE ONE 04/17 1600 CAN IV 04/17 1601 Albumin Human 25 GM TID 04/13 2200 AC 04/17 IV 2128 Albuterol Sulfate 3 ML Q4P PRN 04/15 2145 AC INH Albuterol Sulfate 3 ML Q4H PRN 04/12 0200 AC INH Amlodipine Besylate 10 MG DAILY / 1000 AC 04/17 PO 1730 Ceftriaxone Sodium 1,000 MG Q24H / 1600 AC 04/17 IV 1908 Cholecalciferol 1,000 IU BID 04/12 1000 AC 04/17 PO 1909 Clonidine 0.3 MG Q12 04/12 1000 AC 04/17 PO 1730 Dextrose/Sodium 1,000 ML Q13H 04/16 1030 AC 04/17 Chloride IV 1909 Fentanyl Citrate 0 .STK-MED ONE 04/17 1240 DC .ROUTE Gelatin 1 UNIT .STK-MED ONE 04/17 1332 DC TOP 04/17 1333 Glycerin 2 SPRAY Q2P PRN 04/16 1915 AC 04/17 PO 0457 Guaifenesin 10 ML Q6P PRN 04/12 0200 AC PO Heparin Sodium 5,000 UNIT Q8 04/12 2200 AC 04/17 (Porcine) SC 1730 Hydralazine HCl 100 MG BID 04/14 2200 AC 04/17 PO 1730 Isosorbide 60 MG DAILY 04/12 1000 AC 04/17 Mononitrate PO 1730 Lidocaine 1 ML .STK-MED ONE 04/17 1332 DC ID 04/17 1333 Metoprolol Tartrate 50 MG DAILY 04/12 1000 AC 04/17 PO 1700 Midazolam HCl 0 .STK-MED ONE 04/17 1240 DC .ROUTE Omeprazole 40 MG DAILY AC 04/12 0700 AC 04/13 PO 0558 Ondansetron HCl 4 MG Q6P PRN 04/15 1045 AC 04/15 IV 1600 Oxycodone HCl 5 MG Q8P PRN / 0200 AC 04/17 PO 0030 Polyethylene Glycol 17 GM BID 04/12 1000 AC 04/17 PO 1730 Tramadol HCl 50 MG DAILY / 1000 AC 04/17 PO 1730 Results Pertinent Lab Results: Laboratory Tests 04/17 04/16 0925 1110 Chemistry Sodium (137 - 145 mmol/L) 137 138 Potassium (3.5 - 5.1 mmol/L) 4.0 4.2 Chloride (98 - 107 mmol/L) 107 107 Carbon Dioxide (22 - 30 mmol/L) 21 L 18 L Anion Gap (5 - 16) 10 13 BUN (7 - 17 mg/dL) 43 H 44 H Creatinine (0.5 - 1.0 mg/dL) 1.2 H 1.3 H Estimated GFR (>60 ml/min) 44 L 40 L BUN/Creatinine Ratio (7 - 25 %) 35.8 H 33.8 H Coagulation PT (9.4 - 12.5 SEC) 12.9 H 13.8 H INR (0.90 - 1.19) 1.18 1.26 H Hematology CBC w Diff MAN DIFF ORDERED MAN DIFF ORDERED WBC (4.8 - 10.8 /CUMM) 12.3 H 8.9 RBC (4.20 - 5.40 /CUMM) 3.56 L 2.30 L Hgb (12.0 - 16.0 G/DL) 10.6 L 6.9 *L Hct (37 - 47 %) 31.8 L 20.4 L MCV (81.0 - 99.0 FL) 89.4 88.8 MCH (27.0 - 31.0 PG) 29.9 30.0 MCHC (33.0 - 37.0 G/DL) 33.4 33.8 RDW (11.5 - 14.5 %) 14.6 H 14.6 H Plt Count (130 - 400 /CUMM) 136 136 MPV (7.4 - 10.4 FL) 7.5 7.3 L Gran % (42.2 - 75.2 %) 89.4 H 87.6 H Lymphocytes % (20.5 - 51.1 %) 5.2 L 7.5 L Monocytes % (1.7 - 9.3 %) 5.0 4.8 Eosinophils % (0 - 5 %) 0.1 0 Basophils % (0.0 - 2.0 %) 0.3 0.1 Absolute Granulocytes (1.4 - 6.5 /CUMM) 11.0 H 7.8 H Absolute Lymphocytes (1.2 - 3.4 /CUMM) 0.6 L 0.7 L Absolute Monocytes (0.10 - 0.60 /CUMM) 0.6 0.4 Absolute Eosinophils (0.0 - 0.7 /CUMM) 0 0 Absolute Basophils (0.0 - 0.2 /CUMM) 0 0 Platelet Estimate (ADEQUATE) ADEQUATE VERIFIED BY SMEAR Polychromasia 1+ Poikilocytosis 1+ 1+ Anisocytosis 1+ 1+ Ovalocytes 1+ [place] Cells 1+ Schistocytes 04/15 0720 Chemistry Sodium (137 - 145 mmol/L) 139 Potassium (3.5 - 5.1 mmol/L) 4.3 Chloride (98 - 107 mmol/L) 109 H Carbon Dioxide (22 - 30 mmol/L) 20 L Anion Gap (5 - 16) 10 BUN (7 - 17 mg/dL) 50 H Creatinine (0.5 - 1.0 mg/dL) 1.4 H Estimated GFR (>60 ml/min) 37 L BUN/Creatinine Ratio (7 - 25 %) 35.7 H Hematology CBC w Diff MAN DIFF ORDERED WBC (4.8 - 10.8 /CUMM) 10.4 RBC (4.20 - 5.40 /CUMM) 2.59 L Hgb (12.0 - 16.0 G/DL) 7.7 L Hct (37 - 47 %) 23.3 L MCV (81.0 - 99.0 FL) 89.9 MCH (27.0 - 31.0 PG) 29.8 MCHC (33.0 - 37.0 G/DL) 33.1 RDW (11.5 - 14.5 %) 14.8 H Plt Count (130 - 400 /CUMM) 155 MPV (7.4 - 10.4 FL) 7.2 L Gran % (42.2 - 75.2 %) 90.2 H Lymphocytes % (20.5 - 51.1 %) 5.5 L Monocytes % (1.7 - 9.3 %) 4.2 Eosinophils % (0 - 5 %) 0 Basophils % (0.0 - 2.0 %) 0.1 Absolute Granulocytes (1.4 - 6.5 /CUMM) 9.4 H Absolute Lymphocytes (1.2 - 3.4 /CUMM) 0.6 L Absolute Monocytes (0.10 - 0.60 /CUMM) 0.4 Absolute Eosinophils (0.0 - 0.7 /CUMM) 0 Absolute Basophils (0.0 - 0.2 /CUMM) 0 Platelet Estimate (ADEQUATE) VERIFIED BY SMEAR Polychromasia 1+ Poikilocytosis 2+ Anisocytosis 1+ Ovalocytes 1+ [place] Cells 2+
[2017-04-17 23:04] VITALS: BP 143/63
--- NOTE | 2017-04-18 06:49 | PN- Housestaff ---
Ruben NAGEL,Ramon 04/18/17 0649: Subjective Follow-up For: ALVIN on CKD Ascites, with liver masses suspected HCC or liver mets anemia Subjective: Patient was seen and examined at bedside. She is resting comfortably. She had no acute events overnight. She tolerated her paracentesis and ultrasound-guided biopsy of the liver yesterday. She is complaining of generalized malaise and fatigue today but no worse than previously. She tolerated complaining of pain from her ulcer. She denies any chest pain, shortness of breath, nausea, vomiting, fever, chills. Review of Systems Constitutional: Reports: malaise. Denies: chills, fever. EENTM: Reports: no symptoms. Cardiovascular: Reports: no symptoms. Respiratory: Reports: no symptoms. Gastrointestinal: Reports: no symptoms. Genitourinary: Reports: no symptoms. Musculoskeletal: Reports: no symptoms. Skin: Reports: no symptoms. Objective Last 24 Hrs of Vital Signs/I&O Vital Signs Date Time Temp Pulse Resp B/P B/P Pulse O2 O2 Flow FiO2 Mean Ox Delivery Rate 04/18 0000 99 Nasal 2.0L Cannula 04/17 2304 98.1 64 20 143/63 100 Nasal Cannula 04/17 2154 64 143/63 04/17 2153 64 143/63 04/17 1800 98.4 76 18 128/70 95 Nasal 2.0L Cannula 04/17 1730 76 128/70 04/17 1730 76 128/70 04/17 1730 76 128/70 04/17 1730 76 128/70 04/17 1706 97 Nasal 2.0L Cannula 04/17 1700 76 128/70 Intake & Output 04/18 0800 04/18 0000 04/17 1600 Intake Total 900 405 Output Total Balance 900 405 Intake, IV 600 225 Intake, Oral 300 180 Physical Exam General Appearance: Alert, Oriented X3, Cooperative, No Acute Distress Skin Temp/Moisture Exam: Warm/Dry Cardiovascular: Regular Rate, Normal S1, Normal S2, systolic murmur Lungs: Clear to Auscultation, Normal Air Movement Abdomen: Normal Bowel Sounds, Soft, No Tenderness, IMPROVED DISTENSION Neurological: Normal Speech Extremities: IMPROVED EDEMA OF R HAND AND LE BILATERALLY Current Medications: Current Medications Sig/Jose Start time Last Medication Dose Route Stop Time Status Admin Albumin Human 62.5 GM ONCE ONE 04/17 1700 DC 04/17 IV 04/17 1701 1911 Albumin Human 64 GM ONCE ONE 04/17 1600 CAN IV 04/17 1601 Albumin Human 25 GM TID 04/13 2200 DC 04/17 IV 2128 Albuterol Sulfate 3 ML Q4P PRN 04/15 2145 AC INH Albuterol Sulfate 3 ML Q4H PRN 04/12 0200 AC INH Amlodipine Besylate 10 MG DAILY 04/12 1000 AC 04/17 PO 1730 Ceftriaxone Sodium 1,000 MG Q24H 04/14 1600 AC 04/17 IV 1908 Cholecalciferol 1,000 IU BID 04/12 1000 AC 04/17 PO 1909 Clonidine 0.3 MG Q12 04/12 1000 AC 04/17 PO 2154 Dextrose/Sodium 1,000 ML Q13H 04/16 1030 AC 04/17 Chloride IV 1909 Docusate Sodium 100 MG BID 04/17 2341 AC 04/18 PO 0109 Fentanyl Citrate 0 .STK-MED ONE 04/17 1240 DC .ROUTE Gelatin 1 UNIT .STK-MED ONE 04/17 1332 DC TOP 04/17 1333 Glycerin 2 SPRAY Q2P PRN 04/16 1915 AC 04/17 PO 0457 Guaifenesin 10 ML Q6P PRN 04/12 0200 AC PO Heparin Sodium 5,000 UNIT Q8 04/12 2200 AC 04/17 (Porcine) SC 1730 Hydralazine HCl 100 MG BID 04/14 2200 AC 04/17 PO 2153 Isosorbide 60 MG DAILY 04/12 1000 AC 04/17 Mononitrate PO 1730 Lidocaine 1 ML .STK-MED ONE 04/17 1332 DC ID 04/17 1333 Metoprolol Tartrate 50 MG DAILY 04/12 1000 AC 04/17 PO 1700 Midazolam HCl 0 .STK-MED ONE 04/17 1240 DC .ROUTE Omeprazole 40 MG DAILY AC 04/12 0700 AC 04/18 PO 0540 Ondansetron HCl 4 MG Q6P PRN 04/15 1045 AC 04/15 IV 1600 Oxycodone HCl 5 MG Q8P PRN / 0200 AC 04/17 PO 2224 Polyethylene Glycol 17 GM BID 04/12 1000 AC 04/17 PO 1730 Senna 187 MG AT BEDTIME 04/17 2345 AC 04/18 PO 0109 Tramadol HCl 50 MG DAILY 04/12 1000 AC 04/17 PO 1730 Last 24 Hrs of Lab/Jere Results Last 24 Hrs of Labs/Mics: Laboratory Tests 04/17/17 0925: Anion Gap 10, Estimated GFR 44 L, BUN/Creatinine Ratio 35.8 H, PT 12.9 H, INR 1.18, CBC w Diff MAN DIFF ORDERED, RBC 3.56 L, MCV 89.4, MCH 29.9, MCHC 33.4, RDW 14.6 H, MPV 7.5, Gran % 89.4 H, Lymphocytes % 5.2 L, Monocytes % 5.0, Eosinophils % 0.1, Basophils % 0.3, Absolute Granulocytes 11.0 H, Absolute Lymphocytes 0.6 L, Absolute Monocytes 0.6, Absolute Eosinophils 0, Absolute Basophils 0, Platelet Estimate ADEQUATE, Poikilocytosis 1+, Anisocytosis 1+ Assessment/Plan Assessment: Patient is a 76-year-old female with a PMH significant for CKD stage IV, CAD status post CABG, PVD status post angioplasty with stent, HTN, uterine and colon cancer, liver lesions either primary or metastatic cancer, who presented to [facility] from rehabilitation due to worsening poor by mouth intake, nausea and vomiting, worsening ascites and worsening renal function. #ALVIN resolved Likely prerenal azotemia, ALVIN has resolved, creatinine is back to baseline -DC albumin -Continue to monitor BEP - post void bladder scan read 39 ml - anticipated DC tomorrow, patient can follow-up as outpatient for biopsy results #anemia H/H has been stable - follow up stool guaiac, patient has been constipated so no sample has been given #UTI Urine culture positive for Klebsiella pneumonia -DC ceftriaxone, patient completed 5 day course #Worsening ascites Patient with a large volume tap with bladder biopsy yesterday. She tolerated the procedure well. Albumin was replaced -DC albumin -Follow-up liver biopsy results #chronic pressure ulcer Wound care consult was placed. Recommendations appreciated -Treat with DuoDERM and offloading #Protein calorie malnutrition Nutrition consult was placed. -Will follow up nutrition recommendations, for now patient is on sodium restricted diet #Fatigue Patient was questioned about her hypersomnolence, fatigue and perceives depressed mood. She stated that she has a lack of energy but does not feel that she is an anhedonic. She will consider allowing psych to come see her however she is not willing at this time. Diet: Heary healthy diet DVT prophylaxis:SC heparin, ALPS Code status: full code Problem List: 1. Acute gastroenteritis 2. UTI (urinary tract infection) Pain Ratin Pain Location: none Pain Goal: Remain pain free Pain Plan: pain pathway Tomorrow's Labs & Rationales: cbc, bep Alejandro NAGELBryannaarlene 04/18/17 1253: Attending MD Review Statement Attending Statement Attending MD Statement: examined this patient, discuss w/resident/PA/LAB SUPPORT TECH, agreed w/resident/PA/LAB SUPPORT TECH, reviewed EMR data (avail) Attending Assessment/Plan: 76F PMH PVD s/p angioplasty with stent, HTN, CAD s/p CABG, CKD stage 4, uterine and colon cancer admitted with intractable nausea and vomiting secondary to acute gastroenteritis leading to pre-renal azotemia/ALVIN, with recently found multiple liver masses suspicious for metastases, underwent paracentesis and liver mass biopsy on 04/17 without complication. Slowly improving. Feels fatigued and weak. 1. Pre-renal azotemia/ALVIN secondary to dehydration 2. Acute gastroenteritis 3. Liver metastases 4. Hypokalemia 5. Hyponatremia (resolved) 6. CKD stage 4 secondary to hypertensive nephrosclerosis Plan - Continue on general medicine - Psychiatry consult for depression - Monitor renal function - Follow GI and nephrology recommendations - PT evaluation for discharge planning - DVT PPx
[2017-04-18 06:54] VITALS: BP 140/80
[2017-04-18 09:10] LABS: ABSOLUTE BASOPHIL COUNT 0 /CUMM (0.0-0.2); ABSOLUTE EOSINOPHIL COUNT 0 /CUMM (0.0-0.7); ABSOLUTE GRANULOCYTE CT 9.7 /CUMM (1.4-6.5); ABSOLUTE LYMPH COUNT 0.5 /CUMM (1.2-3.4); ABSOLUTE MONOCYTE COUNT 0.4 /CUMM (0.10-0.60); BASOPHIL % 0 % (0.0-2.0); EOSINOPHIL % 0.1 % (0-5); GRANULOCYTE % 90.7 % (42.2-75.2); MEAN CORPUSCULAR HGB 29.8 PG (27.0-31.0); MEAN CORPUSCULAR HGB CONC 34.1 G/DL (33.0-37.0); MEAN CORPUSCULAR VOLUME 87.5 FL (81.0-99.0); MEAN PLATELET VOLUME 7.9 FL (7.4-10.4); RBC DISTRIBUTION WIDTH 14.1 % (11.5-14.5); RED BLOOD CELL CT 3.54 /CUMM (4.20-5.40); WHITE BLOOD CELL COUNT 10.6 /CUMM (4.8-10.8)
[2017-04-18 09:27] LABS: PLATELET COUNT 99 /CUMM (130-400)
[2017-04-18 15:01] VITALS: BP 128/56
--- NOTE | 2017-04-18 16:10 | Discharge Summary ---
Visit Information Visit Dates Admission Date: 04/11/17 Discharge Date: 04/19/17 Hospital Course Course Attending Physician: Josephine Allen MD Primary Care Physician: Darvin NAGEL,Charly Thomson Hospital Course: Patient is a 76-year-old female with a PMH significant for CKD stage IV, CAD status post CABG, PVD status post angioplasty with stent, HTN, uterine and colon cancer, liver lesions that could be either primary or metastatic (work-up ongoing), who presented to [facility] from rehabilitation due to worsening poor by mouth intake, nausea and vomiting, worsening ascites and worsening renal function. #ALVIN on CKD stage 3 Now resolved. Likely prerenal azotemia due to poor PO intake, third spacing and vomiting. Creatinine is back to baseline. Patient was evaluated by nephrology and given IV albumin infusions and IV fluids to replete and maintain her intravascular volume. CKD thought to be due to hypertensive nephrosclerosis. Creatinine remains stable on discharge. #Liver masses with ascites Unclear if liver is the primary of this is metastasis from somewhere else. Patient had an US guided liver biopsy on 04/17/17 without complication. She had an US guided diagnostic paracentesis on 04/12/17 with cytology showing and a theraputic paracentesis at which time 8100 mL of clear straw-colored fluid was aspirated. SBP was ruled out. Liver Biopsy results pending, please follow up. #Chronic normocytic anemia Likely from CKD. She recieved a unit of blood transfusion for a drop in H&H which has now stabilized. Monitor CBC. Patient may require EPO injections in future. #UTI Urine culture positive for Klebsiella pneumonia. Treated with IV ceftriaxone x 5 days. #chronic pressure ulcer Wound care consult was placed. Treat with DuoDERM and offloading. #Protein calorie malnutrition Patient is on a 2g sodium restricted regular diet. Allergies: Coded Allergies: Sulfa (Sulfonamide Antibiotics) (Severe, HIVES 12/27/15) Significant Procedures: US guided Paracentesis on 04/12/[id number] US guided Paracentesis on 04/17/[id number] US guided liver biopsy Pertinent Lab Results: Laboratory Tests 04/18/17 0852: Anion Gap 7, Estimated GFR 54 L, BUN/Creatinine Ratio 38.0 H, Total Bilirubin 0.7, Direct Bilirubin 0.7 H, AST 13 L, ALT 23, Alkaline Phosphatase 169 H, Total Protein 4.2 L, Albumin 2.3 L, CBC w Diff NO MAN DIFF REQ, RBC 3.54 L, MCV 87.5, MCH 29.8, MCHC 34.1, RDW 14.1, MPV 7.9, Gran % 90.7 H, Lymphocytes % 5.1 L, Monocytes % 4.1, Eosinophils % 0.1, Basophils % 0, Absolute Granulocytes 9.7 H, Absolute Lymphocytes 0.5 L, Absolute Monocytes 0.4, Absolute Eosinophils 0, Absolute Basophils 0 04/17/17 0925: Anion Gap 10, Estimated GFR 44 L, BUN/Creatinine Ratio 35.8 H, PT 12.9 H, INR 1.18, CBC w Diff MAN DIFF ORDERED, RBC 3.56 L, MCV 89.4, MCH 29.9, MCHC 33.4, RDW 14.6 H, MPV 7.5, Gran % 89.4 H, Lymphocytes % 5.2 L, Monocytes % 5.0, Eosinophils % 0.1, Basophils % 0.3, Absolute Granulocytes 11.0 H, Absolute Lymphocytes 0.6 L, Absolute Monocytes 0.6, Absolute Eosinophils 0, Absolute Basophils 0, Platelet Estimate ADEQUATE, Poikilocytosis 1+, Anisocytosis 1+ 04/16/17 1110: Anion Gap 13, Estimated GFR 40 L, BUN/Creatinine Ratio 33.8 H, PT 13.8 H, INR 1.26 H, CBC w Diff MAN DIFF ORDERED, RBC 2.30 L, MCV 88.8, MCH 30.0, MCHC 33.8 , RDW 14.6 H, MPV 7.3 L, Gran % 87.6 H, Lymphocytes % 7.5 L, Monocytes % 4.8 , Eosinophils % 0, Basophils % 0.1, Absolute Granulocytes 7.8 H, Absolute Lymphocytes 0.7 L, Absolute Monocytes 0.4, Absolute Eosinophils 0, Absolute Basophils 0, Platelet Estimate VERIFIED BY SMEAR, Polychromasia 1+, Poikilocytosis 1+, Anisocytosis 1+, Ovalocytes 1+, [place] Cells 1+, Schistocytes Disposition Summary Disposition Principal Diagnosis: #ALVIN on CKD stage 3 Additional Diagnosis: #Liver masses with ascites #Chronic normocytic anemia #UTI #chronic pressure ulcer #Protein calorie malnutrition Discharge Disposition: STR Discharge Instructions General Discharge Information Code Status: Full Code Patient's Diet: 2gm sodium restricted regular diet Patient's Activity: As tolerated Follow-Up Instructions/Appts: Please follow up with your PCP in 1 week. Medications at Discharge Discharge Medications: Stop taking the following medications: Cilostazol (Cilostazol) 50 MG TABLET ORAL TWICE DAILY Clonidine (Catapres) 0.2 MG TABLET ORAL TWICE DAILY Atorvastatin Calcium (Lipitor) 20 MG TABLET ORAL DAILY Isosorbide Mononitrate (Isosorbide Mononitrate ER) 60 MG TAB.ER.24H ORAL DAILY Aspirin (Children's Aspirin) 81 MG TAB.CHEW ORAL DAILY Omeprazole (Omeprazole) 40 MG CAPSULE.DR ORAL DAILY Qty = 30 Amlodipine Besylate (Norvasc) 10 MG TABLET ORAL DAILY Days = 30 Metoprolol Succinate (Metoprolol Succinate) 50 MG TAB.ER.24H ORAL DAILY Days = 30 Hydralazine HCl (Hydralazine HCl) 50 MG TABLET ORAL THREE TIMES DAILY Qty = 90 Cholecalciferol (Vitamin D3) (Vitamin D-3) 2,000 UNIT CAPSULE ORAL DAILY Qty = 1 Continue taking these medications: Cholecalciferol (Vitamin D3) (Vitamin D3) 2,000 UNIT CAPSULE 1 Capsule ORAL TWICE DAILY Comments: PER PT Higginson-3 Fatty Acids/Fish Oil (Fish Oil 1,000 MG Capsule) 340 MG-1,000 MG CAPSULE 2 Capsule ORAL DAILY Comments: NOT GIVEN IN HOSPITAL Polyethylene Glycol 3350 (Miralax) 17 GRAM/DOSE POWDER 17 Gram ORAL TWICE DAILY Qty = 30 Ondansetron HCl (Zofran) 4 MG TABLET 1 Tablet ORAL THREE TIMES DAILY Qty = 30 Guaifenesin/Dextromethorphan (Robitussin Cough-Chest Dm Liq) 100 MG-5 MG/5 ML LIQUID 10 Milliliters ORAL Every 4 hours as needed for COUGH Qty = 1 Albuterol Sulfate (Albuterol Sulfate) 0.63 MG/3 ML VIAL.NEB 1 Vial Inhale Solution 4 TIMES A DAY as needed for COPD Qty = 1 Clonidine HCl (Clonidine HCl) 0.3 MG TABLET 1 Tablet ORAL EVERY 12 HOURS Qty = 30 Amlodipine Besylate (Amlodipine Besylate) 10 MG TABLET 1 Tablet ORAL DAILY Qty = 30 Isosorbide Mononitrate (Isosorbide Mononitrate ER) 60 MG TAB.ER.24H 1 Tablet ORAL DAILY Qty = 30 Instructions: HOLD FOR SBP<100MMGH Omeprazole (Omeprazole) 40 MG CAPSULE.DR 1 Capsule ORAL DAILY Qty = 30 Metoprolol Tartrate (Lopressor) 50 MG TABLET 1 Tablet ORAL DAILY Qty = 30 Aspirin (Aspirin*) 81 MG TAB.CHEW 1 Tablet ORAL DAILY Qty = 30 Hydralazine HCl (Hydralazine HCl) 25 MG TABLET 3 Tablet ORAL THREE TIMES DAILY Qty = 30 Oxycodone HCl (Oxycodone HCl) 5 MG TABLET 1 Tablet ORAL EVERY 8 HOURS NEEDED Qty = 30 Tramadol HCl (Tramadol HCl) 50 MG TABLET 1 Tablet ORAL DAILY Qty = 30 Copies To: Darvin NAGEL,Charly Thomson
--- NOTE | 2017-04-18 20:51 | Patient Discharge Instructions ---
Discharge Instructions General Discharge Information You were seen/treated for: Ascites Liver masses UTI Special Instructions: Follow-up with Dr. Coleman within 2 weeks for the results of your biopsy. Diet Recommended Diet: Heart Healthy Acute Coronary Syndrome Inclusion Criteria At DC or during hospital stay patient has or had the following: ACS DIAGNOSIS No Discharge Core Measures Meds if any: Prescribed or Continued at Discharge Meds if any: NOT Prescribed or Continued at Discharge Congestive Heart Failure Inclusion Criteria At DC or during hospital stay patient has or had the following: CHF DIAGNOSIS No Discharge Core Measures Meds if any: Prescribed or Continued at Discharge Meds if any: NOT Prescribed or Continued at Discharge Cerebrovascular accident Inclusion Criteria At DC or during hospital stay patient has or had the following: CVA/TIA Diagnosis No Discharge Core Measures Meds if any: Prescribed or Continued at Discharge Meds if any: NOT Prescribed or Continued at Discharge Venous thromboembolism Inclusion Criteria VTE Diagnosis No VTE Type NONE VTE Confirmed by (Test) NONE Discharge Core Measures - Per Current guidelines, there needs to be overlap - treatment for the first 5 days of Warfarin therapy. - If discharged on Warfarin prior to 5 days of - overlap therapy, the patient will need to be - assessed for post discharge needs including - *Post discharge parental anticoagulation - *Warfarin and/or parental anticoagulation education - *Follow up date to check INR post discharge At least 5 days overlap therapy as Inpatient No Meds if any: Prescribed or Continued at Discharge Note: Overlap Therapy is Warfarin and Anticoagulant Meds if any: NOT Prescribed or Continued at Discharge
[2017-04-18 22:40] VITALS: BP 153/72
[2017-04-19 06:53] VITALS: BP 144/64
--- NOTE | 2017-04-19 07:06 | PN- Housestaff ---
Ruben NAGEL,Ramon 04/19/17 0706: Subjective Follow-up For: liver masses suspected HCC or liver mets anemia Subjective: Patient was seen and examined at bedside. She was resting comfortably. She had no acute events overnight. Her nausea has returned and she is complaining of generalized malaise. She continues to refuse medications at times and has not been eating or drinking well. Today when asked about her mood she reported that she is feeling down. Review of Systems Constitutional: Reports: malaise. EENTM: Reports: no symptoms. Cardiovascular: Reports: no symptoms. Respiratory: Reports: no symptoms. Gastrointestinal: Reports: nausea. Genitourinary: Reports: no symptoms. Musculoskeletal: Reports: no symptoms. Skin: Reports: no symptoms. Objective Last 24 Hrs of Vital Signs/I&O Vital Signs Date Time Temp Pulse Resp B/P B/P Pulse O2 O2 Flow FiO2 Mean Ox Delivery Rate 04/19 0653 98.5 63 20 144/64 95 Nasal 2.0L Cannula 04/18 2240 97.8 67 153/72 98 Nasal Cannula 04/18 2220 68 150/70 04/18 2219 68 150/70 04/18 1552 Nasal 1.0L Cannula 04/18 1501 97.7 63 20 128/56 95 04/18 1022 68 150/60 04/18 1021 68 150/60 04/18 1021 68 150/60 04/18 1020 68 150/60 04/18 1020 68 150/62 04/18 0937 94 Nasal 2.0L Cannula 04/18 0800 98 Nasal 1.0L Cannula Intake & Output 04/19 0800 04/19 0000 04/18 1600 Intake Total 1000 400 Output Total Balance 1000 400 Intake, IV 600 Intake, Oral 400 400 Physical Exam General Appearance: Alert, Oriented X3, Cooperative, No Acute Distress, cachectic Skin Temp/Moisture Exam: Warm/Dry Cardiovascular: Regular Rate, Normal S1, Normal S2 Lungs: Clear to Auscultation, Normal Air Movement Abdomen: improved distension after paracentesis; difuse, mild TTP Neurological: Normal Speech, Sensation Intact Extremities: No Clubbing, No Cyanosis, No Edema Current Medications: Current Medications Sig/Jose Start time Last Medication Dose Route Stop Time Status Admin Albuterol Sulfate 3 ML Q4P PRN 04/15 2145 DC INH Albuterol Sulfate 3 ML Q4H PRN 04/12 0200 AC INH Amlodipine Besylate 10 MG DAILY 04/12 1000 AC 04/18 PO 1020 Ceftriaxone Sodium 1,000 MG Q24H 04/14 1600 DC 04/18 IV 1548 Cholecalciferol 1,000 IU BID 04/12 1000 AC 04/18 PO 1019 Clonidine 0.3 MG Q12 04/12 1000 AC 04/18 PO 2219 Dextrose/Sodium 1,000 ML Q13H 04/16 1030 AC 04/19 Chloride IV 0520 Docusate Sodium 100 MG BID 04/17 2341 AC 04/18 PO 1021 Glycerin 2 SPRAY Q2P PRN 04/16 1915 AC 04/17 PO 0457 Guaifenesin 10 ML Q6P PRN 04/12 0200 AC PO Heparin Sodium 5,000 UNIT Q8 04/12 2200 AC 04/17 (Porcine) SC 1730 Hydralazine HCl 100 MG BID 04/14 2200 AC 04/18 PO 2220 Isosorbide 60 MG DAILY 04/12 1000 AC 04/18 Mononitrate PO 1022 Melatonin 3 MG AT BEDTIME 04/18 2200 AC 04/18 PO 2221 Metoprolol Tartrate 50 MG DAILY 04/12 1000 AC 04/18 PO 1021 Omeprazole 40 MG DAILY AC 04/12 0700 AC 04/18 PO 0540 Ondansetron HCl 4 MG Q6P PRN 04/15 1045 AC 04/15 IV 1600 Oxycodone HCl 5 MG Q8P PRN 04/19 0615 AC PO Oxycodone HCl 5 MG Q8P PRN 04/12 0200 DC 04/18 PO 2228 Polyethylene Glycol 17 GM BID 04/12 1000 AC 04/18 PO 1022 Senna 187 MG AT BEDTIME 04/17 2345 AC 04/18 PO 0109 Tramadol HCl 50 MG DAILY 04/12 1000 AC 04/18 PO 1021 Last 24 Hrs of Lab/Jere Results Last 24 Hrs of Labs/Mics: Laboratory Tests 04/18/17 0852: Anion Gap 7, Estimated GFR 54 L, BUN/Creatinine Ratio 38.0 H, Total Bilirubin 0.7, Direct Bilirubin 0.7 H, AST 13 L, ALT 23, Alkaline Phosphatase 169 H, Total Protein 4.2 L, Albumin 2.3 L, CBC w Diff NO MAN DIFF REQ, RBC 3.54 L, MCV 87.5, MCH 29.8, MCHC 34.1, RDW 14.1, MPV 7.9, Gran % 90.7 H, Lymphocytes % 5.1 L, Monocytes % 4.1, Eosinophils % 0.1, Basophils % 0, Absolute Granulocytes 9.7 H, Absolute Lymphocytes 0.5 L, Absolute Monocytes 0.4, Absolute Eosinophils 0, Absolute Basophils 0 Assessment/Plan Assessment: Patient is a 76-year-old female with a PMH significant for CKD stage IV, CAD status post CABG, PVD status post angioplasty with stent, HTN, uterine and colon cancer, liver lesions either primary or metastatic cancer, who presented to [facility] from rehabilitation due to worsening poor by mouth intake, nausea and vomiting, worsening ascites and worsening renal function. #ALVIN resolved Likely prerenal azotemia, ALVIN has resolved, creatinine is back to baseline -Continue to monitor BEP - post void bladder scan read 39 ml #anemia H/H has been stable - follow up stool guaiac, patient has been constipated so no sample has been given #UTI Urine culture positive for Klebsiella pneumonia -continue to watch off of antibiotics #Worsening ascites Patient with a large volume tap with bladder biopsy 04/17/17. She tolerated the procedure well. Albumin was replaced -Follow-up liver biopsy results #chronic pressure ulcer Wound care consult was placed. Recommendations appreciated -Treat with DuoDERM and offloading #Protein calorie malnutrition Nutrition consult was placed. -Will follow up nutrition recommendations, for now patient is on sodium restricted diet #Fatigue and possible depresion Patient was questioned about her hypersomnolence, fatigue and perceives depressed mood. She stated that she has a lack of energy but does not feel that she is an anhedonic. -patient consented to a psych eval today. -will follow up recommendations Diet: Heary healthy diet DVT prophylaxis:SC heparin, ALPS Code status: full code Problem List: 1. Pressure ulcer 2. Mass of multiple sites of liver Pain Ratin Pain Location: none Pain Goal: Remain pain free Pain Plan: pain pathway Tomorrow's Labs & Rationales: cbc, bep Josephine Allen MD 04/19/17 1359: Attending MD Review Statement Attending Statement Attending MD Statement: examined this patient, discuss w/resident/PA/WORKDAY FINANCIALS CONSULTANT, agreed w/resident/PA/WORKDAY FINANCIALS CONSULTANT, reviewed EMR data (avail) Attending Assessment/Plan: 76F PMH PVD s/p angioplasty with stent, HTN, CAD s/p CABG, CKD stage 4, uterine and colon cancer admitted with intractable nausea and vomiting secondary to acute gastroenteritis leading to pre-renal azotemia/ALVIN, with recently found multiple liver masses suspicious for metastases, underwent paracentesis and liver mass biopsy on 04/17 without complication. Slowly improving. Feels fatigued and weak. 1. Pre-renal azotemia/ALVIN secondary to dehydration 2. Acute gastroenteritis 3. Liver metastases 4. Hypokalemia 5. Hyponatremia (resolved) 6. CKD stage 4 secondary to hypertensive nephrosclerosis Plan - Continue on general medicine - Psychiatry consult for depression - Monitor renal function - Follow GI and nephrology recommendations - PT evaluation for discharge planning - DVT PPx
[2017-04-19 15:09] VITALS: BP 148/76
[2017-04-19 15:40] LABS: ABSOLUTE BASOPHIL COUNT 0 /CUMM (0.0-0.2); ABSOLUTE EOSINOPHIL COUNT 0 /CUMM (0.0-0.7); ABSOLUTE GRANULOCYTE CT 10.9 /CUMM (1.4-6.5); ABSOLUTE LYMPH COUNT 0.7 /CUMM (1.2-3.4); ABSOLUTE MONOCYTE COUNT 0.4 /CUMM (0.10-0.60); BASOPHIL % 0.1 % (0.0-2.0); EOSINOPHIL % 0.1 % (0-5); GRANULOCYTE % 90.8 % (42.2-75.2); HEMATOCRIT 29.8 % (37-47); MEAN CORPUSCULAR HGB 29.9 PG (27.0-31.0); MEAN CORPUSCULAR HGB CONC 34.2 G/DL (33.0-37.0); MEAN CORPUSCULAR VOLUME 87.4 FL (81.0-99.0); MEAN PLATELET VOLUME 8.8 FL (7.4-10.4); PLATELET COUNT 69 /CUMM (130-400); RBC DISTRIBUTION WIDTH 14.3 % (11.5-14.5); RED BLOOD CELL CT 3.41 /CUMM (4.20-5.40)
[2017-04-19 22:44] VITALS: BP 104/60
[2017-04-20 07:00] VITALS: BP 152/60
--- NOTE | 2017-04-20 07:24 | PN- Housestaff ---
Ruben NAGEL,Ramon 04/20/17 0723: Subjective Follow-up For: liver masses suspected HCC or liver mets anemia depression Subjective: Patient was seen and examined at bedside. She was resting comfortably. She had no acute events overnight. She continues to have a depressed mood, but is willing to talk to psychiatrist today. She is continuing to refuse some medications and physical therapy. She is nauseous and is requesting something to improve her appetite. She has no other complaints. Review of Systems Constitutional: Reports: no symptoms. EENTM: Reports: no symptoms. Cardiovascular: Reports: no symptoms. Respiratory: Reports: no symptoms. Gastrointestinal: Denies: nausea, vomiting. Genitourinary: Reports: no symptoms. Musculoskeletal: Reports: no symptoms. Skin: Reports: no symptoms. Objective Last 24 Hrs of Vital Signs/I&O Vital Signs Date Time Temp Pulse Resp B/P B/P Pulse O2 O2 Flow FiO2 Mean Ox Delivery Rate 04/20 0700 97.8 66 20 152/60 93 Nasal 1.0L Cannula 04/20 0000 96 Nasal 1.0L Cannula 04/19 2244 98.1 68 20 104/60 96 Nasal Cannula 04/19 2102 68 148/76 04/19 2102 68 148/76 04/19 1509 97.5 68 18 148/76 96 04/19 1212 98.5 63 20 144/64 04/19 1212 98.5 63 20 144/64 04/19 1212 98.5 63 20 144/64 04/19 1212 98.5 63 144/64 04/19 1211 98.5 63 20 144/64 04/19 0800 Nasal 1.0L Cannula Intake & Output 04/20 0800 04/20 0000 04/19 1600 Intake Total 995 242 0400 Output Total Balance 786 611 7917 Intake, IV 600 700 Intake, Oral 120 240 420 Physical Exam General Appearance: Alert, Oriented X3, Cooperative, No Acute Distress Skin: pressure ulcer on the sacrum is decreased in size, approximately 0.3 x 0.3 with signs of new skin growth on the periphery Skin Temp/Moisture Exam: Warm/Dry Cardiovascular: Regular Rate, Normal S1, Normal S2, systolic murmur Lungs: Clear to Auscultation, Normal Air Movement Abdomen: distension resolved, diffuse mild TTP Neurological: Normal Speech, Sensation Intact Extremities: dependent edema of the R hand and R foot Current Medications: Current Medications Sig/Jose Start time Last Medication Dose Route Stop Time Status Admin Albuterol Sulfate 3 ML Q4H PRN 04/12 0200 AC INH Amlodipine Besylate 10 MG DAILY 04/12 1000 AC 04/19 PO 1212 Cholecalciferol 1,000 IU BID 04/12 1000 AC 04/19 PO 2102 Clonidine 0.3 MG Q12 04/12 1000 AC 04/19 PO 2102 Dextrose/Sodium 1,000 ML ONCE ONE 04/19 191 AC 04/19 Chloride IV 04/20 0834 1947 Dextrose/Sodium 1,000 ML Q13H 04/16 1030 DC 04/19 Chloride IV 0520 Docusate Sodium 100 MG BID 04/17 2341 AC 04/18 PO 1021 Glycerin 2 SPRAY Q2P PRN 04/16 191 AC 04/17 PO 0457 Guaifenesin 10 ML Q6P PRN 04/12 0200 AC PO Heparin Sodium 5,000 UNIT Q8 04/12 2200 AC 04/17 (Porcine) SC 1730 Hydralazine HCl 100 MG BID 04/14 2200 AC 04/19 PO 2102 Isosorbide 60 MG DAILY 04/12 1000 AC 04/19 Mononitrate PO 1212 Melatonin 3 MG AT BEDTIME 04/18 2200 AC 04/19 PO 2102 Metoprolol Tartrate 50 MG DAILY 04/12 1000 AC 04/19 PO 1212 Omeprazole 40 MG DAILY AC 04/12 0700 AC 04/20 PO 0622 Ondansetron HCl 4 MG .STK-MED ONE 04/19 1948 DC IM 04/19 1950 Ondansetron HCl 4 MG Q6P PRN 04/15 1045 AC 04/19 IV 1949 Oxycodone HCl 5 MG Q8P PRN 04/19 0615 AC 04/19 PO 2102 Polyethylene Glycol 17 GM BID 04/12 1000 AC 04/18 PO 1022 Potassium Chloride 40 MEQ ONCE ONE 04/19 191 DC 04/19 PO 04/19 191 1949 Senna 187 MG AT BEDTIME 04/17 2345 AC 04/18 PO 0109 Tramadol HCl 50 MG DAILY 04/12 1000 AC 04/19 PO 1215 Last 24 Hrs of Lab/Jere Results Last 24 Hrs of Labs/Mics: Laboratory Tests 04/19/17 1445: RBC 3.41 L, MCV 87.4, MCH 29.9, MCHC 34.2, RDW 14.3, MPV 8.8, Gran % 90.8 H, Lymphocytes % 5.4 L, Monocytes % 3.6, Eosinophils % 0.1, Basophils % 0.1, Absolute Granulocytes 10.9 H, Absolute Lymphocytes 0.7 L, Absolute Monocytes 0.4, Absolute Eosinophils 0, Absolute Basophils 0 04/19/17 1215: Anion Gap 10, Estimated GFR > 60, BUN/Creatinine Ratio 42.5 H Assessment/Plan Assessment: Patient is a 76-year-old female with a PMH significant for CKD stage IV, CAD status post CABG, PVD status post angioplasty with stent, HTN, uterine and colon cancer, liver lesions either primary or metastatic cancer, who presented to [facility] from rehabilitation due to worsening poor by mouth intake, nausea and vomiting, worsening ascites and worsening renal function. #ALVIN resolved Likely prerenal azotemia, ALVIN has resolved, creatinine is back to baseline -Continue to monitor BEP - post void bladder scan read 39 ml #anemia H/H has been stable - follow up stool guaiac, patient has been constipated so no sample has been given #Worsening ascites Patient with a large volume tap with liver biopsy 04/17/17. She tolerated the procedure well. Albumin was replaced -Follow-up liver biopsy results #chronic pressure ulcer This appears improved today, ulceration is still present with smaller in size with signs of new skin growth around the periphery -Treat with DuoDERM and offloading #Mild hyponatremia Patient started on maintenance IV normal saline #mild Protein calorie malnutrition Nutrition consult was placed. -Will follow up nutrition recommendations, for now patient is on sodium restricted diet -We'll start Remeron which will both help with sleep and possibly stimulate appetite. #Fatigue and possible depresion Psychiatry list the patient is significantly depressed, with patient's hepatic pathology and CKD medicating will be difficult. -Start Lexapro 5 mg daily, will titrate up the possible -Encourage out of bed with physical therapy, however patient has been refusing treatment of this at this time Diet: Heary healthy diet DVT prophylaxis:SC heparin, ALPS Code status: full code Problem List: 1. Pressure ulcer Pain Ratin Pain Location: none Pain Goal: Remain pain free Pain Plan: none Tomorrow's Labs & Rationales: cbc, bep Alejandro NAGEL,Josephine 04/20/17 1108: Attending MD Review Statement Attending Statement Attending MD Statement: examined this patient, discuss w/resident/PA/DRUG ABUSE PROGRAM COORDINATOR, agreed w/resident/PA/DRUG ABUSE PROGRAM COORDINATOR, reviewed EMR data (avail) Attending Assessment/Plan: 76F PMH PVD s/p angioplasty with stent, HTN, CAD s/p CABG, CKD stage 4, uterine and colon cancer admitted with intractable nausea and vomiting secondary to acute gastroenteritis leading to pre-renal azotemia/ALVIN, with recently found multiple liver masses suspicious for metastases, underwent paracentesis and liver mass biopsy on 04/17 without complication. Slowly improving. Feels fatigued and weak. 1. Pre-renal azotemia/ALVIN secondary to dehydration 2. Acute gastroenteritis 3. Liver metastases 4. Hypokalemia 5. Hyponatremia (resolved) 6. CKD stage 4 secondary to hypertensive nephrosclerosis Plan - Continue on general medicine - Psychiatry consult for depression - Monitor renal function - Follow GI and nephrology recommendations - PT evaluation for discharge planning - DVT PPx
--- NOTE | 2017-04-20 10:09 | Cons- Psychiatry ---
Psychiatric Consult Date of Consult: 04/20/17 Allergies: Coded Allergies: Sulfa (Sulfonamide Antibiotics) (Severe, HIVES 12/27/15) Past History Past Medical History Neurological: CVA (? L CVA w/o residual) EENT: NONE Cardiovascular: CAD, hypertension, hyperlipidemia, PVD Respiratory: NONE Gastrointestinal: colon cancer Hepatic: NONE Renal: chronic kidney disease (stage IV) Musculoskeletal: chronic back pain, degen joint disease, falls, gout Psychiatric: NONE Endocrine: thyroid disease Blood Disorders: anemia Cancer(s): basal cell carcinoma, colon/rectal cancer, endometrial cancer SENIOR ARCHITECT/DESIGN MANAGER/Reproductive: NONE Past Surgical History Surgical History: CABG, hysterectomy, PARTIAL SIGMOIDECTOMY BACK SURGERY CAROTIDECTOMY LE STENT PLACEMENT Assessment/Plan Impression: Pt seen and examined bedside. She is a 76 her old female PMH CKD IV, CAD s/p Triple vessel CABG, colon cancer, PVD s/p carotid endarectomy, HTN, HPL, chronic back pain who was BIBA from [facility], [place] re: ascites, imapaired renal fxn, poor appetite. Recent CT scan from recent admit showed liver masses enlarged from previous scan concerning for malignancy. CEA positive. Also multiple renal cysts. Pt sent by Dr. Johnson for evaluation. Recent WL 15 lbs. Won't get out of bed. Consult called for ?depression. Presently, pt is in bed eyes closed with lights off. She does not want to talk and is irritable. Nurse comes to admin meds she refuses. She is minimally engaged with interview and wont answer most questions. Somatically preoccupied. Extreme nausea and pain causing her discomfort. She does endorse poor spirits 2/2 to "there seems to be no answer to this mess." States she does take medications eventually. Gave psychoeducation about depression being an illness that could cause her to be down and irriatble wo motivation to do anything. Agrees. She is amenable to SSRI. Discussed R/B/ SEs. No SI HI AH VH. PPHx: No inpatient hospitalizations. No suicide attempts. No prior treatment although she states I dont know everything was so long ago. Cant remember SH States she is usually social and has several friends who support her. Was 30 years ago. 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 Has 1 son, decent relationship. MSE Elderly F in bed sleeping in dark room, cachectic, disheveled, irritable. Mood down Affect depressed TP linear TC aches and pains Speech clear Psychomotor retardation I/J very somatic, not psychologically minded but amenable to treatment for her mood Current Medications Sig/Jose Start time Last Medication Dose Route Stop Time Status Admin Albuterol Sulfate 3 ML Q4H PRN 04/12 0200 AC INH Alprazolam 0.5 MG .STK-MED ONE 04/20 0056 DC PO 04/20 0057 Amlodipine Besylate 10 MG DAILY 04/12 1000 AC 04/19 PO 1212 Cholecalciferol 1,000 IU BID 04/12 1000 AC 04/19 PO 2102 Clonidine 0.3 MG Q12 04/12 1000 AC 04/19 PO 210 Dextrose/Sodium 1,000 ML ONCE ONE 04/19 1914 DC 04/19 Chloride IV 04/20 0834 1947 Dextrose/Sodium 1,000 ML Q13H 04/16 1030 DC 04/19 Chloride IV 0520 Docusate Sodium 100 MG BID 04/17 2341 AC 04/18 PO 1021 Glycerin 2 SPRAY Q2P PRN 04/16 191 AC 04/17 PO 0457 Guaifenesin 10 ML Q6P PRN 04/12 0200 AC PO Heparin Sodium 5,000 UNIT Q8 04/12 2200 AC 04/17 (Porcine) SC 1730 Hydralazine HCl 100 MG BID 04/14 2200 AC 04/19 PO 2102 Isosorbide 60 MG DAILY 04/12 1000 AC 04/19 Mononitrate PO 1212 Melatonin 3 MG AT BEDTIME 04/18 2200 AC 04/19 PO 210 Metoprolol Tartrate 50 MG DAILY 04/12 1000 AC 04/19 PO 1212 Omeprazole 40 MG DAILY AC 04/12 0700 AC 04/20 PO 0622 Ondansetron HCl 4 MG .STK-MED ONE 04/19 194 DC IM 04/19 1950 Ondansetron HCl 4 MG Q6P PRN 04/15 1045 AC 04/19 IV 1949 Oxycodone HCl 5 MG Q8P PRN 04/19 0615 AC 04/19 PO 210 Polyethylene Glycol 17 GM BID 04/12 1000 AC 04/18 PO 1022 Potassium Chloride 40 MEQ ONCE ONE 04/19 1914 DC 04/19 PO 04/19 191 1949 Senna 187 MG AT BEDTIME 04/17 2345 AC 04/18 PO 0109 Tramadol HCl 50 MG DAILY 04/12 1000 AC 04/19 PO 1215 Laboratory Tests 04/20 04/19 04/19 0933 8375 1215 Chemistry Sodium (137 - 145 mmol/L) Pending 131 L Potassium (3.5 - 5.1 mmol/L) Pending 3.4 L Chloride (98 - 107 mmol/L) Pending 103 Carbon Dioxide (22 - 30 mmol/L) Pending 18 L Anion Gap (5 - 16) Pending 10 BUN (7 - 17 mg/dL) Pending 34 H Creatinine (0.5 - 1.0 mg/dL) Pending 0.8 Estimated GFR (>60 ml/min) > 60 BUN/Creatinine Ratio (7 - 25 %) Pending 42.5 H Hematology CBC w Diff Pending WBC (4.8 - 10.8 /CUMM) Pending 12.0 H RBC (4.20 - 5.40 /CUMM) Pending 3.41 L Hgb (12.0 - 16.0 G/DL) Pending 10.2 L Hct (37 - 47 %) Pending 29.8 L MCV (81.0 - 99.0 FL) Pending 87.4 MCH (27.0 - 31.0 PG) Pending 29.9 MCHC (33.0 - 37.0 G/DL) Pending 34.2 RDW (11.5 - 14.5 %) Pending 14.3 Plt Count (130 - 400 /CUMM) Pending 69 L MPV (7.4 - 10.4 FL) Pending 8.8 Gran % (42.2 - 75.2 %) 90.8 H Lymphocytes % (20.5 - 51.1 %) 5.4 L Monocytes % (1.7 - 9.3 %) 3.6 Eosinophils % (0 - 5 %) 0.1 Basophils % (0.0 - 2.0 %) 0.1 Absolute Granulocytes (1.4 - 6.5 /CUMM) 10.9 H Absolute Lymphocytes (1.2 - 3.4 /CUMM) 0.7 L Absolute Monocytes (0.10 - 0.60 /CUMM) 0.4 Absolute Eosinophils (0.0 - 0.7 /CUMM) 0 Absolute Basophils (0.0 - 0.2 /CUMM) 0 A/ 76 y/o F with MMP, probable malignancy in liver, ESRD who presents with depression in context of probable terminal illness. Exam limited by her irritable resistance but she is clear she is not herself and would like treatment. Counseled to take her meds reularly and states she will try. P/ -Pt probably not taking meds 2/2 irritability and extreme amotivation due to depression. States she will try to comply -Metoprolol can occasionally cause depressive sx; at your discretion to change to alternative antihypertensive -Avoid benzos and anticholinergics; could precipiate delirium in someone this fragile. Can use trazodone 12.5 mg prn anxiety/agitation if QTc WNL. -Would start lexapro 5 mg qDaily with food; hepatically cleared but this is low dose; can raise to 10 mg after 2 days if she tolerates -Vit D, folate, B12, lyme titer, iron, TSH -Try to encourage her to get daylight Thank you for this consult. Page #[phone] with any questions. Lorraine COOK
[2017-04-20 10:12] LABS: ABSOLUTE BASOPHIL COUNT 0 /CUMM (0.0-0.2); ABSOLUTE EOSINOPHIL COUNT 0 /CUMM (0.0-0.7); ABSOLUTE GRANULOCYTE CT 10.6 /CUMM (1.4-6.5); ABSOLUTE LYMPH COUNT 0.8 /CUMM (1.2-3.4); ABSOLUTE MONOCYTE COUNT 0.5 /CUMM (0.10-0.60); BASOPHIL % 0 % (0.0-2.0); EOSINOPHIL % 0.1 % (0-5); HEMATOCRIT 31.5 % (37-47); MEAN CORPUSCULAR HGB 30.2 PG (27.0-31.0); MEAN CORPUSCULAR HGB CONC 34.3 G/DL (33.0-37.0); MEAN CORPUSCULAR VOLUME 88.1 FL (81.0-99.0); MEAN PLATELET VOLUME 8.4 FL (7.4-10.4); RBC DISTRIBUTION WIDTH 14.8 % (11.5-14.5); RED BLOOD CELL CT 3.58 /CUMM (4.20-5.40)
[2017-04-20 10:53] LABS: GRANULOCYTE % 88.4 % (42.2-75.2); PLATELET COUNT 83 /CUMM (130-400)
--- NOTE | 2017-04-20 13:43 | Incdntl Nt Psy ---
Incidental Note Notation: Would leave her at 5 mg and have psych/PCP reassess her in 6 weeks to possibly raise dose at their discretion depending on her clinical status. JOYCE
[2017-04-20 14:03] VITALS: BP 150/75
--- NOTE | 2017-04-20 21:09 | PN- Gastroenterology ---
Assessment/Plan GI Assessment/Recommendations: 76 year old female admitted with worsening ascites and renal failure and liver lesions on ct scan suggestive of metastatic disease. She underwent a diagnostic paracentesis on April 13 which was negative for sbp by cell count and her SAAG was greater then 1.1 indicating the ascitic fluid is from portal hypertension and not necessarily from a malignancy; cytology was negative. Her kidney function has improved with albumin infusions, and these have been stopped with continuing recovery. Her hematocrit has remained stable. She underwent a therapeutic paracentesis of almost 9 L on April 17, followed by a targeted liver biopsy. Liver biopsy results (poorly differentiated adenocarcinoma, further stains pending) have been discussed with the patient. She has remote histories of uterine and colon cancer. The patient is deconditioned, has poor appetite and oral intake, and depressed. Psychiatry has been consulted. Recommendations: * Oncology consult * Physical therapy, psychiatry follow-up, consider appetite stimulant * Ondansetron around the clock rather than as needed * Spironolactone 50 mg, furosemide 20 mg daily. Follow electrolytes and renal function Subjective Subjective: The patient has poor appetite oral intake. She complains of nausea but no vomiting. There has been no abdominal pain. She is depressed. She is hardly getting out of bed. Objective Vital Signs and I&Os Vital Signs Date Time Temp Pulse Resp B/P B/P Pulse O2 O2 Flow FiO2 Mean Ox Delivery Rate 04/20 1638 97.9 64 18 150/75 04/20 1403 97.9 64 18 150/75 94 04/20 0700 97.8 66 20 152/60 93 Nasal 1.0L Cannula 04/20 0000 96 Nasal 1.0L Cannula 04/19 2244 98.1 68 20 104/60 96 Nasal Cannula 04/19 2102 68 148/76 04/19 2102 68 148/76 Intake & Output 04/20 1600 04/20 0400 04/19 1600 04/19 0400 04/18 1600 04/18 0400 Intake Total 536 471 9295 1000 1300 405 Output Total Balance 275 038 8946 1000 1300 405 Intake, IV 600 1300 600 600 225 Intake, Oral 120 240 620 400 700 180 Number 0 Bowel Movements Patient 104 lb Weight Physical Exam: Thin/cachectic. Alert and oriented. Sclera are anicteric. No adenopathy. Abdomen is mildly distended, soft, nontender. Extremities with edema of the right hand and right lower extremity. Current Medications: Current Medications Sig/Jose Start time Last Medication Dose Route Stop Time Status Admin Albuterol Sulfate 3 ML Q4H PRN 04/12 0200 AC INH Alprazolam 0.5 MG .STK-MED ONE 04/20 0056 DC PO 04/20 0057 Amlodipine Besylate 10 MG DAILY 04/12 1000 AC 04/20 PO 1638 Cholecalciferol 1,000 IU BID 04/12 1000 AC 04/19 PO 2102 Clonidine 0.3 MG Q12 04/12 1000 AC 04/19 PO 2102 Dextrose/Sodium 1,000 ML ONCE ONE 04/19 1915 DC 04/19 Chloride IV 04/20 0834 1947 Docusate Sodium 100 MG BID 04/17 2341 AC 04/18 PO 1021 Escitalopram Oxalate 5 MG 0800 04/21 0800 AC PO Glycerin 2 SPRAY Q2P PRN 04/16 1915 AC 04/17 PO 0457 Guaifenesin 10 ML Q6P PRN 04/12 0200 AC PO Heparin Sodium 5,000 UNIT Q8 04/12 2200 AC 04/17 (Porcine) SC 1730 Hydralazine HCl 100 MG BID 04/14 2200 AC 04/19 PO 2102 Isosorbide 60 MG DAILY 04/12 1000 AC 04/19 Mononitrate PO 1212 Melatonin 3 MG AT BEDTIME 04/18 2200 DC 04/19 PO 2102 Metoprolol Tartrate 50 MG DAILY 04/12 1000 AC 04/20 PO 1638 Mirtazapine 7.5 MG AT BEDTIME 04/20 2200 AC PO Omeprazole 40 MG DAILY AC 04/12 0700 AC 04/20 PO 0622 Ondansetron HCl 4 MG Q6P PRN 04/15 1045 AC 04/19 IV 1949 Oxycodone HCl 5 MG Q8P PRN 04/19 0615 AC 04/20 PO 1634 Polyethylene Glycol 17 GM BID 04/12 1000 AC 04/18 PO 1022 Senna 187 MG AT BEDTIME 04/17 2345 AC 04/18 PO 0109 Tramadol HCl 50 MG DAILY 04/12 1000 AC 04/19 PO 1215 Results Pertinent Lab Results: Laboratory Tests 04/20 04/19 04/19 0933 1445 1215 Chemistry Sodium (137 - 145 mmol/L) 134 L 131 L Potassium (3.5 - 5.1 mmol/L) 3.6 3.4 L Chloride (98 - 107 mmol/L) 108 H 103 Carbon Dioxide (22 - 30 mmol/L) 19 L 18 L Anion Gap (5 - 16) 6 10 BUN (7 - 17 mg/dL) 34 H 34 H Creatinine (0.5 - 1.0 mg/dL) 1.0 0.8 Estimated GFR (>60 ml/min) 54 L > 60 BUN/Creatinine Ratio (7 - 25 %) 34.0 H 42.5 H Hematology CBC w Diff NO MAN DIFF REQ WBC (4.8 - 10.8 /CUMM) 12.0 H 12.0 H RBC (4.20 - 5.40 /CUMM) 3.58 L 3.41 L Hgb (12.0 - 16.0 G/DL) 10.8 L 10.2 L Hct (37 - 47 %) 31.5 L 29.8 L MCV (81.0 - 99.0 FL) 88.1 87.4 MCH (27.0 - 31.0 PG) 30.2 29.9 MCHC (33.0 - 37.0 G/DL) 34.3 34.2 RDW (11.5 - 14.5 %) 14.8 H 14.3 Plt Count (130 - 400 /CUMM) 83 L 69 L MPV (7.4 - 10.4 FL) 8.4 8.8 Gran % (42.2 - 75.2 %) 88.4 H 90.8 H Lymphocytes % (20.5 - 51.1 %) 7.0 L 5.4 L Monocytes % (1.7 - 9.3 %) 4.5 3.6 Eosinophils % (0 - 5 %) 0.1 0.1 Basophils % (0.0 - 2.0 %) 0 0.1 Absolute Granulocytes (1.4 - 6.5 /CUMM) 10.6 H 10.9 H Absolute Lymphocytes (1.2 - 3.4 /CUMM) 0.8 L 0.7 L Absolute Monocytes (0.10 - 0.60 /CUMM) 0.5 0.4 Absolute Eosinophils (0.0 - 0.7 /CUMM) 0 0 Absolute Basophils (0.0 - 0.2 /CUMM) 0 0 03/13 0852 Chemistry Sodium (137 - 145 mmol/L) 135 L Potassium (3.5 - 5.1 mmol/L) 3.5 Chloride (98 - 107 mmol/L) 108 H Carbon Dioxide (22 - 30 mmol/L) 20 L Anion Gap (5 - 16) 7 BUN (7 - 17 mg/dL) 38 H Creatinine (0.5 - 1.0 mg/dL) 1.0 Estimated GFR (>60 ml/min) 54 L BUN/Creatinine Ratio (7 - 25 %) 38.0 H Total Bilirubin (0.2 - 1.3 mg/dL) 0.7 Direct Bilirubin (< 0.4 mg/dL) 0.7 H AST (14 - 36 U/L) 13 L ALT (9 - 52 U/L) 23 Alkaline Phosphatase (<127 U/L) 169 H Total Protein (6.3 - 8.2 g/dL) 4.2 L Albumin (3.5 - 5.0 g/dL) 2.3 L Hematology CBC w Diff NO MAN DIFF REQ WBC (4.8 - 10.8 /CUMM) 10.6 RBC (4.20 - 5.40 /CUMM) 3.54 L Hgb (12.0 - 16.0 G/DL) 10.6 L Hct (37 - 47 %) 31.0 L MCV (81.0 - 99.0 FL) 87.5 MCH (27.0 - 31.0 PG) 29.8 MCHC (33.0 - 37.0 G/DL) 34.1 RDW (11.5 - 14.5 %) 14.1 Plt Count (130 - 400 /CUMM) 99 L MPV (7.4 - 10.4 FL) 7.9 Gran % (42.2 - 75.2 %) 90.7 H Lymphocytes % (20.5 - 51.1 %) 5.1 L Monocytes % (1.7 - 9.3 %) 4.1 Eosinophils % (0 - 5 %) 0.1 Basophils % (0.0 - 2.0 %) 0 Absolute Granulocytes (1.4 - 6.5 /CUMM) 9.7 H Absolute Lymphocytes (1.2 - 3.4 /CUMM) 0.5 L Absolute Monocytes (0.10 - 0.60 /CUMM) 0.4 Absolute Eosinophils (0.0 - 0.7 /CUMM) 0 Absolute Basophils (0.0 - 0.2 /CUMM) 0 Imaging/Other Studies: Preliminary result of liver biopsy: Poorly differentiated adenocarcinoma.
[2017-04-20 23:04] VITALS: BP 183/88
[2017-04-20 23:30] VITALS: BP 174/60
[2017-04-21 02:50] VITALS: BP 164/68
[2017-04-21 06:41] VITALS: BP 172/80
[2017-04-21 09:34] LABS: ABSOLUTE BASOPHIL COUNT 0 /CUMM (0.0-0.2); ABSOLUTE EOSINOPHIL COUNT 0 /CUMM (0.0-0.7); ABSOLUTE GRANULOCYTE CT 11.2 /CUMM (1.4-6.5); ABSOLUTE LYMPH COUNT 0.8 /CUMM (1.2-3.4); ABSOLUTE MONOCYTE COUNT 0.5 /CUMM (0.10-0.60); BASOPHIL % 0.2 % (0.0-2.0); EOSINOPHIL % 0.1 % (0-5); GRANULOCYTE % 88.9 % (42.2-75.2); HEMATOCRIT 33.3 % (37-47); MEAN CORPUSCULAR HGB 30.1 PG (27.0-31.0); MEAN CORPUSCULAR HGB CONC 34.1 G/DL (33.0-37.0); MEAN CORPUSCULAR VOLUME 88.5 FL (81.0-99.0); MEAN PLATELET VOLUME 8.2 FL (7.4-10.4); RBC DISTRIBUTION WIDTH 14.9 % (11.5-14.5); RED BLOOD CELL CT 3.77 /CUMM (4.20-5.40); WHITE BLOOD CELL COUNT 12.6 /CUMM (4.8-10.8)
[2017-04-21 11:04] LABS: PLATELET COUNT 89 /CUMM (130-400)
--- NOTE | 2017-04-21 11:14 | PN- Att Addend ---
Attending Addendum Attending Brief Note 76F H PVD s/p angioplasty with stent, HTN, CAD s/p CABG, CKD stage 4, uterine and colon cancer admitted with intractable nausea and vomiting secondary to acute gastroenteritis leading to pre-renal azotemia/ALVIN, with recently found multiple liver masses suspicious for metastases, underwent paracentesis and liver mass biopsy on 04/17 without complication. Slowly improving. Feels fatigued and weak. 1. Pre-renal azotemia/ALVIN secondary to dehydration 2. Acute gastroenteritis 3. Liver metastases 4. Hypokalemia 5. Hyponatremia (resolved) 6. CKD stage 4 secondary to hypertensive nephrosclerosis Plan - Continue on general medicine - Psychiatry consult for depression - Monitor renal function - Follow GI and nephrology recommendations - PT evaluation for discharge planning - DVT PPx
[2017-04-21 15:02] VITALS: BP 156/58
--- NOTE | 2017-04-21 17:09 | PN- Gastroenterology ---
Assessment/Plan GI Assessment/Recommendations: ASSESSMENT: 1. Metastastases to the Liver -- likely from colon. Although pathology report is preliminary, it is unlikely to foreign exchange position clerk options once finalized. 2. Depression 3. Poor performance status RECOMMENDATIONS: 1. Will speak with oncology. Believe oncology should be involved regarding decision with respect to appropriateness of chemotherapy or other modalities to treat hepatic metastases. I do not believe that patient is well and not have to be seen in the outpatient setting. 2. We'll also speak with pathology regarding finalizing pathologic report. 3. Would increase dose of Lexapro to 20 mg as recommended by psychiatry but if no response to increased dose would have psychiatry see patient in follow-up as patient does not appear to have had any improvement in mood. Subjective Subjective: Patient is depresssed after being told that she has metastatic cancer. The pathology is still prelminary, but Dr. Vazquez had spoken with the pathologist who reported that it was definitely malignant. Patient has not been seen by oncology. Her performance status is clearly poor. She does not want to return to [facility] and is waiting for a placement elsewhere. She is not eating much. Objective Vital Signs and I&Os Vital Signs Date Time Temp Pulse Resp B/P B/P Pulse O2 O2 Flow FiO2 Mean Ox Delivery Rate 04/21 1536 98.1 68 20 156/58 04/21 1536 98.1 68 20 156/58 04/21 1536 98.1 68 20 156/58 04/21 1536 98.1 68 20 156/58 04/21 1536 98.1 68 20 156/58 04/21 1502 98.1 68 20 156/58 98 04/21 0641 98.5 66 18 172/80 97 Nasal 2.0L Cannula 04/21 0250 164/68 04/21 0000 Nasal 2.0L Cannula 04/20 2330 63 174/60 04/20 2304 97.3 64 20 183/88 93 Nasal 2.0L Cannula 04/20 2203 68 183/88 04/20 2203 68 18388 Intake & Output 04/21 1600 04/21 0400 04/20 1600 04/20 0400 04/19 1600 04/19 0400 Intake Total 200 200 464 087 2049 1000 Output Total Balance 200 200 037 498 6334 1000 Intake, IV 600 1300 600 Intake, Oral 200 200 150 240 620 400 Number 0 Bowel Movements Physical Exam General Appearance: cachetic, lethargic Head: atraumatic Respiratory: lungs clear Abdomen: soft, non-tender Neurologic/Psychiatric: alert, depressed Current Medications: Current Medications Sig/Jose Start time Last Medication Dose Route Stop Time Status Admin Albuterol Sulfate 3 ML Q4H PRN 04/12 0200 AC INH Amlodipine Besylate 10 MG DAILY 04/12 1000 AC 04/20 PO 1638 Cholecalciferol 1,000 IU BID 04/12 1000 AC 04/20 PO 2203 Clonidine 0.3 MG Q12 04/12 1000 AC 04/20 PO 2203 Docusate Sodium 100 MG BID 04/17 2341 AC 04/18 PO 1021 Ergocalciferol 1,000 IU DAILY 04/21 1000 CAN PO Escitalopram Oxalate 5 MG 0800 04/21 0800 AC 04/21 PO 0826 Furosemide 20 MG DAILY 04/21 1050 AC IV Furosemide 20 MG DAILY 04/21 1000 DC PO Glycerin 2 SPRAY Q2P PRN 04/16 1915 AC 04/17 PO 0457 Guaifenesin 10 ML Q6P PRN 04/12 0200 AC PO Heparin Sodium 5,000 UNIT Q8 04/12 2200 AC 04/17 (Porcine) SC 1730 Hydralazine HCl 100 MG BID 04/14 2200 AC 04/20 PO 2203 Isosorbide 60 MG DAILY 04/12 1000 AC 04/19 Mononitrate PO 1212 Metoprolol Tartrate 50 MG DAILY 04/12 1000 AC 04/20 PO 1638 Mirtazapine 7.5 MG AT BEDTIME 04/20 2200 AC 04/20 PO 2203 Omeprazole 40 MG DAILY AC 04/12 0700 AC 04/21 PO 0710 Ondansetron HCl 4 MG Q6H 04/21 0710 AC 04/21 IV 0826 Ondansetron HCl 4 MG Q6 PRN 04/21 0600 DC IV Ondansetron HCl 4 MG Q6P PRN 04/15 1045 DC 04/20 IV 2217 Oxycodone HCl 5 MG Q8P PRN 04/19 0615 AC 04/20 PO 2317 Polyethylene Glycol 17 GM BID 04/12 1000 AC 04/18 PO 1022 Senna 187 MG AT BEDTIME 04/17 2345 AC 04/18 PO 0109 Spironolactone 50 MG DAILY 04/21 1000 AC PO Tramadol HCl 50 MG DAILY 04/12 1000 AC 04/19 PO 1215 Results Pertinent Lab Results: Laboratory Tests 04/21 04/20 0848 0901 Chemistry Sodium (137 - 145 mmol/L) 136 L 134 L Potassium (3.5 - 5.1 mmol/L) 3.9 3.6 Chloride (98 - 107 mmol/L) 108 H 108 H Carbon Dioxide (22 - 30 mmol/L) 18 L 19 L Anion Gap (5 - 16) 10 6 BUN (7 - 17 mg/dL) 34 H 34 H Creatinine (0.5 - 1.0 mg/dL) 1.0 1.0 Estimated GFR (>60 ml/min) 54 L 54 L BUN/Creatinine Ratio (7 - 25 %) 34.0 H 34.0 H Hematology CBC w Diff NO MAN DIFF REQ NO MAN DIFF REQ WBC (4.8 - 10.8 /CUMM) 12.6 H 12.0 H RBC (4.20 - 5.40 /CUMM) 3.77 L 3.58 L Hgb (12.0 - 16.0 G/DL) 11.4 L 10.8 L Hct (37 - 47 %) 33.3 L 31.5 L MCV (81.0 - 99.0 FL) 88.5 88.1 MCH (27.0 - 31.0 PG) 30.1 30.2 MCHC (33.0 - 37.0 G/DL) 34.1 34.3 RDW (11.5 - 14.5 %) 14.9 H 14.8 H Plt Count (130 - 400 /CUMM) 89 L 83 L MPV (7.4 - 10.4 FL) 8.2 8.4 Gran % (42.2 - 75.2 %) 88.9 H 88.4 H Lymphocytes % (20.5 - 51.1 %) 6.5 L 7.0 L Monocytes % (1.7 - 9.3 %) 4.3 4.5 Eosinophils % (0 - 5 %) 0.1 0.1 Basophils % (0.0 - 2.0 %) 0.2 0 Absolute Granulocytes (1.4 - 6.5 /CUMM) 11.2 H 10.6 H Absolute Lymphocytes (1.2 - 3.4 /CUMM) 0.8 L 0.8 L Absolute Monocytes (0.10 - 0.60 /CUMM) 0.5 0.5 Absolute Eosinophils (0.0 - 0.7 /CUMM) 0 0 Absolute Basophils (0.0 - 0.2 /CUMM) 0 0 04/19 04/19 1445 1215 Chemistry Sodium (137 - 145 mmol/L) 131 L Potassium (3.5 - 5.1 mmol/L) 3.4 L Chloride (98 - 107 mmol/L) 103 Carbon Dioxide (22 - 30 mmol/L) 18 L Anion Gap (5 - 16) 10 BUN (7 - 17 mg/dL) 34 H Creatinine (0.5 - 1.0 mg/dL) 0.8 Estimated GFR (>60 ml/min) > 60 BUN/Creatinine Ratio (7 - 25 %) 42.5 H Hematology WBC (4.8 - 10.8 /CUMM) 12.0 H RBC (4.20 - 5.40 /CUMM) 3.41 L Hgb (12.0 - 16.0 G/DL) 10.2 L Hct (37 - 47 %) 29.8 L MCV (81.0 - 99.0 FL) 87.4 MCH (27.0 - 31.0 PG) 29.9 MCHC (33.0 - 37.0 G/DL) 34.2 RDW (11.5 - 14.5 %) 14.3 Plt Count (130 - 400 /CUMM) 69 L MPV (7.4 - 10.4 FL) 8.8 Gran % (42.2 - 75.2 %) 90.8 H Lymphocytes % (20.5 - 51.1 %) 5.4 L Monocytes % (1.7 - 9.3 %) 3.6 Eosinophils % (0 - 5 %) 0.1 Basophils % (0.0 - 2.0 %) 0.1 Absolute Granulocytes (1.4 - 6.5 /CUMM) 10.9 H Absolute Lymphocytes (1.2 - 3.4 /CUMM) 0.7 L Absolute Monocytes (0.10 - 0.60 /CUMM) 0.4 Absolute Eosinophils (0.0 - 0.7 /CUMM) 0 Absolute Basophils (0.0 - 0.2 /CUMM) 0
--- NOTE | 2017-04-21 17:12 | PN- Housestaff ---
See Addendum Subjective Follow-up For: liver masses suspected HCC or liver mets anemia depression Subjective: Patient was seen and examined at bedside. She was resting comfortably. She had no acute events overnight. Her nausea is improved today. She is only complaining of fatigue and low energy. Just continues to complain of right hand swelling. She has no other complaints. Review of Systems Constitutional: Reports: no symptoms. EENTM: Reports: no symptoms. Cardiovascular: Reports: peripheral edema. Respiratory: Reports: no symptoms. Gastrointestinal: Denies: nausea, vomiting. Genitourinary: Reports: no symptoms. Musculoskeletal: Reports: no symptoms. Skin: Reports: no symptoms. Objective Last 24 Hrs of Vital Signs/I&O Vital Signs Date Time Temp Pulse Resp B/P B/P Pulse O2 O2 Flow FiO2 Mean Ox Delivery Rate 04/21 1536 98.1 68 20 156/58 04/21 1536 98.1 68 20 156/58 04/21 1536 98.1 68 20 156/58 04/21 1536 98.1 68 20 156/58 04/21 1536 98.1 68 20 156/58 04/21 1502 98.1 68 20 156/58 98 04/21 0641 98.5 66 18 172/80 97 Nasal 2.0L Cannula 04/21 0250 164/68 04/21 0000 Nasal 2.0L Cannula 04/20 2330 63 174/60 04/20 2304 97.3 64 20 183/88 93 Nasal 2.0L Cannula 04/20 2203 68 183/88 04/20 2203 68 183/88 Intake & Output 04/21 1600 04/21 0800 04/21 0000 Intake Total 200 200 Output Total Balance 200 200 Intake, Oral 200 200 Physical Exam General Appearance: Oriented X3, Cooperative, No Acute Distress, cachexia and thethargic Skin Temp/Moisture Exam: Warm/Dry Cardiovascular: Regular Rate, Normal S1, Normal S2, systolic murmur Lungs: Clear to Auscultation, Normal Air Movement Abdomen: Normal Bowel Sounds, Soft, mild TTP Neurological: Normal Speech, Sensation Intact Extremities: 2+ pitting edema of the R hand and feet bilaterally Current Medications: Current Medications Sig/Jose Start time Last Medication Dose Route Stop Time Status Admin Albuterol Sulfate 3 ML Q4H PRN 04/12 0200 AC INH Amlodipine Besylate 10 MG DAILY 04/12 1000 AC 04/20 PO 1638 Cholecalciferol 1,000 IU BID 04/12 1000 AC 04/20 PO 2203 Clonidine 0.3 MG Q12 04/12 1000 AC 04/20 PO 2203 Docusate Sodium 100 MG BID 04/17 2341 AC 04/18 PO 1021 Ergocalciferol 1,000 IU DAILY 04/21 1000 CAN PO Escitalopram Oxalate 5 MG 0800 04/21 0800 AC 04/21 PO 0826 Furosemide 20 MG DAILY 04/21 1050 AC IV Furosemide 20 MG DAILY 04/21 1000 DC PO Glycerin 2 SPRAY Q2P PRN 04/16 1915 AC 04/17 PO 0457 Guaifenesin 10 ML Q6P PRN 04/12 0200 AC PO Heparin Sodium 5,000 UNIT Q8 04/12 2200 AC 04/17 (Porcine) SC 1730 Hydralazine HCl 100 MG BID 04/14 2200 AC 04/20 PO 2203 Isosorbide 60 MG DAILY 04/12 1000 AC 04/19 Mononitrate PO 1212 Metoprolol Tartrate 50 MG DAILY 04/12 1000 AC 04/20 PO 1638 Mirtazapine 7.5 MG AT BEDTIME 04/20 2200 AC 04/20 PO 2203 Omeprazole 40 MG DAILY AC 04/12 0700 AC 04/21 PO 0710 Ondansetron HCl 4 MG Q6H 04/21 0710 AC 04/21 IV 0826 Ondansetron HCl 4 MG Q6 PRN 04/21 0600 DC IV Ondansetron HCl 4 MG Q6P PRN 04/15 1045 DC 04/20 IV 2217 Oxycodone HCl 5 MG Q8P PRN 04/19 0615 AC 04/20 PO 2317 Polyethylene Glycol 17 GM BID 04/12 1000 AC 04/18 PO 1022 Senna 187 MG AT BEDTIME 04/17 2345 AC 04/18 PO 0109 Spironolactone 50 MG DAILY 04/21 1000 AC PO Tramadol HCl 50 MG DAILY 04/12 1000 AC 04/19 PO 1215 Last 24 Hrs of Lab/Jere Results Last 24 Hrs of Labs/Mics: Laboratory Tests 04/21/17 0848: Anion Gap 10, Estimated GFR 54 L, BUN/Creatinine Ratio 34.0 H, CBC w Diff NO MAN DIFF REQ, RBC 3.77 L, MCV 88.5, MCH 30.1, MCHC 34.1, RDW 14.9 H, MPV 8.2, Gran % 88.9 H, Lymphocytes % 6.5 L, Monocytes % 4.3, Eosinophils % 0.1, Basophils % 0.2, Absolute Granulocytes 11.2 H, Absolute Lymphocytes 0.8 L, Absolute Monocytes 0.5, Absolute Eosinophils 0, Absolute Basophils 0 Assessment/Plan Assessment: Patient is a 76-year-old female with a PMH significant for CKD stage IV, CAD status post CABG, PVD status post angioplasty with stent, HTN, uterine and colon cancer, liver lesions either primary or metastatic cancer, who presented to [facility] from rehabilitation due to worsening poor by mouth intake, nausea and vomiting, worsening ascites and worsening renal function. #ALVIN resolved Likely prerenal azotemia, ALVIN has resolved, creatinine is back to baseline - Continue to monitor BEP - post void bladder scan read 39 ml #anemia H/H has been stable #Worsening ascites, resolved with paracentesis Patient with a large volume tap with liver biopsy 04/17/17. She tolerated the procedure well. -albumin DCed #chronic pressure ulcer This appears to be improving, ulceration is still present with smaller in size with signs of new skin growth around the periphery -Treat with DuoDERM and offloading #Mild hyponatremia Patient started on maintenance IV normal saline #mild Protein calorie malnutrition Nutrition consult was placed. -Will follow up nutrition recommendations, for now patient is on sodium restricted diet -We'll start Remeron which will both help with sleep and possibly stimulate appetite. #Fatigue and possible depresion Psychiatry list the patient is significantly depressed, with patient's hepatic pathology and CKD medicating will be difficult. - Continue Lexapro 5 mg daily, will titrate up the possible #Physical deconditioning Patient agreed to work with physical therapy today and went to the edge of the bed -Continue to encourage to work with PT Diet: Heary healthy diet DVT prophylaxis:SC heparin, ALPS Code status: full code Problem List: 1. Pressure ulcer 2. Mass of multiple sites of liver 3. Decreased appetite Pain Ratin Pain Location: none Pain Goal: Remain pain free Pain Plan: pain pathway Tomorrow's Labs & Rationales: cbc
[2017-04-22 07:29] VITALS: BP 118/60
--- NOTE | 2017-04-22 11:02 | PN- Att Addend ---
Attending Addendum Attending Brief Note Pt was seen and evalauted by me. Chart reviwed. As per RN, poor PO intake, refused her meds today. Has been sleepy and lethargic. Vital Signs Date Time Temp Pulse Resp B/P B/P Pulse O2 O2 Flow FiO2 Mean Ox Delivery Rate 04/22 0729 98.2 91 20 118/60 93 Room Air 04/22 0000 95 Nasal 1.0L Cannula 04/21 2309 98.4 78 20 95 04/21 2145 80 158/72 04/21 2144 80 158/72 04/21 1536 98.1 68 20 156/58 04/21 1536 98.1 68 20 156/58 04/21 1536 98.1 68 20 156/58 04/21 1536 98.1 68 20 156/58 04/21 1536 98.1 68 20 156/58 04/21 1502 98.1 68 20 /58 98 Intake & Output 04/22 1600 04/22 0800 04/22 0000 Intake Total 50 100 Output Total Balance 50 100 Intake, Oral 50 100 GEN: sleepy but abble to answer few question HEENT: icterus Labs/Diagnostics: reviewed A/P: Ms. Stevens is a 76F PMH PVD s/p angioplasty with stent, HTN, CAD s/p CABG, CKD stage 4, uterine and colon cancer admitted with intractable nausea and vomiting secondary to acute gastroenteritis leading to pre-renal azotemia/ALVIN, with recently found multiple liver masses suspicious for metastases, underwent paracentesis and liver mass biopsy on 04/17 without complication GI: --appreciate GI eval --s/p large volume tap with liver biopsy 04/17/17. Skin: --chronic pressure ulcer --slow improvement --cont to treat with DuoDERM and offloading F/E/N: mild hyponatremia -- pt was started on maintenance IV normal saline -- f/u nutrition consult -- pt was started on Remeron Psych: Fatigue and possible depresion --Psychiatry list the patient is significantly depressed, due to patient's hepatic pathology and CKD treatment/medication will be difficult. -- Continue Lexapro 5 mg daily, will titrate up the possible
[2017-04-22 14:16] VITALS: BP 178/71
[2017-04-22 18:30] VITALS: BP 140/80
[2017-04-22 20:10] VITALS: BP 152/70
[2017-04-23 06:34] VITALS: BP 150/66
--- NOTE | 2017-04-23 08:44 | PN- Housestaff ---
Ruben NAGEL,Ramon 04/23/17 0844: Subjective Follow-up For: depression Liver masses Subjective: Patient was seen and examined. She was resting comfortably. She had no acute events overnight. She continues to complain of bilateral feet swelling and right hand swelling, nausea is improving. She continues to have decreased appetite, and refuses medications occasionally however she agreed to take all of her medications this morning. She has also been refusing labs and did not labs to be drawn this morning. She continues to report a depressed mood, and has no new complaints. Review of Systems Constitutional: Reports: malaise. Denies: chills, fever. EENTM: Reports: no symptoms. Cardiovascular: Reports: no symptoms. Respiratory: Reports: no symptoms. Gastrointestinal: Reports: constipation. Denies: abdominal pain, nausea. Genitourinary: Reports: no symptoms. Musculoskeletal: Reports: no symptoms. Objective Last 24 Hrs of Vital Signs/I&O Vital Signs Date Time Temp Pulse Resp B/P B/P Pulse O2 O2 Flow FiO2 Mean Ox Delivery Rate 04/23 0634 98.4 98 20 150/66 90 Room Air 04/23 2011 87 152/70 04/23 2011 87 152/70 04/22 2009 98.9 87 18 152/70 93 Room Air 04/22 1830 140/80 04/22 1551 Room Air 04/22 1444 97.8 76 18 178/71 04/22 1444 97.8 76 18 178/71 04/22 1444 97.8 76 18 178/71 04/22 1444 97.8 76 18 178/71 04/22 1416 97.8 76 18 94 Room Air Intake & Output 04/23 1600 04/23 0800 04/23 0000 Intake Total 160 480 Output Total Balance 160 480 Intake, IV 0 Intake, Oral 160 480 Number 0 Bowel Movements Physical Exam General Appearance: Cooperative, No Acute Distress, lethargic Skin Temp/Moisture Exam: Warm/Dry Cardiovascular: Regular Rate, Normal S1, Normal S2, systolic murmur Lungs: Clear to Auscultation, Normal Air Movement Abdomen: mild distension, likely reaccumulation of ascites Neurological: Normal Speech, Normal Tone, Sensation Intact Extremities: 2 + dependent pitting edema of the feet bilaterally and the R hand Current Medications: Current Medications Sig/Jose Start time Last Medication Dose Route Stop Time Status Admin Albuterol Sulfate 3 ML Q4H PRN 04/12 0200 AC INH Amlodipine Besylate 10 MG DAILY 04/12 1000 AC 04/20 PO 1638 Cholecalciferol 1,000 IU BID 04/12 1000 AC 04/20 PO 2203 Clonidine 0.3 MG Q12 04/12 1000 AC 04/22 PO 2012 Docusate Sodium 100 MG BID 04/17 2341 AC 04/18 PO 1021 Escitalopram Oxalate 10 MG 0804/24 0800 UNVr PO Escitalopram Oxalate 5 MG 0800 04/21 0800 DC 04/23 PO 0812 Furosemide 20 MG DAILY 04/21 1050 AC IV Glycerin 2 SPRAY Q2P PRN 04/16 1915 AC 04/17 PO 0457 Guaifenesin 10 ML Q6P PRN 04/12 0200 AC PO Heparin Sodium 5,000 UNIT Q8 04/12 2200 AC 04/17 (Porcine) SC 1730 Hydralazine HCl 100 MG BID 04/14 2200 AC 04/22 PO 2012 Isosorbide 60 MG DAILY 04/12 1000 AC 04/19 Mononitrate PO 1212 Metoprolol Tartrate 50 MG DAILY 04/12 1000 AC 04/20 PO 1638 Mirtazapine 7.5 MG AT BEDTIME 04/20 2200 AC 04/22 PO 2014 Omeprazole 40 MG DAILY AC 04/12 0700 AC 04/21 PO 0710 Ondansetron HCl 4 MG Q6H 04/21 0710 AC 04/21 IV 0826 Oxycodone HCl 5 MG Q8P PRN 04/19 0615 AC 04/22 PO 2018 Polyethylene Glycol 17 GM BID 04/12 1000 AC 04/18 PO 1022 Senna 187 MG AT BEDTIME 04/17 2345 AC 04/18 PO 0109 Spironolactone 50 MG DAILY 04/21 1000 AC PO Tramadol HCl 50 MG DAILY 04/12 1000 AC 04/19 PO 1215 Assessment/Plan Assessment: Patient is a 76-year-old female with a PMH significant for CKD stage IV, CAD status post CABG, PVD status post angioplasty with stent, HTN, uterine and colon cancer, liver lesions either primary or metastatic cancer, who presented to [facility] from rehabilitation due to worsening poor by mouth intake, nausea and vomiting, worsening ascites and worsening renal function. #Liver masses Patient had ultrasound-guided biopsy with IR, awaiting final path report. Our team had reached out to the oncology service and we were told to await final pathology report. Per discussion with self propelled dredge operator, Dr. Coleman, she may reach out to Dr. Lowe on Monday. #anemia H/H has been stable, patient refused lab draws this morning #Worsening ascites, resolved with paracentesis Patient with a large volume tap with liver biopsy 04/17/17. She tolerated the procedure well. -Appears that a small volume of reaccumulation is occurring with mild abdominal distention from baseline post large volume tap #chronic pressure ulcer This appears to be improving, ulceration is still present with smaller in size with signs of new skin growth around the periphery -Treat with DuoDERM and offloading #Mild hyponatremia Patient did not allow laboratory draws morning, maintenance fluids on hold currently due to signs of volume overload with dependent edema. #mild Protein calorie malnutrition Nutrition consult was placed. -Will follow up nutrition recommendations, for now patient is on sodium restricted diet -We'll start Remeron which will both help with sleep and possibly stimulate appetite. #Fatigue and possible depresion Psychiatry list the patient is significantly depressed, with patient's hepatic pathology and CKD medicating will be difficult. -Increased Lexapro to 10 mg per psych recommendations, request reevaluation if patient shows no response. #Physical deconditioning Patient agreed to work with physical therapy today and went to the edge of the bed -Continue to encourage to work with PT #Constipation Patient has been refusing MiraLAX secondary to the taste, she has been compliant with Colace. -Dulcolax suppository Diet: Heary healthy diet DVT prophylaxis:SC heparin, ALPS Code status: full code Problem List: 1. Pressure ulcer 2. Decreased appetite 3. Mass of multiple sites of liver Pain Ratin Pain Location: none Pain Goal: Remain pain free Pain Plan: pain pathway Tomorrow's Labs & Rationales: cbc, bep Stew NAGEL,Amir 04/23/17 1143: Attending MD Review Statement Attending Statement Attending MD Statement: examined this patient, discuss w/resident/PA/TRANSCRIPT CLERK, agreed w/resident/PA/TRANSCRIPT CLERK, reviewed EMR data (avail), discussed with nursing Attending Assessment/Plan: As per RN pt took all her meds today. Has been refusing meds intermittently. Cont to monitor. F/GI recs. Rest of the plan as per resident's note
[2017-04-23 15:00] VITALS: BP 140/75
[2017-04-24 06:34] VITALS: BP 144/62
--- NOTE | 2017-04-24 07:40 | PN- Housestaff ---
Ruben NAGEL,Ramon 04/24/17 0739: Subjective Follow-up For: cacinoma of the liver Subjective: Patient was seen and examined at bedside. She was sleeping comfortably. She had no acute events overnight. She is continuing to refuse medications and not allow the nurse to administer any meds this morning. She continues to have a depressed mood, who will not work with physical therapy. She denies any new complaints, is no longer having nausea, and denies any pain. Review of Systems Constitutional: Reports: no symptoms. EENTM: Reports: no symptoms. Cardiovascular: Reports: no symptoms. Respiratory: Reports: no symptoms. Gastrointestinal: Reports: no symptoms. Genitourinary: Reports: no symptoms. Musculoskeletal: Reports: no symptoms. Objective Last 24 Hrs of Vital Signs/I&O Vital Signs Date Time Temp Pulse Resp B/P B/P Pulse O2 O2 Flow FiO2 Mean Ox Delivery Rate 04/24 0634 98.1 66 18 144/62 93 Room Air 04/23 2121 68 140/75 04/23 2121 68 140/75 04/23 1500 97.7 68 20 140/75 94 04/23 0933 98.4 98 20 150/66 04/23 0917 98.4 98 150/66 04/23 0917 98.4 98 20 150/66 04/23 0916 98.4 98 20 150/66 04/23 0915 98.4 98 20 150/66 Intake & Output 04/24 0800 04/24 0000 04/23 1600 Intake Total 360 120 300 Output Total Balance 360 120 300 Intake, Oral 360 120 300 Number 0 Bowel Movements Physical Exam General Appearance: Alert, Oriented X3, No Acute Distress Skin Temp/Moisture Exam: Warm/Dry Cardiovascular: Regular Rate, Normal S1, Normal S2, systolic murmur Lungs: Clear to Auscultation, Normal Air Movement Abdomen: mildly increased distension Neurological: Normal Speech, Normal Tone, Sensation Intact Extremities: 2+ dependent pitting edema of the feet bilaterally and 2 + pitting edema of the R hand Current Medications: Current Medications Sig/Jose Start time Last Medication Dose Route Stop Time Status Admin Albuterol Sulfate 3 ML Q4H PRN 04/12 0200 AC INH Amlodipine Besylate 10 MG DAILY 04/12 1000 AC 04/23 PO 0933 Bisacodyl 10 MG ONCE ONE 04/23 1115 DC TN 04/23 1116 Cholecalciferol 1,000 IU BID 04/12 1000 AC 04/23 PO 2122 Clonidine 0.3 MG Q12 04/12 1000 AC 04/23 PO 2122 Docusate Sodium 100 MG BID 04/17 2341 AC 04/23 PO 2123 Escitalopram Oxalate 10 MG 0800 04/24 0800 AC PO Escitalopram Oxalate 5 MG 0800 04/21 0800 DC 04/23 PO 0812 Furosemide 20 MG DAILY 04/21 1050 AC 04/23 IV 0916 Glycerin 2 SPRAY Q2P PRN 04/16 1915 AC 04/17 PO 0457 Guaifenesin 10 ML Q6P PRN 04/12 0200 AC PO Heparin Sodium 5,000 UNIT Q8 04/12 2200 AC 04/17 (Porcine) SC 1730 Hydralazine HCl 100 MG BID 04/14 2200 AC 04/23 PO 2122 Isosorbide 60 MG DAILY 04/12 1000 AC 04/23 Mononitrate PO 0917 Metoprolol Tartrate 50 MG DAILY 04/12 1000 AC 04/23 PO 0915 Mirtazapine 7.5 MG AT BEDTIME 04/20 2200 AC 04/23 PO 2123 Omeprazole 40 MG DAILY AC 04/12 0700 AC 04/24 PO 0540 Ondansetron HCl 4 MG Q6H 04/21 0710 AC 04/21 IV 0826 Oxycodone HCl 5 MG Q8P PRN 04/19 0615 AC 04/23 PO 2122 Polyethylene Glycol 17 GM BID 04/12 1000 AC 04/18 PO 1022 Senna 187 MG AT BEDTIME 04/17 2345 AC 04/23 PO 2123 Spironolactone 50 MG DAILY 04/21 1000 AC 04/23 PO 0916 Tramadol HCl 50 MG DAILY 04/12 1000 AC 04/19 PO 1215 Assessment/Plan Assessment: Patient is a 76-year-old female with a PMH significant for CKD stage IV, CAD status post CABG, PVD status post angioplasty with stent, HTN, uterine and colon cancer, liver lesions either primary or metastatic cancer, who presented to [facility] from rehabilitation due to worsening poor by mouth intake, nausea and vomiting, worsening ascites and worsening renal function. #Edema of the right hand Will pursue right upper extremity ultrasound to rule out DVT in the setting of malignancy. -Follow-up Doppler ultrasound results #Liver masses Preliminary pathology report shows poorly differentiated carcinoma, it has been sent to [place] for further workup -Follow-up final pathology #ascites, resolved with paracentesis Patient with a large volume tap with liver biopsy 04/17/17. She tolerated the procedure well. -Appears that a small volume of reaccumulation is occurring with mild abdominal distention from baseline post large volume tap with mild abdominal distention from baseline post large volume tap #chronic pressure ulcer This appears to be improving, ulceration is still present with smaller in size with signs of new skin growth around the periphery -Treat with DuoDERM and offloading #Mild hyponatremia Patient did not allow laboratory draws morning, maintenance fluids on hold currently due to signs of volume overload with dependent edema. #mild Protein calorie malnutrition Nutrition consult was placed. -Will follow up nutrition recommendations, for now patient is on sodium restricted diet -We'll start Remeron which will both help with sleep and possibly stimulate appetite. #Fatigue and depresion Psychiatry believes the patient is significantly depressed, with patient's hepatic pathology and CKD medicating will be difficult. -Continue Lexapro 10 mg #Physical deconditioning Patient got to the side of the bed on Monday, however she has continued to refuse to work with physical therapy. -Continue to encourage to work with PT #Constipation Patient has been refusing MiraLAX secondary to the taste. -Dulcolax suppository Diet: Heary healthy diet DVT prophylaxis:SC heparin, ALPS Code status: full code Problem List: 1. Carcinoma of liver Pain Ratin Pain Location: none Pain Goal: Remain pain free Pain Plan: pain pathway Tomorrow's Labs & Rationales: cbc, bep Josephine Allen MD 04/24/17 1402: Attending MD Review Statement Attending Statement Attending MD Statement: examined this patient, discuss w/resident/PA/BRUSHER, agreed w/resident/PA/BRUSHER, reviewed EMR data (avail) Attending Assessment/Plan: Will attempt to have patient work with PT, follow psychiatry recommendations for depression, oncology recommendations for pathology
--- NOTE | 2017-04-24 08:13 | Cons- Oncology ---
General Information and HPI Consulting Request Date of Consult: 04/24/17 Requested By: Josephine Allen MD Reason for Consult: liver mass, colon cancer, uterine cancer Source of Information: patient, old records Exam Limitations: no limitations History of Present Illness: Ms. Adorno is a 76-year-old female with HTN, HLD, CKD stage 4, CAD s/p triple vessel CABG (over 10 years ago), sigmoid colon cancer s/p resections (in the ), uterine cancer s/p hysterectomy (), PVD, carotid endarterectomy over 10 years ago and most recent angiography done in 2013, and chronic back pain who presented from [facility] for increasing ascites, worsening CKD, and recently noted masses on MRI. She was admitted to the [facility] in March for back pain and increasing abdominal distension. Imaging at that time demonstrated enlarging liver mass (present in [address] Since admission, she has had a paracentesis and liver biopy on 04/17/2017. Preliminary result is malignant. She is currently feeling about the same. She has decreased appetite and swelling in the right upper extremity. She denies any new pain. She feels constipated. She does not move around much. She is not active. Her creatinine has improved. Allergies/Medications Allergies: Coded Allergies: Sulfa (Sulfonamide Antibiotics) (Severe, HIVES 12/27/15) Home Med List: Albuterol Sulfate 0.63 MG/3 ML VIAL.NEB 1 Vial INH/SHEILA 4 TIMES/DAY PRN COPD ( Reported) Amlodipine Besylate 10 MG TABLET 1 TAB PO DAILY HTN (Reported) Aspirin (Aspirin*) 81 MG TAB.CHEW 1 TAB PO DAILY HEART HEALTH (Reported) Cholecalciferol (Vitamin D3) (Vitamin D3) 2,000 UNIT CAPSULE 1 CAP PO BID SUPPLEMENT (Reported) Clonidine HCl 0.3 MG TABLET 1 TAB PO Q12 HTN (Reported) Guaifenesin/Dextromethorphan (Robitussin Cough-Chest Dm Liq) 100 MG-5 MG/5 ML LIQUID 10 ML PO Q4 PRN COUGH (Reported) Hydralazine HCl 25 MG TABLET 3 TAB PO TID HTN (Reported) Isosorbide Mononitrate (Isosorbide Mononitrate ER) 60 MG TAB.ER.24H 1 TAB PO DAILY HTN (Reported) HOLD FOR SBP<100MMGH Metoprolol Tartrate (Lopressor) 50 MG TABLET 1 TAB PO DAILY HTN (Reported) Farina-3 Fatty Acids/Fish Oil (Fish Oil 1,000 MG Capsule) 340 MG-1,000 MG CAPSULE 2 CAP PO DAILY SUPPLEMENT (Reported) Omeprazole 40 MG CAPSULE.DR 1 CAP PO DAILY ACID REFLUX (Reported) Ondansetron HCl (Zofran) 4 MG TABLET 1 TAB PO TID NAUSEA (Reported) Oxycodone HCl 5 MG TABLET 1 TAB PO Q8P PAIN MODERATE (Reported) Polyethylene Glycol 3350 (Miralax) 17 GRAM/DOSE POWDER 17 GM PO BID GI Tramadol HCl 50 MG TABLET 1 TAB PO DAILY PAIN (Reported) Current Medications: Current Medications Sig/Jose Start time Last Medication Dose Route Stop Time Status Admin Albuterol Sulfate 3 ML Q4H PRN 04/12 0200 AC INH Amlodipine Besylate 10 MG DAILY 04/12 1000 AC 04/23 PO 0933 Bisacodyl 10 MG ONCE ONE 04/23 1115 DC MI 04/23 1116 Cholecalciferol 1,000 IU BID 04/12 1000 AC 04/23 PO 2122 Clonidine 0.3 MG Q12 04/12 1000 AC 04/23 PO 2122 Docusate Sodium 100 MG BID 04/17 2341 AC 04/23 PO 2123 Escitalopram Oxalate 10 MG 0800 04/24 0800 AC PO Escitalopram Oxalate 5 MG 0800 04/21 0800 DC 04/23 PO 0812 Furosemide 20 MG DAILY 04/21 1050 AC 04/23 IV 0916 Glycerin 2 SPRAY Q2P PRN 04/16 1915 AC 04/17 PO 0457 Guaifenesin 10 ML Q6P PRN 04/12 0200 AC PO Heparin Sodium 5,000 UNIT Q8 04/12 2200 AC 04/17 (Porcine) SC 1730 Hydralazine HCl 100 MG BID 04/14 2200 AC 04/23 PO 2122 Isosorbide 60 MG DAILY 04/12 1000 AC 04/23 Mononitrate PO 0917 Metoprolol Tartrate 50 MG DAILY 04/12 1000 AC 04/23 PO 0915 Mirtazapine 7.5 MG AT BEDTIME 04/20 2200 AC 04/23 PO 2123 Omeprazole 40 MG DAILY AC 04/12 0700 AC 04/24 PO 0540 Ondansetron HCl 4 MG Q6H 04/21 0710 AC 04/21 IV 0826 Oxycodone HCl 5 MG Q8P PRN 04/19 0615 AC 04/23 PO 2122 Polyethylene Glycol 17 GM BID 04/12 1000 AC 04/18 PO 1022 Senna 187 MG AT BEDTIME 04/17 2345 AC 04/23 PO 2123 Spironolactone 50 MG DAILY 04/21 1000 AC 04/23 PO 0916 Tramadol HCl 50 MG DAILY 04/12 1000 AC 04/19 PO 1215 Review of Systems Review of Systems Constitutional: Reports: weakness, unexplained weight loss. Denies: chills, fever. Cardiovascular: Denies: chest pain. Respiratory: Denies: short of breath. GI: Reports: constipation, distention. Denies: nausea, vomiting. Musculoskeletal: Reports: back pain. Neurological/Psychological: Reports: anxiety. Hematologic/Endocrine: Denies: bruising, bleeding. Immunologic/Allergic: Denies: lymphadenopathy. All Other Systems: Reviewed and Negative Past History Travel History Traveled to [place] past 21 day No Medical History Blood Transfusion Hx: Yes Neurological: CVA EENT: NONE Cardiovascular: CAD, hypertension, hyperlipidemia, PVD Respiratory: NONE Gastrointestinal: NAUSEA VOMITING DIARRHEA Hepatic: NONE Renal: chronic kidney disease Musculoskeletal: chronic back pain, degen joint disease, falls, gout Psychiatric: NONE Endocrine: thyroid disease Blood Disorders: anemia Cancer(s): basal cell carcinoma, colon/rectal cancer, endometrial cancer CANE CUTTER/Reproductive: NONE Surgical History Surgical History: CABG, hysterectomy, PARTIAL SIGMOIDECTOMY BACK SURGERY CAROTIDECTOMY LE STENT PLACEMENT Family History Relations & Conditions If Any: MOTHER (Unknown - pt adolted). FATHER (unknown - pt adopted). Psychosocial History Where Do You Live? Extended Care Facility Who Do You Live With? self Services at Home: None Primary Language: Khmer Smoking Status: Former Smoker ETOH Use: denies use Living Will? yes Power of Brass Roller/HCP? yes Name of POA/HCP: Nancie Luong- friend/POA Functional Ability ADLs Independent: dressing, eating, toileting, bathing. Ambulation: cane IADLs Independent: shopping, housework, finances, food prep, telephone, transportation , medication admin. Exam & Diagnostic Data Vital Signs and I&O Vital Signs Date Time Temp Pulse Resp B/P B/P Pulse O2 O2 Flow FiO2 Mean Ox Delivery Rate 04/24 0634 98.1 66 18 144/62 93 Room Air 04/23 2121 68 140/75 04/232 68 140/75 18 1500 97.7 68 20 140/75 94 /18 0933 98.4 98 20 150/66 04/23 0917 98.4 98 150/66 04/23 0917 98.4 98 20 150/66 04/23 0916 98.4 98 20 150/66 18 0915 98.4 98 20 150/66 Intake & Output 04/24 0800 04/24 0000 04/23 1600 Intake Total 360 120 300 Output Total Balance 360 120 300 Intake, Oral 360 120 300 Number 0 Bowel Movements Physical Exam General Appearance: no apparent distress, alert, awake, comfortable, thin Head: atraumatic, normal appearance Eyes: Bilateral: PERRL, EOMI. Ears, Nose, Throat: normal pharynx Respiratory: normal breath sounds, chest non-tender, no respiratory distress, quiet respiration Cardiovascular: regular rate/rhythm Gastrointestinal: normal bowel sounds, soft, non-tender Extremities: normal inspection Neurologic/Psych: awake, alert, oriented x 3 Skin: normal color, warm/dry Lymphatic: no anterior cervical mally Last 48 Hours of Lab Results: Laboratory Tests 04/23 0600 Chemistry Sodium Cancelled Potassium Cancelled Chloride Cancelled Carbon Dioxide Cancelled Anion Gap Cancelled BUN Cancelled Creatinine Cancelled BUN/Creatinine Ratio Cancelled Hematology CBC w Diff Cancelled WBC Cancelled RBC Cancelled Hgb Cancelled Hct Cancelled MCV Cancelled MCH Cancelled MCHC Cancelled RDW Cancelled Plt Count Cancelled MPV Cancelled Imaging/Other Studies: MRI Abdomen 04/04/2017: Multiple hepatic lesions are seen which demonstrate heterogeneous enhancement. Given interval enlargement and increased number of lesions since CT dating back to 11/04/2015, findings are most concerning for hepatocellular carcinoma. Metastatic disease is in the differential. Large volume ascites. Fluid extends into a subxiphoid ventral hernia. Multiple renal cysts. Possible hemorrhagic cyst in the upper pole of the right kidney. Small lobulated cystic lesion noted at the inferior aspect of the mid pancreatic body. Please note that the current study is not optimized for characterization of pancreatic lesions. Possible gallbladder sludge. CT Abdomen/Pelvis 03/06/2017: 1. Large volume of abdominal ascites. Generalized anasarca. Small left pleural effusion. 2. Suspicious large lesion in the liver. This can be further characterized with dynamic MRI. 3. Degenerative changes of the spine. Status post left-sided laminectomy L4 vertebra. Assessment/Plan Assessment: Ms. Adorno is a 76-year-old female with HTN, HLD, CKD stage 4, CAD s/p triple vessel CABG (over 10 years ago), sigmoid colon cancer s/p resections (in the ), uterine cancer s/p hysterectomy (), PVD, carotid endarterectomy over 10 years ago and most recent angiography done in 2013, and chronic back pain who presented from [facility] for increasing ascites, worsening CKD, and recently noted masses on MRI. Since admission, she has had liver biopsy with paracentesis. Ascitic fluid was negative on 04/13/2017. Preliminary of the liver biopsy on 04/17/2017 is malignant. AFP was normal. CEA is elevated at 11.7. Differentials include colon, uterine, HCC, and hepatobiliary disease. HCC is less likely given normal AFP. Treatment will be dependent on the pathology. Her performance status will be the biggest factor in her ability to tolerate potential therapy. She will need to have improved PS. She is working with PT and nutrition. I have also discussed option of hospice if she wish to not pursue therapy. She will follow up as outpatient to discuss options. Recommendations: Liver mass: -follow up pathology -treatment options to be discussed base on pathology -follow up as outpatient Failure to thrive: -PT evaluation -nutrition evaluation Problem List: 1. Liver lesion 2. Renal insufficiency 3. History of colon cancer 4. History of uterine cancer Other Findings/Comments: Please call [phone] with any questions or concerns. Consult Acknowledgment - Thank you for your consult request.
[2017-04-24 14:28] VITALS: BP 130/60
[2017-04-24 22:32] VITALS: BP 160/78
[2017-04-25 05:54] VITALS: BP 130/84
--- NOTE | 2017-04-25 07:16 | PN- Housestaff ---
Ruben NAGEL,Ramon 04/25/17 0716: Subjective Follow-up For: Cancer of the liver, unclear at this time whether primary or metastatic Failure to thrive Subjective: Patient was seen and examined at bedside. She was sleeping comfortably. She had no acute events overnight. She continues to refuse medications. She refused a repeat IV line placed. She is complaining of nausea with some episodes of vomiting. She is unwilling to discuss her goals of care. She is also willing to work with physical therapy. Review of Systems Constitutional: Reports: no symptoms. EENTM: Reports: no symptoms. Cardiovascular: Reports: no symptoms. Respiratory: Reports: no symptoms. Gastrointestinal: Reports: nausea, vomiting. Genitourinary: Reports: no symptoms. Musculoskeletal: Reports: no symptoms. Objective Last 24 Hrs of Vital Signs/I&O Vital Signs Date Time Temp Pulse Resp B/P B/P Pulse O2 O2 Flow FiO2 Mean Ox Delivery Rate 04/25 0554 97.8 91 20 130/84 96 Room Air 04/24 2232 98.4 85 18 160/78 93 Room Air 04/24 1600 Room Air 04/24 1428 96.0 74 16 130/60 95 Intake & Output 04/25 0800 04/25 0000 04/24 1600 Intake Total 0 Output Total 0 Balance 0 Intake, Oral 0 Number 1 0 Bowel Movements Output, Urine 0 Physical Exam General Appearance: Alert, Oriented X3, Cooperative Skin: ulcer on the sacrum Skin Temp/Moisture Exam: Warm/Dry Cardiovascular: Regular Rate, Normal S1, Normal S2, systolic murmur Lungs: Clear to Auscultation, Normal Air Movement Abdomen: Normal Bowel Sounds, Soft, No Tenderness, mild distension Extremities: R hand 2 + pitting edema, bilateral feet with 2+ pitting edema Current Medications: Current Medications Sig/Jose Start time Last Medication Dose Route Stop Time Status Admin Albuterol Sulfate 3 ML Q4H PRN 04/12 0200 AC INH Amlodipine Besylate 10 MG DAILY 04/12 1000 AC 04/23 PO 0933 Cholecalciferol 1,000 IU BID 04/12 1000 AC 04/23 PO 212 Clonidine 0.3 MG Q12 04/12 1000 AC 04/23 PO 2122 Docusate Sodium 100 MG BID 04/17 2341 AC 04/23 PO 2123 Escitalopram Oxalate 10 MG 0800 04/24 0800 AC PO Furosemide 20 MG DAILY 04/21 1050 AC 04/23 IV 0916 Glycerin 2 SPRAY Q2P PRN 04/16 1915 AC 04/17 PO 0457 Guaifenesin 10 ML Q6P PRN 04/12 0200 AC PO Heparin Sodium 5,000 UNIT Q8 04/12 2200 AC 04/17 (Porcine) SC 1730 Hydralazine HCl 100 MG BID 04/14 2200 AC 04/23 PO 2122 Isosorbide 60 MG DAILY 04/12 1000 AC 04/23 Mononitrate PO 0917 Metoprolol Tartrate 50 MG DAILY 04/12 1000 AC 04/23 PO 0915 Mirtazapine 7.5 MG AT BEDTIME 04/20 2200 AC 04/23 PO 2123 Omeprazole 40 MG DAILY AC 04/12 0700 AC 04/24 PO 0540 Ondansetron HCl 4 MG Q6H 04/21 0710 AC 04/21 IV 0826 Oxycodone HCl 5 MG Q8P PRN 04/19 0615 AC 04/23 PO 2122 Patient Medication 1 ED ONE ONE 04/24 1515 [place] Teaching ED 04/24 1516 Polyethylene Glycol 17 GM BID 04/12 1000 AC 04/18 PO 1022 Senna 187 MG AT BEDTIME 04/17 2345 AC 04/23 PO 2123 Spironolactone 50 MG DAILY 04/21 1000 AC 04/23 PO 0916 Tramadol HCl 50 MG DAILY 04/12 1000 AC 04/19 PO 1215 Assessment/Plan Assessment: Patient is a 76-year-old female with a PMH significant for CKD stage IV, CAD status post CABG, PVD status post angioplasty with stent, HTN, uterine and colon cancer, liver lesions either primary or metastatic cancer, who presented to [facility] from rehabilitation due to worsening poor by mouth intake, nausea and vomiting, worsening ascites and worsening renal function. Patient is persistently refusing all interventions. I had a discussion with the patient's son yesterday with her permission about her current condition. I also had a discussion with the patient's POA, Nancie, who will come in for a meeting on 04/27 in the afternoon at around 2:30 PM to discuss goals of care. In the meantime she suggested potentially getting Lenin Higuera MD involved the patient is very fond of, to see if she he is able to convince her to resume interventions including physical therapy and taking her regular medications. I then spoke with Lenin Higuera MD whom will attempt to see the patient at some point this week, however he is back covering [facility] next week and will likely have to see her then if not before. #Edema of the right hand Patient refused Doppler ultrasound of the right upper extremity. Right hand edema persists -Will encourage R hand elevation, Lasix, and SC heparin for DVT prophylaxis #Liver masses Preliminary pathology report shows poorly differentiated carcinoma, it has been sent to [place] for further workup -Follow-up final pathology #ascites, resolved with paracentesis Patient with a large volume tap with liver biopsy 04/17/17. She tolerated the procedure well. -Appears that a small volume of reaccumulation is occurring with mild abdominal distention from baseline post large volume tap with mild abdominal distention from baseline post large volume tap #chronic pressure ulcer This continues to improve -Treat with DuoDERM and offloading #Mild hyponatremia Patient continues to refuse lab draws #mild Protein calorie malnutrition Patient continues to have poor by mouth intake #Depression Patient continues to refuse medications, sleeps for most of the day and refuses goals of care discussion -Continue Lexapro 10 mg #Physical deconditioning Patient continues to refuse to work with physical therapy -Continue to encourage to work with PT Diet: Heary healthy diet DVT prophylaxis:SC heparin, ALPS Code status: full code Problem List: 1. Carcinoma of liver 2. Pressure ulcer Pain Ratin Pain Location: none Pain Goal: Remain pain free Pain Plan: pain pathway Tomorrow's Labs & Rationales: cbc, bep, lfts Josephine lAlen MD 04/25/17 1059: Attending MD Review Statement Attending Statement Attending MD Statement: examined this patient, discuss w/resident/PA/PERFORMANCE MANAGER, agreed w/resident/PA/PERFORMANCE MANAGER, reviewed EMR data (avail) Attending Assessment/Plan: 76F PMH PVD s/p angioplasty with stent, HTN, CAD s/p CABG, CKD stage 4, uterine and colon cancer admitted with intractable nausea and vomiting secondary to acute gastroenteritis leading to pre-renal azotemia/ALVIN, with recently found multiple liver masses suspicious for metastases, underwent paracentesis and liver mass biopsy on 04/17 without complication. Slowly improving. Feels fatigued and weak. 1. Pre-renal azotemia/ALVIN secondary to dehydration (resolved) 2. Acute gastroenteritis (resolved) 3. Liver metastases 4. Hypokalemia (resolved) 5. Hyponatremia (resolved) 6. CKD stage 4 secondary to hypertensive nephrosclerosis Plan - Continue on general medicine - Psychiatry consult for depression - Monitor renal function - Follow GI and nephrology recommendations - PT evaluation for discharge planning - DVT PPx
[2017-04-25 14:20] VITALS: BP 135/80
[2017-04-26 06:20] VITALS: BP 148/80
--- NOTE | 2017-04-26 07:30 | PN- Housestaff ---
Ruben NAGEL,Ramon 04/26/17 0730: Subjective Follow-up For: Liver mets failure to thrive Subjective: Patient was seen and examined at [facility]. She was lethargic with AMS, below her baseline, and unable to comminucate. She opened her eyes to verbal stimuli but would not answer questions or follow commands. ROS was unatainable. Review of Systems Constitutional: Reports: see HPI. Objective Last 24 Hrs of Vital Signs/I&O Vital Signs Date Time Temp Pulse Resp B/P B/P Pulse O2 O2 Flow FiO2 Mean Ox Delivery Rate 04/26 0620 98.1 106 20 148/80 95 Room Air 04/25 1420 97.9 110 21 135/80 95 Intake & Output 04/26 0800 04/26 0000 04/25 1600 Intake Total 100 Output Total Balance 100 Intake, Oral 100 Number 2 1 Bowel Movements Physical Exam General Appearance: lethargic and not able to follow commands, opens eyes to verbal stimuli, moves all 4 extremities in response to painful stimuli Cardiovascular: tachycardic, systolic murmur Lungs: diminished breath sounds secondary to not taking deep breaths Abdomen: distended Extremities: dependent pitting edema of the feet, R hand with 2+pitting edema extending up the forearm Current Medications: Current Medications Sig/Jose Start time Last Medication Dose Route Stop Time Status Admin Albuterol Sulfate 3 ML Q4H PRN 04/12 0200 AC INH Amlodipine Besylate 10 MG DAILY 04/12 1000 AC 04/23 PO 0933 Cholecalciferol 1,000 IU BID 04/12 1000 AC 04/23 PO 212 Clonidine 0.3 MG Q12 04/12 1000 AC 04/23 PO 2122 Docusate Sodium 100 MG BID 04/17 2341 AC 04/23 PO 2123 Escitalopram Oxalate 10 MG 0800 04/24 0800 AC PO Furosemide 20 MG DAILY 04/25 1308 AC PO Furosemide 20 MG DAILY 04/21 1050 DC 04/23 IV 0916 Glycerin 2 SPRAY Q2P PRN 04/16 1915 AC 04/17 PO 0457 Guaifenesin 10 ML Q6P PRN 04/12 0200 AC PO Heparin Sodium 5,000 UNIT Q8 04/12 2200 AC 04/17 (Porcine) SC 1730 Hydralazine HCl 100 MG BID 04/14 2200 AC 04/23 PO 2122 Isosorbide 60 MG DAILY 04/12 1000 AC 04/23 Mononitrate PO 0917 Metoprolol Tartrate 50 MG DAILY 04/12 1000 AC 04/23 PO 0915 Mirtazapine 7.5 MG AT BEDTIME 04/20 2200 AC 04/23 PO 2123 Omeprazole 40 MG DAILY AC 04/12 0700 AC 04/24 PO 0540 Ondansetron HCl 4 MG Q6PRN PRN 04/25 0900 AC 04/25 PO 1326 Ondansetron HCl 4 MG Q6H 04/21 0710 DC 04/21 IV 0826 Oxycodone HCl 5 MG Q8P PRN 04/19 0615 AC 04/23 PO 2122 Polyethylene Glycol 17 GM BID 04/12 1000 AC 04/18 PO 1022 Senna 187 MG AT BEDTIME 04/17 2345 AC 04/23 PO 2123 Spironolactone 50 MG DAILY 04/21 1000 AC 04/23 PO 0916 Tramadol HCl 50 MG DAILY 04/12 1000 AC 04/19 PO 1215 Last 24 Hrs of Lab/Jere Results Last 24 Hrs of Labs/Mics: Laboratory Tests 04/26/17 1700: Sodium Cancelled, Potassium Cancelled, Chloride Cancelled, Carbon Dioxide Cancelled, Anion Gap Cancelled, BUN Cancelled, Creatinine Cancelled, BUN/ Creatinine Ratio Cancelled 04/26/17 1630: Anion Gap 15, Estimated GFR 29 L, BUN/Creatinine Ratio 27.1 H, Lactic Acid 1.9 , Calcium 10.2, Phosphorus 3.4, Magnesium 1.6, Troponin I 0.02, Prolactin 10.6, PT 11.6, INR 1.06, APTT 29, CBC w Diff NO MAN DIFF REQ, RBC 3.29 L, MCV 87.6, MCH 29.9, MCHC 34.1, RDW 15.4 H, MPV 7.9, Gran % 91.8 H, Lymphocytes % 4.7 L, Monocytes % 3.5, Eosinophils % 0, Basophils % 0, Absolute Granulocytes 13.1 H, Absolute Lymphocytes 0.7 L, Absolute Monocytes 0.5, Absolute Eosinophils 0, Absolute Basophils 0 04/26/17 1600: pH 7.31 L, pCO2 30 L, pO2 251 H, HCO3 15 L, ABG O2 Sat (Measured) 98.0, P-50 (Temp Corrected) N, Carboxyhemoglobin 0.3 L, O2 Concentration % 5L, Temperature 97.9, O2 Delivery Method NC, Phlebotomy Draw Site RIGHT RADIAL 04/26/17 1345: Lactic Acid Cancelled 04/26/17 1300: Fluid WBC 1287 H, Fld Mesothelial Cells , Fld Total RBCs Counted 30324 H 04/26/17 1300: Lymphocytes 24, % Normal PMNs 32, Fluid Total Protein < 2.0, Fluid LDH 237 04/26/17 1046: Lactic Acid 1.3 04/26/17 1040: Urinalysis MOD H, Urine Color YEL, Urine Clarity HAZY H, Urine pH 6.0, Ur Specific [place] 1.020, Urine Protein 100 H, Urine Ketones TRACE H, Urine Nitrite NEG, Urine Bilirubin NEG@ICTO, Urine Urobilinogen 0.2, Ur Leukocyte Esterase LARGE H, Ur Microscopic SEDIMENT EXAMINED, Urine RBC RARE, Urine WBC 25-50 H, Ur Epithelial Cells FEW, Urine Bacteria FEW H, Granular Casts RARE H , Urine Hemoglobin TRACE-INTACT, Urine Glucose NEG 04/26/17 0910: Anion Gap 21 H, Estimated GFR 31 L, BUN/Creatinine Ratio 28.8 H, Total Bilirubin 1.0, Direct Bilirubin 1.0 H, AST 18, ALT 22, Alkaline Phosphatase 282 H, Total Protein 5.3 L, Albumin 2.8 L, CBC w Diff NO MAN DIFF REQ, RBC 3.63 L, MCV 86.9, MCH 29.4, MCHC 33.8, RDW 15.5 H, MPV 8.2, Gran % 94.4 H, Lymphocytes % 3.3 L, Monocytes % 2.3, Eosinophils % 0, Basophils % 0, Absolute Granulocytes 12.8 H, Absolute Lymphocytes 0.4 L, Absolute Monocytes 0.3, Absolute Eosinophils 0, Absolute Basophils 0 04/26/17 0755: Sodium Cancelled, Potassium Cancelled, Chloride Cancelled, Carbon Dioxide Cancelled, Anion Gap Cancelled, BUN Cancelled, Creatinine Cancelled, BUN/ Creatinine Ratio Cancelled, CBC w Diff Cancelled, WBC Cancelled, RBC Cancelled, Hgb Cancelled, Hct Cancelled, MCV Cancelled, MCH Cancelled, MCHC Cancelled, RDW Cancelled, Plt Count Cancelled, MPV Cancelled Microbiology 04/26 1605 UPPER RESP: Surveillance Culture - RECD 04/26 1605 GI: Surveillance Culture - RECD 04/26 1300 BODY FLUID: Body Fluid Culture - RECD 04/26 1300 BODY FLUID: Gram Stain - RECD 04/26 1048 BLOOD: Blood Culture - RECD 04/26 1040 URINE ROUT: Urine Culture - RECD 04/26 0954 BLOOD: Blood Culture - RECD Assessment/Plan Assessment: Patient is a 76-year-old female with a PMH significant for CKD stage IV, CAD status post CABG, PVD status post angioplasty with stent, HTN, uterine and colon cancer, liver lesions either primary or metastatic cancer, who presented to [facility] from rehabilitation due to worsening poor by mouth intake, nausea and vomiting, worsening ascites and worsening renal function. Patient had altered mental status this morning, VS at that time were significant for hypothermia, stat labs revealed anion gap acidosis and a UA indicative of UTI. Patient went for diagnostic paracentesis. When she returned she was in hypertensive urgency and could not take PO meds. She was given a 1 time dose of IV metoprolol 5 mg. Soon after she had a witnessed seizure and was still hypertensive, a rapid response was called. She was transferred to the ICU and her POA was informed. See event notes for full details. #UTI and possible SBP Started emperically on IV ceftazidime and vancomycin - follow up paracentesis results - follow up blood, urine and ascitic fluid cultures #Seizure -Head CT to rule out brain mets and other pathology -check prolactin #Edema of the right hand Patient refused Doppler ultrasound of the right upper extremity at the onset of this swelling - if she shows signs suspicous of PE, consider CTA #Liver masses Per discussion with Dr. Lowe the pathology is showing these lesions are mets likely from the upper GI tract. -when the patient is stable this may be worked up further with CA-19-9, chest CT , however at this point given the patient's condition, a discussion about comfort measures or hospice would be appropriate #ascites, resolved with paracentesis Patient with a large volume tap with liver biopsy 04/17/17. She tolerated the procedure well. -Appears that a small volume of reaccumulation is occurring with mild abdominal distention from baseline post large volume tap with mild abdominal distention from baseline post large volume tap #chronic pressure ulcer This continues to improve -Treat with DuoDERM and offloading Diet: Heary healthy diet DVT prophylaxis:SC heparin, ALPS Code status: DNR/DNI Problem List: 1. FTT (failure to thrive) in adult 2. Carcinoma of liver 3. Pressure ulcer 4. Mass of multiple sites of liver Pain Ratin Pain Location: none Pain Goal: Remain pain free Pain Plan: pain pathway Tomorrow's Labs & Rationales: cbc, ICU bundle Eleanor NAGEL,Preeti 04/26/17 1347: Attending MD Review Statement Attending Statement Attending MD Statement: examined this patient, discuss w/resident/PA/DRIER OPERATOR HELPER, agreed w/resident/PA/DRIER OPERATOR HELPER, reviewed EMR data (avail), discussed with nursing, discussed with case mgmt, reviewed images Attending Assessment/Plan: 56-year-old female fairly extensive past medical history including hypertension, hyperlipidemia, coronary artery disease who has been here since April 11 after she presented with ascites, ALVIN, UTI and was found to have a malignancy on liver biopsy. It's an adeno CA with the primary likely being pancreatic or cholangiocarcinoma as per oncology's note today. Patient's main issues have been severely depressed mental status and non-cooperative behavior. Today she is lethargic and was noted on labs that were drawn to have a leukocytosis with an anion gap acidosis and ALVIN with hypothermia on exam. Possible sources of infection causing this ALVIN and anion gap acidosis include urinary given the positive UA and the possibility of SBP given her last tap showing a high SAAG and a low total protein. At this point will get blood cultures, a diagnostic tap, chest x-ray, urine culture and after all those obtained will empirically start on IV vancomycin to cover for the possibility of MRSA and ceftaz to cover the gram negatives including Pseudomonas given that she's been here since April 11 and she is immunosuppressed. Her POA was informed and consented to the treatment. The plan is that she will come in tomorrow for a family meeting to discuss further options. Oncology is not optimistic about being able to treat given overall poor by mouth intake, depression and poor mobility status.
--- NOTE | 2017-04-26 07:56 | Event Note ---
Event Note Event Note: S: Approximately 0800 patient was examined at bedside. She was found to have altered mental status, below her baseline, she was arousable but unable to communicate verbally and not following commands well. B: Patient has had a prolonged inpatient course, initially admitted with failed thrive, worsening ascites, and is currently treated for a UTI. She has been refusing all lab draws, medications, imaging studies. She was assessed by psychiatry and evaluated to be depressed. She had known liver lesions and a history of cancer AR: A stat set of vitals was taken, as well as EKG and CXR. Vital signs at that time were temperature 94 initially however when repeated rectally was 96.2, pulse 102, RR 22, BP 136, pulse ox 97% on room air. Fingerstick glucose 134. On exam the patient was lethargic, arousable to her name, able to keep her eyes open but not able to communicate verbally. This is significantly below her baseline. She was able to move her upper and lower extremities however she was not responding to commands. Pupils were equal round and reactive to light. She had no signs of tenderness to palpation of her abdomen, abdomen is mildly distended likely representing re-collection of ascitic fluid. Stat CBC, BEP showed mild leukocytosis which have been present throughout her hospitalization, BEP showed elevated anion gap, ALVIN. CXR was undiagnosed is due to rotation. UA and urine culture were sent and blood cultures were also drawn at this time. She was sent for urgent diagnostic paracentesis. IV access was obtained, patient had been refusing IV access previously, she was started on D5 half- normal saline and empirically started on IV vancomycin and IV ceftazidime. With an elevated anion gap leukocytosis and tachycardia infection is her current working diagnosis with urinary source or SBP being top of our differential. While PE is also being considered with her tachycardia and hypercoagulable state given malignancy, lack of compliance with DVT prophylaxis, and immobility she is not significantly tachypnic with nomral I personally called the patient's POA, Nancie Luong [phone], to obtain consents for diagnostic paracentesis, and update her on the patient's status. After the paracentesis I recheck her again to update her on the plan and see discuss the update of the patient's cancer diagnosis as discussed with me by Dr. Mynor Garza. At this time I brought up the patient's CODE STATUS is being full code, Nancie mentioned that she believed the patient have a living will expressing a DNR status however she was reluctant to change her CODE STATUS at this time. She is still planning to come in tomorrow afternoon for a meeting CODE STATUS and goals of care.
--- NOTE | 2017-04-26 08:08 | PN- Oncology ---
Subjective Subjective: She does not want to talk this morning. Review of Systems: Unable to obtain due to lack of cooperation. Objective Vital Signs and I&Os Vital Signs Date Time Temp Pulse Resp B/P B/P Pulse O2 O2 Flow FiO2 Mean Ox Delivery Rate 04/26 0620 98.1 106 20 148/80 95 Room Air 04/25 1420 97.9 110 21 135/80 95 Intake & Output 04/26 0800 04/26 0000 04/25 1600 04/25 0800 04/25 0000 04/24 1600 Intake Total 100 50 0 Output Total 0 Balance 100 50 0 Intake, IV 0 Intake, Oral 100 50 0 Number 2 1 0 1 0 Bowel Movements Output, Urine 0 Physical Exam General Appearance: no apparent distress, thin Respiratory: normal breath sounds, chest non-tender, no respiratory distress, quiet respiration Cardiovascular: regular rate/rhythm Abdomen: normal bowel sounds, soft, non-tender Extremities: RUE 2+ pitting edema Neurologic/Psychiatric: limited due to cooperation issue Skin: intact, warm/dry Current Medications: Current Medications Sig/Jose Start time Last Medication Dose Route Stop Time Status Admin Albuterol Sulfate 3 ML Q4H PRN 04/12 0200 AC INH Amlodipine Besylate 10 MG DAILY 04/12 1000 AC 04/23 PO 0933 Cholecalciferol 1,000 IU BID 04/12 1000 AC 04/23 PO 2122 Clonidine 0.3 MG Q12 04/12 1000 AC 04/23 PO 2122 Docusate Sodium 100 MG BID 04/17 2341 AC 04/23 PO 2123 Escitalopram Oxalate 10 MG 0800 04/24 0800 AC PO Furosemide 20 MG DAILY 04/25 1308 AC PO Furosemide 20 MG DAILY 04/21 1050 DC 04/23 IV 0916 Glycerin 2 SPRAY Q2P PRN 04/16 1915 AC 04/17 PO 0457 Guaifenesin 10 ML Q6P PRN 04/12 0200 AC PO Heparin Sodium 5,000 UNIT Q8 04/12 2200 AC 04/17 (Porcine) SC 1730 Hydralazine HCl 100 MG BID 04/14 2200 AC 04/23 PO 2122 Isosorbide 60 MG DAILY 04/12 1000 AC 04/23 Mononitrate PO 0917 Metoprolol Tartrate 50 MG DAILY 04/12 1000 AC 04/23 PO 0915 Mirtazapine 7.5 MG AT BEDTIME 04/20 2200 AC 04/23 PO 2123 Omeprazole 40 MG DAILY AC 04/12 0700 AC 04/24 PO 0540 Ondansetron HCl 4 MG Q6PRN PRN 04/25 0900 AC 04/25 PO 1326 Ondansetron HCl 4 MG Q6H 04/21 0710 DC 04/21 IV 0826 Oxycodone HCl 5 MG Q8P PRN 04/19 0615 AC 04/23 PO 2122 Polyethylene Glycol 17 GM BID 04/12 1000 AC 04/18 PO 1022 Senna 187 MG AT BEDTIME 04/17 2345 AC 04/23 PO 2123 Spironolactone 50 MG DAILY 04/21 1000 AC 04/23 PO 0916 Tramadol HCl 50 MG DAILY 04/12 1000 AC 04/19 PO 1215 Assessment/Plan Assessment/Recommendations: Ms. Adorno is a 76-year-old female with HTN, HLD, CKD stage 4, CAD s/p triple vessel CABG (over 10 years ago), sigmoid colon cancer s/p resections (in the ), uterine cancer s/p hysterectomy (), PVD, carotid endarterectomy over 10 years ago and most recent angiography done in 2013, and chronic back pain who presented from [facility] for increasing ascites, worsening CKD, and recently noted masses on MRI. Since admission, she has had liver biopsy with paracentesis. Ascitic fluid was negative on 04/13/2017. Preliminary of the liver biopsy on 04/17/2017 is malignant. AFP was normal. CEA is elevated at 11.7. Differentials include colon, uterine, HCC, and hepatobiliary disease. HCC is less likely given normal AFP. Treatment will be dependent on the pathology. Pathology result from [facility] suggest UGI and pancreatobiliary as potential etiology. Cholangiocarcinoma is in the differential. Ideally, she would need upper endoscopy with ERCP for evaluation. She should have CT of the chest with contrast to evaluate for metastatic disease. She should have CA 19-9 checked for possible pancreatic carcinoma or cholangiocarcinoma. Her PS and cooperation will be the main issues for her. Her overall prognosis is poor with pancreatic ro cholangiocarcinoma. It will be difficult to treat her at her current condition. She will need PT and nutritional improvement before she would be a candidate for therapy. Hospice is reasonable if she does not wish to pursue treatment. Metastatic carcinoma of likely GI/pancreatobililary origin: -check CT chest -check CA19-9 -discuss goals of care -follow up as outpatient -hospice candidate given deconditioning Failure to thrive: -PT evaluation -nutrition evaluation Please call [phone] with any questions or concerns. Problem List: 1. Carcinoma of liver 2. History of colon cancer 3. History of uterine cancer 4. FTT (failure to thrive) in adult
[2017-04-26 09:07] VITALS: BP 136/78
[2017-04-26 09:24] VITALS: BP 136/78
[2017-04-26 09:42] LABS: ABSOLUTE BASOPHIL COUNT 0 /CUMM (0.0-0.2); ABSOLUTE EOSINOPHIL COUNT 0 /CUMM (0.0-0.7); ABSOLUTE GRANULOCYTE CT 12.8 /CUMM (1.4-6.5); ABSOLUTE LYMPH COUNT 0.4 /CUMM (1.2-3.4); ABSOLUTE MONOCYTE COUNT 0.3 /CUMM (0.10-0.60); BASOPHIL % 0 % (0.0-2.0); EOSINOPHIL % 0 % (0-5); HEMATOCRIT 31.6 % (37-47); MEAN CORPUSCULAR HGB 29.4 PG (27.0-31.0); MEAN CORPUSCULAR HGB CONC 33.8 G/DL (33.0-37.0); MEAN CORPUSCULAR VOLUME 86.9 FL (81.0-99.0); MEAN PLATELET VOLUME 8.2 FL (7.4-10.4); PLATELET COUNT 125 /CUMM (130-400); RBC DISTRIBUTION WIDTH 15.5 % (11.5-14.5); RED BLOOD CELL CT 3.63 /CUMM (4.20-5.40); WHITE BLOOD CELL COUNT 13.5 /CUMM (4.8-10.8)
--- NOTE | 2017-04-26 10:10 | RADIOLOGY REPORT ---
EXAMINATION: XR PORTABLE CHEST CLINICAL INFORMATION: Labored breathing and hypothermic with altered mental status. COMPARISON: Chest x-ray 04/11/2017. TECHNIQUE: Portable frontal view of the chest was obtained. FINDINGS: Exam is not diagnostic secondary to significant patient rotation. The right lung appears well aerated and the left lung is not diagnostically assessed. There are median sternotomy wires. Cardiac silhouette not diagnostically assessed. No acute osseous findings. Surgical clips project over the lower neck. IMPRESSION: Nondiagnostic chest x-ray secondary to significant patient rotation. The left lung is not diagnostically assessed and the right lung appears well-aerated. Cardiac silhouette not diagnostically assessed. A repeat chest x-ray with the patient in AP positioning is recommended.
[2017-04-26 10:34] LABS: GRANULOCYTE % 94.4 % (42.2-75.2)
[2017-04-26 14:15] VITALS: BP 138/88
[2017-04-26 14:32] VITALS: BP 198/90
[2017-04-26 16:00] VITALS: BP 208/86
--- NOTE | 2017-04-26 16:12 | ULTRASOUND REPORT ---
EXAMINATION: PARACENTESIS CLINICAL INFORMATION: Ascites . Decreased responsiveness. Concern for spontaneous bacterial peritonitis. COMPARISON: Several prior paracenteses, the most recent 04/17/2017 TECHNIQUE: Direct ultrasound guidance using a 20-gauge spinal needle FINDINGS: Informed consent was obtained from the patient's power of deputy commonwealth's attorney prior to the procedure. During this process, the procedure alternatives were explained, along with the intended outcome and benefits. The risks of the procedure, as well as the risk of not doing the procedure, was discussed. The patient's power of deputy commonwealth's attorney was given the opportunity to ask questions regarding the procedure. A consent form which documents this discussion was placed in the medical record. Ultrasound evaluation of the abdomen for ascites was performed. Moderate amount of ascites is noted in the right upper quadrant. The site was marked. A timeout procedure was performed. The area was prepped and draped in usual sterile fashion. Using standard interventional and sterile techniques, lidocaine was used to anesthetize the region. A 20-gauge spinal needle was advanced into the fluid under direct sonographic visualization. Approximately 60 mL's of blood-tinged, nonclotting fluid was aspirated. The needle was removed and good hemostasis was achieved with manual pressure. Dermabond was placed. The patient tolerated the procedure well. The patient was discharged from the department in stable condition. COMPLICATIONS: None. IMPRESSION: Successful ultrasound-guided diagnostic paracentesis yielding 60 mL's of fluid.
--- NOTE | 2017-04-26 16:15 | Event Note ---
Event Note Event Note: Rapid response was called after a seizure. See rapid response note for full details. Patient's POA, Nancie Dowjelani [phone], was contacted and informed of the situation. She consented to have the patient admitted to the unit and agrees to have a central line, pressors, blood transfusions be done as necessary however she had also spoken with the patient's co-POA who is also a close friend and they have decided to make the patient's CODE STATUS DNR/DNI at this time. Nancie is still planning to come in to the hospital tomorrow for further goals of care discussion. Nancie also requests that any updates overnight be related to her at the number listed above.
--- NOTE | 2017-04-26 16:16 | Transfer of Care Summary ---
Hospital Course Course Hospital Course: Reason for transfer to ICU: Rapid decline in patient's condition including suspected infection and seizure. HPI: Patient is a 76-year-old female with a PMH significant for CAD status post CABG, CKD, HTN, PVD status post angioplasty with stents, uterine and colon cancer who had a recent admission in February of this year for evaluation of new onset ascites and was ultimately diagnosed with multiple liver lesions by outpatient MRI, who presented to the [facility] ED from [facility] on 04/11/17 with recurrence of ascites, failure to thrive, ALVIN. She had been refusing to eat while at [facility] claiming to not like the food and had overall poor by mouth intake including by mouth hydration. Interval events in the Floor: On the floor she was followed by nephrology, she follows with Lenin Higuera MD as an outpatient, and by GI, she follows with Dr. Coleman as an outpatient. A diagnostic paracentesis was done and SBP was ruled out at that time, with SAAG suggestive of transudate. ALVIN resolved with IV fluid rehydration. UA was indicative of UTI, she was incontinent of urine and she was treated with a 5 day course (04/14-04/18) of IV ceftriaxone. When her ALVIN had resolved, we proceeded with a large volume paracentesis and liver lesion biopsy on 04/17/17. Preliminary results were of poorly differentiated carcinoma Oncology was consulted. Based on discussions with Dr. Mynor Garza who was in touch with the [place] pathologist this is likely upper GI in origin. Of note throughout her stay the patient has been lethargic but easily arousable, refusing medications, refusing labwork, refusing new IV lines, refusing to work with physical therapy, and complaining of nausea, nausea was ultimately controlled with scheduled IV Zofran. She continued to have poor by mouth intake. Beginning around 04/18/17 patient was refusing all medications and having an increasingly depressed mood, psychiatry was consulted who recommended starting Lexapro. On the morning of 04/26/17 the patient was found to have altered mental status. She was more lethargic and although she was arousable with verbal stimuli she would only open her eyes and could not communicate verbally. Initially her temperature was read as hypothermic to 94 however repeat rectal temperature showed 96. Other vital signs were within normal limits. Stat CBC, BEP, EKG, CXR were done. Says are significant for mild elevation in WBC and elevated anion gap. She was sent for an urgent diagnostic paracentesis, blood cultures were drawn. Empiric therapy with IV vancomycin and IV ceftazidime was ordered. Later in the afternoon she was noted to be hypertensive 198/98, she was given a one-time dose of IV 5 mg metoprolol. A rapid response was then called when the patient was found seizing, she does not have a history of seizure. Stat lab work was done and she was transferred to the ICU. IV decadron was ordered. NIPPV: No Antibiotics: IV Vancomycin, IV Ceftazidime Catheters/ IV access: 2 Peripheral IV Things to follow up: Neurology consult, EDC, BEP, troponin, lactic acid, urine cultures, blood cultures, ascitic fluid studies DVT prophylaxis: Subcutaneous heparin has been ordered however the patient has been refusing Consultants: Consult was placed to Dr. Castro of neurology after the seizure Dr. Mynor Garza oncology GI and nephrology has signed off Code status: DNR/DNI Family updated: Yes, POA updated, please contact Nancie Dowjelani [phone] with any significant changes of condition. She has agreed to central line, pressors, and blood transfusions as needed. Assessment/Plan: This new onset of AMS lisa with immunosuppressed state in the setting of malignancy is likely secondary to infection, with SBP and urinary tract being our top differential. The seizure with current metastatic cancer raises concern for brain mets. Plan: continue with emperic atibiotic therapy until a source is idetntified once stabilized patient should go for a head CT follow up neurology recommendations patient was given a dose of decadron following the seizure
--- NOTE | 2017-04-26 16:32 | Cons- CRCU ---
Maribeth NAGEL,[facility] 04/26/17 1632: General Information and HPI Consulting Request Date of Consult: 04/26/17 Requested By: Dr Preeti Webster Reason for Consult: Seizure-like activity, decreased responsiveness Source of Information: EMS Exam Limitations: unable to give history, poor historian History of Present Illness: 76-year-old female with past medical history of hypertension, hyperlipidemia, CK D4, CAD status post triple vessel CABG, sigmoid colon cancer status post resection in , uterine cancer status post hysterectomy in , PVD, carotid endarterectomy over 10 years ago with recent angiography done in 2013, chronic back pain, who presented from [facility] for worsening ascites, AK I, and new mass noted on MRI. She was being treated in the general medical floor for multiple medical issues, including HPI, liver mass status post liver biopsy on 04/17/2017, diagnostic and therapeutic paracentesis of 8.1 L 1 04/12/2017, chronic normocytic anemia status post 1 unit of blood transfusion, urinary tract infection with culture positive for Klebsiella pneumoniae treated with ceftriaxone, chronic pressure ulcer, and protein calorie malnutrition. According to oncologist's note today, her liver pathology preliminary results is suggesting UGI and pancreaticobiliary as potential etiology of the metastasis, and given her overall prognosis being poor , it would be difficult treatment, and hospice would be reasonable if she does not wish to pursue treatment. She had been refusing her oral medications recently at [facility] as well, but was taking it in the [facility] floor. However, she recently (more since ) had started refusing all medications, investigations, oral intake, and earlier today, was found to be less responsive than usual, and with a question of seizure-like activity had a rapid response called following which, she was transferred to the critical care unit. Her temperature this morning was 96.2 hypothermia at 0924 hrs. today, with tachycardia at 102, respiration 22, 136/78 blood pressure, and SPO2 97% with O2 @ 2L/min. Her blood pressure was found to be to wait over 86, pulse 81, temperature 96.5, respiration 22 and pulse oximetry 100% on 2 L oxygen at 4 PM today during the rapid response, following which she received 5 units of IV metoprolol. Allergies/Medications Allergies: Coded Allergies: Sulfa (Sulfonamide Antibiotics) (Severe, HIVES 12/27/15) Home Med List: Albuterol Sulfate 0.63 MG/3 ML VIAL.NEB 1 Vial INH/SHEILA 4 TIMES/DAY PRN COPD ( Reported) Amlodipine Besylate 10 MG TABLET 1 TAB PO DAILY HTN (Reported) Aspirin (Aspirin*) 81 MG TAB.CHEW 1 TAB PO DAILY HEART HEALTH (Reported) Cholecalciferol (Vitamin D3) (Vitamin D3) 2,000 UNIT CAPSULE 1 CAP PO BID SUPPLEMENT (Reported) Clonidine HCl 0.3 MG TABLET 1 TAB PO Q12 HTN (Reported) Guaifenesin/Dextromethorphan (Robitussin Cough-Chest Dm Liq) 100 MG-5 MG/5 ML LIQUID 10 ML PO Q4 PRN COUGH (Reported) Hydralazine HCl 25 MG TABLET 3 TAB PO TID HTN (Reported) Isosorbide Mononitrate (Isosorbide Mononitrate ER) 60 MG TAB.ER.24H 1 TAB PO DAILY HTN (Reported) HOLD FOR SBP<100MMGH Metoprolol Tartrate (Lopressor) 50 MG TABLET 1 TAB PO DAILY HTN (Reported) Paragon-3 Fatty Acids/Fish Oil (Fish Oil 1,000 MG Capsule) 340 MG-1,000 MG CAPSULE 2 CAP PO DAILY SUPPLEMENT (Reported) Omeprazole 40 MG CAPSULE.DR 1 CAP PO DAILY ACID REFLUX (Reported) Ondansetron HCl (Zofran) 4 MG TABLET 1 TAB PO TID NAUSEA (Reported) Oxycodone HCl 5 MG TABLET 1 TAB PO Q8P PAIN MODERATE (Reported) Polyethylene Glycol 3350 (Miralax) 17 GRAM/DOSE POWDER 17 GM PO BID GI Tramadol HCl 50 MG TABLET 1 TAB PO DAILY PAIN (Reported) Current Medications: Current Medications Sig/Jose Start time Last Medication Dose Route Stop Time Status Admin Albuterol Sulfate 3 ML Q4H PRN 04/12 0200 AC INH Amlodipine Besylate 10 MG DAILY 04/12 1000 AC 04/23 PO 0933 Ceftazidime 1,000 MG ONCE ONE 04/26 1145 DC 04/26 IV 04/26 1146 1453 Cholecalciferol 1,000 IU BID 04/12 1000 AC 04/23 PO 2122 Clonidine 0.3 MG Q12 04/12 1000 AC 04/23 PO 2122 Dexamethasone 4 MG ONCE ONE 04/26 1600 DC 04/26 Dextrose/Water 50 ML IV 04/26 1630 1648 Dextrose/Sodium 1,000 ML Q6H 04/26 1100 DC 04/26 Chloride IV 1453 Dextrose/Sodium 1,000 ML Q13H 04/26 0830 DC 04/26 Chloride IV 0941 Docusate Sodium 100 MG BID 04/17 2341 AC 04/23 PO 2123 Escitalopram Oxalate 10 MG 0800 04/24 0800 AC PO Furosemide 20 MG DAILY 04/25 1308 DC PO Glycerin 2 SPRAY Q2P PRN 04/16 1915 AC 04/17 PO 0457 Guaifenesin 10 ML Q6P PRN 04/12 0200 AC PO Heparin Sodium 5,000 UNIT Q8 04/12 2200 AC 04/26 (Porcine) SC 1502 Hydralazine HCl 10 MG ONCE ONE 04/26 1615 DC 04/26 IV 04/26 1616 1615 Hydralazine HCl 100 MG BID 04/14 2200 AC 04/23 PO 2122 Isosorbide 60 MG DAILY 04/12 1000 AC 04/23 Mononitrate PO 0917 Lidocaine 1 ML .STK-MED ONE 04/26 1331 DC ID 04/26 1332 Metoprolol Tartrate 5 MG ONCE ONE 04/26 1445 DC 04/26 IV 04/26 1446 1456 Metoprolol Tartrate 50 MG DAILY 04/12 1000 AC 04/23 PO 0915 Mirtazapine 7.5 MG AT BEDTIME 04/20 2200 AC 04/23 PO 2123 Omeprazole 40 MG DAILY AC 04/12 0700 AC 04/24 PO 0540 Ondansetron HCl 4 MG Q6PRN PRN 04/25 0900 AC 04/25 PO 1326 Oxycodone HCl 5 MG Q8P PRN 04/19 0615 AC 04/23 PO 2122 Polyethylene Glycol 17 GM BID 04/12 1000 AC 04/18 PO 1022 Senna 187 MG AT BEDTIME 04/17 2345 AC 04/23 PO 2123 Spironolactone 50 MG DAILY 04/21 1000 DC 04/23 PO 0916 Tramadol HCl 50 MG DAILY 04/12 1000 AC 04/19 PO 1215 Vancomycin HCl 1,000 MG 1400 04/26 1400 AC 04/26 Dextrose/Water 250 ML IV 1453 Review of Systems Review of Systems Constitutional: Reports: no symptoms. EENTM: Reports: no symptoms. Cardiovascular: Reports: no symptoms. Respiratory: Reports: no symptoms. GI: Reports: see HPI. Genitourinary: Reports: no symptoms. Musculoskeletal: Reports: no symptoms. Skin: Reports: no symptoms. Neurological/Psychological: Reports: no symptoms. Hematologic/Endocrine: Reports: no symptoms. All Other Systems: Reviewed and Negative Past History Travel History Traveled to [place] past 21 day No Medical History Blood Transfusion Hx: Yes Neurological: CVA EENT: NONE Cardiovascular: CAD, hypertension, hyperlipidemia, PVD Respiratory: NONE Gastrointestinal: NAUSEA VOMITING DIARRHEA Hepatic: NONE Renal: chronic kidney disease Musculoskeletal: chronic back pain, degen joint disease, falls, gout Psychiatric: NONE Endocrine: thyroid disease Blood Disorders: anemia Cancer(s): basal cell carcinoma, colon/rectal cancer, endometrial cancer GLUER/Reproductive: NONE Surgical History Surgical History: CABG, hysterectomy, PARTIAL SIGMOIDECTOMY BACK SURGERY CAROTIDECTOMY LE STENT PLACEMENT Family History Relations & Conditions If Any: MOTHER (Unknown - pt adolted). FATHER (unknown - pt adopted). Psychosocial History Where Do You Live? Extended Care Facility Who Do You Live With? self Services at Home: None Primary Language: [place] Smoking Status: Former Smoker ETOH Use: denies use Living Will? yes Power of Internet Marketing Intern/HCP? yes Name of POA/HCP: Nancie Luong- friend/POA Functional Ability ADLs Independent: dressing, eating, toileting, bathing. Ambulation: cane IADLs Independent: shopping, housework, finances, food prep, telephone, transportation , medication admin. Exam & Diagnostic Data Last 24 Hrs of Vital Signs/I&O Vital Signs Date Time Temp Pulse Resp B/P B/P Pulse O2 O2 Flow FiO2 Mean Ox Delivery Rate 04/26 1615 208/86 04/26 1456 106 198/90 04/26 1432 102 198/90 04/26 1415 99.0 100 20 138/88 95 04/26 0924 96.2 102 22 136/78 97 04/26 0620 98.1 106 20 148/80 95 Room Air Intake & Output 04/26 1600 04/26 0800 04/26 0000 Intake Total 450 Output Total 600 Balance -150 Intake, IV 450 Number 2 Bowel Movements Output, Urine 600 Last 48 Hrs of Labs/Jere: Laboratory Tests 04/26/17 1700: Sodium Cancelled, Potassium Cancelled, Chloride Cancelled, Carbon Dioxide Cancelled, Anion Gap Cancelled, BUN Cancelled, Creatinine Cancelled, BUN/ Creatinine Ratio Cancelled 04/26/17 1630: Anion Gap 15, Estimated GFR 29 L, BUN/Creatinine Ratio 27.1 H, Lactic Acid 1.9 , Troponin I 0.02, Prolactin 10.6, PT 11.6, INR 1.06, APTT 29, CBC w Diff NO MAN DIFF REQ, RBC 3.29 L, MCV 87.6, MCH 29.9, MCHC 34.1, RDW 15.4 H, MPV 7.9, Gran % 91.8 H, Lymphocytes % 4.7 L, Monocytes % 3.5, Eosinophils % 0, Basophils % 0 , Absolute Granulocytes 13.1 H, Absolute Lymphocytes 0.7 L, Absolute Monocytes 0.5, Absolute Eosinophils 0, Absolute Basophils 0 04/26/17 1600: pH 7.31 L, pCO2 30 L, pO2 251 H, HCO3 15 L, ABG O2 Sat (Measured) 98.0, P-50 (Temp Corrected) N, Carboxyhemoglobin 0.3 L, O2 Concentration % 5L, Temperature 97.9, O2 Delivery Method NC, Phlebotomy Draw Site RIGHT RADIAL 04/26/17 1345: Lactic Acid Cancelled 04/26/17 1300: Fluid WBC 1287 H, Fld Mesothelial Cells , Fld Total RBCs Counted 24663 H 04/26/17 1300: Lymphocytes 24, % Normal PMNs 32, Fluid Total Protein < 2.0, Fluid LDH 237 04/26/17 1046: Lactic Acid 1.3 04/26/17 1040: Urinalysis MOD H, Urine Color YEL, Urine Clarity HAZY H, Urine pH 6.0, Ur Specific [place] 1.020, Urine Protein 100 H, Urine Ketones TRACE H, Urine Nitrite NEG, Urine Bilirubin NEG@ICTO, Urine Urobilinogen 0.2, Ur Leukocyte Esterase LARGE H, Ur Microscopic SEDIMENT EXAMINED, Urine RBC RARE, Urine WBC 25-50 H, Ur Epithelial Cells FEW, Urine Bacteria FEW H, Granular Casts RARE H , Urine Hemoglobin TRACE-INTACT, Urine Glucose NEG 04/26/17 0910: Anion Gap 21 H, Estimated GFR 31 L, BUN/Creatinine Ratio 28.8 H, Total Bilirubin 1.0, Direct Bilirubin 1.0 H, AST 18, ALT 22, Alkaline Phosphatase 282 H, Total Protein 5.3 L, Albumin 2.8 L, CBC w Diff NO MAN DIFF REQ, RBC 3.63 L, MCV 86.9, MCH 29.4, MCHC 33.8, RDW 15.5 H, MPV 8.2, Gran % 94.4 H, Lymphocytes % 3.3 L, Monocytes % 2.3, Eosinophils % 0, Basophils % 0, Absolute Granulocytes 12.8 H, Absolute Lymphocytes 0.4 L, Absolute Monocytes 0.3, Absolute Eosinophils 0, Absolute Basophils 0 04/26/17 0755: Sodium Cancelled, Potassium Cancelled, Chloride Cancelled, Carbon Dioxide Cancelled, Anion Gap Cancelled, BUN Cancelled, Creatinine Cancelled, BUN/ Creatinine Ratio Cancelled, CBC w Diff Cancelled, WBC Cancelled, RBC Cancelled, Hgb Cancelled, Hct Cancelled, MCV Cancelled, MCH Cancelled, MCHC Cancelled, RDW Cancelled, Plt Count Cancelled, MPV Cancelled Assessment/Plan CRCU Impression/Plan: 76-year-old female with past medical history of hypertension, hyperlipidemia, CK D4, CAD status post triple vessel CABG, sigmoid colon cancer status post resection in , uterine cancer status post hysterectomy in , PVD, carotid endarterectomy over 10 years ago with recent angiography done in 2013, chronic back pain, who presented from [facility] for worsening ascites, AK I, and new mass noted on MRI. She was being treated in the general medical floor for multiple medical issues as mentioned below, and recently had started refusing all medications, investigations, oral intake, and earlier today, was found to be less responsive than usual, and with a question of seizure-like activity had a rapid response called following which, she was transferred to the critical care unit. She is currently being managed in the ICU for the following issues: #Decreased responsiveness, rule out seizure The patient had decreased responsiveness since past 3 days, possibly attributable to her decreased by mouth intake, but earlier this afternoon she was found having abnormal movement of her limbs, which lasted only a few seconds , suggestive of seizure-like activity, but no new residual neurologic deficits. * The patient was deemed unstable and transferred to the ICU * CAT scan of the head was considered to rule out new metastasis to the brain or other intracranial lesions, after the patient has stabilized * Neurology consultation was placed, see even note. * 4 mg of IV Decadron was given following #Possible spontaneous bacterial peritonitis Patient had worsening sinusitis on presentation, and given her hypothermia and worsening physical health, and urgent diagnostic paracentesis was done earlier today, which shows neutrophil count of 411, suggestive of a spontaneous bacterial peritonitis. * The patient already is on vancomycin and ceftazidime which covers the usual causative agent of SBP. * Will wait for the body fluid culture results #Hypertensive urgency She was found to be hypertensive at 198/98 in the general medical floor and a one-time dose of IV metoprolol 5 mg was given. After the rapid response, her systolic blood pressure was still of 200 thus a one-time order of 10 mg IV hydralazine was given to lower the blood pressure to permissible range. 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 With her existing medical conditions, history of cancers, and recent developments, the prognosis seems guarded, and her power of securities attorney has notified us that her CODE STATUS is DNR/DNI, and we are having family/power of securities attorney meeting tomorrow to possibly discuss about goals of care which will include hospice care discussion as well. #Protein calorie malnutrition Primary due to malignancy and poor oral intake. Encouraging her as much as she desires. #Other medical conditions: -Chronic normocytic anemia, status post blood transfusion 1 -UTI with Klebsiella pneumoniae, status post treatment with IV ceftriaxone for 5 days -Chronic pressure ulcer, wound care consult on board, being treated with Duoderm and offloading -ALVIN on CKD-3, Creatinine better than at presentation (1.7 today) but still above her recent baseline 0.8. #Lopez placed today (04/26/17) in the ICU. #Diet: Regular diet with 2 Gm Na restriction #DVT ppx: SQ Heparin #Code status: DNR/DNI as of today Consult Acknowledgment - Thank you for your consult request. Odalis NAGEL,[facility] 04/26/17 8308: Assessment/Plan CRCU Other Findings/Comments: Pt with multiple malignacy history now with poorly diff ca in the liver with sig ascitis nwo with mulitple organ dysfunction with very poor performance status and pt not a candidate for any rx now with seizure and decompensated mental status ISsues Advanced GI Malignancy which is terminal and pt wished no sig intervention before Very poor performance status with cachexia Sepsis with prob sbp Seizure and poor mental status which is contributing to her deterioration Prob intracranial mets Uncontrolled HTN Other details as above REC COnt conservative rx given pt is dnr and dni IVF IV abx HEAD ct PRn iv hydrallazine Clonidine patch Dexa 8 mg bid for now Pt not a candidate for other agg intervention given terminal state and pt is now dnr and dni If vasopressors are needed use peripheral levo up to 10 mics and other rx will be medically futile and detrimental to the patients condition IV ppi IV keppra if seizure recurrs PRog poor Consult Acknowledgment - Thank you for your consult request.
--- NOTE | 2017-04-26 16:36 | Event Note ---
Event Note Event Note: Rapid response was called afternoon for patient who was found seizing by RN when she went to evaluate her. Patient had just previously recieved 5 mg dose of IV metoprolol slowly over 30 minutes for elevated blood pressure of 198/90. Patient had been refusing all her oral medications, food and PT for the past couple of days and this morning was found to be more lethargic than usual and hypothermic so she was worked up for sepsis. She was also sent for a therapeutic tap to r/o SBP and blood was drawn for cultures. She was then started on IV antibiotics. She has no known history of seizures. On evaluation patient was jerking in bed, seizure-like episode lasted only a few seconds and resolved on its own. Patient did not have any loss of urinary or bowel function and did not bite her tongue or drool. Patient is cachetic, lying on her left side, pupils slowly reactive and she was responsive to painful stimuli by opening eyes only. Chest clear to auscultation, RRR, abdomen non- tender, pitting edema on both the right lower and right upper extremities only. Vital signs were blood pressure of 200/90, heart rate was 75, respiratory rate 16, Temp 97.9 Plan Transfer patient to ICU Follow-up ABG, CBC, BEP, EKG, Troponin, lactic acid Continue antibiotics IV ceftaz and vancomycin for possible sepsis Consider CT head to r/o new metastasis to the brain or other intracranial lesion Control blood pressure per ICU team Neurology eval Dr. Webster in room during the rapid response and has discussed this patient with ICU attending Nawaf Jacobo MD. who recommends a dose of IV decadron x 1 Patient's POA, Nancie Luong [phone] a close friend of the patient, was contacted and informed of patient's transfer to the ICU. She consented to have the patient admitted to the unit and agrees to have a central line, pressors, blood transfusions done as necessary, however she had also spoken with the patient's co-POA who is also a close friend and they have decided to make the patient's CODE STATUS DNR/DNI at this time. Nancie is planning to come in to the hospital tomorrow for further goals of care discussion. Nancie also requests that any updates overnight be related to her at the number listed above.
--- NOTE | 2017-04-26 16:48 | Event Note ---
See Addendum Event Note Event Note: I just spoke with neurologist Dr. Matthew Ortiz, who was consulted immediately after the rapid response from the general medical floor with the patient. After discussing the history and current condition of the patient, he suggested to get a CAT scan of the head whenever the patient is more stable, and since the patient is now DNR/DNI and talks are being held about possible comfort measures/ hospice soon, he requested to be called once the CAT scan of the head is done or he would stop by the patient tomorrow if there is no acute neurological process going on. The patient is an hypertensive urgency, with blood pressure slowly lowering down. Will probably get a CAT scan of the head soon. We'll inform neurologist as soon as we get results of the CAT scan of head, or if any further changes in her neurological status.
[2017-04-26 17:04] LABS: ABSOLUTE BASOPHIL COUNT 0 /CUMM (0.0-0.2); ABSOLUTE EOSINOPHIL COUNT 0 /CUMM (0.0-0.7); ABSOLUTE GRANULOCYTE CT 13.1 /CUMM (1.4-6.5); ABSOLUTE LYMPH COUNT 0.7 /CUMM (1.2-3.4); ABSOLUTE MONOCYTE COUNT 0.5 /CUMM (0.10-0.60); BASOPHIL % 0 % (0.0-2.0); EOSINOPHIL % 0 % (0-5); GRANULOCYTE % 91.8 % (42.2-75.2); HEMATOCRIT 28.8 % (37-47); MEAN CORPUSCULAR HGB 29.9 PG (27.0-31.0); MEAN CORPUSCULAR HGB CONC 34.1 G/DL (33.0-37.0); MEAN CORPUSCULAR VOLUME 87.6 FL (81.0-99.0); MEAN PLATELET VOLUME 7.9 FL (7.4-10.4); PLATELET COUNT 133 /CUMM (130-400); RBC DISTRIBUTION WIDTH 15.4 % (11.5-14.5); RED BLOOD CELL CT 3.29 /CUMM (4.20-5.40); WHITE BLOOD CELL COUNT 14.2 /CUMM (4.8-10.8)
[2017-04-26 17:14] LABS: PT 11.6 SEC (9.4-12.5); PTT 29 SEC (25-37)
[2017-04-27] VITALS: BP 180/80
[2017-04-27 05:19] LABS: ABSOLUTE BASOPHIL COUNT 0 /CUMM (0.0-0.2); ABSOLUTE EOSINOPHIL COUNT 0 /CUMM (0.0-0.7); ABSOLUTE GRANULOCYTE CT 12.7 /CUMM (1.4-6.5); ABSOLUTE LYMPH COUNT 0.2 /CUMM (1.2-3.4); ABSOLUTE MONOCYTE COUNT 0.2 /CUMM (0.10-0.60); BASOPHIL % 0 % (0.0-2.0); EOSINOPHIL % 0 % (0-5); GRANULOCYTE % 97.5 % (42.2-75.2); HEMATOCRIT 29.8 % (37-47); MEAN CORPUSCULAR HGB 29.6 PG (27.0-31.0); MEAN CORPUSCULAR VOLUME 87.1 FL (81.0-99.0); MEAN PLATELET VOLUME 8.4 FL (7.4-10.4); PLATELET COUNT 106 /CUMM (130-400); RBC DISTRIBUTION WIDTH 15.3 % (11.5-14.5); RED BLOOD CELL CT 3.42 /CUMM (4.20-5.40)
--- NOTE | 2017-04-27 07:33 | PN- Resident CRCU ---
Subjective HPI/CRCU Issues: Patient is still in the ICU, due to seizure-like activity yesterday. I followed up and examined the patient today. She is resting comfortably in bed , is still refusing food, medications, water orally. Low body temperatures recorded overnight, no other issues. Of note, Dr Jacobo spoke with Nancie CARPENTER) over phone this morning who, together with the other POJose Gambino decided her to be on comfort measures only and no further investigations to be done. Objective Vital Signs & I&O Last 8 Hrs of Vitals and I&O: Vital Signs Date Time Temp Pulse Resp B/P B/P Pulse O2 O2 Flow FiO2 Mean Ox Delivery Rate 04/27 1400 96.7 04/27 1045 94.9 04/27 0845 96 165/77 04/27 0830 92 210/106 04/27 0800 94.7 92 20 214/90 100 Nasal 2.0L Cannula 04/27 0600 100 Nasal 2.0L Cannula 04/27 0220 97.6 91 24 190/80 04/27 0000 97.6 95 24 180/80 100 Nasal 2.0L Cannula 04/27 0000 100 Nasal 2.0L Cannula 04/27 0000 100 Nasal 2.0L Cannula 04/26 2201 90 20 190/90 04/26 2000 100 Nasal 2.0L Cannula Exam General Appearance: awake, cachetic, lethargic, thin Other Physical Findings: refused physical examination as yesterday Lopez Site: urethra Date In: 04/26/17 Current Medications: Current Medications Sig/Jose Start time Last Medication Dose Route Stop Time Status Admin Acetaminophen 650 MG Q4P PRN 04/27 1015 DCD IN Albuterol Sulfate 3 ML Q4H PRN 04/12 0200 DC INH Amlodipine Besylate 10 MG DAILY 04/12 1000 DC 04/23 PO 0933 Bisacodyl 10 MG DAILY NEEDED PRN 04/27 1015 DCD IN Cholecalciferol 1,000 IU BID 04/12 1000 DC 04/23 PO 2122 Clonidine 1 PAT Q168 05/03 1000 DC TOP Clonidine 1 PAT Q168 04/26 2100 DCD 04/26 TOP 2201 Clonidine 0.3 MG Q12 04/12 1000 DC 04/23 PO 2122 Dexamethasone 8 MG BID 04/27 1000 DC IV Dextrose/Sodium 1,000 ML Q13H 04/26 1815 DC 04/27 Chloride IV 0151 Docusate Sodium 100 MG BID 04/17 2341 DC 04/23 PO 2123 Escitalopram Oxalate 10 MG 0800 04/24 0800 DC PO Glycerin 2 SPRAY Q2P PRN 04/27 1030 DCD PO Glycerin 2 SPRAY Q2P PRN 04/16 1915 DC 04/17 PO 0457 Guaifenesin 10 ML Q6P PRN 04/12 0200 DC PO Heparin Sodium 5,000 UNIT Q8 04/12 2200 DC 04/27 (Porcine) SC 0650 Hydralazine HCl 10 MG TID 04/27 0830 DC 04/27 IV 0830 Hydralazine HCl 10 MG ONCE ONE 04/27 0215 DC 04/27 IV 04/27 0216 0220 Hydralazine HCl 100 MG BID 04/14 2200 DC 04/23 PO 212 Isosorbide 60 MG DAILY 04/12 1000 DC 04/23 Mononitrate PO 0917 Lorazepam 1 MG Q4P PRN 04/27 1015 DCD IV Metoprolol Tartrate 50 MG DAILY 04/12 1000 DC 04/23 PO 0915 Mirtazapine 7.5 MG AT BEDTIME 04/20 2200 DC 04/23 PO 2123 Morphine Sulfate 2 MG Q2P PRN 04/27 1015 DCD IV Omeprazole 40 MG DAILY AC 04/12 0700 DC 04/24 PO 0540 Ondansetron HCl 4 MG Q6PRN PRN 04/25 0900 DC 04/25 PO 1326 Oxycodone HCl 5 MG Q8P PRN 04/19 0615 DC 04/23 PO 212 Pantoprazole Sodium 40 MG DAILY 04/26 1810 DC 04/26 IV 1919 Polyethylene Glycol 17 GM BID 04/12 1000 DC 04/18 PO 1022 Scopolamine HBr 1 PAT Q72 04/27 1015 DCD TOP Senna 187 MG AT BEDTIME 04/17 2345 DC 04/23 PO 2123 Tramadol HCl 50 MG DAILY 04/12 1000 DC 04/19 PO 1215 Vancomycin HCl 1,000 MG 1400 04/26 1400 DC 04/26 Dextrose/Water 250 ML IV 1453 Impression/Plan Impression/Problem List Impression: 76-year-old female with past medical history of hypertension, hyperlipidemia, CK D4, CAD status post triple vessel CABG, sigmoid colon cancer status post resection in 1970s, uterine cancer status post hysterectomy in 1970s, PVD, carotid endarterectomy over 10 years ago with recent angiography done in 2014, chronic back pain, who presented from [facility] for worsening ascites, AK I, and new mass noted on MRI. She was being treated in the general medical floor for multiple medical issues as mentioned below, and recently had started refusing all medications, investigations, oral intake, and earlier today, was found to be less responsive than usual, and with a question of seizure-like activity had a rapid response called following which, she was transferred to the critical care unit. She is currently being managed in the ICU for the following issues: #Decreased responsiveness, rule out seizure The patient had decreased responsiveness since past 3 days, possibly attributable to her decreased by mouth intake, but yesterday she was found having abnormal movement of her limbs, which lasted only a few seconds, suggestive of seizure-like activity, but no new residual neurologic deficits. CAT Scan of the head showed no acute stroke but brain edema and a likelihood of brain mets. #Possible spontaneous bacterial peritonitis Patient had worsening sinusitis on presentation, and given her hypothermia and worsening physical health, and urgent diagnostic paracentesis was done earlier today, which shows neutrophil count of 411, suggestive of a spontaneous bacterial peritonitis. The patient already is on vancomycin and ceftazidime which covers the usual causative agent of SBP. #Hypertensive urgency She was found to be hypertensive at 198/98 in the general medical floor and a one-time dose of IV metoprolol 5 mg was given. After the rapid response, her systolic blood pressure was still of 200 thus a one-time order of 10 mg IV hydralazine was given to lower the blood pressure to permissible range. Clonidine patch, while allowing permissive HTN has been ordered. 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 With her existing medical conditions, history of cancers, and recent developments, the prognosis seems guarded, and her power of attorney lawyer has notified us that her CODE STATUS is DNR/DNI. #Plan of care: With the issues mentioned above, that the prognosis of the patient is very guarded, and she probably would not be able to tolerate aggressive therapy against the cancer at this point, a power of attorney lawyer meeting was held today to discuss about goals of care including hospice care discussion as well. After discussion, both the power of attorneys decided to make her as comfortable as possible by giving her hospice care. This was related to the case management director and the hospice nurse, and after hospice consultation, the patient was discharged to in-hospital hospice care. #Comfort acre/hospice medications: Benzos for agitation, seizure, anxiety; Morphine for pain, dyspnea; Suppository for constipation; Scopolamine patch for excessive sectetions; Clonidine patch for HTN. #Protein calorie malnutrition Primary due to malignancy and poor oral intake. Comfort feeding only. #Other medical conditions: -Chronic normocytic anemia, status post blood transfusion 1 -UTI with Klebsiella pneumoniae, status post treatment with IV ceftriaxone for 5 days -Chronic pressure ulcer, wound care consult on board, being treated with Duoderm and offloading -ALVIN on CKD-3, Creatinine better than at presentation (1.5 today) but still above her recent baseline 0.8. #Lopez placed on 04/26/17 in the ICU. #Diet: Regular diet with 2 Gm Na restriction. #DVT ppx: DC'ed SQ Heparin (Comfort measures) #Code status: DNR/DNI--->Comfort measures only--->HOSPICE CARE Problem List: 1. Hospice care Pain Ratin Tomorrow's Labs & Rationales: - Plan DVT/Prophylaxis: none, hospice care Code Status: Full Code
[2017-04-27 08:00] VITALS: BP 214/90
--- NOTE | 2017-04-27 08:32 | PN- Oncology ---
Subjective Subjective: She is unable to communicate this morning. She is arousable. She was transferred to the ICU after found to have possible seizure, unresponsiveness, and hypertension. Review of Systems: Unable to obtain due to unresponsiveness and clinical status. Objective Vital Signs and I&Os Vital Signs Date Time Temp Pulse Resp B/P B/P Pulse O2 O2 Flow FiO2 Mean Ox Delivery Rate 04/27 0220 97.6 91 24 190/80 04/27 0000 97.6 95 24 180/80 100 Nasal 2.0L Cannula 04/27 0000 100 Nasal 2.0L Cannula 04/26 2201 90 20 190/90 04/26 2000 100 Nasal 2.0L Cannula 04/26 1615 208/86 04/26 1600 100 Nasal 2.0L Cannula 04/26 1600 96.5 81 22 208/86 100 Nasal 6.0L Cannula 04/26 1456 106 198/90 04/26 1432 102 198/90 04/26 1415 99.0 100 20 138/88 95 04/26 0924 96.2 102 22 136/78 97 Intake & Output 04/27 1600 04/27 0800 04/27 0000 04/26 1600 04/26 0800 04/26 0000 Intake Total 596 575 450 Output Total 168 100 600 Balance 428 475 -150 Intake, IV 596 575 450 Number 2 2 Bowel Movements Output, Urine 168 100 600 Patient 48.081 kg 44.452 kg Weight Weight Bed scale Measurement Method Physical Exam General Appearance: no apparent distress, cachetic, thin Respiratory: normal breath sounds, chest non-tender, no respiratory distress Cardiovascular: regular rate/rhythm Abdomen: normal bowel sounds, soft, no organomegaly Extremities: no edema, RUE edema Neurologic/Psychiatric: disoriented x 3 Skin: warm/dry Current Medications: Current Medications Sig/Jose Start time Last Medication Dose Route Stop Time Status Admin Albuterol Sulfate 3 ML Q4H PRN 04/12 0200 AC INH Amlodipine Besylate 10 MG DAILY 04/12 1000 AC 04/23 PO 0933 Ceftazidime 1,000 MG ONCE ONE 04/26 1145 DC 04/26 IV 04/26 1146 1453 Cholecalciferol 1,000 IU BID 04/12 1000 AC 04/23 PO 2122 Clonidine 1 PAT Q168 05/03 1000 DC TOP Clonidine 1 PAT Q168 04/26 2100 AC 04/26 TOP 2201 Clonidine 0.3 MG Q12 04/12 1000 AC 04/23 PO 2122 Dexamethasone 8 MG BID 04/27 1000 AC IV Dexamethasone 4 MG .STK-MED ONE 04/26 1624 DC IM 04/26 1625 Dexamethasone 4 MG ONCE ONE 04/26 1600 DC 04/26 Dextrose/Water 50 ML IV 04/26 1630 1648 Dextrose/Sodium 1,000 ML Q13H 04/26 1815 AC 04/27 Chloride IV 0151 Dextrose/Sodium 1,000 ML Q6H 04/26 1100 DC 04/26 Chloride IV 1453 Dextrose/Sodium 1,000 ML Q13H 04/26 0830 DC 04/26 Chloride IV 0941 Docusate Sodium 100 MG BID 04/17 2341 AC 04/23 PO 2123 Escitalopram Oxalate 10 MG 0800 04/24 0800 AC PO Furosemide 20 MG DAILY 04/25 1308 DC PO Glycerin 2 SPRAY Q2P PRN 04/16 1915 AC 04/17 PO 0457 Guaifenesin 10 ML Q6P PRN 04/12 0200 AC PO Heparin Sodium 5,000 UNIT Q8 04/12 2200 AC 04/27 (Porcine) SC 0650 Hydralazine HCl 10 MG TID 04/27 0830 AC IV Hydralazine HCl 10 MG ONCE ONE 04/27 0215 DC 04/27 IV 04/27 0216 0220 Hydralazine HCl 10 MG ONCE ONE 04/26 1615 DC 04/26 IV 04/26 1616 1615 Hydralazine HCl 100 MG BID 04/14 2200 AC 04/23 PO 2122 Isosorbide 60 MG DAILY 04/12 1000 AC 04/23 Mononitrate PO 0917 Lidocaine 1 ML .STK-MED ONE 04/26 1331 DC ID 04/26 1332 Lorazepam 2 MG .STK-MED ONE 04/26 1538 DC IM 04/26 1539 Metoprolol Tartrate 5 MG ONCE ONE 04/26 1445 DC 04/26 IV 04/26 1446 1456 Metoprolol Tartrate 50 MG DAILY 04/12 1000 AC 04/23 PO 0915 Mirtazapine 7.5 MG AT BEDTIME 04/20 2200 AC 04/23 PO 2123 Omeprazole 40 MG DAILY AC 04/12 0700 AC 04/24 PO 0540 Ondansetron HCl 4 MG Q6PRN PRN 04/25 0900 AC 04/25 PO 1326 Oxycodone HCl 5 MG Q8P PRN 04/19 0615 AC 04/23 PO 2122 Pantoprazole Sodium 40 MG DAILY 04/26 1810 AC 04/26 IV 1919 Polyethylene Glycol 17 GM BID 04/12 1000 AC 04/18 PO 1022 Senna 187 MG AT BEDTIME 04/17 2345 AC 04/23 PO 2123 Spironolactone 50 MG DAILY 04/21 1000 DC 04/23 PO 0916 Tramadol HCl 50 MG DAILY 04/12 1000 AC 04/19 PO 1215 Vancomycin HCl 1,000 MG 1400 04/26 1400 AC 04/26 Dextrose/Water 250 ML IV 1453 Results Last 24 Hours of Lab Results: Laboratory Tests 04/27 04/26 0400 2150 Chemistry Sodium (137 - 145 mmol/L) 139 Potassium (3.5 - 5.1 mmol/L) 3.8 Chloride (98 - 107 mmol/L) 107 Carbon Dioxide (22 - 30 mmol/L) 18 L Anion Gap (5 - 16) 14 BUN (7 - 17 mg/dL) 46 H Creatinine (0.5 - 1.0 mg/dL) 1.5 H Estimated GFR (>60 ml/min) 34 L Glucose (65 - 99 mg/dL) 221 H Calcium (8.4 - 10.2 mg/dL) 10.0 Phosphorus (2.5 - 4.5 mg/dL) 3.1 Magnesium (1.6 - 2.3 mg/dL) 1.6 Total Bilirubin (0.2 - 1.3 mg/dL) 0.9 AST (14 - 36 U/L) 15 ALT (9 - 52 U/L) 21 Albumin (3.5 - 5.0 g/dL) 2.7 L Hematology CBC w Diff MAN DIFF ORDERED WBC (4.8 - 10.8 /CUMM) 13.0 H RBC (4.20 - 5.40 /CUMM) 3.42 L Hgb (12.0 - 16.0 G/DL) 10.1 L Hct (37 - 47 %) 29.8 L MCV (81.0 - 99.0 FL) 87.1 MCH (27.0 - 31.0 PG) 29.6 MCHC (33.0 - 37.0 G/DL) 34.0 RDW (11.5 - 14.5 %) 15.3 H Plt Count (130 - 400 /CUMM) 106 L MPV (7.4 - 10.4 FL) 8.4 Gran % (42.2 - 75.2 %) 97.5 H Lymphocytes % (20.5 - 51.1 %) 1.3 L Monocytes % (1.7 - 9.3 %) 1.2 L Eosinophils % (0 - 5 %) 0 Basophils % (0.0 - 2.0 %) 0 Absolute Granulocytes (1.4 - 6.5 /CUMM) 12.7 H Segmented Neutrophils (42.2 - 75.2 %) 99 H Absolute Lymphocytes (1.2 - 3.4 /CUMM) 0.2 L Lymphocytes (20.5 - 51.1 %) 1 L Absolute Monocytes (0.10 - 0.60 /CUMM) 0.2 Absolute Eosinophils (0.0 - 0.7 /CUMM) 0 Absolute Basophils (0.0 - 0.2 /CUMM) 0 Platelet Estimate (ADEQUATE) ADEQUATE Polychromasia 1+ Poikilocytosis 2+ Ovalocytes 1+ [place] Cells 1+ Elliptocytes FEW Other Body Source Fld Total RBCs Counted (%) 100 Urines Urinalysis MOD H Urine Color (YEL,AMB,STR) YEL Urine Clarity (CLEAR) CLDY H Urine pH (5.0 - 8.0) 6.0 Ur Specific [place] (1.001 - 1.035) 1.025 Urine Protein (NEG,<30 MG/DL) 100 H Urine Ketones (NEG) TRACE H Urine Nitrite (NEG) NEG Urine Bilirubin (NEG) NEG@ICTO Urine Urobilinogen (0.1 - 1.0 EU/dl) 0.2 Ur Leukocyte Esterase (NEG) MOD H Ur Microscopic SEDIMENT EXAMINED Urine RBC (0 - 5 /HPF) 1-3 Urine WBC (0 - 2 /HPF) 50-75 H Ur Epithelial Cells (NONE,FEW) FEW Urine Bacteria (NEG/NONE) FEW H Micro UA Comment [place] H Urine Hemoglobin (NEG) NEG Urine Glucose (N MG/DL) NEG 04/26 04/26 1700 1630 Chemistry Sodium (137 - 145 mmol/L) Cancelled 140 Potassium (3.5 - 5.1 mmol/L) Cancelled 3.9 Chloride (98 - 107 mmol/L) Cancelled 107 Carbon Dioxide (22 - 30 mmol/L) Cancelled 18 L Anion Gap (5 - 16) Cancelled 15 BUN (7 - 17 mg/dL) Cancelled 46 H Creatinine (0.5 - 1.0 mg/dL) Cancelled 1.7 H Estimated GFR (>60 ml/min) 29 L BUN/Creatinine Ratio (7 - 25 %) Cancelled 27.1 H Lactic Acid (0.7 - 2.1 mmol/L) 1.9 Calcium (8.4 - 10.2 mg/dL) 10.2 Phosphorus (2.5 - 4.5 mg/dL) 3.4 Magnesium (1.6 - 2.3 mg/dL) 1.6 Troponin I (< 0.11 ng/ml) 0.02 Prolactin (3.0 - 18.6 ng/mL) 10.6 Coagulation PT (9.4 - 12.5 SEC) 11.6 INR (0.90 - 1.19) 1.06 APTT (25 - 37 SEC) 29 Hematology CBC w Diff NO MAN DIFF REQ WBC (4.8 - 10.8 /CUMM) 14.2 H RBC (4.20 - 5.40 /CUMM) 3.29 L Hgb (12.0 - 16.0 G/DL) 9.8 L Hct (37 - 47 %) 28.8 L MCV (81.0 - 99.0 FL) 87.6 MCH (27.0 - 31.0 PG) 29.9 MCHC (33.0 - 37.0 G/DL) 34.1 RDW (11.5 - 14.5 %) 15.4 H Plt Count (130 - 400 /CUMM) 133 MPV (7.4 - 10.4 FL) 7.9 Gran % (42.2 - 75.2 %) 91.8 H Lymphocytes % (20.5 - 51.1 %) 4.7 L Monocytes % (1.7 - 9.3 %) 3.5 Eosinophils % (0 - 5 %) 0 Basophils % (0.0 - 2.0 %) 0 Absolute Granulocytes (1.4 - 6.5 /CUMM) 13.1 H Absolute Lymphocytes (1.2 - 3.4 /CUMM) 0.7 L Absolute Monocytes (0.10 - 0.60 /CUMM) 0.5 Absolute Eosinophils (0.0 - 0.7 /CUMM) 0 Absolute Basophils (0.0 - 0.2 /CUMM) 0 04/26 04/26 04/26 04/26 04/26 1600 1345 1300 1300 1046 Blood Gas pH (7.35 - 7.45 PH) 7.31 L pCO2 (35 - 45 TORR) 30 L pO2 (80 - 100 TORR) 251 H HCO3 (21 - 28 MEQ/L) 15 L ABG O2 Sat (Measured) (>96.0 %) 98.0 P-50 (Temp Corrected) N Carboxyhemoglobin (1.5 - 5.0 %) 0.3 L O2 Concentration % 5L Temperature (97.0 - 100.0 FARH) 97.9 O2 Delivery Method NC Chemistry Lactic Acid (0.7 - 2.1 mmol/L) Cancelled 1.3 Hematology Lymphocytes (%) 24 % Normal PMNs (%) 32 Miscellaneous Phlebotomy Draw Site RIGHT RADIAL Other Body Source Fluid WBC (0 - 5 /CUMM) 1287 H Fld Mesothelial Cells (%) Fld Total RBCs Counted (0 /CUMM) 53597 H Fluid Total Protein (g/dL) < 2.0 Fluid LDH (U/L) 237 04/26 04/26 1040 0910 Chemistry Sodium (137 - 145 mmol/L) 142 Potassium (3.5 - 5.1 mmol/L) 4.5 Chloride (98 - 107 mmol/L) 109 H Carbon Dioxide (22 - 30 mmol/L) 12 L Anion Gap (5 - 16) 21 H BUN (7 - 17 mg/dL) 46 H Creatinine (0.5 - 1.0 mg/dL) 1.6 H Estimated GFR (>60 ml/min) 31 L BUN/Creatinine Ratio (7 - 25 %) 28.8 H Total Bilirubin (0.2 - 1.3 mg/dL) 1.0 Direct Bilirubin (< 0.4 mg/dL) 1.0 H AST (14 - 36 U/L) 18 ALT (9 - 52 U/L) 22 Alkaline Phosphatase (<127 U/L) 282 H Total Protein (6.3 - 8.2 g/dL) 5.3 L Albumin (3.5 - 5.0 g/dL) 2.8 L Hematology CBC w Diff NO MAN DIFF REQ WBC (4.8 - 10.8 /CUMM) 13.5 H RBC (4.20 - 5.40 /CUMM) 3.63 L Hgb (12.0 - 16.0 G/DL) 10.7 L Hct (37 - 47 %) 31.6 L MCV (81.0 - 99.0 FL) 86.9 MCH (27.0 - 31.0 PG) 29.4 MCHC (33.0 - 37.0 G/DL) 33.8 RDW (11.5 - 14.5 %) 15.5 H Plt Count (130 - 400 /CUMM) 125 L MPV (7.4 - 10.4 FL) 8.2 Gran % (42.2 - 75.2 %) 94.4 H Lymphocytes % (20.5 - 51.1 %) 3.3 L Monocytes % (1.7 - 9.3 %) 2.3 Eosinophils % (0 - 5 %) 0 Basophils % (0.0 - 2.0 %) 0 Absolute Granulocytes (1.4 - 6.5 /CUMM) 12.8 H Absolute Lymphocytes (1.2 - 3.4 /CUMM) 0.4 L Absolute Monocytes (0.10 - 0.60 /CUMM) 0.3 Absolute Eosinophils (0.0 - 0.7 /CUMM) 0 Absolute Basophils (0.0 - 0.2 /CUMM) 0 Urines Urinalysis MOD H Urine Color (YEL,AMB,STR) YEL Urine Clarity (CLEAR) HAZY H Urine pH (5.0 - 8.0) 6.0 Ur Specific [place] (1.001 - 1.035) 1.020 Urine Protein (NEG,<30 MG/DL) 100 H Urine Ketones (NEG) TRACE H Urine Nitrite (NEG) NEG Urine Bilirubin (NEG) NEG@ICTO Urine Urobilinogen (0.1 - 1.0 EU/dl) 0.2 Ur Leukocyte Esterase (NEG) LARGE H Ur Microscopic SEDIMENT EXAMINED Urine RBC (0 - 5 /HPF) RARE Urine WBC (0 - 2 /HPF) 25-50 H Ur Epithelial Cells (NONE,FEW) FEW Urine Bacteria (NEG/NONE) FEW H Granular Casts (NONE /LPF) RARE H Urine Hemoglobin (NEG) TRACE-INTACT Urine Glucose (N MG/DL) NEG Assessment/Plan Assessment/Recommendations: Ms. Adorno is a 76-year-old female with HTN, HLD, CKD stage 4, CAD s/p triple vessel CABG (over 10 years ago), sigmoid colon cancer s/p resections (in the 1970s), uterine cancer s/p hysterectomy (), PVD, carotid endarterectomy over 10 years ago and most recent angiography done in 2013, and chronic back pain who presented from [facility] [place] for increasing ascites, worsening CKD, and recently noted masses on MRI. Since admission, she has had liver biopsy with paracentesis. Ascitic fluid was negative on 04/13/2017. Preliminary of the liver biopsy on 04/17/2017 is malignant. AFP was normal. CEA is elevated at 11.7. Differentials include colon, uterine, HCC, and hepatobiliary disease. HCC is less likely given normal AFP. Pathology result from [facility] suggest UGI and pancreatobiliary as potential etiologies. Cholangiocarcinoma is in the differential. Ideally, she would need upper endoscopy with ERCP for evaluation. She should have CT of the chest with contrast to evaluate for metastatic disease. CA19-9 should be checked. With her current clinical condition, she is not a candidate for therapy. Her overall prognosis is poor. 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 Problem List: 1. Carcinoma of liver 2. FTT (failure to thrive) in adult
[2017-04-27 08:45] VITALS: BP 165/77
--- NOTE | 2017-04-27 09:06 | CT SCAN REPORT ---
EXAMINATION: CT HEAD WITHOUT CONTRAST CLINICAL INFORMATION: Seizure-like activity. History of cancer and new liver metastases. Evaluate for brain metastases and infarct. COMPARISON: 12/29/2015 TECHNIQUE: Contiguous axial imaging was performed from the skull base to vertex without intravenous administration of contrast. DLP: 863 mGy-cm FINDINGS: Brain parenchyma: Compared to 12/29/2015, there are new areas of vasogenic edema in both frontal and both occipital lobes. These findings are suspicious for cerebral metastases, which may be better detected and evaluated on a contrast head CT or brain MRI performed without and with IV contrast. Galeas-white matter differentiation is preserved. No evidence of hemorrhage or midline shift. Vessels: Chronic atherosclerotic calcification of vertebral and cavernous carotid arteries. Cerebrospinal fluid spaces: Unremarkable. No hydrocephalus or extra-axial fluid collections. Cerebellum and brainstem: Unremarkable. The 4th ventricle is midline in position. The cerebellopontine angles are normal. Calvarium and temporomandibular joints: There is hyperostosis frontalis interna. Calvarium is intact. Chronic opacification of left mastoid air cells. The TMJs are unremarkable. Paranasal sinuses and orbits: Mucosal thickening and secretions of the left sphenoid sinus. No acute intraorbital findings. Other: No acute findings in the visualized extracranial soft tissues. IMPRESSION: 1. No acute intracranial hemorrhage. 2. There are new areas of vasogenic edema in both frontal and occipital lobes which, in a patient with history of liver metastases, are suspicious for brain metastases. 3. Left sphenoid sinusitis. 4. Chronic opacification of left mastoid air cells; correlate for any clinical symptoms/signs of active mastoiditis.
--- NOTE | 2017-04-27 09:11 | PN- Pulmonary ---
Subjective HPI/Critical Care Issues: DOing poorly Unresponsive at times arousable Objective Current Medications: Current Medications Sig/Jose Start time Last Medication Dose Route Stop Time Status Admin Albuterol Sulfate 3 ML Q4H PRN 04/12 0200 AC INH Amlodipine Besylate 10 MG DAILY 04/12 1000 AC 04/23 PO 0933 Ceftazidime 1,000 MG ONCE ONE 04/26 1145 DC 04/26 IV 04/26 1146 1453 Cholecalciferol 1,000 IU BID 04/12 1000 AC 04/23 PO 2122 Clonidine 1 PAT Q168 05/03 1000 DC TOP Clonidine 1 PAT Q168 04/26 2100 AC 04/26 TOP 2201 Clonidine 0.3 MG Q12 04/12 1000 AC 04/23 PO 2122 Dexamethasone 8 MG BID 04/27 1000 AC IV Dexamethasone 4 MG .STK-MED ONE 04/26 1624 DC IM 04/26 1625 Dexamethasone 4 MG ONCE ONE 04/26 1600 DC 04/26 Dextrose/Water 50 ML IV 04/26 1630 1648 Dextrose/Sodium 1,000 ML Q13H 04/26 1815 AC 04/27 Chloride IV 0151 Dextrose/Sodium 1,000 ML Q6H 04/26 1100 DC 04/26 Chloride IV 1453 Dextrose/Sodium 1,000 ML Q13H 04/26 0830 DC 04/26 Chloride IV 0941 Docusate Sodium 100 MG BID 04/17 2341 AC 04/23 PO 2123 Escitalopram Oxalate 10 MG 0800 04/24 0800 AC PO Furosemide 20 MG DAILY 04/25 1308 DC PO Glycerin 2 SPRAY Q2P PRN 04/16 1915 AC 04/17 PO 0457 Guaifenesin 10 ML Q6P PRN 04/12 0200 AC PO Heparin Sodium 5,000 UNIT Q8 04/12 2200 AC 04/27 (Porcine) SC 0650 Hydralazine HCl 10 MG TID 04/27 0830 AC 04/27 IV 0830 Hydralazine HCl 10 MG ONCE ONE 04/27 0215 DC 04/27 IV 04/27 0216 0220 Hydralazine HCl 10 MG ONCE ONE 04/26 1615 DC 04/26 IV 04/26 1616 1615 Hydralazine HCl 100 MG BID 04/14 2200 DC 04/23 PO 2122 Isosorbide 60 MG DAILY 04/12 1000 AC 04/23 Mononitrate PO 0917 Lidocaine 1 ML .STK-MED ONE 04/26 1331 DC ID 04/26 1332 Lorazepam 2 MG .STK-MED ONE 04/26 1538 DC IM 04/26 1539 Metoprolol Tartrate 5 MG ONCE ONE 04/26 1445 DC 04/26 IV 04/26 1446 1456 Metoprolol Tartrate 50 MG DAILY 04/12 1000 AC 04/23 PO 0915 Mirtazapine 7.5 MG AT BEDTIME 04/20 2200 AC 04/23 PO 2123 Omeprazole 40 MG DAILY AC 04/12 0700 AC 04/24 PO 0540 Ondansetron HCl 4 MG Q6PRN PRN 04/25 0900 AC 04/25 PO 1326 Oxycodone HCl 5 MG Q8P PRN 04/19 0615 AC 04/23 PO 2122 Pantoprazole Sodium 40 MG DAILY 04/26 1810 AC 04/26 IV 1919 Polyethylene Glycol 17 GM BID 04/12 1000 AC 04/18 PO 1022 Senna 187 MG AT BEDTIME 04/17 2345 AC 04/23 PO 2123 Spironolactone 50 MG DAILY 04/21 1000 DC 04/23 PO 0916 Tramadol HCl 50 MG DAILY 04/12 1000 AC 04/19 PO 1215 Vancomycin HCl 1,000 MG 1400 04/26 1400 AC 04/26 Dextrose/Water 250 ML IV 1453 Vital Signs & I&O Last 24 Hrs of Vitals and I&O: Vital Signs Date Time Temp Pulse Resp B/P B/P Pulse O2 O2 Flow FiO2 Mean Ox Delivery Rate 04/27 0830 92 210/106 04/27 0600 100 Nasal 2.0L Cannula 04/27 0220 97.6 91 24 190/80 04/27 0000 97.6 95 24 180/80 100 Nasal 2.0L Cannula 04/27 0000 100 Nasal 2.0L Cannula 04/27 0000 100 Nasal 2.0L Cannula 04/26 2201 90 20 190/90 04/26 2000 100 Nasal 2.0L Cannula 04/26 1615 208/86 04/26 1600 100 Nasal 2.0L Cannula 04/26 1600 96.5 81 22 208/86 100 Nasal 6.0L Cannula 04/26 1456 106 198/90 04/26 1432 102 198/90 04/26 1415 99.0 100 20 138/88 95 04/26 0924 96.2 102 22 136/78 97 Intake & Output 04/27 1600 04/27 0800 04/27 0000 Intake Total 596 575 Output Total 168 100 Balance 428 475 Intake, IV 596 575 Number 2 Bowel Movements Output, Urine 168 100 Patient 106 lb 98 lb Weight Weight Bed scale Measurement Method Laboratory Tests 04/27 04/26 0400 2150 Chemistry Sodium (137 - 145 mmol/L) 139 Potassium (3.5 - 5.1 mmol/L) 3.8 Chloride (98 - 107 mmol/L) 107 Carbon Dioxide (22 - 30 mmol/L) 18 L Anion Gap (5 - 16) 14 BUN (7 - 17 mg/dL) 46 H Creatinine (0.5 - 1.0 mg/dL) 1.5 H Estimated GFR (>60 ml/min) 34 L Glucose (65 - 99 mg/dL) 221 H Calcium (8.4 - 10.2 mg/dL) 10.0 Phosphorus (2.5 - 4.5 mg/dL) 3.1 Magnesium (1.6 - 2.3 mg/dL) 1.6 Total Bilirubin (0.2 - 1.3 mg/dL) 0.9 AST (14 - 36 U/L) 15 ALT (9 - 52 U/L) 21 Albumin (3.5 - 5.0 g/dL) 2.7 L Hematology CBC w Diff MAN DIFF ORDERED WBC (4.8 - 10.8 /CUMM) 13.0 H RBC (4.20 - 5.40 /CUMM) 3.42 L Hgb (12.0 - 16.0 G/DL) 10.1 L Hct (37 - 47 %) 29.8 L MCV (81.0 - 99.0 FL) 87.1 MCH (27.0 - 31.0 PG) 29.6 MCHC (33.0 - 37.0 G/DL) 34.0 RDW (11.5 - 14.5 %) 15.3 H Plt Count (130 - 400 /CUMM) 106 L MPV (7.4 - 10.4 FL) 8.4 Gran % (42.2 - 75.2 %) 97.5 H Lymphocytes % (20.5 - 51.1 %) 1.3 L Monocytes % (1.7 - 9.3 %) 1.2 L Eosinophils % (0 - 5 %) 0 Basophils % (0.0 - 2.0 %) 0 Absolute Granulocytes (1.4 - 6.5 /CUMM) 12.7 H Segmented Neutrophils (42.2 - 75.2 %) 99 H Absolute Lymphocytes (1.2 - 3.4 /CUMM) 0.2 L Lymphocytes (20.5 - 51.1 %) 1 L Absolute Monocytes (0.10 - 0.60 /CUMM) 0.2 Absolute Eosinophils (0.0 - 0.7 /CUMM) 0 Absolute Basophils (0.0 - 0.2 /CUMM) 0 Platelet Estimate (ADEQUATE) ADEQUATE Polychromasia 1+ Poikilocytosis 2+ Ovalocytes 1+ Ruby Cells 1+ Elliptocytes FEW Other Body Source Fld Total RBCs Counted (%) 100 Urines Urinalysis MOD H Urine Color (YEL,AMB,STR) YEL Urine Clarity (CLEAR) CLDY H Urine pH (5.0 - 8.0) 6.0 Ur Specific [place] (1.001 - 1.035) 1.025 Urine Protein (NEG,<30 MG/DL) 100 H Urine Ketones (NEG) TRACE H Urine Nitrite (NEG) NEG Urine Bilirubin (NEG) NEG@ICTO Urine Urobilinogen (0.1 - 1.0 EU/dl) 0.2 Ur Leukocyte Esterase (NEG) MOD H Ur Microscopic SEDIMENT EXAMINED Urine RBC (0 - 5 /HPF) 1-3 Urine WBC (0 - 2 /HPF) 50-75 H Ur Epithelial Cells (NONE,FEW) FEW Urine Bacteria (NEG/NONE) FEW H Micro UA Comment [place] CASTS H Urine Hemoglobin (NEG) NEG Urine Glucose (N MG/DL) NEG 04/26 04/26 1700 1630 Chemistry Sodium (137 - 145 mmol/L) Cancelled 140 Potassium (3.5 - 5.1 mmol/L) Cancelled 3.9 Chloride (98 - 107 mmol/L) Cancelled 107 Carbon Dioxide (22 - 30 mmol/L) Cancelled 18 L Anion Gap (5 - 16) Cancelled 15 BUN (7 - 17 mg/dL) Cancelled 46 H Creatinine (0.5 - 1.0 mg/dL) Cancelled 1.7 H Estimated GFR (>60 ml/min) 29 L BUN/Creatinine Ratio (7 - 25 %) Cancelled 27.1 H Lactic Acid (0.7 - 2.1 mmol/L) 1.9 Calcium (8.4 - 10.2 mg/dL) 10.2 Phosphorus (2.5 - 4.5 mg/dL) 3.4 Magnesium (1.6 - 2.3 mg/dL) 1.6 Troponin I (< 0.11 ng/ml) 0.02 Prolactin (3.0 - 18.6 ng/mL) 10.6 Coagulation PT (9.4 - 12.5 SEC) 11.6 INR (0.90 - 1.19) 1.06 APTT (25 - 37 SEC) 29 Hematology CBC w Diff NO MAN DIFF REQ WBC (4.8 - 10.8 /CUMM) 14.2 H RBC (4.20 - 5.40 /CUMM) 3.29 L Hgb (12.0 - 16.0 G/DL) 9.8 L Hct (37 - 47 %) 28.8 L MCV (81.0 - 99.0 FL) 87.6 MCH (27.0 - 31.0 PG) 29.9 MCHC (33.0 - 37.0 G/DL) 34.1 RDW (11.5 - 14.5 %) 15.4 H Plt Count (130 - 400 /CUMM) 133 MPV (7.4 - 10.4 FL) 7.9 Gran % (42.2 - 75.2 %) 91.8 H Lymphocytes % (20.5 - 51.1 %) 4.7 L Monocytes % (1.7 - 9.3 %) 3.5 Eosinophils % (0 - 5 %) 0 Basophils % (0.0 - 2.0 %) 0 Absolute Granulocytes (1.4 - 6.5 /CUMM) 13.1 H Absolute Lymphocytes (1.2 - 3.4 /CUMM) 0.7 L Absolute Monocytes (0.10 - 0.60 /CUMM) 0.5 Absolute Eosinophils (0.0 - 0.7 /CUMM) 0 Absolute Basophils (0.0 - 0.2 /CUMM) 0 04/26 04/26 04/26 04/26 04/26 1600 1345 1300 1300 1046 Blood Gas pH (7.35 - 7.45 PH) 7.31 L pCO2 (35 - 45 TORR) 30 L pO2 (80 - 100 TORR) 251 H HCO3 (21 - 28 MEQ/L) 15 L ABG O2 Sat (Measured) (>96.0 %) 98.0 P-50 (Temp Corrected) N Carboxyhemoglobin (1.5 - 5.0 %) 0.3 L O2 Concentration % 5L Temperature (97.0 - 100.0 FARH) 97.9 O2 Delivery Method NC Chemistry Lactic Acid (0.7 - 2.1 mmol/L) Cancelled 1.3 Hematology Lymphocytes (%) 24 % Normal PMNs (%) 32 Miscellaneous Phlebotomy Draw Site RIGHT RADIAL Other Body Source Fluid WBC (0 - 5 /CUMM) 1287 H Fld Mesothelial Cells (%) Fld Total RBCs Counted (0 /CUMM) 30727 H Fluid Total Protein (g/dL) < 2.0 Fluid LDH (U/L) 237 04/26 04/26 1040 0910 Chemistry Sodium (137 - 145 mmol/L) 142 Potassium (3.5 - 5.1 mmol/L) 4.5 Chloride (98 - 107 mmol/L) 109 H Carbon Dioxide (22 - 30 mmol/L) 12 L Anion Gap (5 - 16) 21 H BUN (7 - 17 mg/dL) 46 H Creatinine (0.5 - 1.0 mg/dL) 1.6 H Estimated GFR (>60 ml/min) 31 L BUN/Creatinine Ratio (7 - 25 %) 28.8 H Total Bilirubin (0.2 - 1.3 mg/dL) 1.0 Direct Bilirubin (< 0.4 mg/dL) 1.0 H AST (14 - 36 U/L) 18 ALT (9 - 52 U/L) 22 Alkaline Phosphatase (<127 U/L) 282 H Total Protein (6.3 - 8.2 g/dL) 5.3 L Albumin (3.5 - 5.0 g/dL) 2.8 L Hematology CBC w Diff NO MAN DIFF REQ WBC (4.8 - 10.8 /CUMM) 13.5 H RBC (4.20 - 5.40 /CUMM) 3.63 L Hgb (12.0 - 16.0 G/DL) 10.7 L Hct (37 - 47 %) 31.6 L MCV (81.0 - 99.0 FL) 86.9 MCH (27.0 - 31.0 PG) 29.4 MCHC (33.0 - 37.0 G/DL) 33.8 RDW (11.5 - 14.5 %) 15.5 H Plt Count (130 - 400 /CUMM) 125 L MPV (7.4 - 10.4 FL) 8.2 Gran % (42.2 - 75.2 %) 94.4 H Lymphocytes % (20.5 - 51.1 %) 3.3 L Monocytes % (1.7 - 9.3 %) 2.3 Eosinophils % (0 - 5 %) 0 Basophils % (0.0 - 2.0 %) 0 Absolute Granulocytes (1.4 - 6.5 /CUMM) 12.8 H Absolute Lymphocytes (1.2 - 3.4 /CUMM) 0.4 L Absolute Monocytes (0.10 - 0.60 /CUMM) 0.3 Absolute Eosinophils (0.0 - 0.7 /CUMM) 0 Absolute Basophils (0.0 - 0.2 /CUMM) 0 Urines Urinalysis MOD H Urine Color (YEL,AMB,STR) YEL Urine Clarity (CLEAR) HAZY H Urine pH (5.0 - 8.0) 6.0 Ur Specific [place] (1.001 - 1.035) 1.020 Urine Protein (NEG,<30 MG/DL) 100 H Urine Ketones (NEG) TRACE H Urine Nitrite (NEG) NEG Urine Bilirubin (NEG) NEG@ICTO Urine Urobilinogen (0.1 - 1.0 EU/dl) 0.2 Ur Leukocyte Esterase (NEG) LARGE H Ur Microscopic SEDIMENT EXAMINED Urine RBC (0 - 5 /HPF) RARE Urine WBC (0 - 2 /HPF) 25-50 H Ur Epithelial Cells (NONE,FEW) FEW Urine Bacteria (NEG/NONE) FEW H Granular Casts (NONE /LPF) RARE H Urine Hemoglobin (NEG) TRACE-INTACT Urine Glucose (N MG/DL) NEG 04/26 0755 Chemistry Sodium Cancelled Potassium Cancelled Chloride Cancelled Carbon Dioxide Cancelled Anion Gap Cancelled BUN Cancelled Creatinine Cancelled BUN/Creatinine Ratio Cancelled Hematology CBC w Diff Cancelled WBC Cancelled RBC Cancelled Hgb Cancelled Hct Cancelled MCV Cancelled MCH Cancelled MCHC Cancelled RDW Cancelled Plt Count Cancelled MPV Cancelled Microbiology Date/Time Procedure - Status Source Growth 04/26 2149 Urine Culture - RES URINE ROUT 04/26 1605 Surveillance Culture - RECD UPPER RESP 04/26 1605 Surveillance Culture - RECD GI 04/26 1300 Body Fluid Culture - RES BODY FLUID 04/26 1300 Gram Stain - RES BODY FLUID 04/26 1048 Blood Culture - RECD BLOOD 04/26 1040 Urine Culture - RES URINE ROUT 04/26 0954 Blood Culture - RECD BLOOD Impression/Plan Impression/Plan Impression/Plan: Ms. Adorno is a 76-year-old female with HTN, HLD, CKD stage 4, CAD s/p triple vessel CABG (over 10 years ago), sigmoid colon cancer s/p resections (in the ), uterine cancer s/p hysterectomy (), PVD, carotid endarterectomy over 10 years ago and most recent angiography done in 2013, and chronic back pain who presented from [facility] for increasing ascites, worsening CKD, and recently noted masses on MRI. Since admission, she has had liver biopsy with paracentesis. Ascitic fluid was negative on 04/13/2017. Preliminary of the liver biopsy on 04/17/2017 is malignant. AFP was normal. CEA is elevated at 11.7. Differentials include colon, uterine, HCC, and hepatobiliary disease. HCC is less likely given normal AFP. Pathology result from [facility] suggest UGI and pancreatobiliary as potential etiologies. Cholangiocarcinoma is in the differential. 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 and pt wished no sig intervention before Very poor performance status with cachexia Sepsis with prob sbp Seizure and poor mental status which is contributing to her deterioration Prob intracranial mets Uncontrolled HTN Other details as above REC Due to worsening status and pt's prior wishes pt's POA did talk to me today over ther phone and wished only comfort care for the patient She will be coming in for a meeting today and pt will be eventually made hospice after she arrives Will make pt comfort care only with meds to help ease her suffering Will use prn benzo for seizures, prn morphine for dyspnea DC all other meds
== END 2017-04-27 15:21 | disposition hospice, home (50) | DRG 682 ==
LOC: ERH 18:26 → 2NA 23:17 → CRI 23:17 → ERHI 23:17 → ENRESERV 04-12 00:11 → 2NA 04-12 02:18 → CRI 04-26 15:56
PROVIDERS: Dermatology; Physician Assistant; Student in an Organized Health Care Education/Training Program
PROC: 0W9G3ZZ Drainage of Peritoneal Cavity, Percutaneous Approach (ICD-10-PCS; 2017-04-12)
PROC: 30233N1 Transfusion of Nonautologous Red Blood Cells into Peripheral Vein, Percutaneous Approach (ICD-10-PCS; 2017-04-16)
PROC: 0FB23ZX Excision of Left Lobe Liver, Percutaneous Approach, Diagnostic (ICD-10-PCS; principal; 2017-04-17)
PROC: 0W9G3ZZ Drainage of Peritoneal Cavity, Percutaneous Approach (ICD-10-PCS; 2017-04-17)
DX: N17.9 Acute kidney failure, unspecified (principal); K76.7 Hepatorenal syndrome; L89.150 Pressure ulcer of sacral region, unstageable; K65.9 Peritonitis, unspecified; E46 Unspecified protein-calorie malnutrition; R64 Cachexia; C78.7 Secondary malignant neoplasm of liver and intrahepatic bile duct; R18.8 Other ascites; E87.1 Hypo-osmolality and hyponatremia; N39.0 Urinary tract infection, site not specified; B96.1 Klebsiella pneumoniae [K. pneumoniae] as the cause of diseases classified elsewhere; K72.90 Hepatic failure, unspecified without coma; N18.4 Chronic kidney disease, stage 4 (severe); I12.9 Hypertensive chronic kidney disease with stage 1 through stage 4 chronic kidney disease, or unspecified chronic kidney disease; R62.7 Adult failure to thrive; Z68.23 Body mass index [BMI] 23.0-23.9, adult; I73.9 Peripheral vascular disease, unspecified; E78.5 Hyperlipidemia, unspecified; E87.6 Hypokalemia; Z85.42 Personal history of malignant neoplasm of other parts of uterus; Z85.038 Personal history of other malignant neoplasm of large intestine; M19.90 Unspecified osteoarthritis, unspecified site; Z95.1 Presence of aortocoronary bypass graft; Z95.820 Peripheral vascular angioplasty status with implants and grafts; Z66 Do not resuscitate; B96.89 Other specified bacterial agents as the cause of diseases classified elsewhere
CPT/HCPCS: 04007; 2NAP; 84133; 84300; 87075; CCU; ERO; 36415; 36592; 71045; 81001; 82436; 82570; 86920; 87040; 87086; 88305; 93005; 93010; 94799; 97161-GP; 97530-GO; J0360; J0696; J0713; J1100; J1644; J1940; J2405; J2550; J3101; J3370; J3490; J7042; J7060; J7120; J7502; P9016; P9047

== ENCOUNTER 2017-04-27 15:28 | Inpatient (IN) | payer OTHER ==
[~2017-04-27 15:28] MED LIST changes: +ALBUTEROL0.63 MG/1 INH/SOL; +AMLODIPINE BESY10 M1 PO; +ASPIRIN81 M4 PO; +CLONIDINE HCL0.3 M1 PO; +HYDRALAZINE HCL25 M1 PO; +LOPRESSOR50 M1 PO; +ROBITUSSIN COU237 M1 PO; +VITAMIN D-32000 UNI1 PO
--- NOTE | 2017-04-27 15:56 | History & Physical ---
General Information and HPI Chief Complaint: admit to hospice Source of Information: old records, friend Exam Limitations: unable to give history, not alert/orientated Associated Symptoms: seizure, responsive only to painful stimuli, no oral intake History of Present Illness: Patient is a 76-year-old female with a PMH significant for CAD status post CABG, CKD, HTN, PVD status post angioplasty with stents, uterine and colon cancer in 1969's who had a recent admission in February of this year for evaluation of new onset ascites and was ultimately diagnosed with multiple liver lesions by outpatient MRI, who presented to the [facility] ED from [facility] on 04/11/17 with recurrence of ascites, failure to thrive, ALVIN. She had been refusing to eat while at [facility] claiming to not like the food and had overall poor by mouth intake including by mouth hydration. Pt. had a large volume paracentesis and liver lesion biopsy on 04/17/17, with results of poorly differentiated carcinoma, likely upper GI in origin. She has had significant deterioration in mental status, hypertensive urgency, developed seizure last charlee, Head CT suggestive of brain mets. Given deteriorating condition and very poor prognosis, her friends/POAs have agreed to hospice care after discussion with medical staff. 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 2 girlfriends who share POA. Functional Ability: currently dependent Review of Systems Review of Systems Constitutional: Reports: see HPI. Exam & Diagnostic Data Last 24 Hrs of Vital Signs/I&O T-96.7, HR-96, RR-20, BP-165/77 Physical Exam General Appearance NAD, lethargic with spontaneous cough and head movement., thin, ill-appearing HEENT Atraumatic, Mucous Membr. moist/pink Cardiovascular Regular Rate, Normal S1, Normal S2, murmur 3/6 systolic Lungs Clear to Auscultation Abdomen Soft, No Tenderness Neurological unable to follow commands, does not spontaneously open eyes Extremities edema to right hand, bilat feet. No mottling Reproductive (FEMALE) nicholson catheter in place with yellow urine Last 24 Hrs of Labs/Jere: 04/27/17 CBC with wbc 13, hgb 10.1, Hct 29.8, plt 106, gran 97.5 chem with bun 46, cr 1.5, alb 2.7 Diagnostic Data Other Results head CT 04/27/17:IMPRESSION: 1. No acute intracranial hemorrhage. 2. There are new areas of vasogenic edema in both frontal and occipital lobes which, in a patient with history of liver metastases, are suspicious for brain metastases. 3. Left sphenoid sinusitis. 4. Chronic opacification of left mastoid air cells; correlate for any clinical symptoms/signs of active mastoiditis. Assessment/Plan Assessment: 76-year-old female with history of uterine and colon cancer in the 1970's, now with liver metastases from primary site likely GI in origin with seizure activity probably due to brain metastases. Plan: Admit to hospice. Morphine 2mg IV every 2 hrs as needed for pain/dyspnea Ativan 0.5mg IV every 4 hrs as needed for anxiety Phenobarb 130mg IV q12hrs x 4 for seizures, then 60mg IV every 8hrs. Scopolamine patch and Robinul as needed for secretions Continue clonidine patch for htn Discussed with Coleman, nursing.
[2017-04-28 06:37] VITALS: BP 144/80
--- NOTE | 2017-04-28 13:58 | PN- Hospice ---
Subjective Subjective: Has not received any morphine or ativan, only scheduled phenobarb. No seizure activity noted. No oral intake, still making urine. Slightly dyspneic, just repositioned in bed. Review of Systems Constitutional: Reports: see HPI. Objective Last 24 Hrs of Vital Signs/I&O Vital Signs Date Time Temp Pulse Resp B/P B/P Pulse O2 O2 Flow FiO2 Mean Ox Delivery Rate 04/28 0800 Room Air 04/28 0637 97.2 101 20 144/80 93 Room Air 04/28 0000 Room Air 04/27 1911 97.6 105 20 140/80 Intake & Output 04/28 1600 04/28 0800 04/28 0000 Intake Total 20 Output Total 150 100 Balance -150 -80 Intake, IV 20 Intake, Oral 0 Output, Urine 150 100 Physical Exam General Appearance: Thin, ill-appearing female, slightly dyspneic Head: atraumatic Ears, Nose, Throat: oral mucosa dry Respiratory: increased effort, RR-28, lungs clear Cardiovascular: tachycardia Abdomen: soft, non-tender Extremities: edema to right hand, bilat LEs, slight mottling right great toe Current Medications: Current Medications Sig/Jose Start time Last Medication Dose Route Stop Time Status Admin Acetaminophen 650 MG Q4P PRN 04/27 1545 AC DC Bisacodyl 10 MG DAILY NEEDED PRN 04/27 1545 AC DC Clonidine 1 PAT Q168 04/27 1600 AC 04/27 TOP 1911 Glycerin/Mineral Oil 1 AL Q8P PRN 04/27 1545 AC 04/27 TOP 191 Glycopyrrolate 400 MCG Q4P PRN 04/27 1545 AC IV Lorazepam 0.5 MG Q4P PRN 04/27 1545 AC IV Morphine Sulfate 2 MG Q2P PRN 04/27 1545 AC IV Phenobarbital 60 MG Q8H 04/29 1700 AC IV Phenobarbital 130 MG Q12H 04/28 0800 AC 04/28 IV 04/29 0801 0909 Phenobarbital 130 MG Q12H 04/27 2000 DC IV 04/28 2000 Phenobarbital 130 MG Q12H 04/27 1545 DC 04/27 IV 04/29 0346 1912 Phenobarbital 130 MG Q12H 04/27 0800 DC IV 04/28 0801 Scopolamine HBr 1 PAT Q72 PRN 04/27 1545 [facility] Assessment/Plan Hospice Assessment/Recommendations: 76-year-old female with history of uterine and colon cancer in the 1970's, now with liver metastases from primary site likely GI in origin with seizure activity probably due to brain metastases. dyspnea after repositioning. Discussed with nursing if RR does not decrease 5- 10 min, give morphine. Problem List: 1. Metastasis to liver with unknown primary site 2. Seizure 3. Hospice care
[2017-04-29 06:20] VITALS: BP 126/70
--- NOTE | 2017-04-29 14:00 | PN- Att Addend ---
Attending Addendum Attending Brief Note Patient seen and examined. Plan of care discussed with the medical team and the son was at the bedside. Available lab work and radiology test reports were reviewed. Patient is comatose and does not respond to verbal or tactile stimulation Vital Signs Date Time Temp Pulse Resp B/P B/P Pulse O2 O2 Flow FiO2 Mean Ox Delivery Rate 04/29 0620 98.9 101 16 126/70 93 Room Air Intake & Output 04/29 1600 04/29 0800 04/29 0000 Intake Total 0 0 Output Total 200 350 Balance -200 -350 Intake, Oral 0 0 Output, Urine 200 350 Exam: General: Patient is comatose thout any distress CVS: S1 plus S2 without any murmur or gallops Chest: Few scattered crepitation without any wheeze. There is no respiratory distress. Abdomen: Soft non-tender, bowel sound present, no guarding or rebound INFORMATICS PHARMACIST: Patient comatose and does not respond Extremities: No edema; no clubbing or cyanosis noted Assessment colon cancer in the 1970s, liver metastases from primary site likely GI in origin seizure activity Plans to continue current management
[2017-04-30 06:20] VITALS: BP 140/78
--- NOTE | 2017-04-30 13:07 | PN- Att Addend ---
Attending Addendum Attending Brief Note Patient seen and examined. Plan of care discussed with the medical team and the son was at the bedside. Available lab work and radiology test reports were reviewed. Patient is comatose and does not respond to verbal or tactile stimulation. Exam: General: Patient is comatose thout any distress CVS: S1 plus S2 without any murmur or gallops Chest: Few scattered crepitation without any wheeze. There is no respiratory distress. Abdomen: Soft non-tender, bowel sound present, no guarding or rebound INSPECTOR PACKER GLASS CONTAINER: Patient comatose and does not respond Extremities: No edema; no clubbing or cyanosis noted Assessment colon cancer in the 1970's, liver metastases from primary site likely GI in origin seizure activity Plans to continue current management. Overall patient is comfortable and does not require any adjustment of medications at this point. Vital Signs Date Time Temp Pulse Resp B/P B/P Pulse O2 O2 Flow FiO2 Mean Ox Delivery Rate 04/30 0620 98.0 90 18 140/78 92 Room Air
[2017-05-01 06:20] VITALS: BP 170/90
--- NOTE | 2017-05-01 11:38 | PN- Hospice ---
Subjective Subjective: Appears comfortable, unresponsive, received morphine this am. Minimal urine output. Review of Systems Constitutional: Reports: see HPI. Objective Last 24 Hrs of Vital Signs/I&O Vital Signs Date Time Temp Pulse Resp B/P B/P Pulse O2 O2 Flow FiO2 Mean Ox Delivery Rate 05/01 0620 98.5 96 16 170/90 93 Room Air Intake & Output 05/01 1600 05/01 0800 05/01 0000 Intake Total 10 0 Output Total 100 300 Balance -90 -300 Intake, IV 10 Intake, Oral 0 Number 0 Bowel Movements Output, Urine 100 300 Physical Exam General Appearance: no apparent distress, sedated Head: atraumatic Ears, Nose, Throat: dry oral mucosa Respiratory: no distress, no congestion Cardiovascular: tachycardia Extremities: mottling left foot Current Medications: Current Medications Sig/Jose Start time Last Medication Dose Route Stop Time Status Admin Acetaminophen 650 MG Q4P PRN 04/27 1545 AC VT Bisacodyl 10 MG DAILY NEEDED PRN 04/27 1545 AC VT Clonidine 1 PAT Q168 04/27 1600 AC 04/27 TOP 1911 Glycerin/Mineral Oil 1 AL Q8P PRN 04/27 1545 AC 04/27 TOP 191 Glycopyrrolate 400 MCG Q4P PRN 04/27 1545 AC IV Lorazepam 0.5 MG Q4P PRN 04/27 1545 AC 04/30 IV 1002 Morphine Sulfate 2 MG Q2P PRN 04/27 1545 AC 05/01 IV 0834 Phenobarbital 60 MG Q8H 04/29 1700 AC 05/01 IV 0834 Scopolamine HBr 1 PAT Q72 PRN 04/27 1545 TOP Assessment/Plan Hospice Assessment/Recommendations: 76-year-old female with history of uterine and colon cancer in the 1970s, now with liver metastases from primary site likely GI in origin with seizure activity probably due to brain metastases. Comfortable. Continue as needed morphine and ativan. Problem List: 1. Metastasis to liver with unknown primary site 2. Seizure 3. Hospice care
[2017-05-02 06:57] VITALS: BP 152/78
--- NOTE | 2017-05-02 11:54 | PN- Hospice ---
Subjective Subjective: Pt. sedated, appears comfortable. Nursing reports she was responsive earlier this am after am care. Able to answer that she was comfortable. She is also getting agitated with touching of IV or admission of medications through IV. No use of as needed medications today. Review of Systems Constitutional: Reports: see HPI. Objective Last 24 Hrs of Vital Signs/I&O Vital Signs Date Time Temp Pulse Resp B/P B/P Pulse O2 O2 Flow FiO2 Mean Ox Delivery Rate 05/02 0657 97.7 93 16 152/78 94 Intake & Output 05/02 1600 05/02 0800 05/02 0000 Intake Total 0 0 Output Total Balance 0 0 Intake, Oral 0 0 Physical Exam General Appearance: no apparent distress, sedated Head: atraumatic Ears, Nose, Throat: dry oral mucosa Respiratory: no respiratory distress, no congestion, RR-16 Cardiovascular: regular rate/rhythm Abdomen: soft, non-tender Extremities: right 1st digit mottled Other Physical Findings: nicholson with small amount yellow urine Current Medications: Current Medications Sig/Jose Start time Last Medication Dose Route Stop Time Status Admin Acetaminophen 650 MG Q4P PRN 04/27 1545 AC MN Bisacodyl 10 MG DAILY NEEDED PRN 04/27 1545 AC MN Clonidine 1 PAT Q168 04/27 1600 04/27 TOP 1911 Glycerin/Mineral Oil 1 AL Q8P PRN 04/27 1545 AC 04/27 TOP 191 Glycopyrrolate 400 MCG Q4P PRN 04/27 1545 AC IV Lorazepam 0.5 MG Q4P PRN 04/27 1545 AC 04/30 IV 1002 Morphine Sulfate 2 MG Q2P PRN 04/27 1545 AC 05/01 IV 1746 Phenobarbital 60 MG Q8H 04/29 1700 AC 05/02 IV 0955 Scopolamine HBr 1 PAT Q72 PRN 04/27 1545 TOP Assessment/Plan Hospice Assessment/Recommendations: 76-year-old female with history of uterine and colon cancer in the s, now with liver metastases from primary site likely GI in origin with seizure activity probably due to brain metastases. Comfortable, though IV bothering her. Will change oral meds. Ativan and morphine changed to subcutaneous and phenobarb changed to rectal. Problem List: 1. Metastasis to liver with unknown primary site 2. Seizure 3. Hospice care
[2017-05-03 06:35] VITALS: BP 160/76
--- NOTE | 2017-05-03 13:45 | PN- Hospice ---
Subjective Subjective: Appears comfortable, minimally responsive. Urine output very low. Received morphine x 1, no ativan. Nursing reports moaning with care. Review of Systems Constitutional: Reports: see HPI. Objective Last 24 Hrs of Vital Signs/I&O Vital Signs Date Time Temp Pulse Resp B/P B/P Pulse O2 O2 Flow FiO2 Mean Ox Delivery Rate 05/03 0635 98.4 90 16 160/76 94 Intake & Output 05/03 1600 05/03 0800 05/03 0000 Intake Total 0 Output Total 150 200 Balance -150 -200 Intake, IV 0 Intake, Oral 0 Number 0 Bowel Movements Output, Urine 150 200 Physical Exam General Appearance: sedated Head: temporal wasting Ears, Nose, Throat: oral mucosa dry Respiratory: no respiratory distress, no congestion Cardiovascular: regular rate/rhythm Extremities: mottling left great toe Neurologic/Psychiatric: minimally responsive Current Medications: Current Medications Sig/Jose Start time Last Medication Dose Route Stop Time Status Admin Acetaminophen 650 MG Q4P PRN 04/27 1545 AC WA Bisacodyl 10 MG DAILY NEEDED PRN 04/27 1545 AC WA Clonidine 1 PAT Q168 04/27 1600 AC 04/27 TOP 1911 Glycerin/Mineral Oil 1 AL Q8P PRN 04/27 1545 AC 04/27 TOP 191 Glycopyrrolate 400 MCG Q4P PRN 04/27 1545 AC IV Lorazepam 0.5 MG Q4P PRN 05/02 1400 AC SC Lorazepam 0.5 MG Q4P PRN 04/27 1545 DC 04/30 IV 1002 Morphine Sulfate 2 MG Q2P PRN 05/02 1400 AC 05/03 SC 0919 Morphine Sulfate 2 MG Q2P PRN 04/27 1545 DC 05/01 IV 1746 Phenobarbital 60 MG Q8H 05/02 1700 AC 05/03 [place] 0921 Phenobarbital 60 MG Q8H 04/29 1700 DC 05/02 IV 0955 Scopolamine HBr 1 PAT Q72 PRN 04/27 1545 TOP Assessment/Plan Hospice Assessment/Recommendations: 76-year-old female with history of uterine and colon cancer in the 1970s, now with liver metastases from primary site likely GI in origin with seizure activity probably due to brain metastases. Uncomfortable with care--will schedule morphine and ativan q12hr, with care, and continue as needed medication Problem List: 1. Metastasis to liver with unknown primary site 2. Hospice care 3. Seizure
[2017-05-04 06:20] VITALS: BP 144/70
--- NOTE | 2017-05-04 14:20 | Discharge Summary ---
Visit Information Visit Dates Admission Date: 04/27/17 Discharge Date: 05/04/17 Hospital Course Course Attending Physician: Josephine Allen MD Primary Care Physician: Charly Boston MD Hospital Course: 76-year-old female with history of uterine and colon cancer in the 1970's, now with liver metastases from primary site likely GI in origin with seizure activity probably due to brain metastases. She was started on phenobarb for seizure activity and morphine and ativan were used for pain/dyspnea and anxiety. Pt. was kept comfortable until she peacefully this morning. Allergies: Coded Allergies: Sulfa (Sulfonamide Antibiotics) (Severe, HIVES 12/27/15) Disposition Summary Disposition Principal Diagnosis: Metastatic liver carcinoma, primary site unknown Seizure disorder Additional Diagnosis: History of uterine cancer History of colon cancer Discharge Disposition: Discharge Instructions General Discharge Information Code Status: Hospice Patient's Diet: N/A Patient's Activity: N/A Follow-Up Instructions/Appts: N/A Copies To: Charly Boston MD
== END 2017-05-04 07:10 | disposition expired | DRG 436 ==
LOC: CRI 15:28 → 2NA 16:45
DX: C78.7 Secondary malignant neoplasm of liver and intrahepatic bile duct (principal); C79.31 Secondary malignant neoplasm of brain; R56.9 Unspecified convulsions; Z85.42 Personal history of malignant neoplasm of other parts of uterus; Z85.038 Personal history of other malignant neoplasm of large intestine; Z51.5 Encounter for palliative care; I25.10 Atherosclerotic heart disease of native coronary artery without angina pectoris; Z95.1 Presence of aortocoronary bypass graft; R62.7 Adult failure to thrive; I12.9 Hypertensive chronic kidney disease with stage 1 through stage 4 chronic kidney disease, or unspecified chronic kidney disease; N18.9 Chronic kidney disease, unspecified; I73.9 Peripheral vascular disease, unspecified; E78.5 Hyperlipidemia, unspecified; Z86.73 Personal history of transient ischemic attack (TIA), and cerebral infarction without residual deficits; M10.9 Gout, unspecified; E07.9 Disorder of thyroid, unspecified; M19.90 Unspecified osteoarthritis, unspecified site; Z85.828 Personal history of other malignant neoplasm of skin
CPT/HCPCS: 2NAP